=== PATIENT | female | born 1940 | race Caucasian/White ===

== ENCOUNTER 2016-09-11 16:00 | Inpatient (IN) | payer OTHER, MEDICARE ==
[~2016-09-11] VITALS: Ht 152.4 cm; Wt 59.0 kg
[~2016-09-11 16:00] MED LIST: ALBUTEROL2.5 MG/3 M INH/SOL; AMLODIPINE BESY10 M1 PO; ASPIRIN EC81 M1 PO; BENADRYL25 MG PO; CRESTOR20 M2 PO; FERROUS SULFAT325 M3 PO; LABETALOL HCL200 M1 PO; OMEPRAZOLE20 M2 PO; PERCOCET 5-3251 EACH PO; PROAIR HFA8.5 GM INH; SPIRIVA18 MCG INH; TYLENOL WITH C1 EACH PO; VITAMIN D31000 UNI1 PO; VITAMIN E100 UNI2 PO; XANAX0.5 M1 PO; ZYRTEC10 M3 PO
--- NOTE | 2016-09-11 16:13 | NUR ---
PT STATES SHE HAS HAD RECTAL BLEEDING SINCE YESTERDAY. PT HAS BEEN VOMITING AND HAD DIARRHEA SINCE YESTERDAY WITH BLOOD IN IT. PT STATES SHE HAS NEEDED BLOOD TRANSFUSIONS IN THE PAST FOR THIS VERY REASON.
--- NOTE | 2016-09-11 16:14 | NUR ---
PT DIAPHORETIC BROUGHT BACK TO ROOM 11 FROM TRIAGE
--- NOTE | 2016-09-11 16:18 | ED GI/GU/ABDOMINAL COMPLAINT ---
History of Present Illness General Chief Complaint: General Adult Stated Complaint: RECTAL BLEEDING SINCE YESTERDAY PER PT Source: patient, old records, friend Exam Limitations: clinical condition Vital Signs & Intake/Output Vital Signs & Intake/Output ED Intake and Output 09/22 0000 09/21 1200 Intake Total 320 Output Total 400 Balance -80 Intake, IV 200 Intake, Oral 120 Output, Urine 400 Allergies Coded Allergies: propoxyphene (UNKNOWN 09/29/15) Reconcile Medications Albuterol Sulfate (Proair Hfa) 8.5 GM HFA.AER.AD 2 PUF INH AD PRN RESPIRATORY (Reported) Albuterol Sulfate 2.5 MG/3 ML VIAL.NEB 1 Vial INH/QUINTON BID RESPIRATORY ( Reported) Alprazolam 0.5 MG TABLET 1 TAB PO TIDPRN PRN ANXIETY (Reported) Amlodipine Besylate 10 MG TABLET 1 TAB PO DAILY BP (Reported) Aspirin (Ecotrin*) 81 MG TABLET. 81 MG PO DAILY vascular / heart health start a baby aspirin daily, as per Benzonatate 100 MG CAPSULE 1 TAB PO TID COLD SYMPTOMS Ferrous Sulfate (Iron Supplement) 325 MG TABLET 1 TAB PO DAILY IRON DEF ANEMIA (Reported) Labetalol HCl 200 MG TABLET 1 TAB PO BID BP (Reported) Omeprazole 20 MG CAPSULE. 1 CAP PO DAILY PRN GERD (Reported) Prednisone 20 MG TABLET 2 TAB PO DAILY LUNG HEALTH Rosuvastatin Calcium (Crestor) 20 MG TABLET 1 TAB PO DAILY CHOLESTEROL ( Reported) Sertraline HCl 50 MG TABLET 1 TAB PO DAILY DEPRESSION Sodium Chloride (Deep Sea) 0.65 % SPRAY 2 SPRAY HARRY Q4P PRN CONGESTION Tiotropium [place] (Spiriva) 18 MCG CAP.W.DEV 1 CAP INH DAILY RESPIRATORY ( Reported) Tylenol With Codeine (Tylenol With Codeine #3 Tablet) 1 EACH TABLET 1-2 TAB PO Q4-6 PRN PRN PAIN take as directed. do not combine with tylenol. Triage Note: PT STATES SHE HAS HAD RECTAL BLEEDING SINCE YESTERDAY. PT HAS BEEN VOMITING AND HAD DIARRHEA SINCE YESTERDAY WITH BLOOD IN IT. PT STATES SHE HAS NEEDED BLOOD TRANSFUSIONS IN THE PAST FOR THIS VERY REASON. Triage Nurses Notes Reviewed? yes ? N Is pt currently ? No Onset: Abrupt Duration: day(s): (2) Timing: multiple episodes today Quality/Severity: severe Activities at Onset: none Prior Abdominal Problems: none No Modifying Factors: none Associated Symptoms: nausea/vomiting, rectal bleeding HPI: 76 year old female presents from home with moderate to severe distress. Reports bleeding in stool over last 2 days with blood mixed in with stool as well as with venessa blood clots. Also reports abdominal pain an dbloating. No fevers. Positive nausea and vomiting. Has not been able to tolerate PO. Friend states she got really bad today and brought her to the hospital. Patient is hypotensive, tachycardic, diaphoretic with clammy and mottled extremities. Past History Travel History Traveled to [place] past 21 day No Medical History Any Pertinent Medical History? see below for history Neurological: TIA EENT: NONE Cardiovascular: aortic aneurysm, CAD, hypertension, myocardial infarction, PVD Respiratory: bronchitis, COPD Gastrointestinal: GERD Hepatic: NONE Renal: NONE Musculoskeletal: NONE Psychiatric: NONE Endocrine: NONE Blood Disorders: NONE Cancer(s): NONE ATTEND[employer] S[employer] STORE/Reproductive: NONE History of MRSA: No History of VRE: No History of CDIFF: No Pneumonia Vaccine: 01/26/10 Surgical History Surgical History: Psychosocial History Who do you live with Spouse Services at Home Nursing What is your primary language French Tobacco Use: Current Daily Use Daily Tobacco Use Amount/Type: => 5 Cigarettes daily ETOH Use: denies use Illicit Drug Use: denies illicit drug use Family History Family History, If Any: MOTHER FH: CAD (coronary artery disease) Hx Contributory? No Review of Systems Review of Systems Constitutional: Denies: chills, fever. EENTM: Reports: no symptoms. Respiratory: Reports: no symptoms. Cardiovascular: Reports: no symptoms. GI: Reports: abdominal pain, bloating, constipation. Genitourinary: Reports: no symptoms. Musculoskeletal: Reports: no symptoms. Skin: Reports: no symptoms. Neurological/Psychological: Reports: anxiety. Hematologic/Endocrine: Denies: bleeding, polyuria, polydipsia. Immunologic/Allergic: Denies: splenectomy. All Other Systems: Reviewed and Negative Physical Exam Physical Exam General Appearance: alert, awake, anxious, severe distress Head: atraumatic Eyes: Bilateral: PERRL. Ears, Nose, Throat, Mouth: DRY MUCUS MEMBRANES Neck: normal inspection, supple, full range of motion Respiratory: normal breath sounds, chest non-tender, no respiratory distress Cardiovascular: tachycardia Peripheral Pulses: 1+ radial (R), 1+ radial (L) Gastrointestinal: soft, distention, tenderness (LUQ) Rectal: BROWN, GUIAC POSITIVE Back: normal inspection, normal range of motion Extremities: normal range of motion Neurologic/Psych: no motor/sensory deficits, awake, alert, oriented x 3 Skin: diaphoresis, pallor Core Measures ACS in differential dx? No Severe Sepsis Present: No Septic Shock Present: No Progress Differential Diagnosis: AAA, GI BLEED, AORTIC DISSECTION, A-E FISTULA, SBO, PERFORATION Plan of Care: Orders Procedure Date/time Status NGT 09/11 192 Active LACTIC ACID 09/11 192 Active BLOOD CULTURE 09/11 1746 Active Add-on Test (ER Only) 09/11 162 Active ARTERIAL BLOOD GAS (GEN) 09/11 162 Complete Gaitan, Insertion/Removal/Asses 09/11 162 Active CULTURE,URINE 09/11 162 Active LEUKOCYTE POOR (PACKED CELLS) 09/11 1625 Active EKG 09/11 162 Active Telemetry/Research And Development Chemist 09/11 1619 Active TROPONIN LEVEL 09/11 1619 Complete PARTIAL THROMBOPLASTIN TIME 09/11 1619 Complete PROTHROMBIN TIME 09/11 1619 Complete PHOSPHORUS 09/11 1619 Complete MAGNESIUM 09/11 1619 Complete LIPASE 09/11 1619 Complete LACTIC ACID 09/11 161 Complete COMPREHENSIVE METABOLIC PANEL 09/11 1619 Complete CREATINE PHOSPHOKINASE 09/11 1619 Complete CBC WITHOUT DIFFERENTIAL 09/11 1619 Complete TYPE & SCREEN (NOT X-MATCH) 09/11 161 Active Current Medications Sig/Ebenezer Start time Last Medication Dose Stop Time Status Admin Sodium Chloride 1,000 ML BOLUS ONE 09/11 1944 UNVr 09/11 (Normal Saline 0.9%) 09/11 Pantoprazole Sodium 40 MG Q5H 09/11 1729 UNVr 09/11 (Protonix) 1756 Sodium Chloride 100 ML (Normal Saline 0.9%) Laboratory Tests 09/11/16 192: Lactic Acid Pending 09/11/16 1635: Anion Gap 21 H, Estimated GFR 26 L, BUN/Creatinine Ratio 20.0, Glucose 182 H, Lactic Acid 4.5 H, Calcium 9.5, Phosphorus 7.0 H, Magnesium 2.2, Total Bilirubin 0.5, AST 31, ALT 26, Alkaline Phosphatase 67, Creatine Kinase 189 H, Troponin I 0.02, Total Protein 7.4, Albumin 4.4, Globulin 3.0, Albumin/Globulin Ratio 1.5, Lipase < 10 L, PT 13.8 H, INR 1.32 H, APTT 36, CBC w Diff MAN DIFF ORDERED, RBC 5.05, MCV 87.8, MCH 28.7, RDW 15.4 H, MPV 9.2, Gran % 82.7 H, Lymphocytes % 5.3 L, Monocytes % 11.8 H, Eosinophils % 0.1, Basophils % 0.1, Absolute Granulocytes 14.5 H, Segmented Neutrophils 52, Band Neutrophils 30 H, Absolute Lymphocytes 0.9 L, Lymphocytes 5 L, Monocytes 7, Absolute Monocytes 2.1 H, Absolute Eosinophils 0, Absolute Basophils 0, Metamyelocytes 6 H, Platelet Estimate ADEQUATE, Normocytic RBCs VERIFIED, Normochromic RBCs VERIFIED , PUBS MCHC 32.7 L 09/11/16 1623: Lactic Acid Cancelled Microbiology 09/11 1850 BLOOD: Blood Culture - RECD 09/11 1840 BLOOD: Blood Culture - RECD 09/11 1700 URINE ROUT: Urine Culture - RECD SBO ON CT SCAN. NGT ORDERED. 7:40 PM D/W DR TRAN. SURGICAL PA PAGED. D/W JENI. WILL EVALUTE IN ED. (LAURA ANDERSON,DEISY) Diagnostic Imaging: Viewed by Me: CT Scan. Discussed w/RAD: CT Scan. Radiology Impression: PATIENT: YONY SHETTY PRESENT AGE: 76 PATIENT ACCOUNT NO: [id number] : 41 LOCATION: [facility] ORDERING PHYSICIAN: DEISY SANCHEZ MD SERVICE DATE: 09/11/16 EXAM TYPE: CAT - CT ABD & PELVIS ANGIOGRAM Addendum: The IV injection for the study was 95 mL of Optiray 350. Addendum Signed by: JUNIOR CALIX MD 09/11/161916 EXAMINATION: CT ANGIOGRAM ABDOMEN AND PELVIS CLINICAL INFORMATION: 76-year-old female patient with history of infrarenal aortobiiliac stent graft. COMPARISON: CTA runoff exam on 12/07/2015. TECHNIQUE: A series of noncontrast enhanced axial scans were obtained followed by additional targeted axial scans for timing purposes. Multiple axial images were obtained through the abdomen and pelvis following the administration of 100 mL of Optiray 320 intravenous contrast. Images were reviewed on a dedicated 3-D workstation. DLP: 916 mGy-cm FINDINGS: Split Leather Department Supervisor view demonstrates high grade small bowel obstruction. VASCULAR: ABDOMINAL AORTA: The abdominal aorta is somewhat ectatic and contains calcified plaques in its supra renal portion. An aortobiiliac stent graft is in place. There is no sign of endoleak. The original stented distal abdominal aortic aneurysm measures 3.3 cm. Formally 5 cm. There is no evidence of aortoenteric fistula formation. MESENTERIC VESSELS: Again, calcified and noncalcified atherosclerotic disease is noted at the origin of the celiac axis with severe stenosis. The artery remains patent. Calcified atherosclerotic plaque at the origin of the SMA with moderate to severe narrowing. The artery maintains patency. 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 RENAL ARTERIES: Atherosclerotic disease involves both renal artery origins with calcified plaques worse on the left than right. Both arteries are patent. Perfusion of the kidneys is normal. ILIAC ARTERIES: Well patent. NONVASCULAR: Lung bases: The pericardial effusion is no smaller. Liver, gallbladder, and biliary tree: The multiple scattered arterially enhancing lesions throughout the liver parenchyma are not as well demonstrated due to the timing of the bolus. The largest in Couinaud segment 6/7 is 1.6 cm. The bile ducts and gallbladder are normal. Pancreas: Atrophic. Spleen: Unremarkable. Adrenal glands: Evidence of lesion in the right adrenal gland measures 1.7 cm in greatest diameter. Formally 1.7 cm. Kidneys, ureters, and bladder: The cortical nephrogram is symmetric in both kidneys. There is no stone formation or hydronephrosis. No significant mass lesion is detected. GI tract: The stomach is grossly dilated with fluid and fluid refluxes into the distal dilated esophagus. The duodenum is abnormally dilated and fluid-filled with some luminal compromise as it crosses the stent portion of the abdominal aorta. However, the proximal jejunum is abnormally dilated and fluid-filled with signs of "fecalization" of intraluminal contents representing stasis. The point of transition is about the level of the umbilicus. The ileum is normal in caliber. The colon is decompressed. The diverticulum arising from the rectosigmoid colon measures 2.9 cm in diameter contains air and debris Abdominal wall: Normal. Lymph nodes: Unremarkable. Pelvic viscera: Normal postmenopausal uterus. Small cyst in the right ovary. Osseous structures: Large Schmorl's node involving superior endplate of T11. IMPRESSION: 1. The [place] abdominal aortic aneurysm is smaller. 2. Aortobiiliac stent normal. No endoleak. No aorto enteric fistula. 3. Atherosclerosis of the mesenteric vessels and renal arteries. 4. Small bowel obstruction mid abdomen as described. 5. Right adrenal nodule. DICTATED BY: JUNIOR CALIX MD DATE/TIME DICTATED:09/11/161835 BRIDGE/STRUCTURE INSPECTION TEAM LEADER: DEBBIE DATE/TIME TRANSCRIBED:09/11/161835 CONFIDENTIAL, DO NOT COPY WITHOUT APPROPRIATE AUTHORIZATION. <Electronically signed in Other Vendor System> SIGNED BY: JUNIOR CALIX MD 09/11/161917 Initial ED EKG: AFIB, PVC Departure Departure Time of Disposition: 2038 Disposition: STILL A PATIENT Condition: Stable Clinical Impression Primary Impression: SBO (small bowel obstruction) Secondary Impressions: DANIEL (acute kidney injury), GI (gastrointestinal bleed), Lactic acidosis Referrals: ANAHI FELDMAN MD (PCP/Family) Departure Forms: Customer Survey General Discharge Information Prescriptions: Current Visit Scripts Benzonatate 1 TAB PO TID #30 TAB Sodium Chloride (Deep Sea) 2 SPRAY HARRY Q4P PRN CONGESTION #30 SPRAY Sertraline HCl 1 TAB PO DAILY #30 TAB Prednisone 2 TAB PO DAILY #30 TAB Admission Note Spoke With: CHELSEA ANDERSON,MAKAYLA Patel Documentation of Exam: Documentation of any treatments & extenuating circumstances including Concerns Regarding Discharge (functional status, medication knowledge or non-compliance, living conditions, etc.) that warrant an admission rather than observation: [ICU MONITOR, NGT, NPO, IV FLUID RESUSSCITATION, MONITOR I/O, POSSIBLE OPERATIVE MANAGEMENT, CRITICAL CARE CONSULT, MONITOR H/H] Critical Care Note Critical Care Note Critical Care Time: 75-104 min
--- NOTE | 2016-09-11 17:03 | NUR ---
URINE TRIO SENT BY THIS [facility], CLEAN CATCH DRAWN FROM [place].
[2016-09-11 17:06] LABS: ABSOLUTE BASOPHIL COUNT 0 /CUMM (0.0-0.2); ABSOLUTE EOSINOPHIL COUNT 0 /CUMM (0.0-0.7); ABSOLUTE GRANULOCYTE CT 14.5 /CUMM (1.4-6.5); ABSOLUTE LYMPH COUNT 0.9 /CUMM (1.2-3.4); ABSOLUTE MONOCYTE COUNT 2.1 /CUMM (0.10-0.60); BASOPHIL % 0.1 % (0.0-2.0); EOSINOPHIL % 0.1 % (0-5); GRANULOCYTE % 82.7 % (42.2-75.2); HEMATOCRIT 44.3 % (37-47); MEAN CORPUSCULAR HGB 28.7 PG (27.0-31.0); MEAN CORPUSCULAR HGB CONC 32.7 G/DL (33.0-37.0); MEAN CORPUSCULAR VOLUME 87.8 FL (81.0-99.0); MEAN PLATELET VOLUME 9.2 FL (7.4-10.4); PLATELET COUNT 237 /CUMM (130-400); RBC DISTRIBUTION WIDTH 15.4 % (11.5-14.5); RED BLOOD CELL CT 5.05 /CUMM (4.20-5.40); WHITE BLOOD CELL COUNT 17.5 /CUMM (4.8-10.8)
[2016-09-11 17:10] LABS: PT 13.8 SEC (9.4-12.5); PTT 36 SEC (25-37)
[2016-09-11] MEDS ORDERED: ALPRAZOLAM0.5 M4 PO (17:23)
--- NOTE | 2016-09-11 17:30 | NUR ---
PT REPORTS HAVING ABD PAIN AND DARK EMESIS. ALSO REPORTS HAVING BLOOD IN STOOL. PT WAS DIAPHORETIC AND PALE UPON ROOM PLACEMENT, ALERT AND ORIENTED.
--- NOTE | 2016-09-11 17:32 | RADIOLOGY REPORT ---
EXAMINATION: XR PORTABLE CHEST CLINICAL INFORMATION: GI bleed. Hypertensive. COMPARISON: Chest x-ray 10/09/2015 TECHNIQUE: Portable frontal view of the chest was obtained. FINDINGS: Enlarged cardiac silhouette. Lung volumes at the lower limits of normal. Linear densities adjacent to the right heart border and right lung base are most suggestive of subsegmental atelectasis. No definitive focal consolidation. No gross pleural effusion. IMPRESSION: Cardiomegaly without gross focal consolidation of the lungs.
--- NOTE | 2016-09-11 17:40 | NUR ---
CRITICAL TEST RESULTS [id number] YONY SHETTY 76 F TESTS AND RESULTS: LACTIC ACID 4.5 Results received and read back by: CORNEL LO Results received date and time: 09/11/16 1740 The following provider was notified of the results, and read the results back: DR SANCHEZ Notified date and time: 09/11/16 at 1740
--- NOTE | 2016-09-11 19:11 | Cons- Gastroenterology ---
General Information and HPI Consulting Request Date of Consult: 09/11/16 Requested By: CHELSEA ANDERSON, MAKAYLA Patel Reason for Consult: I was called by Dr. Villa of the [facility] at 5:05 p.m. (prior to labs & imaging studies coming back), to assess hypotension, rectal bleeding, nausea, vomiting & diarrhea, in a patient subsequently found to have SBO, being admitted to Dr. Reed's surgical service. Extensive records reviewed. (The patient was seen in the [facility], room #11; ICU hold- awaiting bed). 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 (repeatedly refusing PillCam), history of PUD, history of Fe deficiency anemia, multiple transfusions, HTN, HLD, COPD (55 pk yr cigarette smoker), remote EtOH abuse (stopped 1981), anxiety, ASHD, PVD, post 09/22/02: right CEA, 10/02/15: *endovascular AAA repair, history of TIA without residual defect ( right handed), x 2, DJD with chronic back pain & chronic headaches, on outpatient ASA 81 mg daily & Omeprazole 20 mg daily, without NSAIDs, who presented to the [facility] 09/11/16 at 4 p.m., initially complaining of 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 Initial BP 70/40, P 100, R 20, T 99, O2 sat 2l 98%. The patient is a poor historian, but later stated that she had intermittent diffuse abdominal pain for the past 1-2 weeks, independent of po intake, with some increased abdominal distention. She also had a few days of nausea and vomiting, contents varying from greenish bile to dark liquid, to partially digested food. There was no overt hematemesis. There was also some mild diarrhea, which seemed to have mostly subsided. She denied any recent antibiotics, raw food inggestion, point source, or recent travel. She noted decreased po intake for the past few days, as it was difficult to keep food down. Her BP normalized after an IV NS fluid bolus x 2L in the ER. Although the patient was afebrile in the ER, she had subjective fever and chills at home, although she did not check her temperature prior to arrival. She denied any symptoms of UTI or URI. Her appetite was mildly decreased. There was no definite weight loss. There was no definite early satiety. The patient claimed she had a solid bowel movement earlier today. There was no change in stool caliber, constipation, or tenesmus. There was no abdominal trauma. The patient was taking iron once a day. She denied any GERD (on PPI), odynophagia, or dysphagia. She denied any chest pain or increase of her mild baseline SOB, due to COPD. *Digital rectal exam in the ER by Dr. Villa showed empty vault with flecks of BRB. The patient has had an extensive previous GI workup by myself, but again, has * repeatedly refused outpatient PillCam. 02/16/03: H. pylori Ab- negative. : EGD/colonoscopy to TI (done for OB positive stool, microcytic anemia on Plavix then)-HP-negative gastritis, normal duodenal folds; left diverticulosis coli, hypertrophied anal papillae, with normal colonic mucosa to the TI. : normal Hgb electrophoresis (no beta thalassemia). 10/26/07: normal IgA 129. 10/27/07: elevated haptoglobin 282 (going against hemolysis), tTG Ab (IgA/IgG)- negative, normal fasting serum carotene 78. 10/27/07: EGD/colonoscopy to cecum- mild GERD without Diaz's esophagitis, small hiatal hernia, Z line at 38 cm, no Luis erosions, no varices. Prepyloric erosion with benign inflammation, H. pylori negative. Scarred yet patent pylorus, without any active peptic ulcer disease or gastric outlet obstruction. Duodenal biopsies- normal villi. Left- sided diverticulosis coli with normal colonic mucosa to the cecum. 03/16/09: EGD to the proximal jejunum with the pediatric colonoscope to 120 cm from above (done for recurrent Fe deficiency anemia & melena, on Pletal then)- pre-vocal cord leukoplakia, near the arytenoids (unsure if patient was compliant with suggested ENT follow-up), normal esophageal mucosa with Z line at 35 cm, biopsies- squamous mucosa with moderate GERD, without EOE or Diaz's esophagus. Small hiatal hernia, without any Luis erosions or varices. Diffuse gastritis, with biopsies- mild chronic gastritis, H. pylori negative. 7 mm x 5 mm prepyloric antral gastric ulcer, symmetrical, with radiating folds. No clot or visible vessel. No therapeutics. Direct biopsies deferred, as it was organizing. Patent pylorus, without gastric outlet obstruction. Nonbleeding gastric antral AVM, left intact without therapeutics. Scattered nonbleeding duodenal and jejunal AVMs, left intact without therapeutics. Normal caliber SB folds. The patient was last seen in covering GI consultation by Dr. Pinto on 05/25/10, for recurrent symptomatic anemia. 05/25/10: Push enteroscopy to jejunum with the pediatric colonoscope from above- 1 bleeding AVM at the lesser curvature of the stomach, BiCAP cautery, with cessation of bleed. 10 non- bleeding AVMs from the second portion of the duodenum to the distal jejunum, BiCAP cautery. *The patient again refused an outpatient PillCam. She has not been seen for GI since. She had since had the 10/02/15: endovascular repair of AAA, followed by readmission 10/09/15 - 10/12/15 for mechanical fall & confusion , followed by STR. The patient initially was reported to be pale and diaphoretic. The patient was subsequently found to have a stable HCT (although possibly hemoconcentrated), with leukocytosis, elevated lactate, & DANIEL. She was empirically put on a Protonix drip by the ER, plus Zofran, & was empirically given IV Ceftriaxone & Flagyl, to cover possible sepsis. *Admission CT was subsequently found to have SBO. *NT was placed in the ER, rapidly draining 1.6L of off-white liquid (no gross bile or blood seen from above). 09/11/16: BC x 2- pending 09/11/16: UC- pending 09/11/16: 4:35 p.m.- Admission labs- WBC 17.5 (52S/30B/5L/7M/6Meta), H/H 14.5/ 44.3, MCV 87.8, RDW 15.4, PLT 237, PT 13.8, INR 1.32, PTT 36, glucose 182, BUN/ Cr 38/1.9, GFR 26, Na 142, K 4.6, HCO3 19, AG 21, lactate 4.5, lipase < 10, Mg 2.2, Ca2+ 9.5, PO4 7.0, albumin 4.4, globulin 3.0, TBil 0.5, alk phos 67, AST 31 , ALT 26, CK 189, troponin 0.02 09/11/16: 7:22 p.m.- normal lactate 2.0 09/11/16: EKG- NSR @ 96, normal axis, 1st degree AVB ([place] .208), PRWP, flat T in L, without acute ischemic change. 09/11/16: XR PORTABLE CHEST- Cardiomegaly without gross focal consolidation of the lungs. 09/11/16: CT ABD & PELVIS ANGIOGRAM- 1. The [place] abdominal aortic aneurysm is smaller (3.3 cm, formally 5 cm preop) . 2. Aortobiiliac stent normal. No endoleak. No aorto enteric fistula. 3. 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 4. *Small bowel obstruction mid-abdomen as described, with grossly distended stomach, duodenum, & proximal jejunum (fecalization of intraluminal contents), with transition point near the umbilicus. Normal caliber ileum, with decompressed colon. 5. Diverticulosis coli. 6. Right adrenal nodule. Allergies/Medications Allergies: Coded Allergies: propoxyphene (UNKNOWN 09/29/15) Home Med List: Albuterol Sulfate (Proair Hfa) 8.5 GM HFA.AER.AD 2 PUF INH AD PRN RESPIRATORY (Reported) Albuterol Sulfate 2.5 MG/3 ML VIAL.NEB 1 Vial INH/QUINTON BID RESPIRATORY ( Reported) Alprazolam 0.5 MG TABLET ANXIETY (Reported) Amlodipine Besylate 10 MG TABLET 1 TAB PO DAILY BP (Reported) Aspirin (Ecotrin*) 81 MG TABLET. 81 MG PO DAILY vascular / heart health start a baby aspirin daily, as per Ferrous Sulfate (Iron Supplement) 325 MG TABLET 1 TAB PO DAILY IRON DEF ANEMIA (Reported) Labetalol HCl 200 MG TABLET 1 TAB PO BID BP (Reported) Omeprazole 20 MG CAPSULE. 1 CAP PO DAILY PRN GERD (Reported) Rosuvastatin Calcium (Crestor) 20 MG TABLET 1 TAB PO DAILY CHOLESTEROL ( Reported) Tiotropium [place] (Spiriva) 18 MCG CAP.W.DEV 1 CAP INH DAILY RESPIRATORY ( Reported) Tylenol With Codeine (Tylenol With Codeine #3 Tablet) 1 EACH TABLET 1-2 TAB PO Q4-6 PRN PRN PAIN take as directed. do not combine with tylenol. Current Medications: Current Medications Sig/Ebenezer Start time Last Medication Dose Route Stop Time Status Admin Ceftriaxone Sodium 0 .STK-MED ONE 09/11 1803 DC .ROUTE Ceftriaxone Sodium 1,000 MG ONCE ONE 09/11 1800 DC 09/11 IV 09/11 1801 1856 Metronidazole 500 MG ONCE ONE 09/11 1815 DC 09/11 N/A 1 UNIT IV 09/11 1914 1945 Ondansetron HCl 0 .STK-MED ONE 09/11 1639 DC .ROUTE Ondansetron HCl 4 MG ONCE ONE 09/11 1630 DC 09/11 IV 09/11 1631 1630 Pantoprazole Sodium 0 .STK-MED ONE 09/11 1750 DC IV Pantoprazole Sodium 40 MG Q5H 09/11 1730 DC 09/11 Sodium Chloride 100 ML IV 1756 Pantoprazole Sodium 0 .STK-MED ONE 09/11 1639 DC IV Pantoprazole Sodium 40 MG ONCE ONE 09/11 1630 DC 09/11 IV 09/11 1631 1630 Pantoprazole Sodium 0 .STK-MED ONE 09/11 1627 DC IV Sodium Chloride 1,000 ML BOLUS ONE 09/11 1945 DC 09/11 IV 09/11 2044 1947 Sodium Chloride 1,000 ML BOLUS ONE 09/11 1630 DC 09/11 IV 09/11 1729 1630 Sodium Chloride 1,000 ML BOLUS ONE 09/11 1630 DC 09/11 IV 09/11 1729 1630 Past History Travel History Traveled to [place] past 21 day No Medical History Blood Transfusion Hx: Yes Neurological: TIA EENT: NONE Cardiovascular: aortic aneurysm (10/02/15: endovascular repair), CAD, hypertension, hyperlipidemia, myocardial infarction, PVD (09/22/02: R CEA) Respiratory: bronchitis, COPD (55 pk yr smoker) Gastrointestinal: NONE (asx on PPI), GERD, peptic ulcer disease, diverticulosis coli, gastric & SB AVMs Hepatic: NONE Renal: NONE Musculoskeletal: degen joint disease, falls Psychiatric: anxiety Endocrine: vitamin D deficiency Blood Disorders: NONE (Fe def), anemia Cancer(s): NONE CHIROPRACTIC NEUROLOGIST/Reproductive: NONE Surgical History Surgical History: X 2, 09/22/02: R CEA 10/02/15: Endovascular repair of AAA Family History Relations & Conditions If Any: MOTHER, , Age 51; Cause: ASHD (arteriosclerotic heart disease). FH: CAD (coronary artery disease) FATHER, , Age 65; Cause: Arteriosclerotic heart disease (ASHD). Psychosocial History Where Do You Live? Home Who Do You Live With? self Services at Home: Nursing Primary Language: Jordanian Smoking Status: Current Everyday Smoker (55 pk yr cigarettes) ETOH Use: denies use (ex-EtOH abuse, D/C 1981) Illicit Drug Use: marijuana Living Will? no Power of Senior Physical Therapist/HCP? no Other Social History: 02/12/12. Lives alone. 55 pk yr cigarette smoker, currently < 1 ppd. Ex- EtOH abuse, stopped [address], except occasional marijuana. Retired from [employer]. The patient is 1 of 10 kids. (5 sisters & 2 bros- , from a variety of issues, including ASHD, MVA, construction accident, alcoholic cirrhosis). 2 sisters- [employer]. The patient had 2 children. 1 daughter- 40 , from alcoholic cirrhosis and possible hepatoma. 1 son in [place]- 49, alive, post EtOH abuse, Hep C. Functional Ability ADLs Independent: dressing, eating, toileting, bathing. Ambulation: independent IADLs Independent: shopping, housework, finances, food prep, telephone, medication admin. Needs Assist: transportation. 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 Review of Systems Constitutional: Reports: chills, fever, malaise. Denies: diaphoresis, weakness, unexplained weight loss. EENTM: Denies: blurred vision, double vision, visual changes, eye pain, eye drainage, eye tearing, icterus, ear discharge, ear pain, ear redness, hearing changes, nasal congestion, epistaxis, nasal pain, throat pain, throat swelling, mouth pain, tooth pain. Cardiovascular: Denies: chest pain, edema, orthopena, palpitations, peripheral edema, syncope. Respiratory: Reports: short of breath (mild SOB (COPD)). Denies: cough, hemoptysis, orthopnea, sputum production, stridor, wheezing. GI: Reports: abdominal pain, diarrhea, distention, nausea, bloody stool, vomiting. Denies: bloating, constipation, bowel incontinence, melena, changes in stool, steatorrhea. Genitourinary: Denies: discharge, dysuria, frequency, hematuria, hesitation, nocturia, pain, urgency. Musculoskeletal: Reports: back pain (chronic), joint pain (DJD). Denies: gout, joint swelling, muscle pain, muscle stiffness, neck pain. Skin: Denies: cysts, change in skin color, change in hair/nails, dryness, erythema, jaundice, lesions, lymphangitis, lumps, moles, rash. Neurological/Psychological: Reports: anxiety, emotional problems, headache (chronic). Denies: ataxia, cognitive dysfunction, confusion, depressed, dementia, numbness, paresthesia, pre-existing deficit, petit mal seizures, tingling, tremors, tonic-clonic seizures, unable to move lower ext, unable to move upper ext, weakness. Hematologic/Endocrine: Denies: bruising, bleeding, polyuria, polydipsia. Immunologic/Allergic: Denies: splenectomy, HIV/AIDS, lymphadenopathy. All Other Systems: Reviewed and Negative Exam & Diagnostic Data Vital Signs and I&O Vital Signs Date Time Temp Pulse Resp B/P B/P Pulse O2 O2 Flow FiO2 Mean Ox Delivery Rate 09/11 2049 98.9 86 20 122/58 96 Nasal 2.0L Cannula 09/11 1928 84 18 119/65 98 Nasal 2.0L Cannula 09/11 1855 87 20 134/67 98 Nasal 2.0L Cannula 09/11 1730 88 20 127/62 98 Nasal 2.0L Cannula 09/11 1704 98 Nasal 2.0L Cannula 09/11 170 99.0 95 20 130/63 98 Nasal 2.0L Cannula 09/11 1613 100 20 70/40 97 Room Air Physical Exam: Well-developed, well-nourished female, in mild distress. + NGT. Sclera anicteric. Conjunctiva pink. Oropharynx clear. Poor dentition. False uppers. No oral thrush. No aphthous ulcers. There is no adenopathy, thyromegaly, or JVD. No peripheral stigmata of inflammatory bowel disease or chronic liver disease on exam. No spiders on the anterior chest wall. No CVA tenderness. Breast & pelvic exams: API. Lungs: clear to A&P, without wheezing, rales, or rhonchi. Slightly prolonged expiratory phase. Heart exam: regular rate rhythm, S1 S2, I/ systolic murmur. Abdominal exam: hypoactive bowel sounds, moderately distended tympanitic belly, diffusely tender, more so in epigastrum & LUQ region, without guarding or rebound. No mass. No organomegaly. No definite fluid shift. No pulsatile mass. No epigastric bruit. Digital rectal exam: done in ER 09/11/[address] Villa- empty vault, with contents showing small amount oF BRB. No melena. Extremities: without C, C, or E. No palpable cords. No palmar erythema. No Dupuytren's contractures. Distal pulses 2+ bilaterally. DTRs 2+ bilaterally. Alert and oriented x 3. Right handed. CN II-XII intact. Motor 5/5 B/L. No tremor. No asterixis. A detailed exam for peripheral neuropathy was deferred. Results Pertinent Lab Results: Laboratory Tests 09/11 09/11 09/11 1922 1635 1623 Chemistry Sodium (137 - 145 mmol/L) 142 Potassium (3.5 - 5.1 mmol/L) 4.6 Chloride (98 - 107 mmol/L) 102 Carbon Dioxide (22 - 30 mmol/L) 19 L Anion Gap (5 - 16) 21 H BUN (7 - 17 mg/dL) 38 H Creatinine (0.5 - 1.0 mg/dL) 1.9 H Estimated GFR (>60 ml/min) 26 L BUN/Creatinine Ratio (7 - 25 %) 20.0 Glucose (65 - 99 mg/dL) 182 H Lactic Acid (0.7 - 2.1 mmol/L) 2.0 4.5 H Cancelled Calcium (8.4 - 10.2 mg/dL) 9.5 Phosphorus (2.5 - 4.5 mg/dL) 7.0 H Magnesium (1.6 - 2.3 mg/dL) 2.2 Total Bilirubin (0.2 - 1.3 mg/dL) 0.5 AST (14 - 36 U/L) 31 ALT (9 - 52 U/L) 26 Alkaline Phosphatase (<127 U/L) 67 Creatine Kinase (30 - 135 U/L) 189 H Troponin I (< 0.11 ng/ml) 0.02 Total Protein (6.3 - 8.2 g/dL) 7.4 Albumin (3.5 - 5.0 g/dL) 4.4 Globulin (1.9 - 4.2 gm/dL) 3.0 Albumin/Globulin Ratio (1.1 - 2.2 %) 1.5 Lipase (23 - 300 U/L) < 10 L Coagulation PT (9.4 - 12.5 SEC) 13.8 H INR (0.90 - 1.19) 1.32 H APTT (25 - 37 SEC) 36 Hematology CBC w Diff MAN DIFF ORDERED WBC (4.8 - 10.8 /CUMM) 17.5 H RBC (4.20 - 5.40 /CUMM) 5.05 Hgb (12.0 - 16.0 G/DL) 14.5 Hct (37 - 47 %) 44.3 MCV (81.0 - 99.0 FL) 87.8 MCH (27.0 - 31.0 PG) 28.7 RDW (11.5 - 14.5 %) 15.4 H Plt Count (130 - 400 /CUMM) 237 MPV (7.4 - 10.4 FL) 9.2 Gran % (42.2 - 75.2 %) 82.7 H Lymphocytes % (20.5 - 51.1 %) 5.3 L Monocytes % (1.7 - 9.3 %) 11.8 H Eosinophils % (0 - 5 %) 0.1 Basophils % (0.0 - 2.0 %) 0.1 Absolute Granulocytes (1.4 - 6.5 /CUMM) 14.5 H Segmented Neutrophils (42.2 - 75.2 %) 52 Band Neutrophils (0.0 - 5.0 %) 30 H Absolute Lymphocytes (1.2 - 3.4 /CUMM) 0.9 L Lymphocytes (20.5 - 51.1 %) 5 L Monocytes (1.7 - 9.3 %) 7 Absolute Monocytes (0.10 - 0.60 /CUMM) 2.1 H Absolute Eosinophils (0.0 - 0.7 /CUMM) 0 Absolute Basophils (0.0 - 0.2 /CUMM) 0 Metamyelocytes (0.0 - 1.0 %) 6 H Platelet Estimate (ADEQUATE) ADEQUATE Normocytic RBCs VERIFIED Normochromic RBCs VERIFIED PUBS MCHC (33.0 - 37.0 G/DL) 32.7 L Imaging/Other Studies: 09/11/16: EKG- NSR @ 96, normal axis, 1st degree AVB ([place] .208), PRWP, flat T in L, without acute ischemic change. 09/11/16: XR PORTABLE CHEST- Cardiomegaly without gross focal consolidation of the lungs. 09/11/16: CT ABD & PELVIS ANGIOGRAM- 1. The [place] abdominal aortic aneurysm is smaller (3.3 cm, formally 5 cm preop) . 2. Aortobiiliac stent normal. No endoleak. No aorto enteric fistula. 3. 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 4. *Small bowel obstruction mid-abdomen as described, with grossly distended stomach, duodenum, & proximal jejunum (fecalization of intraluminal contents), with transition point near the umbilicus. Normal caliber ileum, with decompressed colon. 5. Diverticulosis coli. 6. Right adrenal nodule. 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 (repeatedly refusing PillCam), history of PUD, history of Fe deficiency anemia, multiple transfusions, HTN, HLD, COPD (55 pk yr cigarette smoker), remote EtOH abuse (stopped 1981), anxiety, ASHD, PVD, post 09/22/02: right CEA, 10/02/15: *endovascular AAA repair, history of TIA without residual defect ( right handed), x 2, DJD with chronic back pain & chronic headaches, on outpatient ASA 81 mg daily & Omeprazole 20 mg daily, without NSAIDs, who presented to the [place] [facility] 09/11/16 at 4 p.m., initially complaining of 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 Initial BP 70/40, P 100, R 20, T 99, O2 sat 2l 98%. The patient is a poor historian, but later stated that she had intermittent diffuse abdominal pain for the past 1-2 weeks, independent of po intake, with some increased abdominal distention. She also had a few days of nausea and vomiting, contents varying from greenish bile to dark liquid, to partially digested food. There was no overt hematemesis. There was also some mild diarrhea, which seemed to have mostly subsided. She denied any recent antibiotics, raw food inggestion, point source, or recent travel. She noted decreased po intake for the past few days, as it was difficult to keep food down. Her BP normalized after an IV NS fluid bolus x 2L in the ER. Although the patient was afebrile in the ER, she had subjective fever and chills at home, although she did not check her temperature prior to arrival. She denied any symptoms of UTI or URI. Her appetite was mildly decreased. There was no definite weight loss. There was no definite early satiety. The patient claimed she had a solid bowel movement earlier today. There was no change in stool caliber, constipation, or tenesmus. There was no abdominal trauma. The patient was taking iron once a day. She denied any GERD (on PPI), odynophagia, or dysphagia. She denied any chest pain or increase of her mild baseline SOB, due to COPD. *Digital rectal exam in the ER by Dr. Villa showed empty vault with flecks of BRB. The patient has had an extensive previous GI workup by myself, but again, has * repeatedly refused outpatient PillCam. 02/16/03: H. pylori Ab- negative. : EGD/colonoscopy to TI (done for OB positive stool, microcytic anemia on Plavix then)-HP-negative gastritis, normal duodenal folds; left diverticulosis coli, hypertrophied anal papillae, with normal colonic mucosa to the TI. : normal Hgb electrophoresis (no beta thalassemia). 10/26/07: normal IgA 129. 10/27/07: elevated haptoglobin 282 (going against hemolysis), tTG Ab (IgA/IgG)- negative, normal fasting serum carotene 78. 07/15/08: EGD/colonoscopy to cecum- mild GERD without Diaz's esophagitis, small hiatal hernia, Z line at 38 cm, no Luis erosions, no varices. Prepyloric erosion with benign inflammation, H. pylori negative. Scarred yet patent pylorus, without any active peptic ulcer disease or gastric outlet obstruction. Duodenal biopsies- normal villi. Left- sided diverticulosis coli with normal colonic mucosa to the cecum. 03/16/09: EGD to the proximal jejunum with the pediatric colonoscope to 120 cm from above (done for recurrent Fe deficiency anemia & melena, on Pletal then)- pre-vocal cord leukoplakia, near the arytenoids (unsure if patient was compliant with suggested ENT follow-up), normal esophageal mucosa with Z line at 35 cm, biopsies- squamous mucosa with moderate GERD, without EOE or Diaz's esophagus. Small hiatal hernia, without any Luis erosions or varices. Diffuse gastritis, with biopsies- mild chronic gastritis, H. pylori negative. 7 mm x 5 mm prepyloric antral gastric ulcer, symmetrical, with radiating folds. No clot or visible vessel. No therapeutics. Direct biopsies deferred, as it was organizing. Patent pylorus, without gastric outlet obstruction. Nonbleeding gastric antral AVM, left intact without therapeutics. Scattered nonbleeding duodenal and jejunal AVMs, left intact without therapeutics. Normal caliber SB folds. The patient was last seen in covering GI consultation by Dr. Pinto on 05/25/10, for recurrent symptomatic anemia. 05/25/10: Push enteroscopy to jejunum with the pediatric colonoscope from above- 1 bleeding AVM at the lesser curvature of the stomach, BiCAP cautery, with cessation of bleed. 10 non- bleeding AVMs from the second portion of the duodenum to the distal jejunum, BiCAP cautery. *The patient again refused an outpatient PillCam. She has not been seen for GI since. She had since had the 10/02/15: endovascular repair of AAA, followed by readmission 10/09/15 - 10/12/15 for mechanical fall & confusion , followed by STR. The patient initially was reported to be pale and diaphoretic. The patient was subsequently found to have a stable HCT (although possibly hemoconcentrated), with leukocytosis, elevated lactate, & DANIEL. She was empirically put on a Protonix drip by the ER, plus Zofran, & was empirically given IV Ceftriaxone & Flagyl, to cover possible sepsis. *Admission CT was subsequently found to have SBO. *NT was placed in the ER, rapidly draining 1.6L of off-white liquid (no gross bile or blood seen from above). 09/11/16: BC x 2- pending 09/11/16: UC- pending 09/11/16: 4:35 p.m.- Admission labs- WBC 17.5 (52S/30B/5L/7M/6Meta), H/H 14.5/ 44.3, MCV 87.8, RDW 15.4, PLT 237, PT 13.8, INR 1.32, PTT 36, glucose 182, BUN/ Cr 38/1.9, GFR 26, Na 142, K 4.6, HCO3 19, AG 21, lactate 4.5, lipase < 10, Mg 2.2, Ca2+ 9.5, PO4 7.0, albumin 4.4, globulin 3.0, TBil 0.5, alk phos 67, AST 31 , ALT 26, CK 189, troponin 0.02 09/11/16: 7:22 p.m.- normal lactate 2.0 09/11/16: EKG- NSR @ 96, normal axis, 1st degree AVB ([place] .208), PRWP, flat T in L, without acute ischemic change. 09/11/16: XR PORTABLE CHEST- Cardiomegaly without gross focal consolidation of the lungs. 09/11/16: CT ABD & PELVIS ANGIOGRAM- 1. The [place] abdominal aortic aneurysm is smaller (3.3 cm, formally 5 cm preop) . 2. Aortobiiliac stent normal. No endoleak. No aorto enteric fistula. 3. 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 4. *Small bowel obstruction mid-abdomen as described, with grossly distended stomach, duodenum, & proximal jejunum (fecalization of intraluminal contents), with transition point near the umbilicus. Normal caliber ileum, with decompressed colon. 5. Diverticulosis coli. 6. Right adrenal nodule. *Clinically, the patient's major issue is SBO, probably from adhesions. She is a vasculopath with diffuse ASHD, but this does not seem to be her dominant issue. Similarly, although she is a little hemoconcentrated (stable HCT), clinically, her rectal bleeding after defecation is not her main issue, either. 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 Her hypotension seemed to have responded to IVF. CTA failed to reveal any aorto-enteric fistlua. Her leukocytosis may be from dehydration, rule out sepsis. The nausea, vomiting, & scant diarrhea could have represented a gastroenteritis vs. signs of SBO. Her DANIEL may have been pre-renal. SUGGEST: Admit to ICU to surgical service. NPO for now. IVF. Strict I/O's. O2 p.r.n. NGT to low gomco suction. Serial abdominal exams. Serial abdominal X rays. Follow-up CBC, electrolytes, & GFR after IVF. Check urine lytes & FENa. May switch IV Protonix drip to Protonix 40 mg IV daily. Zofran as needed. Follow-up cultures. Empiric Ceftriaxone & Flagyl for now. Check stool C&S, Shiga toxin, & C. difficile. Consideration for vascular input regarding diffuse ASHD on CTA abdomen. DVT prophylaxis. D/C cigarettes. I anticipate carefully resuming Baby ASA 81 mg daily within the next couple of days, if she remains stable. At the moment, in view of the SBO, I have no plans for endoscopic/colonoscopic work up of the apparent mild GI bleed, unless her clinical status changes & she actively bleeds. An outpatient colonoscopy will be contemplated, regarding the rectal bleeding, as this was last done 10/27/07. I would also advise IV Mucomyst regarding her low GFR, post IV contrast. Further GI recommendations to follow, depending on clinical course. 1 hour of ICU care was spent on the patient. Problem List: 1. Hypotension 2. Nausea and vomiting 3. Diarrhea 4. Rectal bleeding 5. Small bowel obstruction 6. Lactic acidosis 7. S/P AAA (abdominal aortic aneurysm) repair 8. Angiodysplasia of intestinal tract 9. History of peptic ulcer Copies To: LAURA ANDERSON,DEISY; FRANCIA ANDERSON,ANAHI Trejo; KIRAN ANDERSONLexie; SUJEY ANDERSON,AN; CHELSEA ANDERSON,MAKAYLA Patel Consult Acknowledgment - Thank you for your consult request.
--- NOTE | 2016-09-11 19:18 | CT SCAN REPORT ---
EXAMINATION: CT ANGIOGRAM ABDOMEN AND PELVIS CLINICAL INFORMATION: 76-year-old female patient with history of infrarenal aortobiiliac stent graft. COMPARISON: CTA runoff exam on 12/07/2015. TECHNIQUE: A series of noncontrast enhanced axial scans were obtained followed by additional targeted axial scans for timing purposes. Multiple axial images were obtained through the abdomen and pelvis following the administration of 100 mL of Optiray 320 intravenous contrast. Images were reviewed on a dedicated 3-D workstation. DLP: 916 mGy-cm FINDINGS: Call Center Nurse view demonstrates high grade small bowel obstruction. VASCULAR: ABDOMINAL AORTA: The abdominal aorta is somewhat ectatic and contains calcified plaques in its supra renal portion. An aortobiiliac stent graft is in place. There is no sign of endoleak. The original stented distal abdominal aortic aneurysm measures 3.3 cm. Formally 5 cm. There is no evidence of aortoenteric fistula formation. MESENTERIC VESSELS: Again, calcified and noncalcified atherosclerotic disease is noted at the origin of the celiac axis with severe stenosis. The artery remains patent. Calcified atherosclerotic plaque at the origin of the SMA with moderate to severe narrowing. The artery maintains patency. 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 RENAL ARTERIES: Atherosclerotic disease involves both renal artery origins with calcified plaques worse on the left than right. Both arteries are patent. Perfusion of the kidneys is normal. ILIAC ARTERIES: Well patent. NONVASCULAR: Lung bases: The pericardial effusion is no smaller. Liver, gallbladder, and biliary tree: The multiple scattered arterially enhancing lesions throughout the liver parenchyma are not as well demonstrated due to the timing of the bolus. The largest in [place] segment 6/7 is 1.6 cm. The bile ducts and gallbladder are normal. Pancreas: Atrophic. Spleen: Unremarkable. Adrenal glands: Evidence of lesion in the right adrenal gland measures 1.7 cm in greatest diameter. Formally 1.7 cm. Kidneys, ureters, and bladder: The cortical nephrogram is symmetric in both kidneys. There is no stone formation or hydronephrosis. No significant mass lesion is detected. GI tract: The stomach is grossly dilated with fluid and fluid refluxes into the distal dilated esophagus. The duodenum is abnormally dilated and fluid-filled with some luminal compromise as it crosses the stent portion of the abdominal aorta. However, the proximal jejunum is abnormally dilated and fluid-filled with signs of "fecalization" of intraluminal contents representing stasis. The point of transition is about the level of the umbilicus. The ileum is normal in caliber. The colon is decompressed. The diverticulum arising from the rectosigmoid colon measures 2.9 cm in diameter contains air and debris Abdominal wall: Normal. Lymph nodes: Unremarkable. Pelvic viscera: Normal postmenopausal uterus. Small cyst in the right ovary. Osseous structures: Large Schmorl's node involving superior endplate of T11. IMPRESSION: 1. The [place] abdominal aortic aneurysm is smaller. 2. Aortobiiliac stent normal. No endoleak. No aorto enteric fistula. 3. Atherosclerosis of the mesenteric vessels and renal arteries. 4. Small bowel obstruction mid abdomen as described. 5. Right adrenal nodule.
--- NOTE | 2016-09-11 19:20 | NUR ---
ASSUMED CARE FROM RU CHRISTIAN
--- NOTE | 2016-09-11 19:29 | NUR ---
PT A/O X4. RESP UNLABORED. SKIN WARM AND DRY. NSR ON THE MONITOR. PT HAS NO COMPLAINTS AT THIS TIME. FAMILY AT BEDSIDE. Informed waiting has been performed.
--- NOTE | 2016-09-11 20:16 | NUR ---
NG TUBE INSERTED. 800 ML OF GASTRIC OUTPUT. PT TOLERTED WELL
--- NOTE | 2016-09-11 20:24 | NUR ---
SURGICAL PA AT BEDSIDE
--- NOTE | 2016-09-11 20:32 | NUR ---
CRITICAL TEST RESULTS [id number] YONY SHETTY 76 F TESTS AND RESULTS: LACTIC 2.0 Results received and read back by: DEDRICK CUMMINGS Results received date and time: 09/11/162032 The following provider was notified of the results, and read the results back: LAURA ANDERSON Notified date and time: 09/11/16 at 2032
--- NOTE | 2016-09-11 21:31 | NUR ---
PT A/O X4. RESP UNLABORED. SKIN WARM AND DRY. NSR ON THE MONITOR. VSS. PT APPEARS TO BE RESTING COMFORTABLY. NO APPARNT DISTRESS. WILL CONTINUE TO MONITOR
--- NOTE | 2016-09-11 21:40 | RADIOLOGY REPORT ---
EXAMINATION: XR PORTABLE CHEST CLINICAL INFORMATION: Nasogastric tube placement COMPARISON: Chest x-ray 09/11/2016 TECHNIQUE: Portable frontal view of the chest was obtained. 9:11 PM FINDINGS: Nasogastric tube in stomach. Heart size is enlarged. No pulmonary vascular congestion. Lungs are clear. No pleural effusion or pneumothorax. IMPRESSION: Nasogastric tube in stomach.
--- NOTE | 2016-09-11 22:09 | NUR ---
PT IS GOING TO 102-1
--- NOTE | 2016-09-11 22:29 | NUR ---
PT APPEARS TO BE RESTING COMFORTABLY. PT A/O X4. RESP UNLABORED. NSR ON THE MONITOR. VSS. WILL CONTINUE TO MONITOR
--- NOTE | 2016-09-11 22:54 | History & Physical Pre-Op ---
General Information and HPI Source of Information: patient, old records, friend (Meena & Sharon) Exam Limitations: poor historian History of Present Illness: 76YO WOMAN WITH THREE WEEKS OF PROGRESSIVE DISTENSION. OVER PAST TWO DAYS IT HAS BECOME WORSE WITH NAUSEA, VOMITING AND DIARRHEA AND SEVERE PERIUMBILICAL ABDOMINAL PAIN. NOW WITHOUT BOWEL FUNCTION. CT PERFORMED AND SHOWED FINDING CONCERNING FOR INTESTINAL OBSTRUCTION. NASOGASTRIC TUBE PLACED WITH 1.5L OUTPUT. SHE WAS INITIALLY HYPOTENSIVE AND IN ACUTE RENAL FAILURE. SHE RESPONDED TO 2L NS BOLUS. NOW RESTING COMFORTABLY BUT STILL WITH PERIUMBILICAL PAIN. Allergies/Medications Allergies: Coded Allergies: propoxyphene (UNKNOWN 09/29/15) Home Med list Albuterol Sulfate (Proair Hfa) 8.5 GM HFA.AER.AD 2 PUF INH AD PRN RESPIRATORY (Reported) Albuterol Sulfate 2.5 MG/3 ML VIAL.NEB 1 Vial INH/[place] BID RESPIRATORY ( Reported) Alprazolam 0.5 MG TABLET ANXIETY (Reported) Amlodipine Besylate 10 MG TABLET 1 TAB PO DAILY BP (Reported) Aspirin (Ecotrin*) 81 MG TABLET. 81 MG PO DAILY vascular / heart health start a baby aspirin daily, as per Ferrous Sulfate (Iron Supplement) 325 MG TABLET 1 TAB PO DAILY IRON DEF ANEMIA (Reported) Labetalol HCl 200 MG TABLET 1 TAB PO BID BP (Reported) Omeprazole 20 MG CAPSULE. 1 CAP PO DAILY PRN GERD (Reported) Rosuvastatin Calcium (Crestor) 20 MG TABLET 1 TAB PO DAILY CHOLESTEROL ( Reported) Tiotropium [place] (Spiriva) 18 MCG CAP.W.DEV 1 CAP INH DAILY RESPIRATORY ( Reported) Tylenol With Codeine (Tylenol With Codeine #3 Tablet) 1 EACH TABLET 1-2 TAB PO Q4-6 PRN PRN PAIN take as directed. do not combine with tylenol. Past History Medical History Neurological: TIA EENT: NONE Cardiovascular: aortic aneurysm, CAD, hypertension, myocardial infarction, PVD Respiratory: bronchitis, COPD Gastrointestinal: GERD Hepatic: NONE Renal: NONE Musculoskeletal: NONE Psychiatric: NONE Endocrine: NONE Blood Disorders: NONE Cancer(s): NONE DIRECTOR SPEECH AND HEARING/Reproductive: NONE History of MRSA: No History of VRE: No History of CDIFF: No Pneumonia Vaccine: 01/26/10 Surgical History Pertinent Surgical History: , ENDOVASCULAR AAA REPAIR Past Family/Social History Family History Relations & Conditions if any MOTHER, , Age 51; Cause: ASHD (arteriosclerotic heart disease). FH: CAD (coronary artery disease) FATHER, , Age 65; Cause: Arteriosclerotic heart disease (ASHD). Psychosocial History Who Do You Live With? self Services at Home Nursing Primary Language: [place]uran ETOH Use: denies use Illicit Drug Use: denies illicit drug use Functional Ability ADLs Independent: dressing, eating, toileting, bathing. Ambulation: independent IADLs Independent: shopping, housework, finances, food prep, telephone, medication admin. Needs Assist: transportation. Review of Systems Review of Systems: ABDOMINAL PAIN, N/V/D. PER HPI. NO CHEST PAIN OR DYSPNEA. ?BLOOD IN STOOL. REMAINDER 12 NEG Exam & Diagnostic Data Last 24 Hrs of Vital Signs/I&O Vital Signs Date Time Temp Pulse Resp B/P B/P Pulse O2 O2 Flow FiO2 Mean Ox Delivery Rate 09/12 2147 89 18 137/60 96 Nasal 2.0L Cannula 09/11 2049 98.9 86 20 122/58 96 Nasal 2.0L Cannula 09/11 1928 84 18 119/65 98 Nasal 2.0L Cannula 09/11 1855 87 20 134/67 98 Nasal 2.0L Cannula 09/11 1730 88 20 127/62 98 Nasal 2.0L Cannula 09/11 1704 98 Nasal 2.0L Cannula 09/11 1700 99.0 95 20 130/63 98 Nasal 2.0L Cannula 09/11 1613 100 20 70/40 97 Room Air Physical Exam: GEN; NAD. LOOKS AGE. A/O X 3 HEENT; ANICTUERIC, DENTURES, DRY MM. NECKP; SUPPLE WITHOUT ADENOPATHY. NO JVD ABD; SOFT, TENDER PERIUMBILICAL WITHOUT GUARDING. TYMPANY. NO MASS OR HERNIA EXT NO C/C/E Last 24 Hrs of Labs/Sean: Laboratory Tests 09/11/161921: Lactic Acid 2.0 09/11/16 163: Anion Gap 21 H, Estimated GFR 26 L, BUN/Creatinine Ratio 20.0, Glucose 182 H, Lactic Acid 4.5 H, Calcium 9.5, Phosphorus 7.0 H, Magnesium 2.2, Total Bilirubin 0.5, AST 31, ALT 26, Alkaline Phosphatase 67, Creatine Kinase 189 H, Troponin I 0.02, Total Protein 7.4, Albumin 4.4, Globulin 3.0, Albumin/Globulin Ratio 1.5, Lipase < 10 L, PT 13.8 H, INR 1.32 H, APTT 36, CBC w Diff MAN DIFF ORDERED, RBC 5.05, MCV 87.8, MCH 28.7, RDW 15.4 H, MPV 9.2, Gran % 82.7 H, Lymphocytes % 5.3 L, Monocytes % 11.8 H, Eosinophils % 0.1, Basophils % 0.1, Absolute Granulocytes 14.5 H, Segmented Neutrophils 52, Band Neutrophils 30 H, Absolute Lymphocytes 0.9 L, Lymphocytes 5 L, Monocytes 7, Absolute Monocytes 2.1 H, Absolute Eosinophils 0, Absolute Basophils 0, Metamyelocytes 6 H, Platelet Estimate ADEQUATE, Normocytic RBCs VERIFIED, Normochromic RBCs VERIFIED , PUBS MCHC 32.7 L 09/11/16 1623: Lactic Acid Cancelled Microbiology 09/11 1850 BLOOD: Blood Culture - RECD 09/11 1840 BLOOD: Blood Culture - RECD 09/11 1700 URINE ROUT: Urine Culture - RECD Diagnostic Data Other Results CT scan of the abdomen pelvis personally reviewed. The finding showed massively dilated stomach with dilated small bowel loops and air-fluid levels. There is decompressed terminal ileum emanating from the pelvis. There is perfusion of the bowel loops. Assessment/Plan Assessment/Plan: 76-year-old woman with atypical presentation for intestinal obstruction. Findings on CT scan are consistent with SBO however her prodrome of nausea vomiting diarrhea is unusual. Nevertheless she had pretty significant distention of her small bowel and stomach. Nasogastric decompression will be undertaken. There are no peritoneal findings to suggest a threatened loop of small bowel. Therefore medical management can be undertaken with serial abdominal examinations, bowel rest, NG tube, and hydration. She has acute renal failure likely related to severe dehydration. She has responded with normal saline resuscitation. Given the IV contrast load that was administered for her CT angiogram, she is at higher risk for contrast nephropathy. Aggressive hydration will be undertaken in the short-term. As Ranked By This Provider Problem List: 1. Small bowel obstruction
--- NOTE | 2016-09-12 00:11 | Cons- Medical ---
RADHA GARCIA 09/11/16 2324: General Information and HPI Consulting Request Date of Consult: 09/11/16 Requested By: CHELSEA ANDERSON,MAKAYLA Patel Reason for Consult: Small bowel obstruction Source of Information: patient, old records Exam Limitations: no limitations History of Present Illness: Patient is a 76-year-old female with past medical history of coronary artery disease, COPD, hypertension, hyperlipidemia, PUD, severe PVD, AAA status post endovascular repair, AV malformations(refusing PillCam's), anxiety, smoker(55 pack smoking history) who presented to the ER with a chief complaint of blood in stools and abdominal distention for the past 3 weeks. Patient states that for the past 3 weeks she has been having abdominal distention which has become worse over the past few days with increasing nausea, vomiting, diarrhea and abdominal pain. The pain was diffuse, intermittent for the past 1-2 weeks. She has had a poor oral intake and also has been nauseous vomiting up dark liquid. She reported having bright red blood per rectum for the past 2 days along with some diarrhea. Denies any recent use of antibiotics, recent travel,, chest pain, palpitations, urinary symptoms. Reports some fever, chills, nausea, and decrease in appetite. No weight loss, dysphagia, odynophagia. In the ED she was initially tachycardic to 100s, and hypotensive to 70/30. She was pale and diaphoretic. She was aggressively resuscitated with IV fluids. With improvement in the blood pressure. Labs showed White count of 17.5 with 30 bands, normal sodium, normal potassium, anion gap of 21, BUN 38, creatinine 1.9 (baseline 0.7), lactic acid 4.5 (now normalized to 2 ),creatinine kinase 189, Normal LFTs, troponin 0.02 EKG: SR 96BPM, 1 st degree AV block. Digital rectal exam in the ER showed empty vault with flecks of BRB. CT abdomen and pelvis : Showed small bowel obstruction( The duodenum is abnormally dilated and fluid-filled with some luminal compromise as it crosses the stent portion of the abdominal aorta. However, the proximal jejunum is abnormally dilated and fluid- filled with signs of "fecalization" of intraluminal contents representing stasis) Allergies/Medications Allergies: Coded Allergies: propoxyphene (UNKNOWN 09/29/15) Home Med List: Albuterol Sulfate (Proair Hfa) 8.5 GM HFA.AER.AD 2 PUF INH AD PRN RESPIRATORY (Reported) Albuterol Sulfate 2.5 MG/3 ML VIAL.NEB 1 Vial INH/[place] BID RESPIRATORY ( Reported) Alprazolam 0.5 MG TABLET ANXIETY (Reported) Amlodipine Besylate 10 MG TABLET 1 TAB PO DAILY BP (Reported) Aspirin (Ecotrin*) 81 MG TABLET. 81 MG PO DAILY vascular / heart health start a baby aspirin daily, as per Ferrous Sulfate (Iron Supplement) 325 MG TABLET 1 TAB PO DAILY IRON DEF ANEMIA (Reported) Labetalol HCl 200 MG TABLET 1 TAB PO BID BP (Reported) Omeprazole 20 MG CAPSULE. 1 CAP PO DAILY PRN GERD (Reported) Rosuvastatin Calcium (Crestor) 20 MG TABLET 1 TAB PO DAILY CHOLESTEROL ( Reported) Tiotropium [place] (Spiriva) 18 MCG CAP.W.DEV 1 CAP INH DAILY RESPIRATORY ( Reported) Tylenol With Codeine (Tylenol With Codeine #3 Tablet) 1 EACH TABLET 1-2 TAB PO Q4-6 PRN PRN PAIN take as directed. do not combine with tylenol. Review of Systems Review of Systems Constitutional: Reports: chills, fever, malaise, weakness. EENTM: Reports: no symptoms. Cardiovascular: Reports: no symptoms. Respiratory: Reports: no symptoms. GI: Reports: abdominal pain, bloating, diarrhea, distention, bloody stool. Genitourinary: Reports: no symptoms. Musculoskeletal: Reports: no symptoms. Skin: Reports: no symptoms. Past History Travel History Traveled to [place] past 21 day No Medical History Blood Transfusion Hx: Yes Neurological: TIA EENT: NONE Cardiovascular: aortic aneurysm (10/02/15: endovascular repair), CAD, hypertension, hyperlipidemia, myocardial infarction, PVD (09/22/02: R CEA) Respiratory: bronchitis, COPD (55 pk yr smoker) Gastrointestinal: NONE (asx on PPI), GERD, peptic ulcer disease, diverticulosis coli gastric & SB AVMs Hepatic: NONE Renal: NONE Musculoskeletal: degen joint disease, falls Psychiatric: anxiety Endocrine: vitamin D deficiency Blood Disorders: NONE (Fe def), anemia Cancer(s): NONE PC 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 FH: CAD (coronary artery disease) FATHER, , Age 65; Cause: Arteriosclerotic heart disease (ASHD). Psychosocial History Where Do You Live? Home Who Do You Live With? 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 no Power of Observer Electrical Prospecting/HCP? no Other Social History: 02/12/12. Lives alone. 55 pk yr cigarette smoker, currently < 1 ppd. Ex-EtOH abuse, stopped [address] drugs, except occasional marijuana. Retired from [employer]. The patient is 1 of 10 kids. (5 sisters & 2 bros- , from a variety of issues, including ASHD, MVA, construction accident, alcoholic cirrhosis). 2 sisters- [employer]. The patient had 2 children. 1 daughter- 40, from alcoholic cirrhosis and possible hepatoma. 1 son in [facility] 49, alive, post EtOH abuse, Hep C. Functional Ability ADLs Independent: dressing, eating, toileting, bathing. Ambulation: independent IADLs Independent: shopping, housework, finances, food prep, telephone, medication admin. Needs Assist: transportation. 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 ECHO Results (as available) Date of last Echo 10/26/07 EF% 69 Exam & Diagnostic Data Last 24 Hrs of Vital Signs/I&O Vital Signs Date Time Temp Pulse Resp B/P B/P Pulse O2 O2 Flow FiO2 Mean Ox Delivery Rate 09/12 0018 97.2 98 18 145/75 97 09/11 2250 97.9 93 18 127/88 96 Nasal 2.0L Cannula 09/118 89 18 137/60 96 Nasal 2.0L Cannula 09/11 2049 98.9 86 20 122/58 96 Nasal 2.0L Cannula 09/11 1928 84 18 119/65 98 Nasal 2.0L Cannula 09/11 1855 87 20 134/67 98 Nasal 2.0L Cannula 09/11 1730 88 20 127/62 98 Nasal 2.0L Cannula 09/11 1704 98 Nasal 2.0L Cannula 09/11 1700 99.0 95 20 130/63 98 Nasal 2.0L Cannula 09/11 1613 100 20 70/40 97 Room Air Intake & Output 09/12 0800 09/12 0000 09/11 1600 Intake Total 3000 Output Total 1600 Balance 1400 Intake, IV 3000 Output, 1600 Gastric Drainage Patient 58.967 kg Weight Weight Estimated Measurement Method Physical Exam General Appearance: well developed/nourished, no apparent distress, alert, awake , comfortable Head: atraumatic, normal appearance, dry mucous membranes, dentures Eyes: Bilateral: PERRL, EOMI. Ears, Nose, Throat: ng tube Neck: normal inspection, supple, full range of motion Respiratory: normal breath sounds, chest non-tender Cardiovascular: regular rate/rhythm Gastrointestinal: diffuse tenderness, hypoactive bowel sounds, distended, tympanitinic Rectal: blood streaked stool Back: normal inspection Extremities: normal inspection, normal capillary refill Neurologic/Psych: no motor/sensory deficits, awake, alert, oriented x 3 Last 24 Hrs of Labs/Sean: Laboratory Tests 09/11/16 1922: Lactic Acid 2.0 09/11/16 1635: Anion Gap 21 H, Estimated GFR 26 L, BUN/Creatinine Ratio 20.0, Glucose 182 H, Lactic Acid 4.5 H, Calcium 9.5, Phosphorus 7.0 H, Magnesium 2.2, Total Bilirubin 0.5, AST 31, ALT 26, Alkaline Phosphatase 67, Creatine Kinase 189 H, Troponin I 0.02, Total Protein 7.4, Albumin 4.4, Globulin 3.0, Albumin/Globulin Ratio 1.5, Lipase < 10 L, PT 13.8 H, INR 1.32 H, APTT 36, CBC w Diff MAN DIFF ORDERED, RBC 5.05, MCV 87.8, MCH 28.7, RDW 15.4 H, MPV 9.2, Gran % 82.7 H, Lymphocytes % 5.3 L, Monocytes % 11.8 H, Eosinophils % 0.1, Basophils % 0.1, Absolute Granulocytes 14.5 H, Segmented Neutrophils 52, Band Neutrophils 30 H, Absolute Lymphocytes 0.9 L, Lymphocytes 5 L, Monocytes 7, Absolute Monocytes 2.1 H, Absolute Eosinophils 0, Absolute Basophils 0, Metamyelocytes 6 H, Platelet Estimate ADEQUATE, Normocytic RBCs VERIFIED, Normochromic RBCs VERIFIED , PUBS MCHC 32.7 L 09/11/16 1623: Lactic Acid Cancelled Assessment/Plan Assessment/Plan Patient is a 76-year-old female with past medical history of coronary artery disease, COPD, hypertension, hyperlipidemia, PUD, severe PVD, AAA status post endovascular repair, AV malformations(refusing PillCam's), anxiety, smoker(55 pack smoking history) who presented to the ER with a chief complaint of blood in stools and abdominal distention for the past 3 weeks. In the ED she was initially tachycardic to 100s, and hypotensive to 70/30. She was pale and diaphoretic. Labs showed White count of 17.5 with 30 bands, normal sodium, normal potassium, anion gap of 21, BUN 38, creatinine 1.9 (baseline 0.7), lactic acid 4.5 (now normalized to 2 ),creatinine kinase 189, Normal LFTs, troponin 0.02 EKG: SR 96BPM, 1 st degree AV block. Digital rectal exam in the ER showed empty vault with flecks of BRB. CT abdomen and pelvis : Showed small bowel obstruction( The duodenum is abnormally dilated and fluid-filled with some luminal compromise as it crosses the stent portion of the abdominal aorta. However, the proximal jejunum is abnormally dilated and fluid- filled with signs of "fecalization" of intraluminal contents representing stasis) Assessment * Sepsis secondary to small bowel obstruction * Small bowel obstruction * Bright red blood per rectum due to questionable AV malformations * COPD * Coronary artery disease * Smoker * Nausea and vomiting Plan: * Admission to ICU under surgical service for close monitoring * Nothing by mouth for now * Maintained 2 wide bore for IVs * Transfuse to keep hemoglobin level above 8 * Hydration with IV fluids at 100 mL an hour * IV Protonix 40 mg daily * IV Zofran as needed * Continue NG tube for gastric decompression. * IV ceftriaxone and IV Flagyl * Serial abdominal exams and x-rays * Follow up blood and urine cultures * Check stool ova and parasite, Shiga toxin and C. difficile * No plans of endoscopic/colonoscopy intervention per GI. * Hold blood pressure medications amlodipine and labetalol for now. * Hold aspirin for now. Consult GI before restarting * Follow-up GI recommendations * We'll continue conservative treatment for now if the patient is improved by a.m. she can be transferred to the floor. * Intervention if needed is as per surgery * DVT prophylaxis Alps Problem List: 1. Small bowel obstruction 2. Diarrhea 3. Nausea and vomiting 4. Hypotension 5. Lactic acidosis 6. DANIEL (acute kidney injury) Consult Acknowledgment - Thank you for your consult request. NITIN ELIAS 09/12/16 0159: Assessment/Plan Consult Acknowledgment - Thank you for your consult request. Attending MD Review Statement Attending Statement Attending MD Statement: examined this patient, discuss w/resident/PA/BUS CLEANER, agreed w/resident/PA/BUS CLEANER, discussed with family, reviewed EMR data (avail), reviewed images, amended to note Attending Assessment/Plan: CC : medical consult PMH: CAD, COPD, HTN, HLD, PVD, AAA S/P repair, current smoker Patient came to ER for rectal bleeding since one day. In the triage, patient was found to be hypotensive and mottled requiring aggressive IV fluid resuscitation. Upon further questioning patient states that she had abdominal discomfort since last 2-3 weeks, last one week abdominal pain was worsening, she also noticed nausea multiple vomiting. Then patient noticed multiple bowel movements with bright red blood intermixed in stools without dark colored stools. Upon further evaluation in ER patient was found to have small bowel obstruction. Surgical team was consulted who asked for medical consultation. Patient currently has NG tube, does not talk much and is a poor historian. No other complaints than abdominal pain. Vitals: T max 99.0, pulse 100, respiration 20, blood pressure upon arrival 70/40 improved to 130/63, saturating well on room air. On examination: A O 3, cooperative, moderate distress, neck supple, JVD normal, no lymphadenopathy, mucosa dry, NG tube present, no focal neurological deficit, no dependent edema, no obvious skin rashes or inflammation CVS: S1-S2, RRR. RS: Clear to auscultate bilaterally. Abdomen: Distended, tympanic, tense, tender, decreased bowel sounds Labs: WBC 17.5, neutrophils 82%, band 30, hemoglobin 14.5, hematocrit 44.3, bicarbonate 19, anion gap 21, BUN 38, creatinine 1.9, glucose 182, calcium 9.5, lactate 4.5, CK 189, AST 31, ALT 26, alkaline phosphatase 67, INR 1.32 CXR: Cardiomegaly without gross focal consolidation of the lungs. CT angiogram abdomen and pelvis: 1. The galena abdominal aortic aneurysm is smaller. 2. Aortobiiliac stent normal. No endoleak. No aorto enteric fistula. 3. Atherosclerosis of the mesenteric vessels and renal arteries. 4. Small bowel obstruction mid abdomen as described. 5. Right adrenal nodule. A and P 76-year-old female with the multiple comorbidities presented with vague abdominal pain and bright red blood in stool was found to be hypotensive in ER responded for aggressive hydration. Patient was found to have small bowel obstruction and surgical team was consulted. Plan appears to be conservative medical management, serial abdominal examination and then surgery if required. agree with nothing by mouth, NG tube, aggressive hydration, IV Protonix, when necessary Zofran, antibiotic coverage, serial abdominal examinations. Hold all her home medications for tonight especially amlodipine and labetalol given her hypotension in ER, continue IV small dose Ativan if required for sleep aide. Continue when necessary nebulization, reassess antihypertensive and aspirin order tomorrow. Appreciate consult we will follow along.
--- NOTE | 2016-09-12 00:17 | NUR ---
PT A/O X4. RESP UNLABORED. NSR ON THE MONITOR. NO APPARENT DISTRESS,
--- NOTE | 2016-09-12 00:35 | Admission Core Measures ---
Admission Lab Results I reviewed the following labs: Laboratory Tests 09/11 1635 1623 Chemistry Sodium (137 - 145 mmol/L) 142 Potassium (3.5 - 5.1 mmol/L) 4.6 Chloride (98 - 107 mmol/L) 102 Carbon Dioxide (22 - 30 mmol/L) 19 L Anion Gap (5 - 16) 21 H BUN (7 - 17 mg/dL) 38 H Creatinine (0.5 - 1.0 mg/dL) 1.9 H Estimated GFR (>60 ml/min) 26 L BUN/Creatinine Ratio (7 - 25 %) 20.0 Glucose (65 - 99 mg/dL) 182 H Lactic Acid (0.7 - 2.1 mmol/L) 2.0 4.5 H Cancelled Calcium (8.4 - 10.2 mg/dL) 9.5 Phosphorus (2.5 - 4.5 mg/dL) 7.0 H Magnesium (1.6 - 2.3 mg/dL) 2.2 Total Bilirubin (0.2 - 1.3 mg/dL) 0.5 AST (14 - 36 U/L) 31 ALT (9 - 52 U/L) 26 Alkaline Phosphatase (<127 U/L) 67 Creatine Kinase (30 - 135 U/L) 189 H Troponin I (< 0.11 ng/ml) 0.02 Total Protein (6.3 - 8.2 g/dL) 7.4 Albumin (3.5 - 5.0 g/dL) 4.4 Globulin (1.9 - 4.2 gm/dL) 3.0 Albumin/Globulin Ratio (1.1 - 2.2 %) 1.5 Lipase (23 - 300 U/L) < 10 L Coagulation PT (9.4 - 12.5 SEC) 13.8 H INR (0.90 - 1.19) 1.32 H APTT (25 - 37 SEC) 36 Hematology CBC w Diff MAN DIFF ORDERED WBC (4.8 - 10.8 /CUMM) 17.5 H RBC (4.20 - 5.40 /CUMM) 5.05 Hgb (12.0 - 16.0 G/DL) 14.5 Hct (37 - 47 %) 44.3 MCV (81.0 - 99.0 FL) 87.8 MCH (27.0 - 31.0 PG) 28.7 RDW (11.5 - 14.5 %) 15.4 H Plt Count (130 - 400 /CUMM) 237 MPV (7.4 - 10.4 FL) 9.2 Gran % (42.2 - 75.2 %) 82.7 H Lymphocytes % (20.5 - 51.1 %) 5.3 L Monocytes % (1.7 - 9.3 %) 11.8 H Eosinophils % (0 - 5 %) 0.1 Basophils % (0.0 - 2.0 %) 0.1 Absolute Granulocytes (1.4 - 6.5 /CUMM) 14.5 H Segmented Neutrophils (42.2 - 75.2 %) 52 Band Neutrophils (0.0 - 5.0 %) 30 H Absolute Lymphocytes (1.2 - 3.4 /CUMM) 0.9 L Lymphocytes (20.5 - 51.1 %) 5 L Monocytes (1.7 - 9.3 %) 7 Absolute Monocytes (0.10 - 0.60 /CUMM) 2.1 H Absolute Eosinophils (0.0 - 0.7 /CUMM) 0 Absolute Basophils (0.0 - 0.2 /CUMM) 0 Metamyelocytes (0.0 - 1.0 %) 6 H Platelet Estimate (ADEQUATE) ADEQUATE Normocytic RBCs VERIFIED Normochromic RBCs VERIFIED PUBS MCHC (33.0 - 37.0 G/DL) 32.7 L Admission Meds I reviewed the following Meds: Current Medications Sig/Ebenezer Start time Last Medication Dose Stop Time Status Admin Albuterol Sulfate 3 ML BID 09/12 1000 AC (Proventil) Albuterol Sulfate 2 PUF Q12P PRN 09/11 0015 AC (Ventolin) Alprazolam 0.5 MG TIDPRN PRN 09/11 2300 AC (Xanax) 09/18 2259 Amlodipine Besylate 10 MG DAILY 09/12 1000 AC (Norvasc) Aspirin Buffered 81 MG DAILY 09/12 1000 AC (Ecotrin) Atorvastatin Calcium 80 MG 1700 09/12 1700 AC (Lipitor) Ceftriaxone Sodium 1,000 MG 09/12 AC (Rocephin) Labetalol HCl 200 MG BID 09/12 1000 AC (Trandate-Normodyne 200MG Tab) Metronidazole 500 MG Q8H 09/12 0400 AC (Flagyl) N/A 1 UNIT (No Carrier) Pantoprazole Sodium 40 MG DAILY 09/12 1000 AC (Protonix) Sodium Chloride 1,000 ML Q10H 09/11 2245 AC 09/11 (Normal Saline 0.9%) 2311 Tiotropium [place] 1 PUF DAILY 09/12 1000 AC (Spiriva) Acute Coronary Syndrome Inclusion Criteria ACS Diagnosis No Inpatient Core Measures LDL Reminder: If No, please order W/I first 24hr of stay Congestive Heart Failure Inclusion Criteria CHF Diagnosis No Cerebrovascular accident Inclusion Criteria CVA/TIA Diagnosis No Inpatient Core Measures Bedside Swallow Eval Reminder: If BSE failed, place ST order Antithrombotic Reminder: Order Antithrombotic Medication by end of day 2 Antithrombotic Reminder: Document Reason Antithrombotic Not ordered by end of day 2 AFIB/Flutter Reminder: If Present, add to problem list AFIB/Flutter Reminder: Order Anticoag Medication for pts with AFIB/Flutter Atherosclerosis Reminder: If Present, add to problem list LDL Reminder: If No, please order W/I first 24hr of stay PT Order Reminder: If No, please order Venous thromboembolism Inpatient Core Measures VTE Risk Factors: Age > 40, [facility] prophylaxis d/t No contraindications No VTE Pharm Prophylaxis d/t No contraindications Inclusion Criteria - Per Current guidelines, there needs to be overlap - treatment for the first 5 days of Warfarin therapy. - Parenteral Anticoagulation (IV or SC) needs to be - given along with Warfarin therapy. VTE Diagnosis No VTE Type NONE VTE Confirmed by (Test) NONE Problem List As ranked by this Provider includes Assessment & Plan 1. Small bowel obstruction HOME MEDS Home Med List Albuterol Sulfate (Proair Hfa) 8.5 GM HFA.AER.AD 2 PUF INH AD PRN RESPIRATORY (Reported) Albuterol Sulfate 2.5 MG/3 ML VIAL.NEB 1 Vial INH/[place] BID RESPIRATORY ( Reported) Amlodipine Besylate 10 MG TABLET 1 TAB PO DAILY BP (Reported) Aspirin (Ecotrin*) 81 MG TABLET.DR 81 MG PO DAILY vascular / heart health Ferrous Sulfate (Iron Supplement) 325 MG TABLET 1 TAB PO DAILY IRON DEF ANEMIA (Reported) Labetalol HCl 200 MG TABLET 1 TAB PO BID BP (Reported) Omeprazole 20 MG CAPSULE.DR 1 CAP PO DAILY PRN GERD (Reported) Rosuvastatin Calcium (Crestor) 20 MG TABLET 1 TAB PO DAILY CHOLESTEROL ( Reported) Tiotropium [place] (Spiriva) 18 MCG CAP.W.DEV 1 CAP INH DAILY RESPIRATORY ( Reported) Tylenol With Codeine (Tylenol With Codeine #3 Tablet) 1 EACH TABLET 1-2 TAB PO Q4-6 PRN PRN PAIN
--- NOTE | 2016-09-12 01:12 | NUR ---
PT TRANSFER TO ICU VIA STRETCHER ACCOMPANIED BY ER NURSE AND PCT WITH NO DIFFICULTIES.A/OX3.ORIENTED TO SURROUNDINGS.FOLLOW COMMANDS. HENRY WITH +CMS. AVSS.+PP.NO EDEMA.IVF CONT VIA PIV SITE.LCTA AND DIMINISHED WITH 3L O2 AND SATS >95%. HOB ELEVATED.NPO.NGT TO LWS.ABD DISTENDED WITH NO BS.ALLEN PATENT WITH GOOD UO.PIV X3 INTACT AND IVF CONT WITH NO ISSUES.MRSA AND VRE DONE.SKIN WD AND INTACT.NO C'O N/V.IV ABX CONT VIA PIV SITE.ADMISSION DATA DONE.PLAN OF CARE REVIEWED WITH PT.
[2016-09-12 05:19] LABS: ABSOLUTE BASOPHIL COUNT 0 /CUMM (0.0-0.2); ABSOLUTE EOSINOPHIL COUNT 0 /CUMM (0.0-0.7); ABSOLUTE GRANULOCYTE CT 4.9 /CUMM (1.4-6.5); ABSOLUTE LYMPH COUNT 0.5 /CUMM (1.2-3.4); ABSOLUTE MONOCYTE COUNT 1.5 /CUMM (0.10-0.60); BASOPHIL % 0.1 % (0.0-2.0); EOSINOPHIL % 0 % (0-5); GRANULOCYTE % 71.5 % (42.2-75.2); MEAN CORPUSCULAR HGB 28.9 PG (27.0-31.0); MEAN CORPUSCULAR HGB CONC 32.6 G/DL (33.0-37.0); MEAN CORPUSCULAR VOLUME 88.7 FL (81.0-99.0); PLATELET COUNT 193 /CUMM (130-400); RBC DISTRIBUTION WIDTH 15.7 % (11.5-14.5); RED BLOOD CELL CT 4.09 /CUMM (4.20-5.40)
[2016-09-12 05:26] LABS: HEMATOCRIT 36.3 % (37-47); WHITE BLOOD CELL COUNT 6.9 /CUMM (4.8-10.8)
--- NOTE | 2016-09-12 07:31 | PN- Gastroenterology ---
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 (repeatedly refusing PillCam), history of PUD, history of Fe deficiency anemia, multiple transfusions, HTN, HLD, COPD (55 pk yr cigarette smoker), remote EtOH abuse (stopped 1981), anxiety, ASHD, PVD, post 09/22/02: right CEA, 10/02/15: *endovascular AAA repair, history of TIA without residual defect ( right handed), x 2, DJD with chronic back pain & chronic headaches, on outpatient ASA 81 mg daily & Omeprazole 20 mg daily, without NSAIDs, who presented to the [facility] ER 09/11/16 at 4 p.m., initially complaining of intermittent painless BRBPR x 2 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 Initial BP 70/40, P 100, R 20, T 99, O2 sat 2l 98%. The patient is a poor historian, but later stated that she had intermittent diffuse abdominal pain for the past 1-2 weeks, independent of po intake, with some increased abdominal distention. She also had a few days of nausea and vomiting, contents varying from greenish bile to dark liquid, to partially digested food. There was no overt hematemesis. There was also some mild diarrhea, which seemed to have mostly subsided. She denied any recent antibiotics, raw food inggestion, point source, or recent travel. She noted decreased po intake for the past few days, as it was difficult to keep food down. Her BP normalized after an IV NS fluid bolus x 2L in the ER. Although the patient was afebrile in the ER, she had subjective fever and chills at home, although she did not check her temperature prior to arrival. She denied any symptoms of UTI or URI. Her appetite was mildly decreased. There was no definite weight loss. There was no definite early satiety. The patient claimed she had a solid bowel movement earlier today. There was no change in stool caliber, constipation, or tenesmus. There was no abdominal trauma. The patient was taking iron once a day. She denied any GERD (on PPI), odynophagia, or dysphagia. She denied any chest pain or increase of her mild baseline SOB, due to COPD. *Digital rectal exam in the ER by Dr. Villa showed empty vault with flecks of BRB. The patient has had an extensive previous GI workup by myself, but again, has * repeatedly refused outpatient PillCam. 02/16/03: H. pylori Ab- negative. : EGD/colonoscopy to TI (done for OB positive stool, microcytic anemia on Plavix then)-HP-negative gastritis, normal duodenal folds; left diverticulosis coli, hypertrophied anal papillae, with normal colonic mucosa to the TI. : normal Hgb electrophoresis (no beta thalassemia). 10/26/07: normal IgA 129. 10/27/07: elevated haptoglobin 282 (going against hemolysis), tTG Ab (IgA/IgG)- negative, normal fasting serum carotene 78. 10/27/07: EGD/colonoscopy to cecum- mild GERD without Diaz's esophagitis, small hiatal hernia, Z line at 38 cm, no Luis erosions, no varices. Prepyloric erosion with benign inflammation, H. pylori negative. Scarred yet patent pylorus, without any active peptic ulcer disease or gastric outlet obstruction. Duodenal biopsies- normal villi. Left- sided diverticulosis coli with normal colonic mucosa to the cecum. 03/16/09: EGD to the proximal jejunum with the pediatric colonoscope to 120 cm from above (done for recurrent Fe deficiency anemia & melena, on Pletal then)- pre-vocal cord leukoplakia, near the arytenoids (unsure if patient was compliant with suggested ENT follow-up), normal esophageal mucosa with Z line at 35 cm, biopsies- squamous mucosa with moderate GERD, without EOE or Diaz's esophagus. Small hiatal hernia, without any Luis erosions or varices. Diffuse gastritis, with biopsies- mild chronic gastritis, H. pylori negative. 7 mm x 5 mm prepyloric antral gastric ulcer, symmetrical, with radiating folds. No clot or visible vessel. No therapeutics. Direct biopsies deferred, as it was organizing. Patent pylorus, without gastric outlet obstruction. Nonbleeding gastric antral AVM, left intact without therapeutics. Scattered nonbleeding duodenal and jejunal AVMs, left intact without therapeutics. Normal caliber SB folds. The patient was last seen in covering GI consultation by Dr. Pinto on 05/25/10, for recurrent symptomatic anemia. 05/25/10: Push enteroscopy to jejunum with the pediatric colonoscope from above- 1 bleeding AVM at the lesser curvature of the stomach, BiCAP cautery, with cessation of bleed. 10 non- bleeding AVMs from the second portion of the duodenum to the distal jejunum, BiCAP cautery. *The patient again refused an outpatient PillCam. She has not been seen for GI since. She had since had the 10/02/15: endovascular repair of AAA, followed by readmission 10/09/15 - 10/12/15 for mechanical fall & confusion , followed by STR. The patient initially was reported to be pale and diaphoretic. The patient was subsequently found to have a stable HCT (although possibly hemoconcentrated), with leukocytosis, elevated lactate, & DANIEL. She was empirically put on a Protonix drip by the ER, plus Zofran, & was empirically given IV Ceftriaxone & Flagyl, to cover possible sepsis. *Admission CT was subsequently found to have SBO. *NT was placed in the ER, rapidly draining 1.6L of off-white liquid (no gross bile or blood seen from above). 09/11/16: BC x 2- pending 09/11/16: UC- pending 09/11/16: 4:35 p.m.- Admission labs- WBC 17.5 (52S/30B/5L/7M/6Meta), H/H 14.5/ 44.3, MCV 87.8, RDW 15.4, PLT 237, PT 13.8, INR 1.32, PTT 36, glucose 182, BUN/ Cr 38/1.9, GFR 26, Na 142, K 4.6, HCO3 19, AG 21, lactate 4.5, lipase < 10, Mg 2.2, Ca2+ 9.5, PO4 7.0, albumin 4.4, globulin 3.0, TBil 0.5, alk phos 67, AST 31 , ALT 26, CK 189, troponin 0.02 09/11/16: 7:22 p.m.- normal lactate 2.0 09/11/16: EKG- NSR @ 96, normal axis, 1st degree AVB (MT .208), PRWP, flat T in L, without acute ischemic change. 09/11/16: XR PORTABLE CHEST- Cardiomegaly without gross focal consolidation of the lungs. 09/11/16: CT ABD & PELVIS ANGIOGRAM- 1. The re[place]-sparks abdominal aortic aneurysm is smaller (3.3 cm, formally 5 cm preop) . 2. Aortobiiliac stent normal. No endoleak. No aorto enteric fistula. 3. 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 4. *Small bowel obstruction mid-abdomen as described, with grossly distended stomach, duodenum, & proximal jejunum (fecalization of intraluminal contents), with transition point near the umbilicus. Normal caliber ileum, with decompressed colon. 5. Diverticulosis coli. 6. Right adrenal nodule. *Clinically, the patient's major issue is SBO, probably from adhesions. She is a vasculopath with diffuse ASHD, but this does not seem to be her dominant issue. Similarly, although she is a little hemoconcentrated (stable HCT), clinically, her rectal bleeding after defecation is not her main issue, either. 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 Her hypotension seemed to have responded to IVF. CTA failed to reveal any aorto-enteric fistlua. Her leukocytosis may be from dehydration, rule out sepsis. The nausea, vomiting, & scant diarrhea could have represented a gastroenteritis vs. signs of SBO. Her DANIEL may have been pre-renal. 09/11/2016: XR PORTABLE CHEST- Nasogastric tube in stomach. Heart is enlarged. Clear lungs. *As of 09/12/2016, the patient's blood pressure remains stable. She is borderline tachycardic with a low-grade temperature. She remains in the ICU on the surgical service. She has been consulted by the medical team. There has been no recurrent overt GI bleeding of any significance. Her HCT has dropped somewhat after IV hydration, as expected, as she was hemoconcentrated on admission. (*Please note, baseline HCT is in the low 30's). Her leukocytosis has resolved. The patient's abdominal pain is better, post NG tube. She thinks she passed a scant liquid bowel movement earlier, but this was not verified by the nurse. She denied any obstipation. Her nausea and vomiting are improved. She initially put out 1.6L of non-bloody, off-white murky liquid via the NGT in the ER, but there has been scant NGT output overnight. *Her DANIEL resolved, as did her elevated lactate. The patient remains on empiric IV Ceftriaxone and Flagyl, along with IV Protonix 40 mg daily. Current IVF: NS @ 100 cc/hr. *The patient has no peritoneal signs and seems to be improving with conservative management. 09/12/2016: WBC 6.9, H/H 11.8/36.3, PLT 193, BUN/Cr 27/0.9, GFR > 60, Na 144, K 3.5, HCO3 18, AG 12, albumin 3.0, globulin 2.6, with other LFTs- normal. SUGGEST: Will defer to surgery regarding maintaining patient in ICU. NPO for now. IVF. Strict I/O's. O2 p.r.n. NGT to low gomco suction. Serial abdominal exams. * Serial abdominal X rays. Follow-up CBC, electrolytes, & GFR after IVF. If HCO3 drops further, check ABG (lactate now normal). Check urine lytes & FENa. Continue Protonix 40 mg IV daily. Zofran as needed. Follow-up cultures. Empiric Ceftriaxone & Flagyl for now. Check stool C&S, Shiga toxin, & C. difficile, if diarrhea persists. Consideration for vascular input regarding diffuse ASHD on CTA abdomen. DVT prophylaxis. D/C cigarettes. Okay for Baby ASA 81 mg daily from GI perspective. At the moment, in view of the SBO, I have no plans for endoscopic/colonoscopic work up of the apparent mild GI bleed, unless her clinical status changes & she actively bleeds. An outpatient colonoscopy will be contemplated, regarding the rectal bleeding, as this was last done 10/27/07. * She has previously refused PillCam on multiple occasions, regarding her GI angiodysplasias. I would also advise IV Mucomyst regarding her low GFR, post IV contrast, although DANIEL has fortunately resolved after IVF. *Further inpatient GI follow-up as needed. Hopefully, the patient will continue to improve with conservative therapy. If not, she will need definitive surgery. A message was left with Dr. Reed regarding the above. 1/2 hour of ICU care was spent on the patient. Problem List: 1. Small bowel obstruction 2. Hypotension 3. Tachycardia 4. Nausea and vomiting 5. Diarrhea 6. Lactic acidosis 7. Rectal bleeding 8. S/P AAA (abdominal aortic aneurysm) repair 9. Angiodysplasia of intestinal tract 10. History of peptic ulcer Subjective Subjective: 09/11/2016: XR PORTABLE CHEST- Nasogastric tube in stomach. Heart is enlarged. Clear lungs. *As of 09/12/2016, the patient's blood pressure remains stable. She is borderline tachycardic with a low-grade temperature. She remains in the ICU on the surgical service. She has been consulted by the medical team. There has been no recurrent overt GI bleeding of any significance. Her HCT has dropped somewhat after IV hydration, as expected, as she was hemoconcentrated on admission. (*Please note, baseline HCT is in the low 30's). Her leukocytosis has resolved. The patient's abdominal pain is better, post NG tube. She thinks she passed a scant liquid bowel movement earlier, but this was not verified by the nurse. She denied any obstipation. Her nausea and vomiting are improved. She initially put out 1.6L of non-bloody, off-white murky liquid via the NGT in the ER, but there has been scant NGT output overnight. Her DANIEL resolved, as did her elevated lactate. The patient remains on empiric IV Ceftriaxone and Flagyl, along with IV Protonix 40 mg daily. Current IVF: NS @ 100 cc/hr. 09/12/2016: WBC 6.9, H/H 11.8/36.3, PLT 193, BUN/Cr 27/0.9, GFR > 60, Na 144, K 3.5, HCO3 18, AG 12, albumin 3.0, globulin 2.6, with other LFTs- normal. Review of Systems: Full 14 point review of systems otherwise noncontributory, and as above. Review of Systems Constitutional: Reports: chills, fever, malaise. Denies: diaphoresis, weakness, unexplained weight loss. EENTM: Denies: blurred vision, double vision, visual changes, eye pain, eye drainage, eye tearing, icterus, ear discharge, ear pain, ear redness, hearing changes, nasal congestion, epistaxis, nasal pain, throat pain, throat swelling, mouth pain, tooth pain. Cardiovascular: Denies: chest pain, edema, orthopena, palpitations, peripheral edema, syncope. Respiratory: Reports: short of breath (mild baseline SOB from COPD). Denies: cough, hemoptysis, orthopnea, sputum production, stridor, wheezing. GI: Reports: abdominal pain, diarrhea, distention, nausea, vomiting- all improved; no further BRBPR. Denies: bloating, constipation, bowel incontinence, melena, changes in stool, steatorrhea. Genitourinary: Denies: discharge, dysuria, frequency, hematuria, hesitation, nocturia, pain, urgency. Musculoskeletal: Reports: back pain (chronic), joint pain (DJD). Denies: gout, joint swelling, muscle pain, muscle stiffness, neck pain. Skin: Denies: cysts, change in skin color, change in hair/nails, dryness, erythema, jaundice, lesions, lymphangitis, lumps, moles, rash. Neurological/Psychological: Reports: anxiety, emotional problems, headache (chronic). Denies: ataxia, cognitive dysfunction, confusion, depressed, dementia, numbness, paresthesia, pre-existing deficit, petit mal seizures, tingling, tremors, tonic- clonic seizures, unable to move lower ext, unable to move upper ext, weakness. Hematologic/Endocrine: Denies: bruising, bleeding, polyuria, polydipsia. Immunologic/Allergic: Denies: splenectomy, HIV/AIDS, lymphadenopathy. All Other Systems: Reviewed and Negative Objective Vital Signs and I&Os Vital Signs Date Time Temp Pulse Resp B/P B/P Pulse O2 O2 Flow FiO2 Mean Ox Delivery Rate 09/12 0055 96 Nasal 2.0L Cannula 09/12 0040 95 2.0L 09/12 0018 97.2 98 18 145/75 97 09/11 2250 97.9 93 18 127/88 96 Nasal 2.0L Cannula 09/11 2148 89 18 137/60 96 Nasal 2.0L Cannula 09/11 2049 98.9 86 20 122/58 96 Nasal 2.0L Cannula 09/11 1928 84 18 119/65 98 Nasal 2.0L Cannula 09/11 1855 87 20 134/67 98 Nasal 2.0L Cannula 09/11 1730 88 20 127/62 98 Nasal 2.0L Cannula 09/11 1704 98 Nasal 2.0L Cannula 09/11 1700 99.0 95 20 130/63 98 Nasal 2.0L Cannula 09/11 1613 100 20 70/40 97 Room Air Intake & Output 09/12 1600 09/12 0400 09/11 0400 09/10 1600 09/10 0400 Intake Total 1100 3000 Output Total 480 1600 Balance 620 1400 Intake, IV 1100 3000 Output, 1600 Gastric Drainage Output, Urine 480 Patient 130 lb Weight Weight Chair scale Measurement Method Physical Exam: Well-developed, well-nourished female, in mild distress. + NGT. Sclera anicteric. Conjunctiva pink. Oropharynx clear. Poor dentition. False uppers. No oral thrush. No aphthous ulcers. There is no adenopathy, thyromegaly, or JVD. Post right CEA. Carotids 1+ B/L w/o bruits. No peripheral stigmata of inflammatory bowel disease or chronic liver disease on exam. No spiders on the anterior chest wall. No CVA tenderness. Breast & pelvic exams: API. Lungs: clear to A&P, without wheezing, rales, or rhonchi. Slightly prolonged expiratory phase. Heart exam: regular rate rhythm, S1 S2, I/ systolic murmur. Abdominal exam: normoactive bowel sounds, less distended tympanitic belly, currently non- tender, without guarding or rebound. No mass or definite hernia. Midline vertical infraumbilical scar, post x 2. No organomegaly. No definite fluid shift. No pulsatile mass. No epigastric bruit. Digital rectal exam: done in ER 09/11/[address] Villa- empty vault, with contents showing small amount oF BRB. No melena. Extremities: without C, C, or E. No palpable cords. No palmar erythema. No Dupuytren's contractures. Distal pulses 1+ bilaterally. DTRs 2+ bilaterally. Alert and oriented x 3. Right handed. CN II-XII intact. Motor 5/5 B/L. No tremor. No asterixis. A detailed exam for peripheral neuropathy was deferred. Current Medications: Current Medications Sig/Ebenezer Start time Last Medication Dose Route Stop Time Status Admin Albuterol Sulfate 3 ML BID 09/12 1000 AC INH Albuterol Sulfate 2 PUF Q12P PRN 09/11 0015 AC INH Alprazolam 0.5 MG TIDPRN PRN 09/11 2300 AC PO 09/18 2259 Amlodipine Besylate 10 MG DAILY 09/12 1000 AC PO Aspirin Buffered 81 MG DAILY 09/12 1000 AC PO Atorvastatin Calcium 80 MG 1700 09/12 1700 AC PO Ceftriaxone Sodium 1,000 MG 09/12 2000 AC IV Ceftriaxone Sodium 0 .STK-MED ONE 09/11 1803 DC .ROUTE Ceftriaxone Sodium 1,000 MG ONCE ONE 09/11 1800 DC 09/11 IV 09/11 1801 1856 Labetalol HCl 200 MG BID 09/12 1000 AC PO Metronidazole 500 MG Q8H 09/12 0400 AC 09/12 N/A 1 UNIT IV 0336 Metronidazole 500 MG ONCE ONE 09/11 1815 DC 09/11 N/A 1 UNIT IV 09/11 1914 1945 Ondansetron HCl 0 .STK-MED ONE 09/11 1639 DC .ROUTE Ondansetron HCl 4 MG ONCE ONE 09/11 1630 DC 09/11 IV 09/11 1631 1630 Pantoprazole Sodium 40 MG DAILY 09/12 1000 AC IV Pantoprazole Sodium 0 .STK-MED ONE 09/11 1750 DC IV Pantoprazole Sodium 40 MG Q5H 09/11 1730 DC 09/11 Sodium Chloride 100 ML IV 1756 Pantoprazole Sodium 0 .STK-MED ONE 09/11 1639 DC IV Pantoprazole Sodium 40 MG ONCE ONE 09/11 1630 DC 09/11 IV 09/11 1631 1630 Pantoprazole Sodium 0 .STK-MED ONE 09/11 1627 DC IV Sodium Chloride 1,000 ML Q10H 09/11 2245 AC 09/11 IV 2311 Sodium Chloride 1,000 ML BOLUS ONE 09/11 1945 DC 09/11 IV 09/11 2044 1947 Sodium Chloride 1,000 ML BOLUS ONE 09/11 1630 DC 09/11 IV 09/11 1729 1630 Sodium Chloride 1,000 ML BOLUS ONE 09/11 1630 DC 09/11 IV 09/11 1729 1630 Tiotropium [place] 1 PUF DAILY 09/12 1000 AC INH Results Pertinent Lab Results: Laboratory Tests 09/12 09/11 0420 1922 Chemistry Sodium (137 - 145 mmol/L) 144 Potassium (3.5 - 5.1 mmol/L) 3.5 Chloride (98 - 107 mmol/L) 113 H Carbon Dioxide (22 - 30 mmol/L) 18 L Anion Gap (5 - 16) 12 BUN (7 - 17 mg/dL) 27 H Creatinine (0.5 - 1.0 mg/dL) 0.9 Estimated GFR (>60 ml/min) > 60 BUN/Creatinine Ratio (7 - 25 %) 30.0 H Lactic Acid (0.7 - 2.1 mmol/L) 2.0 Phosphorus (2.5 - 4.5 mg/dL) 4.7 H Magnesium (1.6 - 2.3 mg/dL) 1.9 Total Bilirubin (0.2 - 1.3 mg/dL) 0.3 Direct Bilirubin (< 0.4 mg/dL) 0.3 AST (14 - 36 U/L) 29 ALT (9 - 52 U/L) 32 Alkaline Phosphatase (<127 U/L) 52 Total Protein (6.3 - 8.2 g/dL) 5.6 L Albumin (3.5 - 5.0 g/dL) 3.0 L Hematology CBC w Diff MAN DIFF ORDERED WBC (4.8 - 10.8 /CUMM) 6.9 RBC (4.20 - 5.40 /CUMM) 4.09 L Hgb (12.0 - 16.0 G/DL) 11.8 L Hct (37 - 47 %) 36.3 L MCV (81.0 - 99.0 FL) 88.7 MCH (27.0 - 31.0 PG) 28.9 RDW (11.5 - 14.5 %) 15.7 H Plt Count (130 - 400 /CUMM) 193 MPV (7.4 - 10.4 FL) 9.0 Gran % (42.2 - 75.2 %) 71.5 Lymphocytes % (20.5 - 51.1 %) 6.8 L Monocytes % (1.7 - 9.3 %) 21.6 H Eosinophils % (0 - 5 %) 0 Basophils % (0.0 - 2.0 %) 0.1 Absolute Granulocytes (1.4 - 6.5 /CUMM) 4.9 Segmented Neutrophils (42.2 - 75.2 %) 44 Band Neutrophils (0.0 - 5.0 %) 25 H Absolute Lymphocytes (1.2 - 3.4 /CUMM) 0.5 L Lymphocytes (20.5 - 51.1 %) 14 L Monocytes (1.7 - 9.3 %) 14 H Absolute Monocytes (0.10 - 0.60 /CUMM) 1.5 H Eosinophils (0 - 5.0 %) 1 Absolute Eosinophils (0.0 - 0.7 /CUMM) 0 Absolute Basophils (0.0 - 0.2 /CUMM) 0 Metamyelocytes (0.0 - 1.0 %) 2 H Platelet Estimate (ADEQUATE) ADEQUATE Polychromasia 1+ Hypochromic-Microcytic 1+ Poikilocytosis 1+ Ovalocytes 1+ Elliptocytes FEW PUBS MCHC (33.0 - 37.0 G/DL) 32.6 L Other Body Source Fld Total RBCs Counted (%) 100 09/11 09/11 1635 1623 Chemistry Sodium (137 - 145 mmol/L) 142 Potassium (3.5 - 5.1 mmol/L) 4.6 Chloride (98 - 107 mmol/L) 102 Carbon Dioxide (22 - 30 mmol/L) 19 L Anion Gap (5 - 16) 21 H BUN (7 - 17 mg/dL) 38 H Creatinine (0.5 - 1.0 mg/dL) 1.9 H Estimated GFR (>60 ml/min) 26 L BUN/Creatinine Ratio (7 - 25 %) 20.0 Glucose (65 - 99 mg/dL) 182 H Lactic Acid (0.7 - 2.1 mmol/L) 4.5 H Cancelled Calcium (8.4 - 10.2 mg/dL) 9.5 Phosphorus (2.5 - 4.5 mg/dL) 7.0 H Magnesium (1.6 - 2.3 mg/dL) 2.2 Total Bilirubin (0.2 - 1.3 mg/dL) 0.5 AST (14 - 36 U/L) 31 ALT (9 - 52 U/L) 26 Alkaline Phosphatase (<127 U/L) 67 Creatine Kinase (30 - 135 U/L) 189 H Troponin I (< 0.11 ng/ml) 0.02 Total Protein (6.3 - 8.2 g/dL) 7.4 Albumin (3.5 - 5.0 g/dL) 4.4 Globulin (1.9 - 4.2 gm/dL) 3.0 Albumin/Globulin Ratio (1.1 - 2.2 %) 1.5 Lipase (23 - 300 U/L) < 10 L Coagulation PT (9.4 - 12.5 SEC) 13.8 H INR (0.90 - 1.19) 1.32 H APTT (25 - 37 SEC) 36 Hematology CBC w Diff MAN DIFF ORDERED WBC (4.8 - 10.8 /CUMM) 17.5 H RBC (4.20 - 5.40 /CUMM) 5.05 Hgb (12.0 - 16.0 G/DL) 14.5 Hct (37 - 47 %) 44.3 MCV (81.0 - 99.0 FL) 87.8 MCH (27.0 - 31.0 PG) 28.7 RDW (11.5 - 14.5 %) 15.4 H Plt Count (130 - 400 /CUMM) 237 MPV (7.4 - 10.4 FL) 9.2 Gran % (42.2 - 75.2 %) 82.7 H Lymphocytes % (20.5 - 51.1 %) 5.3 L Monocytes % (1.7 - 9.3 %) 11.8 H Eosinophils % (0 - 5 %) 0.1 Basophils % (0.0 - 2.0 %) 0.1 Absolute Granulocytes (1.4 - 6.5 /CUMM) 14.5 H Segmented Neutrophils (42.2 - 75.2 %) 52 Band Neutrophils (0.0 - 5.0 %) 30 H Absolute Lymphocytes (1.2 - 3.4 /CUMM) 0.9 L Lymphocytes (20.5 - 51.1 %) 5 L Monocytes (1.7 - 9.3 %) 7 Absolute Monocytes (0.10 - 0.60 /CUMM) 2.1 H Absolute Eosinophils (0.0 - 0.7 /CUMM) 0 Absolute Basophils (0.0 - 0.2 /CUMM) 0 Metamyelocytes (0.0 - 1.0 %) 6 H Platelet Estimate (ADEQUATE) ADEQUATE Normocytic RBCs VERIFIED Normochromic RBCs VERIFIED PUBS MCHC (33.0 - 37.0 G/DL) 32.7 L Imaging/Other Studies: 09/11/16: EKG- NSR @ 96, normal axis, 1st degree AVB (MT .208), PRWP, flat T in L, without acute ischemic change. 09/11/16: XR PORTABLE CHEST- Cardiomegaly without gross focal consolidation of the lungs. 09/11/16: CT ABD & PELVIS ANGIOGRAM- 1. The re[place]-sparks abdominal aortic aneurysm is smaller (3.3 cm, formally 5 cm preop) . 2. Aortobiiliac stent normal. No endoleak. No aorto enteric fistula. 3. 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 4. *Small bowel obstruction mid-abdomen as described, with grossly distended stomach, duodenum, & proximal jejunum (fecalization of intraluminal contents), with transition point near the umbilicus. Normal caliber ileum, with decompressed colon. 5. Diverticulosis coli. 6. Right adrenal nodule. 09/11/2016: XR PORTABLE CHEST- Nasogastric tube in stomach. Heart is enlarged. Clear lungs.
[2016-09-12 08:00] VITALS: BP 122/58
--- NOTE | 2016-09-12 08:39 | Cons- Cardiology ---
General Information and HPI Consulting Request Date of Consult: 09/12/16 Requested By: CHELSEA ANDERSON,MAKAYLA Patel Reason for Consult: Persistent tachycardia Source of Information: patient, old records History of Present Illness: The patient is a 76-year-old female who is well-known to me. The patient has a history of known coronary disease, carotid artery disease, mild peripheral vascular disease, and is status post endovascular repair of an abdominal aortic aneurysm. The patient is now admitted to the hospital with evidence of small bowel obstruction. I was asked see the patient for persistent sinus tachycardia. At the moment, the patient denies any cardiovascular symptoms. Of note, her last echocardiogram did show normal left ventricular function. This was about a year and half ago. At that time, she did have evidence of a persistent small pericardial effusion which was hemodynamically insignificant. Allergies/Medications Allergies: Coded Allergies: propoxyphene (UNKNOWN 09/29/15) Home Med List: Albuterol Sulfate (Proair Hfa) 8.5 GM HFA.AER.AD 2 PUF INH AD PRN RESPIRATORY (Reported) Albuterol Sulfate 2.5 MG/3 ML VIAL.NEB 1 Vial INH/[place] BID RESPIRATORY ( Reported) Alprazolam 0.5 MG TABLET ANXIETY (Reported) Amlodipine Besylate 10 MG TABLET 1 TAB PO DAILY BP (Reported) Aspirin (Ecotrin*) 81 MG TABLET. 81 MG PO DAILY vascular / heart health start a baby aspirin daily, as per Ferrous Sulfate (Iron Supplement) 325 MG TABLET 1 TAB PO DAILY IRON DEF ANEMIA (Reported) Labetalol HCl 200 MG TABLET 1 TAB PO BID BP (Reported) Omeprazole 20 MG CAPSULE.DR 1 CAP PO DAILY PRN GERD (Reported) Rosuvastatin Calcium (Crestor) 20 MG TABLET 1 TAB PO DAILY CHOLESTEROL ( Reported) Tiotropium [place] (Spiriva) 18 MCG CAP.W.DEV 1 CAP INH DAILY RESPIRATORY ( Reported) Tylenol With Codeine (Tylenol With Codeine #3 Tablet) 1 EACH TABLET 1-2 TAB PO Q4-6 PRN PRN PAIN take as directed. do not combine with tylenol. Current Medications: Current Medications Sig/Ebenezer Start time Last Medication Dose Route Stop Time Status Admin Albuterol Sulfate 3 ML BID 09/12 1000 AC INH Albuterol Sulfate 2 PUF Q12P PRN 09/11 0015 AC INH Alprazolam 0.5 MG TIDPRN PRN 09/11 2300 AC PO 09/18 2259 Amlodipine Besylate 10 MG DAILY 09/12 1000 AC 09/12 PO 0953 Aspirin Buffered 81 MG DAILY 09/12 1000 AC 09/12 PO 0953 Atorvastatin Calcium 80 MG 1700 09/12 1700 AC PO Ceftriaxone Sodium 1,000 MG 2000 09/12 2000 AC IV Ceftriaxone Sodium 0 .STK-MED ONE 09/11 1803 DC .ROUTE Ceftriaxone Sodium 1,000 MG ONCE ONE 09/11 1800 DC 09/11 IV 09/11 1801 1856 Labetalol HCl 200 MG BID 09/12 1000 AC 09/12 PO 0953 Metronidazole 500 MG Q8H 09/12 0400 AC 09/12 N/A 1 UNIT IV 0336 Metronidazole 500 MG ONCE ONE 09/11 1815 DC 09/11 N/A 1 UNIT IV 09/11 1914 1945 Ondansetron HCl 0 .STK-MED ONE 09/11 1639 DC .ROUTE Ondansetron HCl 4 MG ONCE ONE 09/11 1630 DC 09/11 IV 09/11 1631 1630 Pantoprazole Sodium 40 MG DAILY 09/12 1000 AC 09/12 IV 0954 Pantoprazole Sodium 0 .STK-MED ONE 09/11 1750 DC IV Pantoprazole Sodium 40 MG Q5H 09/11 1730 DC 09/11 Sodium Chloride 100 ML IV 1756 Pantoprazole Sodium 0 .STK-MED ONE 09/11 1639 DC IV Pantoprazole Sodium 40 MG ONCE ONE 09/11 1630 DC 09/11 IV 09/11 1631 1630 Pantoprazole Sodium 0 .STK-MED ONE 09/11 1627 DC IV Sodium Chloride 1,000 ML Q10H 09/11 2245 AC 09/12 IV 0833 Sodium Chloride 1,000 ML BOLUS ONE 09/11 1945 DC 09/11 IV 09/11 2044 1947 Sodium Chloride 1,000 ML BOLUS ONE 09/11 1630 DC 09/11 IV 09/11 1729 1630 Sodium Chloride 1,000 ML BOLUS ONE 09/11 1630 DC 09/11 IV 09/11 1729 1630 Tiotropium [place] 1 PUF DAILY 09/12 1000 AC 09/12 INH 1022 Past History Travel History Traveled to [place] past 21 day No Medical History Blood Transfusion Hx: Yes Neurological: TIA EENT: NONE Cardiovascular: aortic aneurysm (10/02/15: endovascular repair), CAD, hypertension, hyperlipidemia, myocardial infarction, PVD (09/22/02: R CEA) Respiratory: bronchitis, COPD (55 pk yr smoker) Gastrointestinal: NONE (asx on PPI), GERD, peptic ulcer disease, diverticulosis coli gastric & SB AVMs Hepatic: NONE Renal: NONE Musculoskeletal: degen joint disease, falls Psychiatric: anxiety Endocrine: vitamin D deficiency Blood Disorders: NONE (Fe def), anemia Cancer(s): NONE 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 FH: CAD (coronary artery disease) FATHER, , Age 65; Cause: Arteriosclerotic heart disease (ASHD). Psychosocial History Where Do You Live? Home Who Do You Live With? 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 no Power of Chief Medical Director/HCP? no Other Social History: 02/12/12. Lives alone. 55 pk yr cigarette smoker, currently < 1 ppd. Ex-EtOH abuse, stopped [address] drugs, except occasional marijuana. Retired from [employer]. The patient is 1 of 10 kids. (5 sisters & 2 bros- , from a variety of issues, including ASHD, MVA, construction accident, alcoholic cirrhosis). 2 sisters- [employer]. The patient had 2 children. 1 daughter- 40, from alcoholic cirrhosis and possible hepatoma. 1 son in [facility] 49, alive, post EtOH abuse, Hep C. Functional Ability ADLs Independent: dressing, eating, toileting, bathing. Ambulation: independent IADLs Independent: shopping, housework, finances, food prep, telephone, medication admin. Needs Assist: transportation. 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 ECHO Results (as available) Date of last Echo 10/26/07 EF% 69 Exam & Diagnostic Data Vital Signs and I&O Vital Signs Date Time Temp Pulse Resp B/P B/P Pulse O2 O2 Flow FiO2 Mean Ox Delivery Rate 06/01 1018 Nasal 2.0L Cannula 09/12 0953 116 135/62 09/12 0953 116 135/62 09/12 0800 100.8 114 26 122/58 94 Nasal 2.0L Cannula 09/12 0055 96 Nasal 2.0L Cannula 09/12 0040 95 2.0L 09/12 0018 97.2 98 18 145/75 97 09/11 2250 97.9 93 18 127/88 96 Nasal 2.0L Cannula 09/11 2148 89 18 137/60 96 Nasal 2.0L Cannula 09/11 2050 98.9 86 20 122/58 96 Nasal 2.0L Cannula 09/11 1928 84 18 119/65 98 Nasal 2.0L Cannula 09/11 1855 87 20 134/67 98 Nasal 2.0L Cannula 09/11 1730 88 20 127/62 98 Nasal 2.0L Cannula 09/11 1704 98 Nasal 2.0L Cannula 09/11 1700 99.0 95 20 130/63 98 Nasal 2.0L Cannula 09/11 1613 100 20 70/40 97 Room Air Intake & Output 09/12 1600 09/12 0800 09/12 0000 09/11 1600 09/11 0800 09/11 0000 Intake Total 1100 3000 Output Total 480 1600 Balance 620 1400 Intake, IV 1100 3000 Output, 1600 Gastric Drainage Output, Urine 480 Patient 130 lb 130 lb Weight Weight Chair scale Estimated Measurement Method Physical Exam: General Appearance: well developed/nourished, thin, no apparent distress, alert, awake Head: atraumatic, normal appearance Cardiovascular: regular rate/rhythm, 1 to 2/6 systolic murmur left sternal border Respiratory: normal breath sounds, no respiratory distress Peripheral Pulses: 3+ dorsalis pedis (R), 3+ dorsalis pedis (L) Abdomen: normal bowel sounds, soft, Tender Extremities: no edema Neurologic/Psychiatric: awake, alert, oriented x 3 Labs/Sean Results: Laboratory Tests 09/12 09/11 0420 1922 Chemistry Sodium (137 - 145 mmol/L) 144 Potassium (3.5 - 5.1 mmol/L) 3.5 Chloride (98 - 107 mmol/L) 113 H Carbon Dioxide (22 - 30 mmol/L) 18 L Anion Gap (5 - 16) 12 BUN (7 - 17 mg/dL) 27 H Creatinine (0.5 - 1.0 mg/dL) 0.9 Estimated GFR (>60 ml/min) > 60 BUN/Creatinine Ratio (7 - 25 %) 30.0 H Lactic Acid (0.7 - 2.1 mmol/L) 2.0 Phosphorus (2.5 - 4.5 mg/dL) 4.7 H Magnesium (1.6 - 2.3 mg/dL) 1.9 Total Bilirubin (0.2 - 1.3 mg/dL) 0.3 Direct Bilirubin (< 0.4 mg/dL) 0.3 AST (14 - 36 U/L) 29 ALT (9 - 52 U/L) 32 Alkaline Phosphatase (<127 U/L) 52 Total Protein (6.3 - 8.2 g/dL) 5.6 L Albumin (3.5 - 5.0 g/dL) 3.0 L Hematology CBC w Diff MAN DIFF ORDERED WBC (4.8 - 10.8 /CUMM) 6.9 RBC (4.20 - 5.40 /CUMM) 4.09 L Hgb (12.0 - 16.0 G/DL) 11.8 L Hct (37 - 47 %) 36.3 L MCV (81.0 - 99.0 FL) 88.7 MCH (27.0 - 31.0 PG) 28.9 RDW (11.5 - 14.5 %) 15.7 H Plt Count (130 - 400 /CUMM) 193 MPV (7.4 - 10.4 FL) 9.0 Gran % (42.2 - 75.2 %) 71.5 Lymphocytes % (20.5 - 51.1 %) 6.8 L Monocytes % (1.7 - 9.3 %) 21.6 H Eosinophils % (0 - 5 %) 0 Basophils % (0.0 - 2.0 %) 0.1 Absolute Granulocytes (1.4 - 6.5 /CUMM) 4.9 Segmented Neutrophils (42.2 - 75.2 %) 44 Band Neutrophils (0.0 - 5.0 %) 25 H Absolute Lymphocytes (1.2 - 3.4 /CUMM) 0.5 L Lymphocytes (20.5 - 51.1 %) 14 L Monocytes (1.7 - 9.3 %) 14 H Absolute Monocytes (0.10 - 0.60 /CUMM) 1.5 H Eosinophils (0 - 5.0 %) 1 Absolute Eosinophils (0.0 - 0.7 /CUMM) 0 Absolute Basophils (0.0 - 0.2 /CUMM) 0 Metamyelocytes (0.0 - 1.0 %) 2 H Platelet Estimate (ADEQUATE) ADEQUATE Polychromasia 1+ Hypochromic-Microcytic 1+ Poikilocytosis 1+ Ovalocytes 1+ Elliptocytes FEW PUBS MCHC (33.0 - 37.0 G/DL) 32.6 L Other Body Source Fld Total RBCs Counted (%) 100 09/11 09/11 1635 1623 Chemistry Sodium (137 - 145 mmol/L) 142 Potassium (3.5 - 5.1 mmol/L) 4.6 Chloride (98 - 107 mmol/L) 102 Carbon Dioxide (22 - 30 mmol/L) 19 L Anion Gap (5 - 16) 21 H BUN (7 - 17 mg/dL) 38 H Creatinine (0.5 - 1.0 mg/dL) 1.9 H Estimated GFR (>60 ml/min) 26 L BUN/Creatinine Ratio (7 - 25 %) 20.0 Glucose (65 - 99 mg/dL) 182 H Lactic Acid (0.7 - 2.1 mmol/L) 4.5 H Cancelled Calcium (8.4 - 10.2 mg/dL) 9.5 Phosphorus (2.5 - 4.5 mg/dL) 7.0 H Magnesium (1.6 - 2.3 mg/dL) 2.2 Total Bilirubin (0.2 - 1.3 mg/dL) 0.5 AST (14 - 36 U/L) 31 ALT (9 - 52 U/L) 26 Alkaline Phosphatase (<127 U/L) 67 Creatine Kinase (30 - 135 U/L) 189 H Troponin I (< 0.11 ng/ml) 0.02 Total Protein (6.3 - 8.2 g/dL) 7.4 Albumin (3.5 - 5.0 g/dL) 4.4 Globulin (1.9 - 4.2 gm/dL) 3.0 Albumin/Globulin Ratio (1.1 - 2.2 %) 1.5 Lipase (23 - 300 U/L) < 10 L Coagulation PT (9.4 - 12.5 SEC) 13.8 H INR (0.90 - 1.19) 1.32 H APTT (25 - 37 SEC) 36 Hematology CBC w Diff MAN DIFF ORDERED WBC (4.8 - 10.8 /CUMM) 17.5 H RBC (4.20 - 5.40 /CUMM) 5.05 Hgb (12.0 - 16.0 G/DL) 14.5 Hct (37 - 47 %) 44.3 MCV (81.0 - 99.0 FL) 87.8 MCH (27.0 - 31.0 PG) 28.7 RDW (11.5 - 14.5 %) 15.4 H Plt Count (130 - 400 /CUMM) 237 MPV (7.4 - 10.4 FL) 9.2 Gran % (42.2 - 75.2 %) 82.7 H Lymphocytes % (20.5 - 51.1 %) 5.3 L Monocytes % (1.7 - 9.3 %) 11.8 H Eosinophils % (0 - 5 %) 0.1 Basophils % (0.0 - 2.0 %) 0.1 Absolute Granulocytes (1.4 - 6.5 /CUMM) 14.5 H Segmented Neutrophils (42.2 - 75.2 %) 52 Band Neutrophils (0.0 - 5.0 %) 30 H Absolute Lymphocytes (1.2 - 3.4 /CUMM) 0.9 L Lymphocytes (20.5 - 51.1 %) 5 L Monocytes (1.7 - 9.3 %) 7 Absolute Monocytes (0.10 - 0.60 /CUMM) 2.1 H Absolute Eosinophils (0.0 - 0.7 /CUMM) 0 Absolute Basophils (0.0 - 0.2 /CUMM) 0 Metamyelocytes (0.0 - 1.0 %) 6 H Platelet Estimate (ADEQUATE) ADEQUATE Normocytic RBCs VERIFIED Normochromic RBCs VERIFIED PUBS MCHC (33.0 - 37.0 G/DL) 32.7 L Diagnostic Data EKG Results Sinus tachycardia; nonspecific ST-T changes. CXR Results FINDINGS: Nasogastric tube in stomach. Heart size is enlarged. No pulmonary vascular congestion. Lungs are clear. No pleural effusion or pneumothorax. IMPRESSION: Nasogastric tube in stomach. Other Results Abdominal/pelvic CT scan: VASCULAR: ABDOMINAL AORTA: The abdominal aorta is somewhat ectatic and contains calcified plaques in its supra renal portion. An aortobiiliac stent graft is in place. There is no sign of endoleak. The original stented distal abdominal aortic aneurysm measures 3.3 cm. Formally 5 cm. There is no evidence of aortoenteric fistula formation. MESENTERIC VESSELS: Again, calcified and noncalcified atherosclerotic disease is noted at the origin of the celiac axis with severe stenosis. The artery remains patent. Calcified atherosclerotic plaque at the origin of the SMA with moderate to severe narrowing. The artery maintains patency. 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 RENAL ARTERIES: Atherosclerotic disease involves both renal artery origins with calcified plaques worse on the left than right. Both arteries are patent. Perfusion of the kidneys is normal. ILIAC ARTERIES: Well patent. NONVASCULAR: Lung bases: The pericardial effusion is no smaller. Liver, gallbladder, and biliary tree: The multiple scattered arterially enhancing lesions throughout the liver parenchyma are not as well demonstrated due to the timing of the bolus. The largest in Cou[place]ud segment 6/7 is 1.6 cm. The bile ducts and gallbladder are normal. Pancreas: Atrophic. Spleen: Unremarkable. Adrenal glands: Evidence of lesion in the right adrenal gland measures 1.7 cm in greatest diameter. Formally 1.7 cm. Kidneys, ureters, and bladder: The cortical nephrogram is symmetric in both kidneys. There is no stone formation or hydronephrosis. No significant mass lesion is detected. GI tract: The stomach is grossly dilated with fluid and fluid refluxes into the distal dilated esophagus. The duodenum is abnormally dilated and fluid-filled with some luminal compromise as it crosses the stent portion of the abdominal aorta. However, the proximal jejunum is abnormally dilated and fluid-filled with signs of "fecalization" of intraluminal contents representing stasis. The point of transition is about the level of the umbilicus. The ileum is normal in caliber. The colon is decompressed. The diverticulum arising from the rectosigmoid colon measures 2.9 cm in diameter contains air and debris Abdominal wall: Normal. Lymph nodes: Unremarkable. Pelvic viscera: Normal postmenopausal uterus. Small cyst in the right ovary. Osseous structures: Large Schmorl's node involving superior endplate of T11. IMPRESSION: 1. The [place] abdominal aortic aneurysm is smaller. 2. Aortobiiliac stent normal. No endoleak. No aorto enteric fistula. 3. Atherosclerosis of the mesenteric vessels and renal arteries. 4. Small bowel obstruction mid abdomen as described. 5. Right adrenal nodule. Assessment/Plan Assessment/Plan Assessment: 1. Persistent sinus tachycardia-at the moment, I suspect that the patient's sinus tachycardia is multifactorial, related to her underlying small bowel obstruction, mild dehydration, etc. 2. Small bowel obstruction 3. History of abdominal aortic aneurysm, status post endovascular repair 4. History of coronary artery disease 5. hypertension 6. Hyperlipidemia 7. Acute renal insufficiency-improved Recommendations: -If possible, continue the patient's regular medicines which would include her labetalol. -Follow-up echocardiogram to rule out pericardial effusion and to reassess left ventricular function -Check troponin 2 -ECG in the morning -Maintain euvolemic status -Consider continuing gentle IV fluid resuscitation. Consult Acknowledgment - Thank you for your consult request.
--- NOTE | 2016-09-12 09:14 | PN- Medicine Consult ---
See Addendum Assessment/Plan Assessment/Plan Assessment: Patient is a 76-year-old female with past medical history of coronary artery disease, COPD, hypertension, hyperlipidemia, PUD, severe PVD, AAA status post endovascular repair, AV malformations(refusing PillCam's), anxiety, smoker(55 pack smoking history) who presented to the ER with a chief complaint of blood in stools and abdominal distention for the past 3 weeks. Medical consult was obtained for hypotension. Her problem includes: * Sepsis secondary to small bowel obstruction * Small bowel obstruction * Bright red blood per rectum due to questionable AV malformations * COPD * Coronary artery disease * Smoker * Nausea and vomiting Plan: * Her blood pressure is very well controlled, 134/67 on the monitor * Continue hydration with IV fluids at 100 mL an hour * IV Protonix 40 mg daily * IV Zofran as needed * Continue NG tube for gastric decompression. * IV ceftriaxone and IV Flagyl * Serial abdominal exams and x-rays * Follow up blood and urine cultures * Check stool ova and parasite, Shiga toxin and C. difficile * No plans of endoscopic/colonoscopy intervention per GI. * Hold blood pressure medications amlodipine and labetalol for now. * Ok for aspirin per GI, no consideration for colonoscopy in the meantime. * Conservative treatment for now per surgery, if no improvement may need surgical intervention per surgical team * DVT prophylaxis [facility] Problem List: 1. Small bowel obstruction 2. S/P AAA (abdominal aortic aneurysm) repair Subjective Subjective: Patient seen and examined, son at bedside. She reported that her abdominal pain improved today it's 8/10, remain mainly in the mid abdomen, she denies any nausea or vomiting, she passes gas. She denies any shortness of breath, chest pain, fever, chills, and there is no headache or vision change. Vitals stable Review of Systems Constitutional: Reports: no symptoms. EENTM: Reports: no symptoms. Cardiovascular: Reports: no symptoms. Respiratory: Reports: no symptoms. Gastrointestinal: Reports: abdominal pain. Genitourinary: Reports: no symptoms. Musculoskeletal: Reports: no symptoms. Skin: Reports: no symptoms. Neurological/Psychological: Reports: no symptoms. Hematologic/Endocrine: Reports: no symptoms. Objective Last 24 Hrs of Vital Signs/I&O Vital Signs Date Time Temp Pulse Resp B/P B/P Pulse O2 O2 Flow FiO2 Mean Ox Delivery Rate 09/12 1018 Nasal 2.0L Cannula 09/12 0953 116 135/62 09/12 0953 116 135/62 09/12 0800 100.8 114 26 122/58 94 Nasal 2.0L Cannula 09/12 0055 96 Nasal 2.0L Cannula 09/12 0040 95 2.0L 09/12 0018 97.2 98 18 145/75 97 09/11 2250 97.9 93 18 127/88 96 Nasal 2.0L Cannula 09/11 2148 89 18 137/60 96 Nasal 2.0L Cannula 09/11 2050 98.9 86 20 122/58 96 Nasal 2.0L Cannula 09/11 1928 84 18 119/65 98 Nasal 2.0L Cannula 09/11 1855 87 20 134/67 98 Nasal 2.0L Cannula 09/11 1730 88 20 127/62 98 Nasal 2.0L Cannula 09/11 1704 98 Nasal 2.0L Cannula 09/11 1700 99.0 95 20 130/63 98 Nasal 2.0L Cannula 09/11 1613 100 20 70/40 97 Room Air Intake & Output 09/12 1600 09/12 0800 09/12 0000 Intake Total 1100 3000 Output Total 480 1600 Balance 620 1400 Intake, IV 1100 3000 Output, 1600 Gastric Drainage Output, Urine 480 Patient 130 lb 130 lb Weight Weight Chair scale Estimated Measurement Method Physical Exam General Appearance: well developed/nourished, no apparent distress, alert, awake Head: atraumatic, normal appearance Cardiovascular: regular rate/rhythm, normal peripheral pulses Respiratory: normal breath sounds, no respiratory distress Peripheral Pulses: 3+ dorsalis pedis (R), 3+ dorsalis pedis (L) Abdomen: normal bowel sounds, soft, Tender Extremities: no edema Neurologic/Psychiatric: awake, alert, oriented x 3 Current Medications: Current Medications Sig/Ebenezer Start time Last Medication Dose Route Stop Time Status Admin Albuterol Sulfate 3 ML BID 09/12 1000 AC INH Albuterol Sulfate 2 PUF Q12P PRN 09/11 0015 AC INH Alprazolam 0.5 MG TIDPRN PRN 09/11 2300 AC PO 09/18 2259 Amlodipine Besylate 10 MG DAILY 09/12 1000 AC 09/12 PO 0953 Aspirin Buffered 81 MG DAILY 09/12 1000 AC 09/12 PO 0953 Atorvastatin Calcium 80 MG 1700 09/12 1700 AC PO Ceftriaxone Sodium 1,000 MG 2000 09/12 2000 AC IV Ceftriaxone Sodium 0 .STK-MED ONE 09/11 1803 DC .ROUTE Ceftriaxone Sodium 1,000 MG ONCE ONE 09/11 1800 DC 09/11 IV 09/11 1801 1856 Labetalol HCl 200 MG BID 09/12 1000 AC 09/12 PO 0953 Metronidazole 500 MG Q8H 09/12 0400 AC 09/12 N/A 1 UNIT IV 0336 Metronidazole 500 MG ONCE ONE 09/11 1815 DC 09/11 N/A 1 UNIT IV 09/11 1914 1945 Ondansetron HCl 0 .STK-MED ONE 09/11 1639 DC .ROUTE Ondansetron HCl 4 MG ONCE ONE 09/11 1630 DC 09/11 IV 09/11 1631 1630 Pantoprazole Sodium 40 MG DAILY 09/12 1000 AC 09/12 IV 0954 Pantoprazole Sodium 0 .STK-MED ONE 09/11 1750 DC IV Pantoprazole Sodium 40 MG Q5H 09/11 1730 MO 09/11 Sodium Chloride 100 ML IV 1756 Pantoprazole Sodium 0 .STK-MED ONE 09/11 1639 DC IV Pantoprazole Sodium 40 MG ONCE ONE 09/11 1630 DC 09/11 IV 09/11 1631 1630 Pantoprazole Sodium 0 .STK-MED ONE 09/11 1627 DC IV Sodium Chloride 1,000 ML Q10H 09/11 2245 AC 09/12 IV 0833 Sodium Chloride 1,000 ML BOLUS ONE 09/11 1945 DC 09/11 IV 09/11 2044 1947 Sodium Chloride 1,000 ML BOLUS ONE 09/11 1630 DC 09/11 IV 09/11 1729 1630 Sodium Chloride 1,000 ML BOLUS ONE 09/11 1630 DC 09/11 IV 09/11 1729 1630 Tiotropium [place] 1 PUF DAILY 09/12 1000 AC 09/12 INH 1022 Results Last 24 Hrs Lab/Sean Results: Laboratory Tests 09/12/16 0420: Anion Gap 12, Estimated GFR > 60, BUN/Creatinine Ratio 30.0 H, Phosphorus 4.7 H, Magnesium 1.9, Total Bilirubin 0.3, Direct Bilirubin 0.3, AST 29, ALT 32, Alkaline Phosphatase 52, Total Protein 5.6 L, Albumin 3.0 L, CBC w Diff MAN DIFF ORDERED, RBC 4.09 L, MCV 88.7, MCH 28.9, RDW 15.7 H, MPV 9.0, Gran % 71.5 , Lymphocytes % 6.8 L, Monocytes % 21.6 H, Eosinophils % 0, Basophils % 0.1, Absolute Granulocytes 4.9, Segmented Neutrophils 44, Band Neutrophils 25 H, Absolute Lymphocytes 0.5 L, Lymphocytes 14 L, Monocytes 14 H, Absolute Monocytes 1.5 H, Eosinophils 1, Absolute Eosinophils 0, Absolute Basophils 0, Metamyelocytes 2 H, Platelet Estimate ADEQUATE, Polychromasia 1+, Hypochromic- Microcytic 1+, Poikilocytosis 1+, Ovalocytes 1+, Elliptocytes FEW, PUBS MCHC 32.6 L, Fld Total RBCs Counted 100 09/11/16 1922: Lactic Acid 2.0 09/11/16 1635: Anion Gap 21 H, Estimated GFR 26 L, BUN/Creatinine Ratio 20.0, Glucose 182 H, Lactic Acid 4.5 H, Calcium 9.5, Phosphorus 7.0 H, Magnesium 2.2, Total Bilirubin 0.5, AST 31, ALT 26, Alkaline Phosphatase 67, Creatine Kinase 189 H, Troponin I 0.02, Total Protein 7.4, Albumin 4.4, Globulin 3.0, Albumin/Globulin Ratio 1.5, Lipase < 10 L, PT 13.8 H, INR 1.32 H, APTT 36, CBC w Diff MAN DIFF ORDERED, RBC 5.05, MCV 87.8, MCH 28.7, RDW 15.4 H, MPV 9.2, Gran % 82.7 H, Lymphocytes % 5.3 L, Monocytes % 11.8 H, Eosinophils % 0.1, Basophils % 0.1, Absolute Granulocytes 14.5 H, Segmented Neutrophils 52, Band Neutrophils 30 H, Absolute Lymphocytes 0.9 L, Lymphocytes 5 L, Monocytes 7, Absolute Monocytes 2.1 H, Absolute Eosinophils 0, Absolute Basophils 0, Metamyelocytes 6 H, Platelet Estimate ADEQUATE, Normocytic RBCs VERIFIED, Normochromic RBCs VERIFIED , PUBS MCHC 32.7 L 09/11/16 1623: Lactic Acid Cancelled Microbiology 09/12 124 UPPER RESP: Surveillance Culture - RECD 09/12 124 GI: Surveillance Culture - RECD 09/11 185 BLOOD: Blood Culture - RECD 09/11 1840 BLOOD: Blood Culture - RECD 09/11 170 URINE ROUT: Urine Culture - RES GRAM NEGATIVE RODS
--- NOTE | 2016-09-12 13:21 | PN- General Surgery ---
Subjective Subjective: abdominal pain improved. remains distended. no bm/flatus. Objective Vital Signs and I&Os Vital Signs Date Time Temp Pulse Resp B/P B/P Pulse O2 O2 Flow FiO2 Mean Ox Delivery Rate 09/12 1018 Nasal 2.0L Cannula 09/12 0953 116 135/62 09/12 0953 116 135/62 09/12 0800 100.8 114 26 122/58 94 Nasal 2.0L Cannula 09/12 0055 96 Nasal 2.0L Cannula 09/12 0040 95 2.0L 09/12 0018 97.2 98 18 145/75 97 09/11 2250 97.9 93 18 127/88 96 Nasal 2.0L Cannula 09/11 2148 89 18 137/60 96 Nasal 2.0L Cannula 09/11 2050 98.9 86 20 122/58 96 Nasal 2.0L Cannula 09/11 1928 84 18 119/65 98 Nasal 2.0L Cannula 09/11 1855 87 20 134/67 98 Nasal 2.0L Cannula 09/11 1730 88 20 127/62 98 Nasal 2.0L Cannula 09/11 1704 98 Nasal 2.0L Cannula 09/11 1700 99.0 95 20 130/63 98 Nasal 2.0L Cannula 09/11 1613 100 20 70/40 97 Room Air Intake & Output 09/12 1600 09/12 0800 09/12 0000 09/11 1600 09/11 0800 09/11 0000 Intake Total 1100 3000 Output Total 480 1600 Balance 620 1400 Intake, IV 1100 3000 Output, 1600 Gastric Drainage Output, Urine 480 Patient 130 lb 130 lb Weight Weight Chair scale Estimated Measurement Method Physical Exam: gen; looks well, older than age. no distress. heent; anicteric, perrl, eomi abd; distended, nontender. tymphanitic. no mass, no hernia Assessment/Plan Assessment/Plan persistent sbo. ?adhesive disease from . no abdominal findings to suggest bowel ischemia. May require operative intervention if no improvement. acute renal failure resolved with hydration. d/c smith gnr in urine. ceftriaxone pending culture results. Problem List: 1. Small bowel obstruction 2. DANIEL (acute kidney injury) Core Measures/Miscellaneous Smith Catheter Date In: 09/11/16 Still Needed? No Venous Thromboembolism VTE Risk Factors: Acute medical illness, Age > 40, Smoking VTE Contraindications: No Contraindications VTE Diagnosis: No VTE Type: NONE VTE Confirmed by (Test): NONE Beta Darwin Is Beta Darwin a Home Med? Yes If Yes, Was This Ordered Today? Yes Antibiotics Is Patient on Antibiotics? Yes If Yes: infection (uti)
[2016-09-12 15:30] VITALS: BP 118/60
--- NOTE | 2016-09-12 18:50 | Admission Certification ---
Admission Certification Certification Statement - As attending physician, I certify that at the time of - admission, based on clinical presentation, severity of - symptoms, need for further diagnostic testing and - therapeutic interventions, and risk of adverse outcomes - without in-hospital treatment, in my clinical assessment, - this patient requires an acute hospital stay for a minimum - of two nights or longer. I have also considered psychsocial - factors such as support system, advanced age, financial - issues, cognitive issues, and failed out-patient treatments, - past re-admission history, safety of patient, and lack of - compliance as applicable. Specific rationale supporting this admission is: small bowel obstruction that may require surgery. 2-3 days of medical management will be pursued prior to recommending surgery
[2016-09-12 21:57] VITALS: BP 128/58
--- NOTE | 2016-09-13 02:37 | NUR ---
APPX [id number] 09/12, PT ACCIDENTALLY PULLED OUT NGT FROM RIGHT NARE. NEW NGT INSERTED INTO LEFT NARE. AWAITING XR CONFIRMATION
--- NOTE | 2016-09-13 06:49 | RADIOLOGY REPORT ---
EXAMINATION: XR PORTABLE CHEST CLINICAL INFORMATION: NG tube placement COMPARISON: 09/11/2016 TECHNIQUE: Portable frontal view of the chest was obtained. FINDINGS: The enteric tube terminates in the stomach. The lungs are well expanded. There is no focal consolidation, edema, or effusion. No pneumothorax. The cardiomediastinal silhouette is within normal limits. No acute osseous abnormality. IMPRESSION: Clear lungs. Enteric tube terminating in the stomach. This appears to have been further advanced since the prior.
[2016-09-13 08:00] VITALS: BP 120/70
[2016-09-13 08:08] LABS: ABSOLUTE BASOPHIL COUNT 0 /CUMM (0.0-0.2); ABSOLUTE EOSINOPHIL COUNT 0 /CUMM (0.0-0.7); ABSOLUTE GRANULOCYTE CT 10.5 /CUMM (1.4-6.5); ABSOLUTE LYMPH COUNT 0.6 /CUMM (1.2-3.4); ABSOLUTE MONOCYTE COUNT 1.2 /CUMM (0.10-0.60); BASOPHIL % 0.1 % (0.0-2.0); EOSINOPHIL % 0 % (0-5); GRANULOCYTE % 85.4 % (42.2-75.2); HEMATOCRIT 35.3 % (37-47); MEAN CORPUSCULAR HGB 28.9 PG (27.0-31.0); MEAN CORPUSCULAR HGB CONC 32.8 G/DL (33.0-37.0); MEAN PLATELET VOLUME 9.6 FL (7.4-10.4); PLATELET COUNT 186 /CUMM (130-400); RBC DISTRIBUTION WIDTH 15.7 % (11.5-14.5); RED BLOOD CELL CT 4.01 /CUMM (4.20-5.40)
--- NOTE | 2016-09-13 08:39 | PN- General Surgery ---
See Addendum Subjective Subjective: Pain is less, patient still with distention, tolerating NG tube, no bowel movement or flatus yet, no fever or flulike illness, no chest pain or shortness of breath. Objective Vital Signs and I&Os Vital Signs Date Time Temp Pulse Resp B/P B/P Pulse O2 O2 Flow FiO2 Mean Ox Delivery Rate 09/13 0000 Nasal 2.0L Cannula 09/12 2156 99.6 120 20 128/58 92 Nasal 3.0L Cannula 09/12 2126 120 128/58 09/12 1925 88 Nasal 2.0L Cannula 09/12 1600 Nasal 2.0L Cannula 09/12 1530 98.3 109 16 118/60 92 Nasal Cannula 09/12 1018 Nasal 2.0L Cannula 09/12 0953 116 135/62 09/12 0953 116 135/62 Intake & Output 09/13 1600 02 0800 09/13 0000 09/12 1600 09/12 0800 09/12 0000 Intake Total 830 130 244 9561 3000 Output Total 636 141 3433 480 1600 Balance 380 100 -102 304 9880 Intake, IV 800 691 135 0914 3000 Intake, Oral 0 0 Intake, Other 30 100 Number 0 Bowel Movements Output, 250 471 302 9810 Gastric Drainage Output, Urine 733 021 8813 480 Patient 130 lb 130 lb Weight Weight Chair scale Estimated Measurement Method Physical Exam: Well-developed well-nourished no apparent distress. Elderly female, looks stated age HEENT: Atraumatic, NG tube in place,250ml output overnight, billious Neck: Supple, no lymphadenopathy Heart: Tachycardic, regular Respiratory: No respiratory distress, lungs clear Abdomen: Still moderately distended, tympanic, minimal bowel sounds, very mild tenderness throughout Extremities: No edema, no calf pain Neuro: Alert and oriented x3 Psych: Mood affect normal, normal memory normal judgment. Skin: Warm and dry, no rash on exposed skin Results Last 48 Hours of Labs: Laboratory Tests 09/13 09/12 09/12 09/12 0620 2110 1600 0420 Chemistry Sodium (137 - 145 mmol/L) 147 H 144 Potassium (3.5 - 5.1 mmol/L) 3.2 L 3.5 Chloride (98 - 107 mmol/L) 115 H 113 H Carbon Dioxide (22 - 30 mmol/L) 20 L 18 L Anion Gap (5 - 16) 12 12 BUN (7 - 17 mg/dL) 23 H 27 H Creatinine (0.5 - 1.0 mg/dL) 0.8 0.9 Estimated GFR (>60 ml/min) > 60 > 60 BUN/Creatinine Ratio (7 - 25 %) 28.8 H 30.0 H Phosphorus (2.5 - 4.5 mg/dL) 4.7 H Magnesium (1.6 - 2.3 mg/dL) 1.9 Total Bilirubin (0.2 - 1.3 mg/dL) 0.3 Direct Bilirubin (< 0.4 mg/dL) 0.3 AST (14 - 36 U/L) 29 ALT (9 - 52 U/L) 32 Alkaline Phosphatase (<127 U/L) 52 Troponin I (< 0.11 ng/ml) 0.04 0.02 Total Protein (6.3 - 8.2 g/dL) 5.6 L Albumin (3.5 - 5.0 g/dL) 3.0 L Hematology CBC w Diff Pending MAN DIFF ORDERED WBC (4.8 - 10.8 /CUMM) Pending 6.9 RBC (4.20 - 5.40 /CUMM) Pending 4.09 L Hgb (12.0 - 16.0 G/DL) Pending 11.8 L Hct (37 - 47 %) Pending 36.3 L MCV (81.0 - 99.0 FL) Pending 88.7 MCH (27.0 - 31.0 PG) Pending 28.9 RDW (11.5 - 14.5 %) Pending 15.7 H Plt Count (130 - 400 /CUMM) Pending 193 MPV (7.4 - 10.4 FL) Pending 9.0 Gran % (42.2 - 75.2 %) 71.5 Lymphocytes % (20.5 - 51.1 %) 6.8 L Monocytes % (1.7 - 9.3 %) 21.6 H Eosinophils % (0 - 5 %) 0 Basophils % (0.0 - 2.0 %) 0.1 Absolute Granulocytes (1.4 - 6.5 /CUMM) 4.9 Segmented Neutrophils (42.2 - 75.2 %) 44 Band Neutrophils (0.0 - 5.0 %) 25 H Absolute Lymphocytes (1.2 - 3.4 /CUMM) 0.5 L Lymphocytes (20.5 - 51.1 %) 14 L Monocytes (1.7 - 9.3 %) 14 H Absolute Monocytes (0.10 - 0.60 /CUMM) 1.5 H Eosinophils (0 - 5.0 %) 1 Absolute Eosinophils (0.0 - 0.7 /CUMM) 0 Absolute Basophils (0.0 - 0.2 /CUMM) 0 Metamyelocytes (0.0 - 1.0 %) 2 H Platelet Estimate (ADEQUATE) ADEQUATE Polychromasia 1+ Hypochromic-Microcytic 1+ Poikilocytosis 1+ Ovalocytes 1+ Elliptocytes FEW PUBS MCHC (33.0 - 37.0 G/DL) Pending 32.6 L Other Body Source Fld Total RBCs Counted (%) 100 09/11 09/11 09/11 1922 1635 1623 Chemistry Sodium (137 - 145 mmol/L) 142 Potassium (3.5 - 5.1 mmol/L) 4.6 Chloride (98 - 107 mmol/L) 102 Carbon Dioxide (22 - 30 mmol/L) 19 L Anion Gap (5 - 16) 21 H BUN (7 - 17 mg/dL) 38 H Creatinine (0.5 - 1.0 mg/dL) 1.9 H Estimated GFR (>60 ml/min) 26 L BUN/Creatinine Ratio (7 - 25 %) 20.0 Glucose (65 - 99 mg/dL) 182 H Lactic Acid (0.7 - 2.1 mmol/L) 2.0 4.5 H Cancelled Calcium (8.4 - 10.2 mg/dL) 9.5 Phosphorus (2.5 - 4.5 mg/dL) 7.0 H Magnesium (1.6 - 2.3 mg/dL) 2.2 Total Bilirubin (0.2 - 1.3 mg/dL) 0.5 AST (14 - 36 U/L) 31 ALT (9 - 52 U/L) 26 Alkaline Phosphatase (<127 U/L) 67 Creatine Kinase (30 - 135 U/L) 189 H Troponin I (< 0.11 ng/ml) 0.02 Total Protein (6.3 - 8.2 g/dL) 7.4 Albumin (3.5 - 5.0 g/dL) 4.4 Globulin (1.9 - 4.2 gm/dL) 3.0 Albumin/Globulin Ratio (1.1 - 2.2 %) 1.5 Lipase (23 - 300 U/L) < 10 L Coagulation PT (9.4 - 12.5 SEC) 13.8 H INR (0.90 - 1.19) 1.32 H APTT (25 - 37 SEC) 36 Hematology CBC w Diff MAN DIFF ORDERED WBC (4.8 - 10.8 /CUMM) 17.5 H RBC (4.20 - 5.40 /CUMM) 5.05 Hgb (12.0 - 16.0 G/DL) 14.5 Hct (37 - 47 %) 44.3 MCV (81.0 - 99.0 FL) 87.8 MCH (27.0 - 31.0 PG) 28.7 RDW (11.5 - 14.5 %) 15.4 H Plt Count (130 - 400 /CUMM) 237 MPV (7.4 - 10.4 FL) 9.2 Gran % (42.2 - 75.2 %) 82.7 H Lymphocytes % (20.5 - 51.1 %) 5.3 L Monocytes % (1.7 - 9.3 %) 11.8 H Eosinophils % (0 - 5 %) 0.1 Basophils % (0.0 - 2.0 %) 0.1 Absolute Granulocytes (1.4 - 6.5 /CUMM) 14.5 H Segmented Neutrophils (42.2 - 75.2 %) 52 Band Neutrophils (0.0 - 5.0 %) 30 H Absolute Lymphocytes (1.2 - 3.4 /CUMM) 0.9 L Lymphocytes (20.5 - 51.1 %) 5 L Monocytes (1.7 - 9.3 %) 7 Absolute Monocytes (0.10 - 0.60 /CUMM) 2.1 H Absolute Eosinophils (0.0 - 0.7 /CUMM) 0 Absolute Basophils (0.0 - 0.2 /CUMM) 0 Metamyelocytes (0.0 - 1.0 %) 6 H Platelet Estimate (ADEQUATE) ADEQUATE Normocytic RBCs VERIFIED Normochromic RBCs VERIFIED PUBS MCHC (33.0 - 37.0 G/DL) 32.7 L Assessment/Plan Assessment/Plan Hospital day #2 secondary to small bowel obstruction. Continue NG tube, awaiting return of bowel function Mild hypokalemia at 3.2, likely secondary to inadequate by mouth intake, start potassium 20 mEq in IV fluids and recheck tomorrow IV protonix DVT prophylaxis with heparin subcutaneous Appreciate cardiology input, still tachycardic, continue telemetry monitoring, troponins have been negative Gram-negative rods in urine, continue Rocephin, await final culture Follow labs this morning Core Measures/Miscellaneous Gaitan Catheter Date In: 09/11/16 Venous Thromboembolism VTE Risk Factors: Acute medical illness, Age > 40, Smoking VTE Contraindications: No Contraindications VTE Diagnosis: No VTE Type: NONE VTE Confirmed by (Test): NONE Beta Darwin Is Beta Darwin a Home Med? Yes If Yes, Was This Ordered Today? Yes Antibiotics Is Patient on Antibiotics? Yes If Yes: infection (uti)
[2016-09-13 08:43] LABS: WHITE BLOOD CELL COUNT 12.3 /CUMM (4.8-10.8)
--- NOTE | 2016-09-13 13:08 | PN- Cardiology ---
Subjective Subjective: The patient remains stable from a cardiac standpoint. She remains mildly tachycardic, however, I suspect this is related to her underlying abdominal issues. She denies any other cardiovascular symptoms. Objective Vital Signs and I&Os Vital Signs Date Time Temp Pulse Resp B/P B/P Pulse O2 O2 Flow FiO2 Mean Ox Delivery Rate 09/13 0954 64 128/70 09/13 0954 64 128/70 09/13 0800 98.5 115 18 120/70 92 Nasal 3.0L Cannula 09/13 0000 Nasal 2.0L Cannula 09/12 2157 99.6 120 20 128/58 92 Nasal 3.0L Cannula 09/12 2126 120 128/58 09/12 1925 88 Nasal 2.0L Cannula 09/12 1600 Nasal 2.0L Cannula 09/12 1530 98.3 109 16 118/60 92 Nasal Cannula Intake & Output 09/13 1600 02 0800 09/13 0000 09/12 1600 09/12 0800 09/12 0000 Intake Total 830 827 720 0537 3000 Output Total 128 111 3067 480 1600 Balance 380 100 -121 548 6897 Intake, IV 800 831 558 5582 3000 Intake, Oral 0 0 Intake, Other 30 100 Number 0 Bowel Movements Output, 250 504 845 4134 Gastric Drainage Output, Urine 443 066 0130 480 Patient 130 lb 130 lb 130 lb Weight Weight Chair scale Estimated Measurement Method Physical Exam: General Appearance: well developed/nourished, thin, no apparent distress, alert, awake Head: atraumatic, normal appearance Cardiovascular: regular rate/rhythm, 1 to 2/6 systolic murmur left sternal border Respiratory: normal breath sounds, no respiratory distress Peripheral Pulses: 3+ dorsalis pedis (R), 3+ dorsalis pedis (L) Abdomen: Distended, tympanitic, nontender, bowel sounds positive Extremities: no edema Neurologic/Psychiatric: awake, alert, oriented x 3 Current Medications: Current Medications Sig/Ebenezer Start time Last Medication Dose Route Stop Time Status Admin Albuterol Sulfate 3 ML BID 09/12 1430 AC 09/13 INH 1124 Albuterol Sulfate 3 ML BID 09/12 1000 AC 09/12 INH 1925 Albuterol Sulfate 2 PUF Q12P PRN 09/11 0015 AC INH Alprazolam 0.5 MG TIDPRN PRN 09/11 2300 AC 09/12 PO 09/18 Amlodipine Besylate 10 MG DAILY 09/12 1000 AC 09/13 PO 0954 Aspirin Buffered 81 MG DAILY 09/12 1000 AC 09/13 PO 0953 Atorvastatin Calcium 80 MG 1700 09/12 1700 AC 09/12 PO 1656 Ceftriaxone Sodium 1,000 MG 2000 09/12 2000 AC 09/12 IV 2125 Dextrose/Sodium 1,000 ML Q10H 09/12 1330 DC 09/13 Chloride IV 0015 Heparin Sodium 5,000 UNIT Q8 09/12 1400 AC 09/13 (Porcine) SC 0618 Labetalol HCl 200 MG BID 09/12 1000 AC 09/13 PO 0954 Metronidazole 500 MG Q8H 09/12 0400 DC 09/12 N/A 1 UNIT IV 1245 Pantoprazole Sodium 40 MG DAILY 09/12 1000 AC 09/13 IV 0952 Potassium Chloride 20 MEQ Q10H 09/13 0845 AC 09/13 Dextrose/Sodium 1,000 ML IV 0941 Chloride Sodium Chloride 1,000 ML Q10H 09/11 2245 DC 09/12 IV 0833 Tiotropium [place] 1 PUF DAILY 09/12 1000 AC 09/13 INH 0954 Results Last 48 Hrs of Labs/Mics: Laboratory Tests 09/13/16 0620: Anion Gap 12, Estimated GFR > 60, BUN/Creatinine Ratio 28.8 H, CBC w Diff MAN DIFF ORDERED, RBC 4.01 L, MCV 88.0, MCH 28.9, RDW 15.7 H, MPV 9.6, Gran % 85.4 H, Lymphocytes % 4.5 L, Monocytes % 10.0 H, Eosinophils % 0, Basophils % 0.1, Absolute Granulocytes 10.5 H, Segmented Neutrophils 59, Band Neutrophils 18 H, Absolute Lymphocytes 0.6 L, Lymphocytes 9 L, Monocytes 14 H, Absolute Monocytes 1.2 H, Absolute Eosinophils 0, Absolute Basophils 0, Platelet Estimate VERIFIED BY SMEAR, Normocytic RBCs VERIFIED, Normochromic RBCs VERIFIED , PUBS MCHC 32.8 L 09/12/16 2110: Troponin I 0.04 09/12/16 1600: Troponin I 0.02 09/12/16 0420: Anion Gap 12, Estimated GFR > 60, BUN/Creatinine Ratio 30.0 H, Phosphorus 4.7 H, Magnesium 1.9, Total Bilirubin 0.3, Direct Bilirubin 0.3, AST 29, ALT 32, Alkaline Phosphatase 52, Total Protein 5.6 L, Albumin 3.0 L, CBC w Diff MAN DIFF ORDERED, RBC 4.09 L, MCV 88.7, MCH 28.9, RDW 15.7 H, MPV 9.0, Gran % 71.5 , Lymphocytes % 6.8 L, Monocytes % 21.6 H, Eosinophils % 0, Basophils % 0.1, Absolute Granulocytes 4.9, Segmented Neutrophils 44, Band Neutrophils 25 H, Absolute Lymphocytes 0.5 L, Lymphocytes 14 L, Monocytes 14 H, Absolute Monocytes 1.5 H, Eosinophils 1, Absolute Eosinophils 0, Absolute Basophils 0, Metamyelocytes 2 H, Platelet Estimate ADEQUATE, Polychromasia 1+, Hypochromic- Microcytic 1+, Poikilocytosis 1+, Ovalocytes 1+, Elliptocytes FEW, PUBS MCHC 32.6 L, Fld Total RBCs Counted 100 09/11/16 1922: Lactic Acid 2.0 09/11/16 1635: Anion Gap 21 H, Estimated GFR 26 L, BUN/Creatinine Ratio 20.0, Glucose 182 H, Lactic Acid 4.5 H, Calcium 9.5, Phosphorus 7.0 H, Magnesium 2.2, Total Bilirubin 0.5, AST 31, ALT 26, Alkaline Phosphatase 67, Creatine Kinase 189 H, Troponin I 0.02, Total Protein 7.4, Albumin 4.4, Globulin 3.0, Albumin/Globulin Ratio 1.5, Lipase < 10 L, PT 13.8 H, INR 1.32 H, APTT 36, CBC w Diff MAN DIFF ORDERED, RBC 5.05, MCV 87.8, MCH 28.7, RDW 15.4 H, MPV 9.2, Gran % 82.7 H, Lymphocytes % 5.3 L, Monocytes % 11.8 H, Eosinophils % 0.1, Basophils % 0.1, Absolute Granulocytes 14.5 H, Segmented Neutrophils 52, Band Neutrophils 30 H, Absolute Lymphocytes 0.9 L, Lymphocytes 5 L, Monocytes 7, Absolute Monocytes 2.1 H, Absolute Eosinophils 0, Absolute Basophils 0, Metamyelocytes 6 H, Platelet Estimate ADEQUATE, Normocytic RBCs VERIFIED, Normochromic RBCs VERIFIED , PUBS MCHC 32.7 L 09/11/16 1623: Lactic Acid Cancelled Microbiology 09/12 012 UPPER RESP: Surveillance Culture - COMP 09/12 012 GI: Surveillance Culture - COMP 09/11 1700 URINE ROUT: Urine Culture - COMP ESCHERICHIA COLI Assessment/Plan Assessment/Plan Assessment: 1. Persistent sinus tachycardia-at the moment, I suspect that the patient's sinus tachycardia is multifactorial, related to her underlying small bowel obstruction, mild dehydration, etc. 2. Small bowel obstruction 3. History of abdominal aortic aneurysm, status post endovascular repair 4. History of coronary artery disease 5. hypertension 6. Hyperlipidemia 7. Acute renal insufficiency-improved Recommendations: -At the moment, the patient is doing about the same clinically. She maintains a mild sinus tachycardia. She is apparently scheduled to go to the OR this afternoon for her small bowel obstruction. -The patient appears stable from a cardiac standpoint. Prior to her endovascular AAA repair in September 2015, the patient a complete cardiac evaluation including a pharmacologic stress test which was normal. In view of this fact, the patient should tolerate the surgery with no issues. -Please continue the patient on her current medications of possible. If the patient remains nothing by mouth postoperatively, her blood pressure should be monitored closely as well as her heart rate. She may need intermittent low doses of IV metoprolol, etc. for heart rate and blood pressure control. -Please check an EKG postoperatively and in the morning postoperatively. -The patient should be kept on the outreach analyst postoperatively.
--- NOTE | 2016-09-13 14:15 | ECHOCARDIOGRAM REPORT ---
YONY SHETTY Age: 76 : 1940 Gender: F Exam Date: 09/12/2016 16:12 Exam Location: 1 [address] Ht (in): 55 Wt (lb): 129 BSA: 1.53 BP: 135 / 62 Ordering Physician: AMARI GUIDRY SARA Referring Physician: Prateek Luu MD Technologist: Britta Dickson [facility] Room Number: 174-01 Indications: LV FUNCTION AFTER ACS Rhythm: Sinus Technical Quality: Good FINDINGS Left Ventricle Normal global left ventricular size, wall thickness, systolic function with no obvious regional wall motion abnormalities. Normal left ventricular ejection fraction estimated at 55-60%. Right Ventricle Right ventricle at upper limits of normal. Right Atrium Normal right atrial size. Left Atrium Left atrial size at the upper limits of normal. Mitral Valve Mitral valve thickened. Trace to mild mitral regurgitation. Aortic Valve Trileaflet aortic valve. Diffuse thickening (sclerosis) of the aortic valve cusps without reduced excursion. No aortic stenosis. No aortic regurgitation. Tricuspid Valve Tricuspid valve not well visualized, grossly normal. Trace tricuspid regurgitation. Pulmonic Valve Pulmonic valve not well visualized, grossly normal. Trace to mild pulmonic regurgitation. Pericardium Small pericardial effusion. Great Vessels Aortic root and proximal ascending aorta not well visualized, grossly normal. CONCLUSIONS 1. Mild aortic sclerosis is present with no valvular stenosis or insufficiency. 2. Mitral leaflet thickening is present with minimal to mild mitral insufficiency. 3. A small pericardial effusion is present which is hemodynamically insignificant. 4. The left ventricular chamber size is normal with a normal ejection fraction and no resting wall motion abnormaliteis. 5. Minimal tricuspid insufficiency is present with mild pulmonic insufficiency. The RV systolic pressure could not be accurately assessed on this study. Prateek Luu M.D. (Electronically Signed) Final Date: 13 September 2016 14:14 MEASUREMENTS (Male / Female) Normal Values 2D ECHO LV Diastolic Diameter PLAX 3.7 cm 4.2 - 5.9 / 3.9 - 5.3 cm LV Systolic Diameter PLAX 2.4 cm 2.1 - 4.0 cm LV Fractional Shortening PLAX 35.1 % 25 - 46 % LV Ejection Fraction 2D Teich 65.3 % IVS Diastolic Thickness 1.1 cm LVPW Diastolic Thickness 1.0 cm LV Relative Wall Thickness 0.6 RV Internal Dim ED PLAX 2.4 cm 1.9 - 3.8 cm LVOT Diameter 1.9 cm Aortic Root Diameter 2.5 cm LA Systolic Diameter LX 2.9 cm 3.0 - 4.0 / 2.7 - 3.8 cm LA Volume 23.0 cm 18 - 58 / 22 - 52 cm Ascending Aorta Diameter 3.0 cm DOPPLER AV Peak Velocity 152.0 cm/s AV Peak Gradient 9.2 mmHg AV Mean Velocity 108.0 cm/s AV Mean Gradient 5.0 mmHg AV Velocity Time Integral 26.8 cm LVOT Peak Velocity 114.0 cm/s LVOT Peak Gradient 5.2 mmHg LVOT Mean Velocity 89.2 cm/s LVOT Mean Gradient 3.0 mmHg LVOT Velocity Time Integral 21.0 cm LVOT Stroke Volume 59.5 cm AV Area Cont Eq vti 2.2 cm AV Area Cont Eq pk 2.1 cm MV Peak Velocity 145.0 cm/s MV Peak Gradient 8.4 mmHg MV Mean Velocity 81.2 cm/s MV Mean Gradient 3.3 mmHg Mitral E Point Velocity 94.3 cm/s Mitral A Point Velocity 136.0 cm/s Mitral E to A Ratio 0.7 MV Deceleration Time 239.0 ms PV Peak Velocity 132.0 cm/s PV Peak Gradient 7.0 mmHg PV Mean Velocity 82.8 cm/s PV Mean Gradient 3.0 mmHg PV Velocity Time Integral 20.8 cm LV E' Lateral Velocity 14.0 cm/s Mitral E to LV E' Lateral Ratio 6.7 LV E' Septal Velocity 12.4 cm/s Mitral E to LV E' Septal Ratio 7.6
--- NOTE | 2016-09-13 14:57 | Operative Report ---
Operative/Inv Procedure Report Surgery Date: 09/13/16 Name of Procedure: Lysis of adhesions Pre-Operative Diagnosis: Small bowel obstruction Post-Operative Diagnosis: Same Estimated Blood Loss: scant Surgeon/Edge Blacker: CHELSEA ADNERSON,MAKAYLA Patel/Meena JOHN Anesthesia: general endotracheal tube Operative Indication: 76-year-old woman admitted for medical management of his intestinal obstruction presumed to be due to adhesions. This morning she became tachycardic with worsening leukocytosis. She had lack of bowel function and decision was made for laparotomy with lysis of adhesions. Operative/Procedure Note Note: After consent she was brought to the operating room laid supine. Gen. anesthesia was obtained and her abdomen was prepped and draped. A midline incision was made sharply and the subcutaneous tissues tissues were dissected with cautery. We incised the fascia with cautery and entered the peritoneum sharply. There were adhesions of omentum to the anterior abdominal wall we dissected and circumferentially with cautery and sharp dissection. The small bowel was then brought up through the wound. The proximal jejunum was severely dilated up to 5 cm with gas and liquid stool. We ran the small bowel from the ligament Treitz to the terminal ileum. There was tapering at the mid small bowel without a clear transition. There is no mass or intraluminal process. The cecum and appendix were normal. Transverse colon was normal caliber. Left colon and sigmoid colon were normal as well. Ran the small bowel 2 more times without finding any clear source of her obstruction. It was determined that likely there was adhesive disease related to her omentum that was lysed prior to eviscerating her bowel for inspection. Placed her small bowel. No cavity. Omentum was placed over it in the fascia closed with a running 0 Maxon suture. Skin was irrigated with saline and closed with will. Sterile dressings applied. Sponge and needle counts are correct CC: FRANCIA ANDERSON,ANAHI Trejo
[2016-09-13 17:16] VITALS: BP 128/50
[2016-09-13 17:21] VITALS: BP 133/62
--- NOTE | 2016-09-13 22:49 | PN- General Surgery ---
Subjective Subjective: POSTOP CHECK thirsty. no n/v/cp/sob. no flatus, no bm. pain controlled Objective Vital Signs and I&Os Vital Signs Date Time Temp Pulse Resp B/P B/P Pulse O2 O2 Flow FiO2 Mean Ox Delivery Rate 09/13 2131 92 132/52 09/13 2119 97 Nasal 2.0L Cannula 09/13 1721 99.1 92 22 133/62 97 Nasal 4.0L Cannula 09/13 1716 98.7 65 18 128/50 90 Nasal 4.5L Cannula 09/13 1600 Nasal 2.0L Cannula 09/13 1135 93 Nasal 3.0L Cannula 09/13 0954 64 128/70 09/13 0954 64 128/70 09/13 0800 92 Nasal 2.0L Cannula 09/13 0800 98.5 115 18 120/70 92 Nasal 3.0L Cannula 09/13 0000 Nasal 2.0L Cannula Intake & Output 09/13 1600 09/13 0800 09/13 0000 09/12 1600 09/12 0800 09/12 0000 Intake Total 500 830 593 357 1744 3000 Output Total 401 863 9625 480 1600 Balance 500 380 100 -711 946 2315 Intake, IV 500 800 677 591 0109 3000 Intake, Oral 0 0 Intake, Other 30 100 Number 1 0 Bowel Movements Output, 250 172 936 5136 Gastric Drainage Output, Urine 161 881 6672 480 Patient 130 lb 130 lb 130 lb Weight Weight Chair scale Estimated Measurement Method Physical Exam: GEN: NAD CARD: S1S2 rrr PULM: CTAB ABD: dist, tympanic, dressings cdi, quiet, ttp throughout EXT: calves soft nt Current Medications: Current Medications Sig/Ebenezer Start time Last Medication Dose Route Stop Time Status Admin Acetaminophen 1,000 MG Q6H 09/13 1500 AC 09/13 N/A 1 UNIT IV 09/14 Albuterol Sulfate 3 ML BID 09/13 2200 CAN INH Albuterol Sulfate 3 ML BID 09/13 2200 AC 09/13 INH 2118 Albuterol Sulfate 2 PUF Q12P PRN 09/13 1500 AC INH Albuterol Sulfate 3 ML BID 09/12 1430 DC 09/13 INH 1124 Albuterol Sulfate 3 ML BID 09/12 1000 DC 09/12 INH 1925 Albuterol Sulfate 2 PUF Q12P PRN 09/11 0015 DC INH Alprazolam 0.5 MG TIDPRN PRN 09/13 1500 AC PO 09/20 1459 Alprazolam 0.5 MG TIDPRN PRN 09/11 2300 DC 09/12 PO 09/18 2259 2128 Amlodipine Besylate 10 MG DAILY 09/14 1000 AC PO Amlodipine Besylate 10 MG DAILY 09/12 1000 DC 09/13 PO 0954 Aspirin Buffered 81 MG DAILY 09/14 1000 CAN PO Aspirin Buffered 81 MG DAILY 09/12 1000 DC 09/13 PO 0953 Atorvastatin Calcium 80 MG 1700 09/13 1700 AC 09/13 PO 1835 Atorvastatin Calcium 80 MG 1700 09/12 1700 DC 09/12 PO 1656 Ceftriaxone Sodium 1,000 MG 09/12 2000 DC 09/12 IV 2125 Dextrose/Sodium 1,000 ML Q10H 09/12 1330 DC 09/13 Chloride IV 0015 Fentanyl Citrate 250 MCG .STK-MED ONE 09/13 1304 DC IM 09/13 1305 Heparin Sodium 5,000 UNIT Q8 09/13 2200 AC 09/13 (Porcine) SC 2128 Heparin Sodium 5,000 UNIT Q8 09/12 1400 DC 09/13 (Porcine) SC 0618 Hydromorphone HCl 2 MG .STK-MED ONE 09/13 1304 DC IM 09/13 1305 Ketorolac 15 MG Q8P PRN 09/13 1500 AC Tromethamine IV Labetalol HCl 200 MG BID 09/13 2200 AC 09/13 PO 2131 Labetalol HCl 200 MG BID 09/12 1000 DC 09/13 PO 0954 Midazolam HCl 2 MG .STK-MED ONE 09/13 1304 DC IM 09/13 1305 Morphine Sulfate 2 MG Q3P PRN 09/13 1500 AC IV Morphine Sulfate 4 MG Q3P PRN 09/13 1500 AC IV Morphine Sulfate 6 MG Q3P PRN 09/13 1500 AC IV Ondansetron HCl 4 MG .STK-MED ONE 09/13 1304 DC IM 09/13 1305 Pantoprazole Sodium 40 MG DAILY 09/14 1000 AC IV Pantoprazole Sodium 40 MG DAILY 09/12 1000 DC 09/13 IV 0952 Patient Medication 1 ED ONE ONE 09/13 1430 DC Teaching ED 09/13 1431 Potassium Chloride 20 MEQ Q10H 09/13 1500 AC 09/13 Dextrose/Sodium 1,000 ML IV 1640 Chloride Potassium Chloride 20 MEQ Q10H 09/13 0845 DC 09/13 Dextrose/Sodium 1,000 ML IV 0941 Chloride Tiotropium [place] 1 PUF DAILY 09/14 1000 AC INH Tiotropium [place] 1 PUF DAILY 09/12 1000 DC 09/13 INH 0954 Results Last 48 Hours of Labs: Laboratory Tests 09/13 09/12 09/12 0620 2110 1600 Chemistry Sodium (137 - 145 mmol/L) 147 H Potassium (3.5 - 5.1 mmol/L) 3.2 L Chloride (98 - 107 mmol/L) 115 H Carbon Dioxide (22 - 30 mmol/L) 20 L Anion Gap (5 - 16) 12 BUN (7 - 17 mg/dL) 23 H Creatinine (0.5 - 1.0 mg/dL) 0.8 Estimated GFR (>60 ml/min) > 60 BUN/Creatinine Ratio (7 - 25 %) 28.8 H Troponin I (< 0.11 ng/ml) 0.04 0.02 Hematology CBC w Diff MAN DIFF ORDERED WBC (4.8 - 10.8 /CUMM) 12.3 H RBC (4.20 - 5.40 /CUMM) 4.01 L Hgb (12.0 - 16.0 G/DL) 11.6 L Hct (37 - 47 %) 35.3 L MCV (81.0 - 99.0 FL) 88.0 MCH (27.0 - 31.0 PG) 28.9 RDW (11.5 - 14.5 %) 15.7 H Plt Count (130 - 400 /CUMM) 186 MPV (7.4 - 10.4 FL) 9.6 Gran % (42.2 - 75.2 %) 85.4 H Lymphocytes % (20.5 - 51.1 %) 4.5 L Monocytes % (1.7 - 9.3 %) 10.0 H Eosinophils % (0 - 5 %) 0 Basophils % (0.0 - 2.0 %) 0.1 Absolute Granulocytes (1.4 - 6.5 /CUMM) 10.5 H Segmented Neutrophils (42.2 - 75.2 %) 59 Band Neutrophils (0.0 - 5.0 %) 18 H Absolute Lymphocytes (1.2 - 3.4 /CUMM) 0.6 L Lymphocytes (20.5 - 51.1 %) 9 L Monocytes (1.7 - 9.3 %) 14 H Absolute Monocytes (0.10 - 0.60 /CUMM) 1.2 H Absolute Eosinophils (0.0 - 0.7 /CUMM) 0 Absolute Basophils (0.0 - 0.2 /CUMM) 0 Platelet Estimate (ADEQUATE) VERIFIED BY SMEAR Normocytic RBCs VERIFIED Normochromic RBCs VERIFIED PUBS MCHC (33.0 - 37.0 G/DL) 32.8 L 09/12 0420 Chemistry Sodium (137 - 145 mmol/L) 144 Potassium (3.5 - 5.1 mmol/L) 3.5 Chloride (98 - 107 mmol/L) 113 H Carbon Dioxide (22 - 30 mmol/L) 18 L Anion Gap (5 - 16) 12 BUN (7 - 17 mg/dL) 27 H Creatinine (0.5 - 1.0 mg/dL) 0.9 Estimated GFR (>60 ml/min) > 60 BUN/Creatinine Ratio (7 - 25 %) 30.0 H Phosphorus (2.5 - 4.5 mg/dL) 4.7 H Magnesium (1.6 - 2.3 mg/dL) 1.9 Total Bilirubin (0.2 - 1.3 mg/dL) 0.3 Direct Bilirubin (< 0.4 mg/dL) 0.3 AST (14 - 36 U/L) 29 ALT (9 - 52 U/L) 32 Alkaline Phosphatase (<127 U/L) 52 Total Protein (6.3 - 8.2 g/dL) 5.6 L Albumin (3.5 - 5.0 g/dL) 3.0 L Hematology CBC w Diff MAN DIFF ORDERED WBC (4.8 - 10.8 /CUMM) 6.9 RBC (4.20 - 5.40 /CUMM) 4.09 L Hgb (12.0 - 16.0 G/DL) 11.8 L Hct (37 - 47 %) 36.3 L MCV (81.0 - 99.0 FL) 88.7 MCH (27.0 - 31.0 PG) 28.9 RDW (11.5 - 14.5 %) 15.7 H Plt Count (130 - 400 /CUMM) 193 MPV (7.4 - 10.4 FL) 9.0 Gran % (42.2 - 75.2 %) 71.5 Lymphocytes % (20.5 - 51.1 %) 6.8 L Monocytes % (1.7 - 9.3 %) 21.6 H Eosinophils % (0 - 5 %) 0 Basophils % (0.0 - 2.0 %) 0.1 Absolute Granulocytes (1.4 - 6.5 /CUMM) 4.9 Segmented Neutrophils (42.2 - 75.2 %) 44 Band Neutrophils (0.0 - 5.0 %) 25 H Absolute Lymphocytes (1.2 - 3.4 /CUMM) 0.5 L Lymphocytes (20.5 - 51.1 %) 14 L Monocytes (1.7 - 9.3 %) 14 H Absolute Monocytes (0.10 - 0.60 /CUMM) 1.5 H Eosinophils (0 - 5.0 %) 1 Absolute Eosinophils (0.0 - 0.7 /CUMM) 0 Absolute Basophils (0.0 - 0.2 /CUMM) 0 Metamyelocytes (0.0 - 1.0 %) 2 H Platelet Estimate (ADEQUATE) ADEQUATE Polychromasia 1+ Hypochromic-Microcytic 1+ Poikilocytosis 1+ Ovalocytes 1+ Elliptocytes FEW PUBS MCHC (33.0 - 37.0 G/DL) 32.6 L Other Body Source Fld Total RBCs Counted (%) 100 Assessment/Plan Assessment/Plan A: POD0 sp ex lap, diana for SBO, stable. P: prn pain meds dvt ppx, oob, ambulate npo, ngt, ivf, await bowel fxn medical mgmt per medical team will dw attending Core Measures/Miscellaneous Gaitan Catheter Date In: 09/11/16 Venous Thromboembolism VTE Risk Factors: Acute medical illness, Age > 40, Smoking VTE Contraindications: No Contraindications VTE Diagnosis: No VTE Type: NONE VTE Confirmed by (Test): NONE Beta Darwin Is Beta Darwin a Home Med? Yes If Yes, Was This Ordered Today? Yes Antibiotics Is Patient on Antibiotics? Yes If Yes: infection (uti)
[2016-09-13 22:56] VITALS: BP 132/60
--- NOTE | 2016-09-14 08:00 | PN- General Surgery ---
See Addendum Subjective Subjective: Awake, alert c/o mild abdominal pain - tolerable no flatus or bm, denies nausea dry mouth - ice chips improve Objective Vital Signs and I&Os Vital Signs Date Time Temp Pulse Resp B/P B/P Pulse O2 O2 Flow FiO2 Mean Ox Delivery Rate 09/14 2255 99.3 80 22 132/60 89 Nasal 2.5L Cannula 09/13 2131 92 132/52 09/13 2119 97 Nasal 2.0L Cannula 09/13 1721 99.1 92 22 133/62 97 Nasal 4.0L Cannula 09/13 1716 98.7 65 18 128/50 90 Nasal 4.5L Cannula 09/13 1600 Nasal 2.0L Cannula 09/13 1135 93 Nasal 3.0L Cannula 09/13 0954 64 128/70 09/13 0954 64 128/70 09/13 0800 92 Nasal 2.0L Cannula 09/13 0800 98.5 115 18 120/70 92 Nasal 3.0L Cannula Intake & Output 09/14 0800 09/14 0000 09/13 1600 09/13 0800 09/13 0000 09/12 1600 Intake Total 900 500 830 900 700 Output Total 300 273 007 2939 Balance 600 500 380 100 -700 Intake, IV 800 500 800 800 700 Intake, Oral 0 0 0 Intake, Other 100 30 100 Number 1 0 Bowel Movements Output, 250 350 300 Gastric Drainage Output, Urine 300 123 988 0394 Patient 130 lb Weight Physical Exam: Tmax 99.3 Sat 89% on 2.5L NC good urine output - smith General: alert and oriented times three Chest: clear anteriorly bilaterally, RRR Abd: softly distended, hypoactive bowel sounds Ext: warm, no edema Wound: dressed, dry Assessment/Plan Assessment/Plan 76yo female s/o ex lap diana pod 1 await bowel function Continue npo/ivf/ngt pain management dc smith ambulate Core Measures/Miscellaneous Smith Catheter Date In: 09/11/16 Venous Thromboembolism VTE Risk Factors: Acute medical illness, Age > 40, Smoking VTE Contraindications: No Contraindications VTE Diagnosis: No VTE Type: NONE VTE Confirmed by (Test): NONE Beta Darwin Is Beta Darwin a Home Med? Yes If Yes, Was This Ordered Today? Yes Antibiotics Is Patient on Antibiotics? Yes If Yes: infection (uti)
[2016-09-14 08:14] LABS: ABSOLUTE BASOPHIL COUNT 3481 /CUMM (0.0-0.2); ABSOLUTE EOSINOPHIL COUNT 0 /CUMM (0.0-0.7); ABSOLUTE GRANULOCYTE CT 12.6 /CUMM (1.4-6.5); ABSOLUTE LYMPH COUNT 0.5 /CUMM (1.2-3.4); ABSOLUTE MONOCYTE COUNT 0.7 /CUMM (0.10-0.60); BASOPHIL % 0 % (0.0-2.0); EOSINOPHIL % 0 % (0-5); GRANULOCYTE % 91.3 % (42.2-75.2); HEMATOCRIT 33.2 % (37-47); MEAN CORPUSCULAR HGB 28.8 PG (27.0-31.0); MEAN CORPUSCULAR HGB CONC 32.5 G/DL (33.0-37.0); MEAN CORPUSCULAR VOLUME 88.7 FL (81.0-99.0); MEAN PLATELET VOLUME 9.5 FL (7.4-10.4); PLATELET COUNT 168 /CUMM (130-400); RBC DISTRIBUTION WIDTH 16.3 % (11.5-14.5); RED BLOOD CELL CT 3.75 /CUMM (4.20-5.40); WHITE BLOOD CELL COUNT 13.8 /CUMM (4.8-10.8)
[2016-09-14 09:00] VITALS: BP 124/60
--- NOTE | 2016-09-14 11:44 | PN- Cardiology ---
Subjective Subjective: Resting comfortably. Mild abdominal pain. No chest pain or significant dyspnea. Objective Vital Signs and I&Os Vital Signs Date Time Temp Pulse Resp B/P B/P Pulse O2 O2 Flow FiO2 Mean Ox Delivery Rate 09/14 0900 99.1 84 20 124/60 86 Nasal 3.0L Cannula 09/14 0852 89 140/52 09/14 0852 89 140/52 09/14 0804 88 Nasal 5.0L Cannula 09/14 0000 92 Nasal 3.0L Cannula 09/13 2256 99.3 80 22 132/60 89 Nasal 2.5L Cannula 09/13 2131 92 132/52 09/13 2119 97 Nasal 2.0L Cannula 09/13 1721 99.1 92 22 133/62 97 Nasal 4.0L Cannula 09/13 1716 98.7 65 18 128/50 90 Nasal 4.5L Cannula 09/13 1600 Nasal 2.0L Cannula 09/13 1135 93 Nasal 3.0L Cannula Intake & Output 09/14 1600 09/14 0800 09/14 0000 09/13 1600 09/13 0800 09/13 0000 Intake Total 800 900 500 830 900 Output Total 235 300 450 800 Balance 565 600 500 380 100 Intake, IV 800 800 500 800 800 Intake, Oral 0 0 0 Intake, Other 100 30 100 Number 1 Bowel Movements Output, 10 250 350 Gastric Drainage Output, Urine 225 300 200 450 Patient 130 lb Weight Physical Exam: General: no apparent distress. Alert. Eyes: No obvious scleral icterus. HEENT: No jugular venous distention, NG tube Cardiovascular: Normal intensity S1/S2. Regular. Respiratory: Lungs clear to auscultation bilaterally. Abdomen: no guarding Musculoskeletal: No clubbing or cyanosis noted, no edema Skin: Warm Neurologic: No gross focal deficits noted. Current Medications: Current Medications Sig/Ebenezer Start time Last Medication Dose Route Stop Time Status Admin Acetaminophen 1,000 MG Q6H 09/13 1500 DC 09/14 N/A 1 UNIT IV 09/14 0914 0851 Albuterol Sulfate 3 ML BID 09/13 2200 CAN INH Albuterol Sulfate 3 ML BID 09/13 2200 AC 09/14 INH 0803 Albuterol Sulfate 2 PUF Q12P PRN 09/13 1500 AC INH Albuterol Sulfate 3 ML BID 09/12 1430 DC 09/13 INH 1124 Albuterol Sulfate 3 ML BID 09/12 1000 DC 09/12 INH 1925 Albuterol Sulfate 2 PUF Q12P PRN 09/11 0015 DC INH Alprazolam 0.5 MG TIDPRN PRN 09/13 1500 AC PO 09/20 1459 Alprazolam 0.5 MG TIDPRN PRN 09/11 2300 DC 09/12 PO 09/18 2259 2128 Amlodipine Besylate 10 MG DAILY 09/14 1000 AC 09/14 PO 0852 Amlodipine Besylate 10 MG DAILY 09/12 1000 DC 09/13 PO 0954 Aspirin Buffered 81 MG DAILY 09/14 1000 CAN PO Aspirin Buffered 81 MG DAILY 09/12 1000 DC 09/13 PO 0953 Atorvastatin Calcium 80 MG 1700 09/13 1700 AC 09/13 PO 1835 Atorvastatin Calcium 80 MG 1700 09/12 1700 DC 09/12 PO 1656 Ceftriaxone Sodium 1,000 MG 2000 09/12 2000 DC 09/12 IV 2125 Fentanyl Citrate 250 MCG .STK-MED ONE 09/13 1304 DC IM 09/13 1305 Heparin Sodium 5,000 UNIT Q8 09/13 2200 AC 09/14 (Porcine) SC 0540 Heparin Sodium 5,000 UNIT Q8 09/12 1400 DC 09/13 (Porcine) SC 0618 Hydromorphone HCl 2 MG .STK-MED ONE 09/13 1457 DC IM 09/13 1458 Hydromorphone HCl 2 MG .STK-MED ONE 09/13 1304 DC IM 09/13 1305 Ketorolac 15 MG Q8P PRN 09/13 1500 AC Tromethamine IV Labetalol HCl 200 MG BID 09/13 2200 AC 09/14 PO 0852 Labetalol HCl 200 MG BID 09/12 1000 DC 09/13 PO 0954 Meperidine HCl 50 MG .STK-MED ONE 09/13 1457 DC IM 09/13 1458 Midazolam HCl 2 MG .STK-MED ONE 09/13 1304 DC IM 09/13 1305 Morphine Sulfate 2 MG Q3P PRN 09/13 1500 AC 09/14 IV 0851 Morphine Sulfate 4 MG Q3P PRN 09/13 1500 AC IV Morphine Sulfate 6 MG Q3P PRN 09/13 1500 AC IV Ondansetron HCl 4 MG .STK-MED ONE 09/13 1304 DC IM 09/13 1305 Pantoprazole Sodium 40 MG DAILY 09/14 1000 AC 09/14 IV 0851 Pantoprazole Sodium 40 MG DAILY 09/12 1000 DC 09/13 IV 0952 Patient Medication 1 ED ONE ONE 09/13 1430 SD Teaching ED 09/13 1431 Potassium Chloride 20 MEQ Q10H 09/13 1500 AC 09/14 Dextrose/Sodium 1,000 ML IV 0120 Chloride Potassium Chloride 20 MEQ Q10H 09/13 0845 DC 09/13 Dextrose/Sodium 1,000 ML IV 0941 Chloride Sodium Chloride 2 SPRAY Q4P PRN 09/14 0815 AC HARRY Tiotropium [place] 1 PUF DAILY 09/14 1000 AC 09/14 INH 0853 Tiotropium [place] 1 PUF DAILY 09/12 1000 DC 09/13 INH 0954 Results Last 48 Hrs of Labs/Mics: Laboratory Tests 09/14/16 0707: Anion Gap 10, Estimated GFR > 60, BUN/Creatinine Ratio 25.0, Glucose 134 H, Phosphorus 2.7, Magnesium 2.5 H, CBC w Diff MAN DIFF ORDERED, RBC 3.75 L, MCV 88.7, MCH 28.8, RDW 16.3 H, MPV 9.5, Gran % 91.3 H, Lymphocytes % 3.3 L, Monocytes % 5.4, Eosinophils % 0, Basophils % 0 L, Absolute Granulocytes 12.6 H, Segmented Neutrophils 76 H, Band Neutrophils 13 H, Absolute Lymphocytes 0.5 L, Lymphocytes 6 L, Monocytes 5, Absolute Monocytes 0.7 H, Absolute Eosinophils 0, Absolute Basophils 3481, Platelet Estimate ADEQUATE, Polychromasia 1+, Hypochromic-Microcytic 1+, Anisocytosis 1+, PUBS MCHC 32.5 L 09/13/16 0620: Anion Gap 12, Estimated GFR > 60, BUN/Creatinine Ratio 28.8 H, CBC w Diff MAN DIFF ORDERED, RBC 4.01 L, MCV 88.0, MCH 28.9, RDW 15.7 H, MPV 9.6, Gran % 85.4 H, Lymphocytes % 4.5 L, Monocytes % 10.0 H, Eosinophils % 0, Basophils % 0.1, Absolute Granulocytes 10.5 H, Segmented Neutrophils 59, Band Neutrophils 18 H, Absolute Lymphocytes 0.6 L, Lymphocytes 9 L, Monocytes 14 H, Absolute Monocytes 1.2 H, Absolute Eosinophils 0, Absolute Basophils 0, Platelet Estimate VERIFIED BY SMEAR, Normocytic RBCs VERIFIED, Normochromic RBCs VERIFIED , PUBS MCHC 32.8 L 09/12/16 2110: Troponin I 0.04 09/12/16 1600: Troponin I 0.02 Recent Imaging Studies: Telemetry tracings were personally reviewed and shows sinus rhythm Assessment/Plan Assessment/Plan 1. Sinus tachycardia- multifactorial, related to her underlying small bowel obstruction, mild dehydration, etc; improved 2. Small bowel obstruction, status post lysis of adhesions 3. History of abdominal aortic aneurysm, status post endovascular repair 4. History of coronary artery disease 5. hypertension 6. Hyperlipidemia 7. Acute renal insufficiency-improved Now status post surgery. Heart rate improved. Hemodynamically stable. Creatinine within normal limits. Recommend postoperative EKG as previously recommended by Dr. Luu. Alon Rowe MD [facility] Continue telemetry? No
[2016-09-14 15:30] VITALS: BP 146/60
[2016-09-14 22:00] VITALS: BP 130/70
--- NOTE | 2016-09-15 07:53 | PN- General Surgery ---
See Addendum Subjective Subjective: Minimal pain, no flatus or bowel movement. No nausea. Objective Vital Signs and I&Os Vital Signs Date Time Temp Pulse Resp B/P B/P Pulse O2 O2 Flow FiO2 Mean Ox Delivery Rate 09/15 0000 Nasal 5.0L Cannula 09/14 2200 80 130/70 09/14 2200 98.1 80 20 130/70 93 Nasal 5.0L Cannula 09/14 1935 93 Nasal 5.0L Cannula 09/14 1600 92 Nasal 5.0L Cannula 09/14 1530 97.8 85 16 146/60 92 Nasal 3.0L Cannula 09/14 0900 99.1 84 20 124/60 86 Nasal 3.0L Cannula 09/14 0852 89 140/52 09/14 0852 89 140/52 09/14 0804 88 Nasal 5.0L Cannula 09/14 0800 86 Nasal 3.5L Cannula Intake & Output 09/15 0800 / 0000 /03 1600 09/14 0800 09/14 0000 09/13 1600 Intake Total 957 20 8489 800 900 500 Output Total 300 500 250 235 300 Balance 500 -470 1170 565 600 500 Intake, IV 800 600 800 800 500 Intake, Oral 30 120 0 0 Intake, Other 700 100 Number 0 1 Bowel Movements Output, 200 10 Gastric Drainage Output, Urine 300 300 250 225 300 Patient 130 lb Weight Physical Exam: Well-developed well-nourished no apparent distress. HEENT: Atraumatic, extraocular motion intact NG tube in place. Neck: Supple, Respiratory: No respiratory distress Abdomen: Moderately distended, mild tympanic, incision with minimal staining inferior portion which is dry. Dressing change, incision line is clean dry and intact, surgical will in place. No active bowel sounds. Minimal tenderness throughout, Extremities: No edema, no calf pain Neuro: Alert and oriented x3 Psych: Mood affect normal, normal memory normal judgment. Skin: Warm and dry, no rash on exposed skin 250 mL of dark bilious NG tube output overnight Results Last 48 Hours of Labs: Laboratory Tests 09/15 09/14 0608 0707 Chemistry Sodium (137 - 145 mmol/L) Pending 147 H Potassium (3.5 - 5.1 mmol/L) Pending 3.7 Chloride (98 - 107 mmol/L) Pending 115 H Carbon Dioxide (22 - 30 mmol/L) Pending 21 L Anion Gap (5 - 16) Pending 10 BUN (7 - 17 mg/dL) Pending 20 H Creatinine (0.5 - 1.0 mg/dL) Pending 0.8 Estimated GFR (>60 ml/min) > 60 BUN/Creatinine Ratio (7 - 25 %) Pending 25.0 Glucose (65 - 99 mg/dL) 134 H Phosphorus (2.5 - 4.5 mg/dL) 2.7 Magnesium (1.6 - 2.3 mg/dL) 2.5 H Hematology CBC w Diff Pending MAN DIFF ORDERED WBC (4.8 - 10.8 /CUMM) Pending 13.8 H RBC (4.20 - 5.40 /CUMM) Pending 3.75 L Hgb (12.0 - 16.0 G/DL) Pending 10.8 L Hct (37 - 47 %) Pending 33.2 L MCV (81.0 - 99.0 FL) Pending 88.7 MCH (27.0 - 31.0 PG) Pending 28.8 RDW (11.5 - 14.5 %) Pending 16.3 H Plt Count (130 - 400 /CUMM) Pending 168 MPV (7.4 - 10.4 FL) Pending 9.5 Gran % (42.2 - 75.2 %) 91.3 H Lymphocytes % (20.5 - 51.1 %) 3.3 L Monocytes % (1.7 - 9.3 %) 5.4 Eosinophils % (0 - 5 %) 0 Basophils % (0.0 - 2.0 %) 0 L Absolute Granulocytes (1.4 - 6.5 /CUMM) 12.6 H Segmented Neutrophils (42.2 - 75.2 %) 76 H Band Neutrophils (0.0 - 5.0 %) 13 H Absolute Lymphocytes (1.2 - 3.4 /CUMM) 0.5 L Lymphocytes (20.5 - 51.1 %) 6 L Monocytes (1.7 - 9.3 %) 5 Absolute Monocytes (0.10 - 0.60 /CUMM) 0.7 H Absolute Eosinophils (0.0 - 0.7 /CUMM) 0 Absolute Basophils (0.0 - 0.2 /CUMM) 3481 Platelet Estimate (ADEQUATE) ADEQUATE Polychromasia 1+ Hypochromic-Microcytic 1+ Anisocytosis 1+ PUBS MCHC (33.0 - 37.0 G/DL) Pending 32.5 L Assessment/Plan Assessment/Plan Postoperative day #2 status post ex lap diana await bowel function Continue npo/ivf/ngt pain management dc smith ambulate Following morning labs Core Measures/Miscellaneous Smith Catheter Date In: 09/11/16 Venous Thromboembolism VTE Risk Factors: Acute medical illness, Age > 40, Smoking VTE Contraindications: No Contraindications VTE Diagnosis: No VTE Type: NONE VTE Confirmed by (Test): NONE Beta Darwin Is Beta Darwin a Home Med? Yes If Yes, Was This Ordered Today? Yes Antibiotics Is Patient on Antibiotics? Yes If Yes: infection (uti)
[2016-09-15 08:21] VITALS: BP 136/58
[2016-09-15 08:29] LABS: ABSOLUTE BASOPHIL COUNT 0 /CUMM (0.0-0.2); ABSOLUTE EOSINOPHIL COUNT 0.1 /CUMM (0.0-0.7); ABSOLUTE GRANULOCYTE CT 11.4 /CUMM (1.4-6.5); ABSOLUTE LYMPH COUNT 0.4 /CUMM (1.2-3.4); ABSOLUTE MONOCYTE COUNT 0.9 /CUMM (0.10-0.60); BASOPHIL % 0 % (0.0-2.0); EOSINOPHIL % 0.6 % (0-5); GRANULOCYTE % 89.7 % (42.2-75.2); HEMATOCRIT 33.8 % (37-47); MEAN CORPUSCULAR HGB 28.6 PG (27.0-31.0); MEAN CORPUSCULAR HGB CONC 32.5 G/DL (33.0-37.0); MEAN CORPUSCULAR VOLUME 88.2 FL (81.0-99.0); MEAN PLATELET VOLUME 9.9 FL (7.4-10.4); PLATELET COUNT 178 /CUMM (130-400); RBC DISTRIBUTION WIDTH 16.7 % (11.5-14.5); RED BLOOD CELL CT 3.83 /CUMM (4.20-5.40); WHITE BLOOD CELL COUNT 12.8 /CUMM (4.8-10.8)
--- NOTE | 2016-09-15 13:05 | PN- Cardiology ---
Subjective Subjective: Resting comfortably. Denies chest pain, dyspnea, palpitations. Had some mild abdominal discomfort which resolved. Objective Vital Signs and I&Os Vital Signs Date Time Temp Pulse Resp B/P B/P Pulse O2 O2 Flow FiO2 Mean Ox Delivery Rate 09/15 1020 94 Nasal 5.0L Cannula 09/15 0857 88 136/58 / 0857 88 136/58 / 0821 98.2 88 20 136/58 91 Nasal 3.0L Cannula 09/15 0000 Nasal 5.0L Cannula 09/14 2200 80 130/70 / 2200 98.1 80 20 130/70 93 Nasal 5.0L Cannula 09/14 1935 93 Nasal 5.0L Cannula 09/14 1600 92 Nasal 5.0L Cannula 09/14 1530 97.8 85 16 146/60 92 Nasal 3.0L Cannula Intake & Output 09/15 1600 04 0800 / 0000 09/14 1600 09/14 0800 09/14 0000 Intake Total 783 39 0233 800 900 Output Total 900 500 250 235 300 Balance -100 -470 1170 565 600 Intake, IV 800 600 800 800 Intake, Oral 30 120 0 0 Intake, Other 700 100 Number 0 Bowel Movements Output, 600 200 10 Gastric Drainage Output, Urine 300 300 250 225 300 Physical Exam: General: no apparent distress. Alert. Eyes: No obvious scleral icterus. HEENT: No jugular venous distention, NG tube Cardiovascular: Normal intensity S1/S2. Regular. Respiratory: Lungs clear to auscultation bilaterally. Abdomen: no guarding Musculoskeletal: No clubbing or cyanosis noted, no edema Skin: Warm Neurologic: No gross focal deficits noted. Current Medications: Current Medications Sig/Ebenezer Start time Last Medication Dose Route Stop Time Status Admin Albuterol Sulfate 3 ML BID 09/13 2199 AC 09/15 INH 1054 Albuterol Sulfate 2 PUF Q12P PRN 09/13 1500 AC INH Alprazolam 0.5 MG TIDPRN PRN 09/13 1500 AC PO 09/20 1459 Amlodipine Besylate 10 MG DAILY 09/14 1000 AC 09/15 PO 0857 Atorvastatin Calcium 80 MG 1700 09/13 1700 AC 09/14 PO 1741 Heparin Sodium 5,000 UNIT Q8 09/13 2200 AC 09/15 (Porcine) SC 0600 Ketorolac 15 MG Q8P PRN 09/13 1500 AC 09/15 Tromethamine IV 0858 Labetalol HCl 200 MG BID 09/13 2200 AC 09/15 PO 0857 Morphine Sulfate 2 MG Q3P PRN 09/13 1500 AC 09/14 IV 1749 Morphine Sulfate 4 MG Q3P PRN 09/13 1500 AC 09/14 IV 1327 Morphine Sulfate 6 MG Q3P PRN 09/13 1500 AC IV Pantoprazole Sodium 40 MG DAILY 09/14 1000 AC 09/15 IV 0856 Potassium Chloride 20 MEQ Q10H 09/13 1500 AC 09/15 Dextrose/Sodium 1,000 ML IV 0243 Chloride Sodium Chloride 2 SPRAY Q4P PRN 09/14 0815 AC 09/14 HARRY 0950 Tiotropium [place] 1 PUF DAILY 09/14 1000 AC 09/15 INH 0857 Results Last 48 Hrs of Labs/Mics: Laboratory Tests 09/15/16 0608: Anion Gap 7, Estimated GFR > 60, BUN/Creatinine Ratio 21.3, CBC w Diff MAN DIFF ORDERED, RBC 3.83 L, MCV 88.2, MCH 28.6, RDW 16.7 H, MPV 9.9, Gran % 89.7 H, Lymphocytes % 2.8 L, Monocytes % 6.9, Eosinophils % 0.6, Basophils % 0 L, Absolute Granulocytes 11.4 H, Segmented Neutrophils 78 H, Band Neutrophils 11 H, Absolute Lymphocytes 0.4 L, Lymphocytes 5 L, Monocytes 3, Absolute Monocytes 0.9 H, Absolute Eosinophils 0.1, Absolute Basophils 0, Metamyelocytes 1, Myelocytes 2 H, Platelet Estimate ADEQUATE, Normocytic RBCs VERIFIED, Normochromic RBCs VERIFIED, PUBS MCHC 32.5 L 09/14/16 0707: Anion Gap 10, Estimated GFR > 60, BUN/Creatinine Ratio 25.0, Glucose 134 H, Phosphorus 2.7, Magnesium 2.5 H, CBC w Diff MAN DIFF ORDERED, RBC 3.75 L, MCV 88.7, MCH 28.8, RDW 16.3 H, MPV 9.5, Gran % 91.3 H, Lymphocytes % 3.3 L, Monocytes % 5.4, Eosinophils % 0, Basophils % 0 L, Absolute Granulocytes 12.6 H, Segmented Neutrophils 76 H, Band Neutrophils 13 H, Absolute Lymphocytes 0.5 L, Lymphocytes 6 L, Monocytes 5, Absolute Monocytes 0.7 H, Absolute Eosinophils 0, Absolute Basophils 3481, Platelet Estimate ADEQUATE, Polychromasia 1+, Hypochromic-Microcytic 1+, Anisocytosis 1+, PUBS MCHC 32.5 L Recent Imaging Studies: ECG tracing personally reviewed: SR at 94 bpm Assessment/Plan Assessment/Plan 1. Sinus tachycardia- multifactorial, related to her underlying small bowel obstruction, mild dehydration, etc; improved 2. Small bowel obstruction, status post lysis of adhesions 3. History of abdominal aortic aneurysm, status post endovascular repair 4. History of coronary artery disease 5. hypertension 6. Hyperlipidemia 7. Acute renal insufficiency-improved Heart rate remains within normal limits. No ischemic changes on post-op ECG. HD stable. Creatinine within normal limits. Resume daily ASA when cleared. Alon Rowe MD [facility] Continue telemetry? Not applicable
[2016-09-15 15:30] VITALS: BP 118/58
[2016-09-16 00:43] VITALS: BP 102/60
--- NOTE | 2016-09-16 07:07 | PN- General Surgery ---
See Addendum Subjective Subjective: pod#3 s/p ex lap diana no major issues overnight deneis cp, mild sob complaints, denies flatus, no bm Objective Vital Signs and I&Os Vital Signs Date Time Temp Pulse Resp B/P B/P Pulse O2 O2 Flow FiO2 Mean Ox Delivery Rate / 0043 98.6 82 16 102/60 93 Nasal Cannula 06/05 0000 91 Nasal 5.0L Cannula / 2147 99.6 / 2058 88 118/58 /04 1920 93 Nasal 5.0L Cannula /04 1600 92 Nasal 5.0L Cannula / 1530 99.4 88 16 118/58 92 Nasal 3.0L Cannula / 1020 94 Nasal 5.0L Cannula / 0857 88 136/58 / 0857 88 136/58 / 0821 98.2 88 20 136/58 91 Nasal 3.0L Cannula / 0800 90 Nasal 5.0L Cannula Intake & Output 09/16 0800 06/05 0000 /04 1600 /04 0800 /04 0000 /03 1600 Intake Total 30 900 920 831 73 7802 Output Total 540 061 2555 900 500 250 Balance -320 600 -80 -100 -470 1170 Intake, IV 700 800 800 600 Intake, Oral 30 100 120 30 120 Intake, Other 100 700 Number 0 0 Bowel Movements Output, 700 600 200 Gastric Drainage Output, Urine 350 300 300 300 300 250 Physical Exam: cv: rrr lungs: diffuse rhonchi, decreased in bases abd: distended hypoactive bs diffuse mild tenderness to palp no evidence of peritonitis wound d/c/i ngt: continued dark output ext: warm, no calf tenderness distal cms intact Assessment/Plan Assessment/Plan slow to improve bowel fxn probale post op ileus plan oob/ambulate minimize iv narcs for pain npo/ivf imaging per attending Core Measures/Miscellaneous Gaitan Catheter Date In: 09/11/16 Venous Thromboembolism VTE Risk Factors: Acute medical illness, Age > 40, Smoking VTE Contraindications: No Contraindications VTE Diagnosis: No VTE Type: NONE VTE Confirmed by (Test): NONE Beta Darwin Is Beta Darwin a Home Med? Yes If Yes, Was This Ordered Today? Yes Antibiotics Is Patient on Antibiotics? Yes If Yes: infection (uti)
[2016-09-16 07:43] LABS: ABSOLUTE BASOPHIL COUNT 0 /CUMM (0.0-0.2); ABSOLUTE EOSINOPHIL COUNT 0.2 /CUMM (0.0-0.7); ABSOLUTE GRANULOCYTE CT 10.9 /CUMM (1.4-6.5); ABSOLUTE LYMPH COUNT 0.7 /CUMM (1.2-3.4); ABSOLUTE MONOCYTE COUNT 0.7 /CUMM (0.10-0.60); BASOPHIL % 0.1 % (0.0-2.0); EOSINOPHIL % 1.4 % (0-5); GRANULOCYTE % 87.1 % (42.2-75.2); HEMATOCRIT 32.5 % (37-47); MEAN CORPUSCULAR HGB 28.9 PG (27.0-31.0); MEAN CORPUSCULAR HGB CONC 32.9 G/DL (33.0-37.0); MEAN CORPUSCULAR VOLUME 87.9 FL (81.0-99.0); MEAN PLATELET VOLUME 9.9 FL (7.4-10.4); PLATELET COUNT 183 /CUMM (130-400); RBC DISTRIBUTION WIDTH 16.1 % (11.5-14.5); RED BLOOD CELL CT 3.69 /CUMM (4.20-5.40); WHITE BLOOD CELL COUNT 12.5 /CUMM (4.8-10.8)
[2016-09-16 08:00] VITALS: BP 160/70
--- NOTE | 2016-09-16 14:09 | NUR ---
Physical Therapy: Attempted to see pt this afternoon for IE. Pt just about to go MIGUEL. Evaluation is not d/c dependent. Will follow up tomorrow as appropriate. Thank you.
[2016-09-16 15:30] VITALS: BP 132/60
--- NOTE | 2016-09-16 16:24 | RADIOLOGY REPORT ---
EXAMINATION: XR ABDOMEN MULTIPLE VIEWS CLINICAL INDICATION: Postop ileus COMPARISON: 09/11/2016 TECHNIQUE: AP supine and left lateral decubitus views of the abdomen were obtained. FINDINGS: Enteric tube tip lies in the aortoiliac stent graft is present. Skin will are noted along the midline abdomen. There is mild to moderate dilation of several small bowel loops in the central abdomen, overall slightly less prominent than on 09/11/2016. On the decubitus view there is suggestion of a small amount of free air in the setting of recent surgery. There is streaky retrocardiac airspace opacity which may reflect postoperative atelectasis. No acute osseous findings are seen. IMPRESSION: 1. Mild to moderate gaseous dilation of some small bowel loops in the central abdomen, which may reflect ileus in the setting of recent surgery. A degree of residual small bowel obstruction is difficult to exclude. 2. Suspect small amount of free air in the setting of recent surgery. 3. Retrocardiac left basilar opacity may reflect postoperative atelectasis.
[2016-09-16 20:44] VITALS: BP 132/56
[2016-09-17 00:08] VITALS: BP 112/46
--- NOTE | 2016-09-17 07:08 | PN- General Surgery ---
Subjective Subjective: Ongoing ileus by xray yesterday. Nursing reports a few "small" stool balls overnight. The patient reports she thinks she may be passing some gas. NG tube drained 100 mls overnight. Objective Vital Signs and I&Os Vital Signs Date Time Temp Pulse Resp B/P B/P Pulse O2 O2 Flow FiO2 Mean Ox Delivery Rate 09/17 0008 99.1 80 20 112/46 90 Nasal 5.0L Cannula / 0000 92 Nasal 5.0L Cannula /2 91 132/56 /05 2044 98.7 91 22 132/56 91 Nasal 5.0L Cannula / 1845 93 Nasal 5.0L Cannula / 1600 Nasal 5.0L Cannula / 1530 98.5 84 16 132/60 91 Nasal 5.0L Cannula 09/16 1058 92 Nasal 5.0L Cannula / 1036 98.7 83 20 160/70 06/05 1036 98.7 83 20 160/70 06/05 0800 95 Nasal 5.0L Cannula / 0800 98.7 83 20 160/70 92 Nasal 5.0L Cannula Intake & Output 09/17 0800 06/06 0000 06/05 1600 06/05 0800 06/05 0000 06/04 1600 Intake Total 600 725 770 30 900 920 Output Total 400 400 550 507 429 4635 Balance 200 325 220 -320 600 -80 Intake, IV 600 525 650 700 800 Intake, Oral 100 120 30 100 120 Intake, Other 100 100 Number 1 3 2 0 Bowel Movements Output, 100 250 700 Gastric Drainage Output, Urine 300 400 300 350 300 300 Physical Exam: General - alert & oriented. comfortable. no acute distress. Lungs - decreased breath sounds b/l. poor effort. Cardiac - s1s2. reg. Abdomen - distended. ng tube with thick bilious drainage. midline incision well approximated with will. no erythema or exudates. Extremities - warm bilaterally. no c/c/e. athrombics active b/l. Assessment/Plan Assessment/Plan This 76 year old female with hx cad, htn, hld, is now POD#4 s/p lysis of adhesions for small bowel obstruction with ongoing ileus by xray yesterday currently npo / ngt / iv ongoing ileus by xray yesterday, with reported "small" stool balls overnight protonix - gi ppx hep sc - dvt ppx oob/ambulation f/u labs f/u cardiology input will d/w Core Measures/Miscellaneous Gaitan Catheter Date In: 09/11/16 Venous Thromboembolism VTE Risk Factors: Acute medical illness, Age > 40, Smoking VTE Contraindications: No Contraindications VTE Diagnosis: No VTE Type: NONE VTE Confirmed by (Test): NONE Beta Darwin Is Beta Darwin a Home Med? Yes If Yes, Was This Ordered Today? Yes Antibiotics Is Patient on Antibiotics? Yes If Yes: infection (uti)
[2016-09-17 08:00] VITALS: BP 144/60
--- NOTE | 2016-09-17 10:01 | PN- General Surgery ---
Surgical Brief Attending Note Brief Attending Note: as per PA note. ileus resolving. ng d/c. start clears. med/cards re-eval re: increased O2 needs. cxr.
--- NOTE | 2016-09-17 10:18 | PN- Medicine Consult ---
DARNELLPIERCE 09/17/16 1018: Assessment/Plan Assessment/Plan Assessment: Patient is a 76-year-old female with past medical history of coronary artery disease, COPD, hypertension, hyperlipidemia, PUD, severe PVD, AAA status post endovascular repair, AV malformations(refusing PillCam's), anxiety, smoker(55 pack smoking history) who presented to the ER with a chief complaint of blood in stools and abdominal distention for the past 3 weeks. Medical consult was obtained initially for hypotension which is currently stable, we recieved a call from the surgical team that the O2 requirement has been increased and now she is on Venti mask. Her problem includes: * SOB, with increase O2 demand could be 2/2 COPD exacerbation or early aspiration pneumonia given that she was on NG tube * Small bowel obstruction now resolving per surgery * Bright red blood per rectum due to questionable AV malformations * Hx of COPD not on home O2 * Coronary artery disease * Smoker Plan: * CXR shows possible infiltrate in the Lt. lower lobe, will start the patient on IV Unaycn to cover possible aspiration pneumonia * Repeat CXR at am * Prednisone 40mg po daily * Will hold on pulmonary consult for now * Will start the patient on Budesonide inhaler * Spirometry ordered * TRC, gabbys * Her blood pressure is very well controlled, 134/67 on the monitor * Will follow Problem List: 1. Shortness of breath Subjective Subjective: Patient seen and examined, sitting on the chair with O2 mask on. She complained of SOB. She denies fever, chills, no other complaint. Vitals pertinent to O2 of 87% which improved on venti mask Review of Systems Constitutional: Reports: no symptoms. EENTM: Reports: no symptoms. Cardiovascular: Reports: no symptoms. Respiratory: Reports: short of breath. Gastrointestinal: Reports: no symptoms. Genitourinary: Reports: no symptoms. Musculoskeletal: Reports: no symptoms. Objective Last 24 Hrs of Vital Signs/I&O Vital Signs Date Time Temp Pulse Resp B/P B/P Pulse O2 O2 Flow FiO2 Mean Ox Delivery Rate 09/17 1105 88 144/80 09/17 1105 88 144/80 09/17 0831 87 Nasal 5.0L Cannula 09/17 0800 90 Venti Mask 45% 09/17 0800 98.9 89 24 144/60 91 Nasal 5.0L Cannula 09/17 0008 99.1 80 20 112/46 90 Nasal 5.0L Cannula 09/17 0000 92 Nasal 5.0L Cannula 09/17 2051 91 132/56 09/17 2043 98.7 91 22 132/56 91 Nasal 5.0L Cannula 09/16 1845 93 Nasal 5.0L Cannula 09/16 1600 Nasal 5.0L Cannula 09/16 1530 98.5 84 16 132/60 91 Nasal 5.0L Cannula Intake & Output 09/17 1600 09/17 0800 09/17 0000 Intake Total 600 725 Output Total 400 400 Balance 200 325 Intake, IV 600 525 Intake, Oral 100 Intake, Other 100 Number 1 3 Bowel Movements Output, 100 Gastric Drainage Output, Urine 300 400 Physical Exam General Appearance: alert, awake, moderate distress Cardiovascular: regular rate/rhythm Respiratory: decreased breath sounds Abdomen: soft, non-tender Extremities: no edema Current Medications: Current Medications Sig/Ebenezer Start time Last Medication Dose Route Stop Time Status Admin Albuterol Sulfate 3 ML BID 09/13 2200 AC 09/17 INH 0826 Albuterol Sulfate 2 PUF Q12P PRN 09/13 1500 AC INH Alprazolam 0.5 MG TIDPRN PRN 09/13 1500 AC PO 09/20 1459 Amlodipine Besylate 10 MG DAILY 09/14 1000 AC 09/17 PO 1105 Atorvastatin Calcium 80 MG 1700 09/13 1700 AC 09/16 PO 1615 Budesonide/ 2 PUF BID 09/17 1149 AC Formoterol Fumarate INH Heparin Sodium 5,000 UNIT Q8 09/13 2200 AC 09/17 (Porcine) SC 0540 Ketorolac 15 MG .STK-MED ONE 09/17 2055 DC Tromethamine IM 09/16 2056 Ketorolac 15 MG Q8P PRN 09/13 1500 AC 09/17 Tromethamine IV 1104 Labetalol HCl 200 MG BID 09/13 2200 AC 09/17 PO 1105 Morphine Sulfate 2 MG Q3P PRN / 1500 AC 09/14 IV 1749 Morphine Sulfate 4 MG Q3P PRN / 1500 AC 09/17 IV 0856 Morphine Sulfate 6 MG Q3P PRN / 1500 AC 09/16 IV 1900 Pantoprazole Sodium 40 MG DAILY 09/14 1000 AC 09/17 IV 1105 Potassium Chloride 20 MEQ Q8H 09/15 1745 DC 09/17 Dextrose/Sodium 1,000 ML IV 0039 Chloride Sodium Chloride 2 SPRAY Q4P PRN 09/14 0815 AC 09/14 HARRY 0950 Tiotropium [place] 1 PUF DAILY 09/14 1000 AC 09/16 INH 1036 Results Last 24 Hrs Lab/Sean Results: Laboratory Tests 09/17/16 1051: Sodium Pending, Potassium Pending, Chloride Pending, Carbon Dioxide Pending, Anion Gap Pending, BUN Pending, Creatinine Pending, BUN/Creatinine Ratio Pending , Magnesium Pending, CBC w Diff Pending, WBC Pending, RBC Pending, Hgb Pending, Hct Pending, MCV Pending, MCH Pending, RDW Pending, Plt Count Pending, MPV Pending, Gran % Pending, Lymphocytes % Pending, Monocytes % Pending, Eosinophils % Pending, Basophils % Pending, Absolute Granulocytes Pending, Absolute Lymphocytes Pending, Absolute Monocytes Pending, Absolute Eosinophils Pending, Absolute Basophils Pending, PUBS MCHC Pending Recent Imaging Studies: CXR: IMPRESSION: Low lung volumes with probable left lower lobe atelectasis versus infiltrate. JOSE HERMAN 09/17/16 1031: Assessment/Plan Assessment/Plan Plan: * CXR shows possible infiltrate in the Lt. lower lobe, will start the patient on IV Unaycn to cover possible aspiration pneumonia * Repeat CXR at am * Prednisone 40mg po daily * Will hold on pulmonary consult for now * Will start the patient on Budesonide inhaler * Spirometry ordered * TRC, nebs * Her blood pressure is very well controlled, 134/67 on the monitor * Will follow Attending MD Review Statement Attending Sign Off Attending Cosign Statement: I have: examined this patient, reviewed [facility] EMR data, personally reviewd images, discussd w/resident/PA/BALLISTICS EXPERT FORENSIC, discussed mgmt plan w/roxi, discussed mgmt plan w/CM, discussed mgmt plan w/pt, agreed w/resident/PA/BALLISTICS EXPERT FORENSIC, amended to note. Other Findings: 76 o/f here for SBO, medical consult called to reval for Shortness of breath at rest in COPD and smoker. Patient had chest xray with possible aspiration penumonia. Patient is hypoxic requring increased oxygen supplementation. Empiric started on abx, steroids, BDs and plan for repeat chest xray in am. Patient apparently hemodynamically stable.
--- NOTE | 2016-09-17 11:24 | RADIOLOGY REPORT ---
EXAMINATION: XR PORTABLE CHEST CLINICAL INFORMATION: Hypoxia and a postoperative patient. COMPARISON: 09/13/2016. TECHNIQUE: Portable frontal view of the chest was obtained. FINDINGS: Lung volumes are diminished. The heart is enlarged. There is patchy opacity overlying the left lateral lower lung field which may represent evolving atelectasis versus infiltrate. Clinical correlation and interval follow-up is suggested. IMPRESSION: Low lung volumes with probable left lower lobe atelectasis versus infiltrate.
[2016-09-17 11:44] LABS: ABSOLUTE BASOPHIL COUNT 0 /CUMM (0.0-0.2); ABSOLUTE EOSINOPHIL COUNT 0.1 /CUMM (0.0-0.7); ABSOLUTE GRANULOCYTE CT 17.4 /CUMM (1.4-6.5); ABSOLUTE LYMPH COUNT 0.5 /CUMM (1.2-3.4); ABSOLUTE MONOCYTE COUNT 0.6 /CUMM (0.10-0.60); BASOPHIL % 0.1 % (0.0-2.0); EOSINOPHIL % 0.3 % (0-5); GRANULOCYTE % 93.9 % (42.2-75.2); HEMATOCRIT 34.5 % (37-47); MEAN CORPUSCULAR HGB 28.4 PG (27.0-31.0); MEAN CORPUSCULAR HGB CONC 32.5 G/DL (33.0-37.0); MEAN CORPUSCULAR VOLUME 87.4 FL (81.0-99.0); MEAN PLATELET VOLUME 9.8 FL (7.4-10.4); PLATELET COUNT 249 /CUMM (130-400); RBC DISTRIBUTION WIDTH 16.1 % (11.5-14.5); RED BLOOD CELL CT 3.94 /CUMM (4.20-5.40); WHITE BLOOD CELL COUNT 18.5 /CUMM (4.8-10.8)
[2016-09-17 15:30] VITALS: BP 118/58
[2016-09-17 20:38] VITALS: BP 134/50
[2016-09-17 23:57] VITALS: BP 142/72
[2016-09-18 07:52] LABS: ABSOLUTE BASOPHIL COUNT 0 /CUMM (0.0-0.2); ABSOLUTE EOSINOPHIL COUNT 0 /CUMM (0.0-0.7); ABSOLUTE LYMPH COUNT 0.4 /CUMM (1.2-3.4); ABSOLUTE MONOCYTE COUNT 0.3 /CUMM (0.10-0.60); BASOPHIL % 0 % (0.0-2.0); EOSINOPHIL % 0 % (0-5); GRANULOCYTE % 96.2 % (42.2-75.2); HEMATOCRIT 35.6 % (37-47); MEAN CORPUSCULAR HGB 28.6 PG (27.0-31.0); MEAN CORPUSCULAR HGB CONC 32.6 G/DL (33.0-37.0); MEAN PLATELET VOLUME 9.9 FL (7.4-10.4); PLATELET COUNT 284 /CUMM (130-400); RBC DISTRIBUTION WIDTH 16.4 % (11.5-14.5); RED BLOOD CELL CT 4.05 /CUMM (4.20-5.40); WHITE BLOOD CELL COUNT 16.7 /CUMM (4.8-10.8)
--- NOTE | 2016-09-18 07:59 | PN- Medicine Consult ---
RADHA GARCIA 09/18/16 0744: Assessment/Plan Assessment/Plan Assessment: Patient is a 76-year-old female with past medical history of coronary artery disease, COPD, hypertension, hyperlipidemia, PUD, severe PVD, AAA status post endovascular repair, AV malformations(refusing PillCam's), anxiety, smoker(55 pack smoking history) who presented to the ER with a chief complaint of blood in stools and abdominal distention for the past 3 weeks. Medical consult was obtained initially for hypotension which is currently stable, we recieved a call from the surgical team that the O2 requirement has been increased and now she is on Venti mask. Assessment * Acute hypoxic respiratory failure due to possible Aspiration Pneumonia Vs COPD exacerbation * Small bowel obstruction now resolving per surgery * Bright red blood per rectum due to questionable AV malformations * Hx of COPD not on home O2 * Coronary artery disease * Smoker Plan: * Patient continues to be on 40% Ventimask saturating 90%. No audible wheezing heard. There is diminished breath sounds bilaterally. Continue Unasyn for aspiration pneumonia for now.White count improving. * Get a ABG, if hypercarbic, will need BIPAP * Get repeat CXR. * Obtain blood cultures since patient had a low-grade temperature overnight * Continue by mouth steroids 40 mg by mouth daily * Continue Spiriva and Symbicort, TRC nebs [id number] * Incentive spirometry given lower lung volumes * Blood pressure well controlled on amlodipine and labetalol. Continue the same. * Pain control by primary team * Consider GI consult given blood in stools * Replete electrolytes * DVT prophylaxis ALPS * Full code Problem List: 1. Shortness of breath 2. Small bowel obstruction 3. S/P AAA (abdominal aortic aneurysm) repair Subjective Subjective: Patient's respiratory status remains the same. She is still on 45% Ventimask saturating 90%. She had a low-grade temp of 99.9 at 11:57 PM yesterday. Complains of abdominal pain over the will area. Had guaiac-positive stool overnight. Review of Systems Constitutional: Reports: malaise, weakness. EENTM: Reports: no symptoms. Cardiovascular: Reports: no symptoms. Respiratory: Reports: short of breath. Gastrointestinal: Reports: abdominal pain, changes in stool (guaic positive). Genitourinary: Reports: no symptoms. Musculoskeletal: Reports: no symptoms. Skin: Reports: no symptoms. Objective Last 24 Hrs of Vital Signs/I&O Vital Signs Date Time Temp Pulse Resp B/P B/P Pulse O2 O2 Flow FiO2 Mean Ox Delivery Rate 09/18 0000 90 Venti Mask 45% 09/17 2357 99.9 80 16 142/72 91 Venti Mask 09/17 2047 80 134/50 09/17 2038 80 134/50 09/17 2006 92 Venti Mask 45% 09/17 1600 91 Venti Mask 45% 09/17 1530 99.6 84 16 118/58 91 Venti Mask 5.0L 09/17 1105 88 144/80 09/17 1105 88 144/80 09/17 0831 87 Nasal 5.0L Cannula 09/17 0800 90 Venti Mask 45% 09/17 0800 98.9 89 24 144/60 91 Nasal 5.0L Cannula Intake & Output 09/18 0800 06/ 0000 09/17 1600 Intake Total 200 620 560 Output Total 200 300 Balance 200 420 260 Intake, IV 200 100 Intake, Oral 520 560 Number 2 0 Bowel Movements Output, Urine 200 300 Physical Exam General Appearance: well developed/nourished, awake, moderate distress Head: atraumatic, normal appearance Ears, Nose, Throat: normal pharynx, NG tube in place Neck: normal inspection, supple Cardiovascular: regular rate/rhythm Respiratory: diminished breath sounds bilaterally. No wheezing heard Abdomen: normal bowel sounds, soft, distention, will intact, no erythema or discharge Extremities: normal inspection Current Medications: Current Medications Sig/Ebenezer Start time Last Medication Dose Route Stop Time Status Admin Albuterol Sulfate 3 ML Q4P PRN 09/17 1200 AC INH Albuterol Sulfate 3 ML BID 09/13 2200 AC 09/17 INH 2002 Albuterol Sulfate 2 PUF Q12P PRN 09/13 1500 AC INH Alprazolam 0.5 MG TIDPRN PRN 09/13 1500 AC PO 09/20 1459 Amlodipine Besylate 10 MG DAILY 09/14 1000 AC 09/17 PO 1105 Ampicillin Sodium/ 1,500 MG Q6 09/17 1202 AC 09/18 Sulbactam Sodium IV 0630 Sodium Chloride 100 ML Atorvastatin Calcium 80 MG 1700 09/13 1700 AC 09/17 PO 1901 Budesonide/ 2 PUF BID 09/17 1149 AC 09/17 Formoterol Fumarate INH 2047 Heparin Sodium 5,000 UNIT Q8 09/13 2200 AC 09/18 (Porcine) SC 0630 Ketorolac 15 MG .STK-MED ONE 09/17 2114 DC Tromethamine IM 09/17 211 Ketorolac 15 MG Q8P PRN 09/13 1500 AC 09/17 Tromethamine IV 2117 Labetalol HCl 200 MG BID 09/13 2200 AC 09/17 PO 2047 Morphine Sulfate 2 MG Q3P PRN 09/13 1500 AC 09/18 IV 0150 Morphine Sulfate 4 MG Q3P PRN 09/13 1500 AC 09/17 IV 1647 Morphine Sulfate 6 MG Q3P PRN 09/13 1500 AC 09/16 IV 1900 Pantoprazole Sodium 40 MG DAILY 09/14 1000 AC 09/17 IV 1105 Potassium Chloride 20 MEQ Q8H 09/15 1745 DC 09/17 Dextrose/Sodium 1,000 ML IV 0039 Chloride Prednisone 40 MG DAILY 09/17 1200 AC 09/17 PO 1336 Sodium Chloride 2 SPRAY Q4P PRN 09/14 0815 AC 09/14 HARRY 0950 Tiotropium [place] 1 PUF DAILY 09/14 1000 AC 09/17 INH 1335 Results Last 24 Hrs Lab/Sean Results: Laboratory Tests 09/18/16 0630: Sodium Pending, Potassium Pending, Chloride Pending, Carbon Dioxide Pending, Anion Gap Pending, BUN Pending, Creatinine Pending, BUN/Creatinine Ratio Pending , CBC w Diff Pending, WBC Pending, RBC Pending, Hgb Pending, Hct Pending, MCV Pending, MCH Pending, RDW Pending, Plt Count Pending, MPV Pending, PUBS MCHC Pending 09/17/16 1051: Anion Gap 11, Estimated GFR > 60, BUN/Creatinine Ratio 13.3, Magnesium 1.8, CBC w Diff MAN DIFF ORDERED, RBC 3.94 L, MCV 87.4, MCH 28.4, RDW 16.1 H, MPV 9.8, Gran % 93.9 H, Lymphocytes % 2.6 L, Monocytes % 3.1, Eosinophils % 0.3, Basophils % 0.1, Absolute Granulocytes 17.4 H, Segmented Neutrophils 76 H, Band Neutrophils 14 H, Absolute Lymphocytes 0.5 L, Lymphocytes 3 L, Monocytes 7, Absolute Monocytes 0.6, Absolute Eosinophils 0.1, Absolute Basophils 0, Platelet Estimate ADEQUATE, Normocytic RBCs VERIFIED, Normochromic RBCs VERIFIED , PUBS MCHC 32.5 L JOSE HERMAN 09/18/16 0912: Attending MD Review Statement Attending Sign Off Attending Cosign Statement: I have: examined this patient, reviewed [facility] EMR data, personally reviewd images, discussd w/resident/PA/RADIO TELEVISION ANNOUNCER, discussed mgmt plan w/roxi, discussed mgmt plan w/CM, discussed mgmt plan w/pt, agreed w/resident/PA/RADIO TELEVISION ANNOUNCER, amended to note. Other Findings: 76 o/f here for SBO, medical consult called to reval for Shortness of breath at rest in COPD and smoker. Patient had chest xray with possible aspiration penumonia. Patient is hypoxic requring increased oxygen supplementation. Empiric started on abx, steroids, BDs and repeat chest xray suggestive of atelectasis vs inflitrates. Patient hemodynamically stable. cont current care and monitor clinically.
[2016-09-18 08:07] VITALS: BP 134/54
--- NOTE | 2016-09-18 08:22 | PN- General Surgery ---
See Addendum Subjective Subjective: Multiple BMs, small formed, no diarrhea. no n/v. some belching. feels her abd is softer. +abd pain. Denies SOB/CP, on 45%VM. +oob Objective Vital Signs and I&Os Vital Signs Date Time Temp Pulse Resp B/P B/P Pulse O2 O2 Flow FiO2 Mean Ox Delivery Rate 09/18 08 98.2 88 18 134/54 92 Venti Mask 09/18 0000 90 Venti Mask 45% 09/17 2357 99.9 80 16 142/72 91 Venti Mask 09/17 2047 80 134/50 09/17 2038 80 134/50 09/17 2006 92 Venti Mask 45% 09/17 1600 91 Venti Mask 45% 09/17 1530 99.6 84 16 118/58 91 Venti Mask 5.0L 09/17 1105 88 144/80 09/17 1105 88 144/80 09/17 0831 87 Nasal 5.0L Cannula Intake & Output 09/18 1600 09/18 0800 09/18 0000 09/17 1600 09/17 0800 09/17 0000 Intake Total 200 620 560 600 725 Output Total 200 300 400 400 Balance 200 420 260 200 325 Intake, IV 200 100 600 525 Intake, Oral 520 560 100 Intake, Other 100 Number 2 0 1 3 Bowel Movements Output, 100 Gastric Drainage Output, Urine 200 300 300 400 Physical Exam: gen: nad card: s1s2 rrr pulm: decreased at bases ant abd: dist, soft, ttp, midline w will- cdi Current Medications: Current Medications Sig/Ebenezer Start time Last Medication Dose Route Stop Time Status Admin Albuterol Sulfate 3 ML Q4P PRN 09/17 1200 AC INH Albuterol Sulfate 3 ML BID 09/13 2200 AC 09/17 INH 2002 Albuterol Sulfate 2 PUF Q12P PRN 09/13 1500 AC INH Alprazolam 0.5 MG TIDPRN PRN 09/13 1500 AC PO 09/20 1459 Amlodipine Besylate 10 MG DAILY 09/14 1000 AC 09/17 PO 1105 Ampicillin Sodium/ 1,500 MG Q6 09/17 1202 AC 09/18 Sulbactam Sodium IV 0630 Sodium Chloride 100 ML Atorvastatin Calcium 80 MG 1700 09/13 1700 AC 09/17 PO 1901 Budesonide/ 2 PUF BID 06/06 1149 AC 09/17 Formoterol Fumarate INH 2047 Heparin Sodium 5,000 UNIT Q8 09/13 2200 AC 09/18 (Porcine) SC 0630 Ketorolac 15 MG .STK-MED ONE 09/17 2114 DC Tromethamine IM 09/17 211 Ketorolac 15 MG Q8P PRN 09/13 1500 AC 09/17 Tromethamine IV 2117 Labetalol HCl 200 MG BID 09/13 2200 AC 09/17 PO 2047 Morphine Sulfate 2 MG Q3P PRN 09/13 1500 AC 09/18 IV 0150 Morphine Sulfate 4 MG Q3P PRN 09/13 1500 AC 09/17 IV 1647 Morphine Sulfate 6 MG Q3P PRN 09/13 1500 AC 09/16 IV 1900 Pantoprazole Sodium 40 MG DAILY 09/14 1000 AC 09/17 IV 1105 Potassium Chloride 20 MEQ Q8H 09/15 1745 DC 09/17 Dextrose/Sodium 1,000 ML IV 0039 Chloride Prednisone 40 MG DAILY 09/17 1200 AC 09/17 PO 1336 Sodium Chloride 2 SPRAY Q4P PRN 09/14 0815 AC 09/14 HARRY 0950 Tiotropium [place] 1 PUF DAILY 09/14 1000 AC 09/17 INH 1335 Results Last 48 Hours of Labs: Laboratory Tests 09/18 09/17 0630 1051 Chemistry Sodium (137 - 145 mmol/L) Pending 143 Potassium (3.5 - 5.1 mmol/L) Pending 3.9 Chloride (98 - 107 mmol/L) Pending 110 H Carbon Dioxide (22 - 30 mmol/L) Pending 22 Anion Gap (5 - 16) Pending 11 BUN (7 - 17 mg/dL) Pending 8 Creatinine (0.5 - 1.0 mg/dL) Pending 0.6 Estimated GFR (>60 ml/min) > 60 BUN/Creatinine Ratio (7 - 25 %) Pending 13.3 Magnesium (1.6 - 2.3 mg/dL) 1.8 Hematology CBC w Diff Pending MAN DIFF ORDERED WBC (4.8 - 10.8 /CUMM) Pending 18.5 H RBC (4.20 - 5.40 /CUMM) Pending 3.94 L Hgb (12.0 - 16.0 G/DL) Pending 11.2 L Hct (37 - 47 %) Pending 34.5 L MCV (81.0 - 99.0 FL) Pending 87.4 MCH (27.0 - 31.0 PG) Pending 28.4 RDW (11.5 - 14.5 %) Pending 16.1 H Plt Count (130 - 400 /CUMM) Pending 249 MPV (7.4 - 10.4 FL) Pending 9.8 Gran % (42.2 - 75.2 %) 93.9 H Lymphocytes % (20.5 - 51.1 %) 2.6 L Monocytes % (1.7 - 9.3 %) 3.1 Eosinophils % (0 - 5 %) 0.3 Basophils % (0.0 - 2.0 %) 0.1 Absolute Granulocytes (1.4 - 6.5 /CUMM) 17.4 H Segmented Neutrophils (42.2 - 75.2 %) 76 H Band Neutrophils (0.0 - 5.0 %) 14 H Absolute Lymphocytes (1.2 - 3.4 /CUMM) 0.5 L Lymphocytes (20.5 - 51.1 %) 3 L Monocytes (1.7 - 9.3 %) 7 Absolute Monocytes (0.10 - 0.60 /CUMM) 0.6 Absolute Eosinophils (0.0 - 0.7 /CUMM) 0.1 Absolute Basophils (0.0 - 0.2 /CUMM) 0 Platelet Estimate (ADEQUATE) ADEQUATE Normocytic RBCs VERIFIED Normochromic RBCs VERIFIED PUBS MCHC (33.0 - 37.0 G/DL) Pending 32.5 L Assessment/Plan Assessment/Plan A: POD5 sp ex lap,diana, with return of bowel fxn but remains distended, now with LLL pna, on 45% VM with o2 sats in low 90s. P: -PNA: contine o2, nebs, inhalers, ist, oob, unasyn, prednisone. appreciate med input -cont clr liquids- advance once taking in more and less distended -fu labs -fu cxr -dvt ppx Core Measures/Miscellaneous Gaitan Catheter Date In: 09/11/16 Venous Thromboembolism VTE Risk Factors: Acute medical illness, Age > 40, Smoking VTE Contraindications: No Contraindications VTE Diagnosis: No VTE Type: NONE VTE Confirmed by (Test): NONE Beta Darwin Is Beta Darwin a Home Med? Yes If Yes, Was This Ordered Today? Yes Antibiotics Is Patient on Antibiotics? Yes If Yes: infection (uti)
--- NOTE | 2016-09-18 09:23 | RADIOLOGY REPORT ---
EXAMINATION: XR PORTABLE CHEST CLINICAL INFORMATION: Shortness of breath. COMPARISON: CXR from 09/13/2016 09/17/2016 TECHNIQUE: Portable frontal view of the chest was obtained. FINDINGS: The nonspecific opacity in the retrocardiac region of the left lower lobe is not appreciably changed compared to 09/17/2016 and is new compared to 09/13/2016. Cardiac silhouette is enlarged. The hilar contours are normal. No interstitial pulmonary edema, pleural effusion, pneumothorax or other acute abnormality. IMPRESSION: 1. Cardiomegaly without pulmonary edema. 2. Persistent opacity in the retrocardiac region of left lower lobe. This is nonspecific and could be caused by atelectasis or pneumonia -- if in the right clinical context.
[2016-09-18 16:11] VITALS: BP 108/70
--- NOTE | 2016-09-18 20:14 | PN- Cardiology ---
Subjective Subjective: Stable cardiac status. Objective Vital Signs and I&Os Vital Signs Date Time Temp Pulse Resp B/P B/P Pulse O2 O2 Flow FiO2 Mean Ox Delivery Rate 09/18 1611 99.6 80 20 108/70 91 /07 1100 88 134/54 09/18 1059 88 134/54 09/18 1032 92 Nasal 5.0L Cannula 09/18 0807 98.2 88 18 134/54 92 Venti Mask 09/18 0800 92 Venti Mask 45% 09/18 0000 90 Venti Mask 45% 09/17 2357 99.9 80 16 142/72 91 Venti Mask 09/17 2047 80 134/50 09/17 2038 80 134/50 Intake & Output 09/18 1600 09/18 0800 09/18 0000 09/17 1600 09/17 0800 09/17 0000 Intake Total 600 200 620 560 600 725 Output Total 200 300 400 400 Balance 600 200 420 260 200 325 Intake, IV 120 200 100 600 525 Intake, Oral 480 520 560 100 Intake, Other 100 Number 1 2 0 1 3 Bowel Movements Output, 100 Gastric Drainage Output, Urine 200 300 300 400 Current Medications: Current Medications Sig/Ebenezer Start time Last Medication Dose Route Stop Time Status Admin Albuterol Sulfate 3 ML Q4P PRN 09/17 1200 AC INH Albuterol Sulfate 3 ML BID 09/13 2200 AC 09/18 INH 1015 Albuterol Sulfate 2 PUF Q12P PRN 09/13 1500 AC INH Alprazolam 0.5 MG TIDPRN PRN 09/13 1500 AC 09/18 PO 09/20 1459 1830 Amlodipine Besylate 10 MG DAILY 09/14 1000 AC 09/18 PO 1059 Ampicillin Sodium/ 1,500 MG Q6 09/17 1202 AC 09/18 Sulbactam Sodium IV 1811 Sodium Chloride 100 ML Atorvastatin Calcium 80 MG 1700 09/13 1700 AC 09/18 PO 1811 Budesonide/ 2 PUF BID 09/17 1149 AC 09/18 Formoterol Fumarate INH 1058 Heparin Sodium 5,000 UNIT Q8 09/13 2200 AC 09/18 (Porcine) SC 1410 Ketorolac 15 MG .STK-MED ONE 09/17 2114 DC Tromethamine IM 09/17 2116 Ketorolac 15 MG Q8P PRN 09/13 1500 AC 09/18 Tromethamine IV 1222 Labetalol HCl 200 MG BID 09/13 2200 AC 09/18 PO 1100 Morphine Sulfate 2 MG Q3P PRN 09/13 1500 AC 09/18 IV 0150 Morphine Sulfate 4 MG Q3P PRN 09/13 1500 AC 09/18 IV 1830 Morphine Sulfate 6 MG Q3P PRN 09/13 1500 AC 09/16 IV 1900 Pantoprazole Sodium 40 MG DAILY 09/14 1000 AC 09/18 IV 1058 Prednisone 40 MG DAILY 09/17 1200 AC 09/18 PO 1058 Sertraline HCl 50 MG DAILY 09/19 1000 AC PO Sodium Chloride 2 SPRAY Q4P PRN 09/14 0815 AC 09/14 HARRY 0950 Tiotropium [place] 1 PUF DAILY 09/14 1000 AC 09/18 INH 1058 Results Last 48 Hrs of Labs/Mics: Laboratory Tests 09/18/16 1128: pH 7.43, pCO2 30 L, pO2 73 L, HCO3 19 L, ABG O2 Sat (Measured) 94.0 L, P-50 (Temp Corrected) YES, Carboxyhemoglobin 0.7 L, O2 Concentration % 5L, Temperature 98.2, O2 Delivery Method NC, Phlebotomy Draw Site RIGHT RADIAL 09/18/16 0630: Anion Gap 14, Estimated GFR > 60, BUN/Creatinine Ratio 18.3, CBC w Diff MAN DIFF ORDERED, RBC 4.05 L, MCV 88.0, MCH 28.6, RDW 16.4 H, MPV 9.9, Gran % 96.2 H, Lymphocytes % 2.1 L, Monocytes % 1.7, Eosinophils % 0, Basophils % 0 L, Absolute Granulocytes 16.0 H, Segmented Neutrophils 70, Band Neutrophils 22 H, Absolute Lymphocytes 0.4 L, Lymphocytes 1 L, Monocytes 6, Absolute Monocytes 0.3, Absolute Eosinophils 0, Absolute Basophils 0, Metamyelocytes 1, Platelet Estimate VERIFIED BY SMEAR, Normocytic RBCs VERIFIED, Normochromic RBCs VERIFIED , PUBS MCHC 32.6 L 09/17/16 1051: Anion Gap 11, Estimated GFR > 60, BUN/Creatinine Ratio 13.3, Magnesium 1.8, CBC w Diff MAN DIFF ORDERED, RBC 3.94 L, MCV 87.4, MCH 28.4, RDW 16.1 H, MPV 9.8, Gran % 93.9 H, Lymphocytes % 2.6 L, Monocytes % 3.1, Eosinophils % 0.3, Basophils % 0.1, Absolute Granulocytes 17.4 H, Segmented Neutrophils 76 H, Band Neutrophils 14 H, Absolute Lymphocytes 0.5 L, Lymphocytes 3 L, Monocytes 7, Absolute Monocytes 0.6, Absolute Eosinophils 0.1, Absolute Basophils 0, Platelet Estimate ADEQUATE, Normocytic RBCs VERIFIED, Normochromic RBCs VERIFIED , PUBS MCHC 32.5 L Assessment/Plan Assessment/Plan Assessment: 1. Persistent sinus tachycardia-at the moment, I suspect that the patient's sinus tachycardia is multifactorial, related to her underlying small bowel obstruction, mild dehydration, etc. 2. Small bowel obstruction 3. History of abdominal aortic aneurysm, status post endovascular repair 4. History of coronary artery disease 5. hypertension 6. Hyperlipidemia 7. Acute renal insufficiency-improved Recommendations: - The patient remains stable post operatively from a cardiac perspective. - COntinue current management - Followup with me 3-4 weeks post discharge.
[2016-09-19 00:21] VITALS: BP 112/54
--- NOTE | 2016-09-19 07:57 | PN- Medicine Consult ---
RADHA GARCIA 09/19/16 0739: Assessment/Plan Assessment/Plan Assessment: Patient is a 76-year-old female with past medical history of coronary artery disease, COPD, hypertension, hyperlipidemia, PUD, severe PVD, AAA status post endovascular repair, AV malformations(refusing PillCam's), anxiety, smoker(55 pack smoking history) who presented to the ER with a chief complaint of blood in stools and abdominal distention for the past 3 weeks. Medical consult was obtained initially for hypotension which is currently stable, we recieved a call from the surgical team that the O2 requirement has been increased and now she is on Venti mask. Assessment * Acute hypoxic respiratory failure due to possible Aspiration Pneumonia Vs COPD exacerbation * Small bowel obstruction now resolving per surgery * Bright red blood per rectum due to questionable AV malformations * Hx of COPD not on home O2 * Coronary artery disease * Hypertension * Smoker Plan: * Clinical status improved. Has been transitioned to nasal cannula from Ventimask. Saturating 97% on 5 L. We'll try and titrate the oxygen down * White count improving. Continue Unasyn for aspiration pneumonia for now. * ABG did not show hypercarbia. * Repeat chest x-ray showed persistent opacity in the retrocardiac region of left lower lobe. No pulmonary edema seen. * Blood cultures negative up until now * On steroids 40 mg by mouth daily, will start tapering down * Continue Spiriva and Symbicort, TRC nebs [id number] * Add Tessalon Perles for throat irritation * Incentive spirometry given lower lung volumes * Blood pressure well controlled on amlodipine and labetalol. Continue the same. Follow up with Dr. Luu 3-4 weeks after discharge * Started on Zoloft 50 mg daily for anxiety/depression * Pain control by primary team * Consider GI consult given blood in stools * DVT prophylaxis ALPS * Full code Problem List: 1. Shortness of breath 2. S/P AAA (abdominal aortic aneurysm) repair 3. Small bowel obstruction Subjective Subjective: Patient looks clinically better today. Has been downgraded to 5 L nasal cannula from Ventimask. Is saturating 97%, will titrate down. Has been afebrile overnight. Still complains of some discomfort over the surgical incision area. Continues to cough. Review of Systems Constitutional: Reports: malaise, weakness. EENTM: Reports: no symptoms. Cardiovascular: Reports: no symptoms. Respiratory: Reports: short of breath, sputum production. Gastrointestinal: Reports: no symptoms. Genitourinary: Reports: no symptoms. Musculoskeletal: Reports: muscle pain. Skin: Reports: no symptoms. Objective Last 24 Hrs of Vital Signs/I&O Vital Signs Date Time Temp Pulse Resp B/P B/P Pulse O2 O2 Flow FiO2 Mean Ox Delivery Rate 09/19 0021 98.1 70 18 112/54 97 Nasal Cannula 09/19 0000 Nasal 5.0L Cannula 09/18 2150 94 Nasal 5.0L Cannula 09/18 2122 80 130/60 09/18 1611 99.6 80 20 108/70 91 09/18 1600 91 Nasal 5.0L Cannula 09/18 1100 88 134/54 09/18 1059 88 134/54 09/18 1032 92 Nasal 5.0L Cannula 09/18 0807 98.2 88 18 134/54 92 Venti Mask 09/18 0800 92 Venti Mask 45% Intake & Output 09/19 0800 09/19 0000 09/18 1600 Intake Total 410 600 Output Total 300 Balance 110 600 Intake, IV 30 120 Intake, Oral 380 480 Number 1 1 Bowel Movements Output, Urine 300 Physical Exam General Appearance: well developed/nourished, alert, awake, mild distress Head: atraumatic, normal appearance Ears, Nose, Throat: normal pharynx, normal ENT inspection Neck: normal inspection, supple Cardiovascular: regular rate/rhythm Respiratory: DIMINISHED BREATH SOUNDS BILATERALLY Abdomen: normal bowel sounds, JARED INTACT. NO ERYTHEMA OR DISCHARGE. Extremities: normal inspection Current Medications: Current Medications Sig/Ebenezer Start time Last Medication Dose Route Stop Time Status Admin Albuterol Sulfate 3 ML Q4P PRN 09/17 1200 AC INH Albuterol Sulfate 3 ML BID 09/13 2200 AC 09/18 INH 2131 Albuterol Sulfate 2 PUF Q12P PRN 09/13 1500 AC INH Alprazolam 0.5 MG TIDPRN PRN 09/13 1500 AC 09/19 PO 09/20 1459 0506 Amlodipine Besylate 10 MG DAILY 09/14 1000 AC 09/18 PO 1059 Ampicillin Sodium/ 1,500 MG Q6 09/17 1202 AC 09/19 Sulbactam Sodium IV 0457 Sodium Chloride 100 ML Atorvastatin Calcium 80 MG 1700 09/13 1700 AC 09/18 PO 1811 Budesonide/ 2 PUF BID 09/17 1149 AC 09/18 Formoterol Fumarate INH 2122 Heparin Sodium 5,000 UNIT Q8 09/13 2200 AC 09/19 (Porcine) SC 0457 Ketorolac 15 MG Q8P PRN 09/13 1500 AC 09/18 Tromethamine IV 1222 Labetalol HCl 200 MG BID 09/13 2200 AC 09/18 PO 2122 Morphine Sulfate 2 MG Q3P PRN 09/13 1500 AC 09/18 IV 0150 Morphine Sulfate 4 MG Q3P PRN 09/13 1500 AC 09/19 IV 0455 Morphine Sulfate 6 MG Q3P PRN 09/13 1500 AC 09/16 IV 1900 Pantoprazole Sodium 40 MG DAILY 09/14 1000 AC 09/18 IV 1058 Prednisone 40 MG DAILY 09/17 1200 AC 09/18 PO 1058 Sertraline HCl 50 MG DAILY 09/19 1000 AC PO Sodium Chloride 2 SPRAY Q4P PRN 09/14 0815 AC 09/14 HARRY 0950 Tiotropium [place] 1 PUF DAILY 09/14 1000 AC 09/18 INH 1058 Results Last 24 Hrs Lab/Sean Results: Laboratory Tests 09/19/16 0625: Sodium Pending, Potassium Pending, Chloride Pending, Carbon Dioxide Pending, Anion Gap Pending, BUN Pending, Creatinine Pending, BUN/Creatinine Ratio Pending , CBC w Diff Pending, WBC Pending, RBC Pending, Hgb Pending, Hct Pending, MCV Pending, MCH Pending, RDW Pending, Plt Count Pending, MPV Pending, PUBS MCHC Pending 09/18/16 1128: pH 7.43, pCO2 30 L, pO2 73 L, HCO3 19 L, ABG O2 Sat (Measured) 94.0 L, P-50 (Temp Corrected) YES, Carboxyhemoglobin 0.7 L, O2 Concentration % 5L, Temperature 98.2, O2 Delivery Method NC, Phlebotomy Draw Site RIGHT RADIAL VIRGIL,JOSE 09/19/16 1018: Attending MD Review Statement Attending Sign Off Attending Cosign Statement: I have: examined this patient, reviewed aval EMR data, personally reviewd images, discussd w/resident/PA/[employer], discussed mgmt plan w/roxi, discussed mgmt plan w/CM, discussed mgmt plan w/pt, agreed w/resident/PA/[employer], amended to note. Other Findings: 76 o/f here for SBO, medical consult called to reval for Shortness of breath at rest in COPD and smoker. Patient had chest xray with possible aspiration penumonia and acute hypoxic respiratroy failure. Patient is hypoxic requring increased oxygen supplementation. Empiric started on abx, steroids, BDs and repeat chest xray suggestive of atelectasis vs inflitrates. Patient hemodynamically stable. cont current care and monitor clinically.
[2016-09-19 08:11] LABS: ABSOLUTE BASOPHIL COUNT 0 /CUMM (0.0-0.2); ABSOLUTE EOSINOPHIL COUNT 0 /CUMM (0.0-0.7); ABSOLUTE GRANULOCYTE CT 10.8 /CUMM (1.4-6.5); ABSOLUTE LYMPH COUNT 0.3 /CUMM (1.2-3.4); ABSOLUTE MONOCYTE COUNT 0.5 /CUMM (0.10-0.60); BASOPHIL % 0 % (0.0-2.0); EOSINOPHIL % 0 % (0-5); MEAN CORPUSCULAR HGB 28.5 PG (27.0-31.0); MEAN CORPUSCULAR HGB CONC 32.6 G/DL (33.0-37.0); MEAN CORPUSCULAR VOLUME 87.3 FL (81.0-99.0); MEAN PLATELET VOLUME 9.7 FL (7.4-10.4); PLATELET COUNT 266 /CUMM (130-400); RBC DISTRIBUTION WIDTH 16.3 % (11.5-14.5); RED BLOOD CELL CT 3.41 /CUMM (4.20-5.40); WHITE BLOOD CELL COUNT 11.6 /CUMM (4.8-10.8)
[2016-09-19 08:43] VITALS: BP 130/50
[2016-09-19 09:42] LABS: HEMATOCRIT 29.8 % (37-47)
--- NOTE | 2016-09-19 09:48 | PN- General Surgery ---
See Addendum Subjective Subjective: Reports feeling improvement in abdominal pain and respiratory symptoms. Has been transitioned off of ventimask and is now on 5L nasal cannula. Denies hiccupping presently, but has been belching intermittently, states that it is improved from prior to admission. Is voiding without difficulty. States that she is passing small amounts of stool. Objective Vital Signs and I&Os Vital Signs Date Time Temp Pulse Resp B/P B/P Pulse O2 O2 Flow FiO2 Mean Ox Delivery Rate 09/19 0910 94 Nasal 5.0L Cannula 09/19 0843 99.5 89 18 130/50 91 Nasal Cannula 09/19 0800 93 Nasal 5.0L Cannula 09/19 0021 98.1 70 18 112/54 97 Nasal Cannula 09/19 0000 Nasal 5.0L Cannula 09/18 2150 94 Nasal 5.0L Cannula 09/18 2122 80 130/60 09/18 1611 99.6 80 20 108/70 91 07 1600 91 Nasal 5.0L Cannula 09/18 1100 88 134/54 09/18 1059 88 134/54 09/18 1032 92 Nasal 5.0L Cannula Intake & Output 09/19 1600 09/19 0800 /08 0000 07 1600 09/18 0800 09/18 0000 Intake Total 610 410 600 200 620 Output Total 600 300 200 Balance 10 110 600 200 420 Intake, IV 130 30 120 200 100 Intake, Oral 480 380 480 520 Number 1 1 2 0 Bowel Movements Output, Urine 600 300 200 Physical Exam: General: Alert and oriented x3, no acute distress Cardiac: RRR, s1s2 Pulm: Anterior, cta bilaterally Abdomen: Distended, tender with palpation. No bowel sounds auscultated. Midline incision, will intact, dry, no lisbeth-incisional erythema. Extremities: Moves all extremities, distal sensation intact. Bialteral calves soft and non-tender Assessment/Plan Assessment/Plan A: POD 6 s/p ex lap with diana, with return of bowel fxn but remains distended, now with LLL pna, on 5 L nasal with o2 sats in mid 90s. P: -PNA: contine o2, nebs, inhalers, ist, oob, unasyn, prednisone. appreciate med input -cont clr liquids- advance once taking in more and less distended -fu labs -dvt ppx Core Measures/Miscellaneous Gaitan Catheter Date In: 09/11/16 Venous Thromboembolism VTE Risk Factors: Acute medical illness, Age > 40, Smoking VTE Contraindications: No Contraindications VTE Diagnosis: No VTE Type: NONE VTE Confirmed by (Test): NONE Beta Darwin Is Beta Darwin a Home Med? Yes If Yes, Was This Ordered Today? Yes Antibiotics Is Patient on Antibiotics? Yes If Yes: infection (uti)
--- NOTE | 2016-09-19 13:27 | PN- Cardiology ---
Subjective Subjective: Stable from a cardiac perspective. NO new issues noted. Objective Vital Signs and I&Os Vital Signs Date Time Temp Pulse Resp B/P B/P Pulse O2 O2 Flow FiO2 Mean Ox Delivery Rate 09/19 1053 130/50 09/19 1053 130/50 09/19 0910 94 Nasal 5.0L Cannula 09/19 0843 99.5 89 18 130/50 91 Nasal Cannula 09/19 0800 93 Nasal 5.0L Cannula 09/19 0021 98.1 70 18 112/54 97 Nasal Cannula 09/19 0000 Nasal 5.0L Cannula 09/18 2150 94 Nasal 5.0L Cannula 09/18 2122 80 130/60 09/18 1611 99.6 80 20 108/70 91 09/18 1600 91 Nasal 5.0L Cannula Intake & Output 09/19 1600 09/19 0800 09/19 0000 09/18 1600 09/18 0800 09/18 0000 Intake Total 610 410 600 200 620 Output Total 600 300 200 Balance 10 110 600 200 420 Intake, IV 130 30 120 200 100 Intake, Oral 480 380 480 520 Number 1 1 2 0 Bowel Movements Output, Urine 600 300 200 Current Medications: Current Medications Sig/Ebeenzer Start time Last Medication Dose Route Stop Time Status Admin Albuterol Sulfate 3 ML Q4P PRN 09/17 1200 AC INH Albuterol Sulfate 3 ML BID 09/13 2200 AC 09/19 INH 0851 Albuterol Sulfate 2 PUF Q12P PRN 09/13 1500 AC INH Alprazolam 0.5 MG TIDPRN PRN 09/13 1500 AC 09/19 PO 09/20 1459 0506 Amlodipine Besylate 10 MG DAILY 09/14 1000 AC 09/19 PO 1053 Ampicillin Sodium/ 1,500 MG Q6 09/17 1202 AC 09/19 Sulbactam Sodium IV 1053 Sodium Chloride 100 ML Atorvastatin Calcium 80 MG 1700 09/13 1700 AC 09/18 PO 1811 Benzonatate 100 MG TID 09/19 1000 AC 09/19 PO 1053 Budesonide/ 2 PUF BID 09/17 1149 AC 09/19 Formoterol Fumarate INH 1053 Heparin Sodium 5,000 UNIT Q8 09/13 2200 AC 09/19 (Porcine) SC 0457 Ketorolac 15 MG Q8P PRN 09/13 1500 AC 09/18 Tromethamine IV 1222 Labetalol HCl 200 MG BID 09/13 2200 AC 09/19 PO 1053 Morphine Sulfate 2 MG Q3P PRN 09/13 1500 AC 09/18 IV 0150 Morphine Sulfate 4 MG Q3P PRN 09/13 1500 AC 09/19 IV 0455 Morphine Sulfate 6 MG Q3P PRN 09/13 1500 AC 09/16 IV 1900 Pantoprazole Sodium 40 MG DAILY 09/14 1000 AC 09/19 IV 1053 Patient Medication 1 ED .STK-MED ONE 09/19 1313 HI Teaching ED 09/19 1314 Prednisone 40 MG DAILY 09/17 1200 AC 09/19 PO 1053 Sertraline HCl 50 MG DAILY 09/19 1000 AC 09/19 PO 1053 Sodium Chloride 2 SPRAY Q4P PRN 09/14 0815 AC 09/14 HARRY 0950 Tiotropium [place] 1 PUF DAILY 09/14 1000 AC 09/19 INH 1054 Results Last 48 Hrs of Labs/Mics: Laboratory Tests 09/19/16 0625: Anion Gap 11, Estimated GFR > 60, BUN/Creatinine Ratio 21.7, CBC w Diff MAN DIFF ORDERED, RBC 3.41 L, MCV 87.3, MCH 28.5, RDW 16.3 H, MPV 9.7, Gran % 93.0 H, Lymphocytes % 2.4 L, Monocytes % 4.6, Eosinophils % 0, Basophils % 0 L, Absolute Granulocytes 10.8 H, Segmented Neutrophils 74, Band Neutrophils 22 H, Absolute Lymphocytes 0.3 L, Lymphocytes 1 L, Monocytes 3, Absolute Monocytes 0.5, Absolute Eosinophils 0, Absolute Basophils 0, Anisocytosis 1+, PUBS MCHC 32.6 L 09/18/16 1128: pH 7.43, pCO2 30 L, pO2 73 L, HCO3 19 L, ABG O2 Sat (Measured) 94.0 L, P-50 (Temp Corrected) YES, Carboxyhemoglobin 0.7 L, O2 Concentration % 5L, Temperature 98.2, O2 Delivery Method NC, Phlebotomy Draw Site RIGHT RADIAL 09/18/16 0630: Anion Gap 14, Estimated GFR > 60, BUN/Creatinine Ratio 18.3, CBC w Diff MAN DIFF ORDERED, RBC 4.05 L, MCV 88.0, MCH 28.6, RDW 16.4 H, MPV 9.9, Gran % 96.2 H, Lymphocytes % 2.1 L, Monocytes % 1.7, Eosinophils % 0, Basophils % 0 L, Absolute Granulocytes 16.0 H, Segmented Neutrophils 70, Band Neutrophils 22 H, Absolute Lymphocytes 0.4 L, Lymphocytes 1 L, Monocytes 6, Absolute Monocytes 0.3, Absolute Eosinophils 0, Absolute Basophils 0, Metamyelocytes 1, Platelet Estimate VERIFIED BY SMEAR, Normocytic RBCs VERIFIED, Normochromic RBCs VERIFIED , PUBS MCHC 32.6 L Assessment/Plan Assessment/Plan Assessment: 1. Persistent sinus tachycardia-at the moment, I suspect that the patient's sinus tachycardia is multifactorial, related to her underlying small bowel obstruction, mild dehydration, etc. 2. Small bowel obstruction 3. History of abdominal aortic aneurysm, status post endovascular repair 4. History of coronary artery disease 5. hypertension 6. Hyperlipidemia 7. Acute renal insufficiency-improved Recommendations: - The patient remains stable post operatively from a cardiac perspective. - COntinue current management - Followup with me 3-4 weeks post discharge.
[2016-09-19 18:06] VITALS: BP 118/48
[2016-09-19 23:13] VITALS: BP 118/58
[2016-09-20 08:22] LABS: ABSOLUTE BASOPHIL COUNT 0 /CUMM (0.0-0.2); ABSOLUTE EOSINOPHIL COUNT 0 /CUMM (0.0-0.7); ABSOLUTE GRANULOCYTE CT 8.7 /CUMM (1.4-6.5); ABSOLUTE LYMPH COUNT 0.2 /CUMM (1.2-3.4); ABSOLUTE MONOCYTE COUNT 0.2 /CUMM (0.10-0.60); BASOPHIL % 0.1 % (0.0-2.0); EOSINOPHIL % 0 % (0-5); HEMATOCRIT 30.2 % (37-47); MEAN CORPUSCULAR HGB 28.5 PG (27.0-31.0); MEAN CORPUSCULAR HGB CONC 32.9 G/DL (33.0-37.0); MEAN CORPUSCULAR VOLUME 86.7 FL (81.0-99.0); MEAN PLATELET VOLUME 9.6 FL (7.4-10.4); PLATELET COUNT 309 /CUMM (130-400); RBC DISTRIBUTION WIDTH 16.2 % (11.5-14.5); RED BLOOD CELL CT 3.48 /CUMM (4.20-5.40); WHITE BLOOD CELL COUNT 9.1 /CUMM (4.8-10.8)
--- NOTE | 2016-09-20 09:59 | PN- Medicine Consult ---
RADHA GARCIA 09/20/16 0952: Assessment/Plan Assessment/Plan Assessment: Patient is a 76-year-old female with past medical history of coronary artery disease, COPD, hypertension, hyperlipidemia, PUD, severe PVD, AAA status post endovascular repair, AV malformations(refusing PillCam's), anxiety, smoker(55 pack smoking history) who presented to the ER with a chief complaint of blood in stools and abdominal distention for the past 3 weeks. Medical consult was obtained initially for hypotension which is currently stable, we recieved a call from the surgical team that the O2 requirement has been increased and now she is on Venti mask. Assessment * Acute hypoxic respiratory failure due to possible Aspiration Pneumonia Vs COPD exacerbation * Small bowel obstruction now resolving per surgery * Bright red blood per rectum due to questionable AV malformations * Hx of COPD not on home O2 * Coronary artery disease * Hypertension * Smoker Plan: * Patient still continues to require 4 L of oxygen. White count has improved. * Please obtain b/l lower extremity Doppler to r/o DVT. CTA if positive DVT (Pt says that she is allergic to contrast) * Obtain blood,sputum and cultures today again since patient spiked a fever yesterday. * Change ABX to PO augmentin from today. * Change steroids to 30 mg daily, will taper gradually. * Continue Spiriva and Symbicort, TRC nebs [id number] * Tessalon Perles for throat irritation * Incentive spirometry given lower lung volumes * Blood pressure well controlled on amlodipine and labetalol. Continue the same. Follow up with Dr. Luu 3-4 weeks after discharge * Started on Zoloft 50 mg daily for anxiety/depression * Pain control by primary team * Consider GI consult given blood in stools * DVT prophylaxis ALPS * Full code Problem List: 1. Shortness of breath 2. COPD with acute bronchitis 3. S/P AAA (abdominal aortic aneurysm) repair 4. Small bowel obstruction Subjective Subjective: Patient looks clinically better today, is sitting on a chair. She still continues to require 4 L of oxygen saturating 92%. Spiked a fever of 100.1 at 18.06 yesterday. Recent blood and urine cultures have been negative. White count has improved to 9.1 from 17.5. Review of Systems Constitutional: Reports: weakness. EENTM: Reports: no symptoms. Cardiovascular: Reports: no symptoms. Respiratory: Reports: orthopnea, short of breath. Gastrointestinal: Reports: no symptoms. Genitourinary: Reports: no symptoms. Musculoskeletal: Reports: no symptoms. Skin: Reports: no symptoms. Neurological/Psychological: Reports: no symptoms. Objective Last 24 Hrs of Vital Signs/I&O Vital Signs Date Time Temp Pulse Resp B/P B/P Pulse O2 O2 Flow FiO2 Mean Ox Delivery Rate 09/21 0733 92 Nasal 4.0L Cannula 09/20 0021 18 92 09/20 0000 Nasal 4.0L Cannula 09/19 2313 98.6 16 118/58 09/19 2140 86 120/60 09/19 1915 91 Nasal 4.0L Cannula 09/19 1806 100.1 92 18 118/48 93 08 1742 99.0 09/19 1643 100.1 09/19 1053 130/50 09/19 1053 130/50 Intake & Output 09/20 1600 09/20 0800 09/20 0000 Intake Total 360 120 Output Total 500 500 Balance -140 -380 Intake, IV 240 Intake, Oral 120 120 Output, Urine 500 500 Physical Exam General Appearance: well developed/nourished, mild distress, obese Head: atraumatic, normal appearance Ears, Nose, Throat: normal pharynx Neck: normal inspection Cardiovascular: regular rate/rhythm Respiratory: decreased breath sounds Abdomen: normal bowel sounds Extremities: normal inspection, no edema Current Medications: Current Medications Sig/Ebenezer Start time Last Medication Dose Route Stop Time Status Admin Acetaminophen 650 MG Q4P PRN 09/19 1615 AC 09/19 PO 1643 Al Hydroxide/Mg 30 ML .STK-MED ONE 09/19 1943 DC Hydroxide PO 09/19 1944 Al Hydroxide/Mg 30 ML Q4-6 PRN PRN 09/19 1700 AC 09/19 Hydroxide PO 1650 Al Hydroxide/Mg 30 ML .STK-MED ONE 09/19 1650 DC Hydroxide PO 09/19 1651 Albuterol Sulfate 3 ML Q4P PRN 09/17 1200 AC INH Albuterol Sulfate 3 ML BID 09/13 2200 AC 09/20 INH 0829 Albuterol Sulfate 2 PUF Q12P PRN 09/13 1500 AC INH Alprazolam 0.5 MG TIDPRN PRN 09/13 1500 AC / PO 09/20 1459 0506 Amlodipine Besylate 10 MG DAILY 09/14 1000 AC 09/19 PO 1053 Ampicillin Sodium/ 1,500 MG Q6 09/17 1202 AC 09/20 Sulbactam Sodium IV 0458 Sodium Chloride 100 ML Atorvastatin Calcium 80 MG 1700 02 1700 AC 09/19 PO 1643 Benzonatate 100 MG TID 09/19 1000 AC 09/19 PO 2140 Budesonide/ 2 PUF BID 09/17 1149 AC 09/19 Formoterol Fumarate INH 2141 Heparin Sodium 5,000 UNIT Q8 09/13 2200 AC 09/20 (Porcine) SC 0458 Ketorolac 15 MG Q8P PRN 09/13 1500 AC 09/18 Tromethamine IV 1222 Labetalol HCl 200 MG BID 09/13 2200 AC 09/19 PO 2140 Morphine Sulfate 2 MG Q3P PRN 09/13 1500 AC 09/18 IV 0150 Morphine Sulfate 4 MG Q3P PRN / 1500 AC 09/20 IV 0507 Morphine Sulfate 6 MG Q3P PRN 09/13 1500 AC 09/16 IV 1900 Pantoprazole Sodium 40 MG DAILY 09/14 1000 AC 09/19 IV 1053 Patient Medication 1 ED .STK-MED ONE 09/19 1313 HI Teaching ED 09/19 1314 Prednisone 40 MG DAILY 09/17 1200 AC 09/19 PO 1053 Sertraline HCl 50 MG DAILY 09/19 1000 AC 09/19 PO 1053 Sodium Chloride 2 SPRAY Q4P PRN 09/14 0815 AC 09/14 HARRY 0950 Tiotropium [place] 1 PUF DAILY 09/14 1000 AC 09/19 INH 1054 Results Last 24 Hrs Lab/Sean Results: Laboratory Tests 09/20/16 1105: Anion Gap 12, Estimated GFR > 60, BUN/Creatinine Ratio 18.3 09/20/16 0640: CBC w Diff MAN DIFF ORDERED, RBC 3.48 L, MCV 86.7, MCH 28.5, RDW 16.2 H, MPV 9.6, Gran % 95.0 H, Lymphocytes % 2.7 L, Monocytes % 2.2, Eosinophils % 0, Basophils % 0.1, Absolute Granulocytes 8.7 H, Segmented Neutrophils 66, Band Neutrophils 24 H, Absolute Lymphocytes 0.2 L, Lymphocytes 7 L, Monocytes 3, Absolute Monocytes 0.2, Absolute Eosinophils 0, Absolute Basophils 0, Platelet Estimate ADEQUATE, Hypochromic-Microcytic 1+, Anisocytosis 1+, PUBS MCHC 32.9 L Microbiology 09/20 1105 BLOOD: Blood Culture - RECD 09/20 1002 URINE ROUT: Urine Culture - COLB 09/20 1002 LOWER RESP: Respiratory Culture - COLB 09/20 1002 LOWER RESP: Gram Stain - COLB 09/20 1002 BLOOD: Blood Culture - COLB JOSE HERMAN 09/20/16 1054: Assessment/Plan Assessment/Plan Plan: * Patient still continues to require 4 L of oxygen. White count has improved. * Please obtain b/l lower extremity Doppler to r/o DVT. CTA if positive DVT (Pt says that she is allergic to contrast) * Obtain blood,sputum and cultures today again since patient spiked a fever yesterday. * Change ABX to PO augmentin from today. * Change steroids to 30 mg daily, will taper gradually. * Continue Spiriva and Symbicort, TRC nebs [id number] * Tessalon Perles for throat irritation * Incentive spirometry given lower lung volumes * Blood pressure well controlled on amlodipine and labetalol. Continue the same. Follow up with Dr. Luu 3-4 weeks after discharge * Started on Zoloft 50 mg daily for anxiety/depression * Pain control by primary team * Consider GI consult given blood in stools * DVT prophylaxis ALPS * Full code Attending MD Review Statement Attending Sign Off Attending Cosign Statement: I have: examined this patient, reviewed [facility] EMR data, personally reviewd images, discussd w/resident/PA/DIGITAL MEDIA ANALYST, discussed mgmt plan w/roxi, discussed mgmt plan w/CM, discussed mgmt plan w/pt, agreed w/resident/PA/DIGITAL MEDIA ANALYST. Other Findings: 76 o/f here for SBO, medical consult called to reval for Shortness of breath at rest in COPD and smoker. Patient had chest xray with possible aspiration penumonia and acute hypoxic respiratroy failure. Patient is hypoxic requiring oxygen supplementation which is tapering now. Empiric started on abx, steroids, BDs and repeat chest xray suggestive of atelectasis vs inflitrates. Patient hemodynamically stable. Patient c/o right lower extremity pain obtain USG r/o DVT. cont current care and monitor clinically. Walking pulse oximetry before d/c , possible need of home oxygen. PT recommneds STR. anticipate d/c soon
[2016-09-20 10:00] VITALS: BP 132/56
--- NOTE | 2016-09-20 13:14 | PN- General Surgery ---
Surgical Brief Attending Note Brief Attending Note: Patient is tolerating a diet and has continued bowel function. Her incisional pain continues to improve. At this point the determination of her recovery is her pulmonary process. Defer cares to medical consultants.
[2016-09-20 15:30] VITALS: BP 134/54
--- NOTE | 2016-09-20 19:24 | ULTRASOUND REPORT ---
EXAMINATION: US TRIPLEX LOWER EXTREMITY, RIGHT CLINICAL INFORMATION: Pain in right leg and swelling. COMPARISON: None TECHNIQUE: Color-flow triplex imaging with spectral analysis and compression Doppler were performed on the lower extremity. FINDINGS: Respiratory variation, normal compression and augmented flow are noted throughout the left lower extremity. The visualized common femoral vein, superficial femoral vein, profunda femoral vein, popliteal vein and midcalf peroneal and posterior tibial venous segments show no evidence of deep venous thrombosis. There is no Yu's cyst. IMPRESSION: Normal triplex scan without evidence of deep venous thrombosis involving the lower extremity.
[2016-09-21 00:30] VITALS: BP 110/65
--- NOTE | 2016-09-21 08:27 | PN- Orthopedic ---
Subjective Subjective: NO MAJOR ISSUES OVERNIGHT NO ABDOMINAL COMPLAINTS STILL REQUIRING NASAL O2 TO MAINTAIN O2SAT ABOVE 92% TOLERATING DIET +BM Objective Vital Signs and I&Os Vital Signs Date Time Temp Pulse Resp B/P B/P Pulse O2 O2 Flow FiO2 Mean Ox Delivery Rate 09/21 0030 98.1 72 20 110/65 95 /10 0000 94 Nasal 5.0L Cannula 09/20 2225 80 106/50 09/20 1944 94 Nasal 4.0L Cannula 09/20 1600 94 Nasal 5.0L Cannula 09/20 1530 98.6 80 16 134/54 91 Nasal 5.0L Cannula 09/20 1337 Nasal 4.0L Cannula 09/20 1038 132/56 09/20 1037 132/56 09/20 1000 98.6 85 20 132/56 92 09/20 0833 92 Nasal 4.0L Cannula Intake & Output 09/21 1600 09/21 0800 09/21 0000 09/20 1600 09/20 0800 09/20 0000 Intake Total 320 570 720 360 120 Output Total 400 500 500 500 Balance -80 570 220 -140 -380 Intake, IV 200 120 240 Intake, Oral 120 450 720 120 120 Number 1 1 Bowel Movements Output, Urine 400 500 500 500 Physical Exam: ABD: SOFTLY DISTENDED +BS WOUND C/D/I NO GUARDING TO PALP EXT: WARM, NO EDEMA Assessment/Plan Assessment/Plan SURGICAL STABLE PRIMARY ISSUES ARE PULMONARY PLAN FROM A SURGICAL STANDPOINT SHE IS STABLE FOR D/C TO SNF D/C TODAY TO SNF, BED AVAILABLE IF FURTHER PULMONARY W/U OR OBSERVATION NEEDED WILL TRANSFER TO MEDICAL SERVICE Core Measures/Miscellaneous Gaitan Catheter Date In: 09/11/16 Venous Thromboembolism VTE Risk Factors: Acute medical illness, Age > 40, Smoking VTE Contraindications: No Contraindications VTE Diagnosis: No VTE Type: NONE VTE Confirmed by (Test): NONE Beta Darwin Is Beta Adrwin a Home Med? Yes If Yes, Was This Ordered Today? Yes Antibiotics Is Patient on Antibiotics? Yes If Yes: infection (uti)
--- NOTE | 2016-09-21 08:43 | Patient Discharge Instructions ---
Discharge Instructions General Discharge Information You were seen/treated for: 1. bowel obstruction 2. aspiration pneumonia You had these procedures: ex lap, lysis of adhesions antibiotics for aspiration pneumonia Watch for these problems: temp >101.5, increasd wound drainage/redness, increased abdominal pain Call Surgeon to remove: [place] No bath, but you may shower: Yes Other wound care: keep wound clean and dry Diet Continue normal diet: Yes Activity Activity Limited to: Weight bear as tolerated Other activity limits: no strenuous activity Acute Coronary Syndrome Inclusion Criteria At DC or during hospital stay patient has or had the following: ACS DIAGNOSIS No Discharge Core Measures Meds if any: Prescribed or Continued at Discharge Meds if any: NOT Prescribed or Continued at Discharge Congestive Heart Failure Inclusion Criteria At DC or during hospital stay patient has or had the following: CHF DIAGNOSIS No Discharge Core Measures Meds if any: Prescribed or Continued at Discharge Meds if any: NOT Prescribed or Continued at Discharge Cerebrovascular accident Inclusion Criteria At DC or during hospital stay patient has or had the following: CVA/TIA Diagnosis No Discharge Core Measures Meds if any: Prescribed or Continued at Discharge Meds if any: NOT Prescribed or Continued at Discharge Venous thromboembolism Inclusion Criteria VTE Diagnosis No VTE Type NONE VTE Confirmed by (Test) NONE Discharge Core Measures - Per Current guidelines, there needs to be overlap - treatment for the first 5 days of Warfarin therapy. - If discharged on Warfarin prior to 5 days of - overlap therapy, the patient will need to be - assessed for post discharge needs including - *Post discharge parental anticoagulation - *Warfarin and/or parental anticoagulation education - *Follow up date to check INR post discharge At least 5 days overlap therapy as Inpatient No Meds if any: Prescribed or Continued at Discharge Note: Overlap Therapy is Warfarin and Anticoagulant Meds if any: NOT Prescribed or Continued at Discharge
[2016-09-21] MEDS ORDERED: DEEP SEA44 ML NAS (08:47)
[2016-09-21] MEDS ORDERED: BENZONATATE100 M1 PO (08:47)
[2016-09-21 09:00] VITALS: BP 150/60
--- NOTE | 2016-09-21 11:28 | PN- General Surgery ---
See Addendum Subjective Subjective: NO MAJOR ISSUES OVERNIGHT NO ABDOMINAL COMPLAINTS STILL REQUIRING NASAL O2 TO MAINTAIN O2SAT ABOVE 92% TOLERATING DIET +BM Objective Vital Signs and I&Os Vital Signs Date Time Temp Pulse Resp B/P B/P Pulse O2 O2 Flow FiO2 Mean Ox Delivery Rate 09/21 1023 93 Nasal 5.0L Cannula 09/21 0952 150/74 09/21 0951 150/74 09/21 0914 95 Nasal 5.0L Cannula 09/21 09 98.3 77 20 150/60 93 Nasal Cannula 09/21 0030 98.1 72 20 110/65 95 09/21 0000 94 Nasal 5.0L Cannula 09/20 2225 80 106/50 09/20 1944 94 Nasal 4.0L Cannula 09/20 1600 94 Nasal 5.0L Cannula 09/20 1530 98.6 80 16 134/54 91 Nasal 5.0L Cannula 09/20 1337 Nasal 4.0L Cannula Intake & Output 09/21 1600 09/21 0800 09/21 0000 09/20 1600 09/20 0800 09/20 0000 Intake Total 320 570 720 360 120 Output Total 400 500 500 500 Balance -80 570 220 -140 -380 Intake, IV 200 120 240 Intake, Oral 120 450 720 120 120 Number 1 1 Bowel Movements Output, Urine 400 500 500 500 Physical Exam: ABD: SOFTLY DISTENDED +BS WOUND C/D/I NO GUARDING TO PALP EXT: WARM, NO EDEMA Assessment/Plan Assessment/Plan SURGICAL STABLE PRIMARY ISSUES ARE PULMONARY PLAN FROM A SURGICAL STANDPOINT SHE IS STABLE FOR D/C TO SNF D/C TODAY TO SNF, BED AVAILABLE IF FURTHER PULMONARY W/U OR OBSERVATION NEEDED WILL TRANSFER TO MEDICAL SERVICE Core Measures/Miscellaneous Gaitan Catheter Date In: 09/11/16 Venous Thromboembolism VTE Risk Factors: Acute medical illness, Age > 40, Smoking VTE Contraindications: No Contraindications VTE Diagnosis: No VTE Type: NONE VTE Confirmed by (Test): NONE Beta Darwin Is Beta Darwin a Home Med? Yes If Yes, Was This Ordered Today? Yes Antibiotics Is Patient on Antibiotics? Yes If Yes: infection (uti)
[2016-09-21] MEDS ORDERED: SERTRALINE HCL50 MG PO (12:03)
[2016-09-21 12:04] VITALS: BP 150/74
[2016-09-21] MEDS ORDERED: PREDNISONE20 M1 PO ×2 (12:08→12:20)
--- NOTE | 2016-09-21 12:34 | Discharge Summary ---
Visit Information Visit Dates Admission Date: 09/11/16 Discharge Date: 09/21/16 Hospital Course Course Attending Physician: MAKAYLA TRAN MD Primary Care Physician: FRANCIA ANDERSON,ANAHI Trejo Consulting Request: Consulting Specialty: Cardiology Consulting Physician: Nader Luu Reason for Consult: preop clearance/cardiac management Hospital Course: Ms. Merlos is a 76-year-old female with past medical history of coronary artery disease and endovascular repair of AAA, hypertension presents to [facility] emergency room with syncope and hypertension, 2-3 days of nausea vomiting and diarrhea. After successful crystalloid volume resuscitation in the emergency room a CAT scan of the abdomen revealed small bowel obstruction. An NG tube was placed in the emergency room and she was admitted to the surgical service for conservative management of this bowel obstruction. After 2 days, when it appeared that the patient was not going to be resolved with conservative management, she was taken to the operating room and underwent exploratory laparotomy and lysis of adhesions. She tolerated procedure well and she was transferred back to the floor. However on postop day 2 it was discovered that she was hypoxic with ambulation. Chest x-ray at that time revealed a left lower lobe opacity consistent with aspiration pneumonia. A medical consult was obtained and the patient was placed on antibiotics and prednisone. Also of note her O2 requirements increased from no O2 at home to 5 L nasal cannula. As of 09/21/2016 she was surgically stable for discharge by Dr. Tran as she was tolerating a regular diet and having bowel movements. Medical follow-up today concluded that she no longer needs antibiotics for aspiration pneumonia however she should continue her prednisone which should be tapered after 10 days. Her oxygen should also be weaned to maintain an O2 sat above 92% on room air as she was not O2 dependent prior to admission Allergies: Coded Allergies: propoxyphene (UNKNOWN 09/29/15) Significant Procedures: Exploratory laparotomy with lysis of adhesions Disposition Summary Disposition Principal Diagnosis: Small bowel obstruction Additional Diagnosis: Left lower lobe aspiration pneumonia Discharge Disposition: SNF Discharge Instructions General Discharge Information Code Status: Full Code Patient's Diet: Low residue diet Patient's Activity: The patient may be out of bed weightbearing as tolerated She should continue her oxygen however this should be weaned to maintain an O2 sat above 92% Follow-Up Instructions/Appts: Prednisone 40 mg should continue for 10 days after that it should be weaned to 0 mg Daily wound check should be done but there is no need for dry sterile dressing, keep this area clean and dry, will should be removed in 1 week Any change in wound appearance please contact Dr. Tran Follow-up with PCP should be done within 2 weeks Medications at Discharge Discharge Medications: Continue taking these medications: Amlodipine Besylate (Amlodipine Besylate) 10 MG TABLET 1 Tablet ORAL DAILY Comments: DOCUMENTED PER CMR DURING PRE-SX INTERVIEW Rosuvastatin Calcium (Crestor) 20 MG TABLET 1 Tablet ORAL DAILY Comments: DOCUMENTED PER CMR DURING PRE-SX INTERVIEW Labetalol HCl (Labetalol HCl) 200 MG TABLET 1 Tablet ORAL TWICE DAILY Comments: DOCUMENTED PER CMR DURING PRE-SX INTERVIEW Omeprazole (Omeprazole) 20 MG CAPSULE. 1 Capsule ORAL DAILY as needed for GERD Comments: DOCUMENTED PER CMR DURING PRE-SX INTERVIEW Ferrous Sulfate (Iron Supplement) 325 MG TABLET 1 Tablet ORAL DAILY Comments: DOCUMENTED PER CMR DURING PRE-SX INTERVIEW Tiotropium [place] (Spiriva) 18 MCG CAP.W.DEV 1 Capsule Inhale through mouth DAILY Comments: DOCUMENTED PER CMR DURING PRE-SX INTERVIEW Albuterol Sulfate (Proair Hfa) 8.5 GM HFA.AER.AD 2 Puff Inhale through mouth As Directed as needed for RESPIRATORY Comments: DOCUMENTED PER CMR DURING PRE-SX INTERVIEW Albuterol Sulfate (Albuterol Sulfate) 2.5 MG/3 ML VIAL.NEB 1 Vial Inhale Solution TWICE DAILY Comments: DOCUMENTED PER CMR DURING PRE-SX INTERVIEW Aspirin (Ecotrin*) 81 MG TABLET. 81 Milligram ORAL DAILY Days = 30 Instructions: start a baby aspirin daily, as per Tylenol With Codeine (Tylenol With Codeine #3 Tablet) 1 EACH TABLET 1-2 Tablet ORAL EVERY 4-6 HOURS NEEDED as needed for PAIN Qty = 30 Instructions: take as directed. do not combine with tylenol. Alprazolam (Alprazolam) 0.5 MG TABLET 1 Tablet ORAL THREE TIMES A DAY NEEDED as needed for ANXIETY Qty = 60 Start taking the following new medications: Prednisone (Prednisone) 20 MG TABLET 2 Tablet ORAL DAILY Qty = 30 No Refills Benzonatate (Benzonatate) 100 MG CAPSULE 1 Tablet ORAL THREE TIMES DAILY Qty = 30 No Refills Sodium Chloride ([place]) 0.65 % SPRAY 2 [place] In the nose EVERY 4 HOURS NEEDED as needed for CONGESTION Qty = 30 No Refills Sertraline HCl (Sertraline HCl) 50 MG TABLET 1 Tablet ORAL DAILY Qty = 30 No Refills Copies To: CHELSEA ANDERSON,MAKAYLA Patel
--- NOTE | 2016-09-21 13:05 | PN- Att Addend ---
See Addendum Attending Addendum Attending Brief Note Patient seen and examined. Plan of care discussed with the medical team and the patient. Available lab work and radiology test reports were reviewed. Patient is feeling well and is sitting in chair. She continues to be on 5 L of oxygen by nasal cannula this time. complains of being short of breath on ambulation. Vital Signs Date Time Temp Pulse Resp B/P B/P Pulse O2 O2 Flow FiO2 Mean Ox Delivery Rate 09/21 1204 98.3 77 20 150/74 09/21 1023 93 Nasal 5.0L Cannula 09/21 0952 150/74 09/21 0951 150/74 09/21 0914 95 Nasal 5.0L Cannula 09/21 0900 98.3 77 20 150/60 93 Nasal Cannula 09/21 0030 98.1 72 20 110/65 95 09/21 0000 94 Nasal 5.0L Cannula 09/20 2225 80 106/50 09/20 1944 94 Nasal 4.0L Cannula 09/20 1600 94 Nasal 5.0L Cannula 09/20 1530 98.6 80 16 134/54 91 Nasal 5.0L Cannula 09/20 1337 Nasal 4.0L Cannula Intake & Output 09/21 1600 09/21 0800 09/21 0000 Intake Total 320 570 Output Total 400 Balance -80 570 Intake, IV 200 120 Intake, Oral 120 450 Number 1 Bowel Movements Output, Urine 400 Exam: General: Patient awake alert oriented without any distress CVS: S1 plus S2 without any murmur or gallops Chest: Basal crepitations bilateral without any wheeze. There is no respiratory distress. 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 Chest x-ray report from September 18 shows atelectasis. Assessment plan * Suspected pneumonia * Bilateral atelectasis * Hypoxia * Hypokalemia Plan Repeat potassium Continue to taper oxygen Incentive spirometry Complete 5 days of IV Unasyn. Patient can be given Augmentin for 1 more day to complete a total of 5 days of antibiotics. Stable for discharge to short-term rehabilitation If her oxygen does not improve for the next few days she may need pulmonary evaluation.
== END 2016-09-21 15:30 | DRG 335 ==
LOC: ERH 16:00 → CRI 20:39 → 1NO 20:39 → ERHI 20:39 → ENRESERV 22:03 → CRI 09-12 00:39 → 1NO 09-12 13:15
PROVIDERS: Nurse Practitioner; Physician Assistant; Physician Assistant Surgical; ADMIT Surgery
PROC: 0D9670Z Drainage of Stomach with Drainage Device, Via Natural or Artificial Opening (ICD-10-PCS; 2016-09-11)
PROC: 0DNT0ZZ (ICD-10-PCS; principal; 2016-09-13)
DX: K56.60 Unspecified intestinal obstruction (principal); J69.0 Pneumonitis due to inhalation of food and vomit; J96.01 Acute respiratory failure with hypoxia; N17.9 Acute kidney failure, unspecified; I95.9 Hypotension, unspecified; E87.2 Acidosis; E86.0 Dehydration; J44.0 Chronic obstructive pulmonary disease with (acute) lower respiratory infection; J44.9 Chronic obstructive pulmonary disease, unspecified; K91.3 Postprocedural intestinal obstruction; J95.89 Other postprocedural complications and disorders of respiratory system, not elsewhere classified; Z98.890 Other specified postprocedural states; Y83.8 Other surgical procedures as the cause of abnormal reaction of the patient, or of later complication, without mention of misadventure at the time of the procedure; I25.10 Atherosclerotic heart disease of native coronary artery without angina pectoris; I73.9 Peripheral vascular disease, unspecified; R00.0 Tachycardia, unspecified; I10 Essential (primary) hypertension; E78.5 Hyperlipidemia, unspecified; I25.2 Old myocardial infarction; F17.200 Nicotine dependence, unspecified, uncomplicated; K21.9 Gastro-esophageal reflux disease without esophagitis; F41.9 Anxiety disorder, unspecified; E55.9 Vitamin D deficiency, unspecified
CPT/HCPCS: 1NSP; ERO; 36415; 74020; 74174; 82436; 86920; 87040; 87070; 87086; 93005; 93010; 93306; 96361; 96374; 96375; 96376; 97110-GO; 97116-GO; 97161-GP; 97530-GO; 99291; C9399; J0131; J0696; J1644; J2405; J3490; J7042

== ENCOUNTER 2016-09-29 03:01 | Inpatient (IN) | payer OTHER, MEDICARE ==
[~2016-09-29] VITALS: Ht 152.4 cm; Wt 66.8 kg
[~2016-09-29 03:01] MED LIST changes: +ALPRAZOLAM0.5 M4 PO; +BENZONATATE100 M1 PO; +DEEP SEA44 ML NAS; +PREDNISONE20 M1 PO; +SERTRALINE HCL50 MG PO
--- NOTE | 2016-09-29 03:13 | NUR ---
PT BIBA FROM [facility] C/O COFFEE GROUND EMESIS. PT ARRIVED A&O X3, PT ARRIVED ON 2L NC SAT 96%, VSS. PT HAD SBO SURGERY [address] TRAN, PT RELEASES TO [facility] AROUND 0000 AND 0200 PT HAD 2 SEPERATE COFFEE GROUND EMESIS EPISODES. IV ESTABLISHED IN RAC #20 BY GINO DIANA. AWAITING PROVIDER EVAL. PT PLACED ON MONITOR IN RM.
--- NOTE | 2016-09-29 03:31 | NUR ---
CO NAUSEA--ZOFRAN 4MG IV GIVEN
--- NOTE | 2016-09-29 03:37 | ED GI/GU/ABDOMINAL COMPLAINT ---
History of Present Illness General Chief Complaint: Nausea, Vomiting, Diarrhea Stated Complaint: BIBA PT C/O VOMITING "COFFEE GROUNDS" S/P SBO SURG Source: patient, old records, EMS, W10 Exam Limitations: no limitations Vital Signs & Intake/Output Vital Signs & Intake/Output Vital Signs Date Time Temp Pulse Resp B/P B/P Pulse O2 O2 Flow FiO2 Mean Ox Delivery Rate 09/29 0518 98.0 105 18 146/65 09/29 0421 94 Nasal 2.0L Cannula 09/29 0304 95.8 113 18 107/53 96 Room Air Allergies Coded Allergies: propoxyphene (UNKNOWN 09/29/15) Reconcile Medications Albuterol Sulfate (Proair Hfa) 8.5 GM HFA.AER.AD 2 PUF INH AD PRN RESPIRATORY (Reported) Albuterol Sulfate 2.5 MG/3 ML VIAL.NEB 1 Vial INH/QUINTON BID RESPIRATORY ( Reported) Alprazolam 0.5 MG TABLET 1 TAB PO TIDPRN PRN ANXIETY (Reported) Amlodipine Besylate 10 MG TABLET 1 TAB PO DAILY BP (Reported) Aspirin (Ecotrin*) 81 MG TABLET. 81 MG PO DAILY vascular / heart health start a baby aspirin daily, as per Benzonatate 100 MG CAPSULE 1 TAB PO TID COLD SYMPTOMS Ferrous Sulfate (Iron Supplement) 325 MG TABLET 1 TAB PO DAILY IRON DEF ANEMIA (Reported) Labetalol HCl 200 MG TABLET 1 TAB PO BID BP (Reported) Omeprazole 20 MG CAPSULE. 1 CAP PO DAILY PRN GERD (Reported) Prednisone 20 MG TABLET 2 TAB PO DAILY LUNG HEALTH Rosuvastatin Calcium (Crestor) 20 MG TABLET 1 TAB PO DAILY CHOLESTEROL ( Reported) Sertraline HCl 50 MG TABLET 1 TAB PO DAILY DEPRESSION Sodium Chloride (Deep Sea) 0.65 % SPRAY 2 SPRAY HARRY Q4P PRN CONGESTION Tiotropium Beatrice (Spiriva) 18 MCG CAP.W.DEV 1 CAP INH DAILY RESPIRATORY ( Reported) Tylenol With Codeine (Tylenol With Codeine #3 Tablet) 1 EACH TABLET 1-2 TAB PO Q4-6 PRN PRN PAIN take as directed. do not combine with tylenol. Triage Note: PT BIBA FROM [facility] C/O COFFEE GROUND EMESIS. PT ARRIVED A&O X3, PT ARRIVED ON 2L NC SAT 96%, VSS. PT HAD SBO SURGERY [address] TRAN, PT RELEASES TO [facility]. AROUND 0000 AND 0200 PT HAD 2 SEPERATE COFFEE GROUND EMESIS EPISODES. IV ESTABLISHED IN [facility] #20 BY GINO DIANA. AWAITING PROVIDER EVAL. PT PLACED ON MONITOR IN . Triage Nurses Notes Reviewed? yes LMP (ages 10-50): post menopausal ? n Is pt currently ? No Onset: Just prior to arrival Duration: hour(s):, constant, continues in ED, getting worse Timing: recent history Quality/Severity: aching, fullness, moderate, vomiting Location: periumbilical Radiation: no radiation Activities at Onset: none Prior Abdominal Problems: similar symptoms Past Sexual History: Unobtainable at this time Modifying Factors: Worsens With: movement, palpation. 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 She denies fever chills chest pain cough shortness of breath headache dysuria rash bleeding. Past History Travel History Traveled to [place] past 21 day No Medical History Any Pertinent Medical History? see below for history Neurological: TIA EENT: NONE Cardiovascular: aortic aneurysm (10/02/15: endovascular repair), CAD, hypertension, hyperlipidemia, myocardial infarction, PVD (09/22/02: R CEA) Respiratory: bronchitis, COPD (55 pk yr smoker) Gastrointestinal: NONE (asx on PPI), GERD, peptic ulcer disease, diverticulosis coli gastric & SB AVMs Hepatic: NONE Renal: NONE Musculoskeletal: degen joint disease, falls Psychiatric: anxiety Endocrine: vitamin D deficiency Blood Disorders: NONE (Fe def), anemia Cancer(s): NONE BALANCE ENGINEER/Reproductive: NONE History of MRSA: No History of VRE: No History of CDIFF: No Surgical History Surgical History: X 2 09/22/02: R CEA 10/02/15: Endovascular repair of AAA Psychosocial History Who do you live with Spouse Services at Home Nursing What is your primary language Martiniquais Tobacco Use: Quit >30 days ago Family History Family History, If Any: MOTHER, , Age 51; Cause: ASHD (arteriosclerotic heart disease). FH: CAD (coronary artery disease) FATHER, , Age 65; Cause: Arteriosclerotic heart disease (ASHD). Hx Contributory? No Review of Systems Review of Systems Constitutional: Reports: no symptoms. EENTM: Reports: no symptoms. Respiratory: Reports: no symptoms. Cardiovascular: Reports: no symptoms. GI: Reports: see HPI, abdominal pain, melena, vomiting. Genitourinary: Reports: no symptoms. Musculoskeletal: Reports: no symptoms. Skin: Reports: no symptoms. Neurological/Psychological: Reports: no symptoms. Hematologic/Endocrine: Reports: no symptoms. Immunologic/Allergic: Reports: no symptoms. All Other Systems: Reviewed and Negative Physical Exam Physical Exam General Appearance: well developed/nourished, alert, awake, anxious, moderate distress Head: atraumatic, normal appearance Eyes: Bilateral: normal appearance, PERRL, EOMI, normal inspection. Ears, Nose, Throat, Mouth: hearing grossly normal, moist mucous membrane Neck: normal inspection, supple, full range of motion, normal alignment Respiratory: normal breath sounds, chest non-tender, no respiratory distress, quiet respiration, lungs clear Cardiovascular: regular rate/rhythm, normal peripheral pulses, norml femoral pulses equa Peripheral Pulses: 4+ carotid (R), 4+ carotid (L) Gastrointestinal: soft, no organomegaly, abnormal bowel sounds, tenderness Rectal: deferred Back: normal inspection, normal range of motion Extremities: normal range of motion, no ligament instability Neurologic/Psych: no motor/sensory deficits, awake, alert, oriented x 3, normal gait, normal mood/affect, vaccine specialist II-XII nml as tested Skin: intact, warm/dry, pallor Core Measures ACS in differential dx? No Severe Sepsis Present: No Septic Shock Present: No Progress Differential Diagnosis: bowel obstruction, gastritis, pancreatitis, SBO Plan of Care: Orders Procedure Date/time Status CBC WITHOUT DIFFERENTIAL 09/30 0600 Active Nothing by Mouth 09/29 B Active CBC WITHOUT DIFFERENTIAL 09/29 2359 Active CBC WITHOUT DIFFERENTIAL 09/29 1800 Active TROPONIN LEVEL 09/29 1500 Active EKG 09/29 1500 Active CBC WITHOUT DIFFERENTIAL 09/29 1200 Active TROPONIN LEVEL 09/29 0900 Active EKG 09/29 0900 Active PROTHROMBIN TIME 09/29 0800 Active CBC WITHOUT DIFFERENTIAL 09/29 0800 Active Pathway - chart 09/29 0513 Active Code Status 09/29 0513 Active PROTHROMBIN TIME 09/29 0440 Active BLOOD PRODUCT PICKUP 09/29 0426 Active Patient Data 09/29 0412 Active Admit to inpatient 09/29 0407 Active LEUKOCYTE POOR (PACKED CELLS) 09/29 0401 Active Add-on Test (ER Only) 09/29 0333 Active LIPASE 09/29 0320 Complete TROPONIN LEVEL 09/30 315 Complete PARTIAL THROMBOPLASTIN TIME 09/30 315 Complete PROTHROMBIN TIME 09/30 315 Complete COMPREHENSIVE METABOLIC PANEL 09/30 315 Complete CBC WITHOUT DIFFERENTIAL 09/29 031 Complete EKG 09/29 031 Active TYPE & SCREEN (NOT X-MATCH) 09/29 0316 Active Intake & Output 09/29 0306 Active TRC EVALUATION (GEN) 09/29 UNK Active VTE Mechanical Prophylaxis 09/29 UNK Active Vital Signs 09/29 UNK Active Intake & Output 09/29 UNK Active Current Medications Sig/Ebenezer Start time Last Medication Dose Stop Time Status Admin Albuterol Sulfate 3 ML BID 09/29 1000 AC (Proventil) Tiotropium Beatrice 1 PUF DAILY 09/29 1000 AC (Spiriva) Albuterol Sulfate 2 PUF Q4-6 PRN PRN 09/29 0515 AC (Ventolin) Morphine Sulfate 2 MG Q4P PRN 09/29 0515 AC (Morphine) Ondansetron HCl 4 MG Q6P PRN 09/29 0515 AC (Zofran) Pantoprazole Sodium 40 MG Q5H 09/29 0515 AC 09/29 (Protonix) 0534 Sodium Chloride 100 ML (Normal Saline 0.9%) Sodium Chloride 1,000 ML .Q8H 09/29 0515 AC (Normal Saline 0.9%) Sodium Chloride 1,000 ML BOLUS ONE 09/29 0345 CAN (Normal Saline 0.9%) 09/29 0444 Laboratory Tests 09/29/16 0320: Anion Gap 9, Estimated GFR > 60, BUN/Creatinine Ratio 44.0 H, Glucose 110 H, Calcium 7.7 L, Total Bilirubin 0.6, AST 37 H, ALT 60 H, Alkaline Phosphatase 67, Troponin I < 0.01, Total Protein 4.4 L, Albumin 2.1 L, Globulin 2.3, Albumin/Globulin Ratio 0.9 L, Lipase 61, PT > 103.0 *H, INR > 10.0 *H, APTT 47 H, CBC w Diff NO MAN DIFF REQ, RBC 1.46 L, MCV 85.5, MCH 28.9, RDW 15.3 H, MPV 10.1, Gran % 93.6 H, Lymphocytes % 4.7 L, Monocytes % 1.7, Eosinophils % 0, Basophils % 0 L, Absolute Granulocytes 14.4 H, Absolute Lymphocytes 0.7 L, Absolute Monocytes 0.3, Absolute Eosinophils 0, Absolute Basophils 0, PUBS MCHC 33.8 Initial ED EKG: normal axis, normal intervals, normal p-waves, normal QRS complex, rate (sinus tachycardia), no ST T wave changes Prior EKG: unchanged Rhythm Strip: sinus tachycardia Comments: Discussed with GI Departure Departure Disposition: STILL A PATIENT Condition: Stable Clinical Impression Primary Impression: GI bleed Qualifiers: GI bleed type/associated pathology: unspecified gastrointestinal hemorrhage type Qualified Code: K92.2 - Gastrointestinal hemorrhage, unspecified Secondary Impressions: Symptomatic anemia Referrals: HAYDEE ANDERSON,REAL Cary (PCP/Family) Departure Forms: Customer Survey General Discharge Information Admission Note Spoke With: CATHERINE ANDERSON,USAMAEstrada Documentation of Exam: Documentation of any treatments & extenuating circumstances including Concerns Regarding Discharge (functional status, medication knowledge or non-compliance, living conditions, etc.) that warrant an admission rather than observation: Serial lab exam IV Protonix medication adjustment ICU monitoring GI evaluation continuing care discharge planning
[2016-09-29 03:39] LABS: ABSOLUTE BASOPHIL COUNT 0 /CUMM (0.0-0.2); ABSOLUTE EOSINOPHIL COUNT 0 /CUMM (0.0-0.7); ABSOLUTE GRANULOCYTE CT 14.4 /CUMM (1.4-6.5); ABSOLUTE LYMPH COUNT 0.7 /CUMM (1.2-3.4); ABSOLUTE MONOCYTE COUNT 0.3 /CUMM (0.10-0.60); BASOPHIL % 0 % (0.0-2.0); EOSINOPHIL % 0 % (0-5); GRANULOCYTE % 93.6 % (42.2-75.2); MEAN CORPUSCULAR HGB 28.9 PG (27.0-31.0); MEAN CORPUSCULAR HGB CONC 33.8 G/DL (33.0-37.0); MEAN CORPUSCULAR VOLUME 85.5 FL (81.0-99.0); MEAN PLATELET VOLUME 10.1 FL (7.4-10.4); PLATELET COUNT 177 /CUMM (130-400); RBC DISTRIBUTION WIDTH 15.3 % (11.5-14.5); RED BLOOD CELL CT 1.46 /CUMM (4.20-5.40)
--- NOTE | 2016-09-29 03:51 | NUR ---
EKG DONE AND SHOWN TO DR. MCNAMARA.
[2016-09-29 03:52] LABS: PTT 47 SEC (25-37)
[2016-09-29 03:54] LABS: HEMATOCRIT 12.5 % (37-47)
--- NOTE | 2016-09-29 03:55 | NUR ---
MORPHINE GIVEN FOR PAIN ORDERED.
[2016-09-29 03:56] LABS: PT > 103.0 SEC (9.4-12.5)
--- NOTE | 2016-09-29 03:56 | NUR ---
CRITICAL TEST RESULTS [id number] YONY SHETTY 76 F TESTS AND RESULTS: H&H = 4.2 AND 12.5 Results received and read back by: LEBRON GALICIA Results received date and time: 09/29/16 0357 The following provider was notified of the results, and read the results back: DR. MCNAMARA Notified date and time: 09/29/16 at 0352
--- NOTE | 2016-09-29 03:57 | NUR ---
CRITICAL TEST RESULTS [id number] YONY SHETTY 76 F TESTS AND RESULTS: PT GREATER THEN 103 INR GREATER 10 Results received and read back by: LEBRON GALICIA Results received date and time: 09/29/16 0358 The following provider was notified of the results, and read the results back: DR. MCNAMARA Notified date and time: 09/29/16 at 0357
[2016-09-29 04:13] LABS: WHITE BLOOD CELL COUNT 15.4 /CUMM (4.8-10.8)
--- NOTE | 2016-09-29 05:05 | Admission Certification ---
Admission Certification Certification Statement - As attending physician, I certify that at the time of - admission, based on clinical presentation, severity of - symptoms, need for further diagnostic testing and - therapeutic interventions, and risk of adverse outcomes - without in-hospital treatment, in my clinical assessment, - this patient requires an acute hospital stay for a minimum - of two nights or longer. I have also considered psychsocial - factors such as support system, advanced age, financial - issues, cognitive issues, and failed out-patient treatments, - past re-admission history, safety of patient, and lack of - compliance as applicable. Specific rationale supporting this admission is: Acute blood loss anemia, GI bleed likely upper, symptomatic anemia requiring ICU level of care.
--- NOTE | 2016-09-29 05:06 | NUR ---
PT ASSIGNED TO [facility] ROOM [id number]
--- NOTE | 2016-09-29 05:09 | History & Physical ---
TOM LOMAS 09/29/16 0509: General Information and HPI MD Statement: I have seen and personally examined YONY SHETTY and documented this H&P. The patient is a 76 year old F who presented with a patient stated chief complaint of coffee ground emeisis Source of Information: patient, old records Exam Limitations: no limitations History of Present Illness: 76-year-old woman from [place] with past medical history significant for coronary artery disease, COPD, hypertension, hyperlipidemia, PUD, severe PVD, AAA status post endovascular repair, multiple AV malformations(refusing PillCam' s), SBO s/p Laparotomy with lysis of adhesion on 09/13/[address] Reed, brought to ED for two episodes of coffee ground emesis. After her surgery two weeks ago she was discharge to [place] facility. Since then she endorses decreased PO intake, black tarry stools, continuing abdominal pain and weakness. Around 12 am she had one episode of coffee ground vomitus and another at 2am associated with dizziness and lightheadness. She reports diffuse severe non radiating sharp abdominal pain as well. Denies chest pain, palpitations, shortness of breath,syncope, BRBPR. Allergies/Medications Allergies: Coded Allergies: propoxyphene (UNKNOWN 09/29/15) Home Med list Albuterol Sulfate (Proair Hfa) 8.5 GM HFA.AER.AD 2 PUF INH AD PRN RESPIRATORY (Reported) Albuterol Sulfate 2.5 MG/3 ML VIAL.NEB 1 Vial INH/QUINTON BID RESPIRATORY ( Reported) Alprazolam 0.5 MG TABLET 1 TAB PO TIDPRN PRN ANXIETY (Reported) Amlodipine Besylate 10 MG TABLET 1 TAB PO DAILY BP (Reported) Aspirin (Ecotrin*) 81 MG TABLET. 81 MG PO DAILY vascular / heart health start a baby aspirin daily, as per Benzonatate 100 MG CAPSULE 1 TAB PO TID COLD SYMPTOMS Ferrous Sulfate (Iron Supplement) 325 MG TABLET 1 TAB PO DAILY IRON DEF ANEMIA (Reported) Labetalol HCl 200 MG TABLET 1 TAB PO BID BP (Reported) Omeprazole 20 MG CAPSULE. 1 CAP PO DAILY PRN GERD (Reported) Prednisone 20 MG TABLET 2 TAB PO DAILY LUNG HEALTH Rosuvastatin Calcium (Crestor) 20 MG TABLET 1 TAB PO DAILY CHOLESTEROL ( Reported) Sertraline HCl 50 MG TABLET 1 TAB PO DAILY DEPRESSION Sodium Chloride (Deep Sea) 0.65 % SPRAY 2 SPRAY HARRY Q4P PRN CONGESTION Tiotropium [place] (Spiriva) 18 MCG CAP.W.DEV 1 CAP INH DAILY RESPIRATORY ( Reported) Tylenol With Codeine (Tylenol With Codeine #3 Tablet) 1 EACH TABLET 1-2 TAB PO Q4-6 PRN PRN PAIN take as directed. do not combine with tylenol. Compliance With Home Meds: GOOD Past History Travel History Traveled to [place] past 21 day No Medical History Neurological: TIA EENT: NONE Cardiovascular: aortic aneurysm (10/02/15: endovascular repair), CAD, hypertension, hyperlipidemia, myocardial infarction, PVD (09/22/02: R CEA) Respiratory: bronchitis, COPD (55 pk yr smoker) Gastrointestinal: NONE (asx on PPI), GERD, peptic ulcer disease, diverticulosis coli gastric & SB AVMs Hepatic: NONE Renal: NONE Musculoskeletal: degen joint disease, falls Psychiatric: anxiety Endocrine: vitamin D deficiency Blood Disorders: NONE (Fe def), anemia Cancer(s): NONE MUSIC EXECUTIVE/Reproductive: NONE History of MRSA: No History of VRE: No History of CDIFF: No Influenza Vaccine: 12/14/15 Surgical History Surgical History: X 2 09/22/02: R CEA 10/02/15: Endovascular repair of AAA, SBO s/p laparotomy and lysis of adhesions Past Family/Social History Family History Relations & Conditions if any MOTHER, , Age 51; Cause: ASHD (arteriosclerotic heart disease). FH: CAD (coronary artery disease) FATHER, , Age 65; Cause: Arteriosclerotic heart disease (ASHD). Psychosocial History Who Do You Live With? self Services at Home: Nursing Primary Language: Ukrainian Living Will? no Power of Vp Customer Development/HCP? no Functional Ability ADLs Independent: dressing, eating, toileting, bathing. Ambulation: independent IADLs Independent: shopping, housework, finances, food prep, telephone, medication admin. Needs Assist: transportation. Sexual History Past Sexual History Unobtainable at this time Review of Systems Review of Systems Constitutional: Reports: malaise, weakness. Denies: chills, diaphoresis, fever, unexplained weight loss. Cardiovascular: Denies: chest pain, edema, orthopena, palpitations, peripheral edema, syncope. Respiratory: Denies: cough, hemoptysis, orthopnea, short of breath, sputum production, stridor, wheezing. GI: Reports: abdominal pain, melena, nausea. Genitourinary: Denies: discharge, dysuria, frequency, hematuria, hesitation, nocturia, pain, urgency. Exam & Diagnostic Data Last 24 Hrs of Vital Signs/I&O Vital Signs Date Time Temp Pulse Resp B/P B/P Pulse O2 O2 Flow FiO2 Mean Ox Delivery Rate 09/29 05 98.0 105 18 146/65 09/29 0421 94 Nasal 2.0L Cannula 09/29 0304 95.8 113 18 107/53 96 Room Air Intake & Output 09/29 0800 09/29 0000 09/28 1600 Intake Total 500 Output Total Balance 500 Intake, IV 500 Patient 135 lb Weight Physical Exam General Appearance Alert, Oriented X3, Cooperative, Mild Distress Skin pale HEENT Atraumatic, dry mucuos membranes, pallor Lymphatic Cervical nl Cardiovascular Normal S1, Normal S2, systolic murmur Lungs Normal Air Movement Abdomen Normal Bowel Sounds, diffusely tender with guarding, midline will, with bruising of skin noted Extremities No Cyanosis, Normal Pulses, No Tenderness/Swelling Vascular Pulses Symmetrical Last 24 Hrs of Labs/Sean: Laboratory Tests 09/29/16 0320: Anion Gap 9, Estimated GFR > 60, BUN/Creatinine Ratio 44.0 H, Glucose 110 H, Calcium 7.7 L, Total Bilirubin 0.6, AST 37 H, ALT 60 H, Alkaline Phosphatase 67, Troponin I < 0.01, Total Protein 4.4 L, Albumin 2.1 L, Globulin 2.3, Albumin/Globulin Ratio 0.9 L, Lipase 61, PT > 103.0 *H, INR > 10.0 *H, APTT 47 H, CBC w Diff NO MAN DIFF REQ, RBC 1.46 L, MCV 85.5, MCH 28.9, RDW 15.3 H, MPV 10.1, Gran % 93.6 H, Lymphocytes % 4.7 L, Monocytes % 1.7, Eosinophils % 0, Basophils % 0 L, Absolute Granulocytes 14.4 H, Absolute Lymphocytes 0.7 L, Absolute Monocytes 0.3, Absolute Eosinophils 0, Absolute Basophils 0, PUBS MCHC 33.8 Diagnostic Data EKG Results sinus tachycardia Assessment/Plan Assessment: 76-year-old woman from [place] with past medical history significant for coronary artery disease, COPD, hypertension, hyperlipidemia, PUD, severe PVD, AAA status post endovascular repair, multiple AV malformations(refusing PillCam' s), SBO s/p Laparotomy with lysis of adhesion on 09/13/[address] Reed, brought to ED for two episodes hematemesis. Found to have H/H of 4.2/12.5, elevated PTT >103 and INR>10 and leukcytosis. As Ranked By This Provider Problem List: 1. GI (gastrointestinal bleed) Assessment/Plan Admit to ICU, keep NPO type and crossmatch done and pt to transfused to keep Hb > 8.0, f/up CBC Q6 hourly IV PPI drip, IV fluids Her last H/H on 09/25/16 was 9.2/29.5 Hold all antihypertensives Guaiac all stools as she refused Rectal examination after verbalizing understanding of the situation Iron studies trend trop/ekg, Echo (2017): EF 55-60%. Called and spoke to cold roll packer sheet iron GI physician Dr. Bianchi. He will come assess the patient for possible scopy in the afternoon Called and spoke to cold roll packer sheet iron Surgeon Dr. Guthrie and surgical PA. Called informed her grandson Kahlil. Qualifiers GI bleed type/associated pathology: unspecified gastrointestinal hemorrhage type Qualified Code: K92.2 - Gastrointestinal hemorrhage, unspecified 2. Elevated INR Assessment/Plan unclear etiology at this time (not on any blood thinners or Liver disease) will repeat labs and in mean time give vit K 3. DVT prophylaxis Assessment/Plan ALPs 4. Full code status Core Measures/Miscellaneous Acute Coronary Syndrome ACS Diagnosis: No Cerebrovascular Accident CVA/TIA Diagnosis: No Congestive Heart Failure CHF Diagnosis: No VTE (View Protocol) VTE Risk Factors: Age > 40, CHF or Resp failure, Smoking, Surgery [facility] prophylaxis d/t: No contraindications No VTE Pharm Prophylaxis d/t: Active bleeding VTE Diagnosis: No VTE Type: NONE VTE Confirmed by (Test): NONE Sepsis (View Protocol) Severe Sepsis Present: No Septic Shock Septic Shock Present: No Miscellaneous Documentation Attending Case Discussed With: MARYANN ALEXANDER MD Primary Care Physician: REAL HUBBARD MD Patient sees these Specialists Dr. Derek Giles Level of Patient Care: Critical Care (CRI) KJ BELLE 09/29/16 0518: Resident Review Statement Resident Statement: examined this patient, reviewed EMR data (avail), amended to note Other Findings: 76-year-old woman with past medical history of CAD, COPD, hypertension, hyperlipidemia, PUD, severe PVD, AAA endovascular repair, not on any anticoagulation, with recent SBO surgery 2 week ago, presets to [facility] ED with decreased oral intake, nausea in the setting of two episodes of coffee ground emesis, black tarry stools per the patient. H&H 4.2 and 12.5, BUN 22. INR >10, PT >103. Previous enteroscopy, 05/25/10: Push enteroscopy to jejunum revealed 1 bleeding AVM at the lesser curvature of the stomach, BiCAP cautery, with cessation of bleed. 10 non-bleeding AVMs from the second portion of the duodenum to the distal jejunum, BiCAP cautery. Current admission: Ewelina-Blatchford score = 13, high risk category needs ICU admission and tranfusion, endoscopy or surgery. 1. Acute blood loss anemia: Likely upper GI bleed. Hold aspirin and other meds. Keep NPO. Type and screen. 2 large-bore IVs. Monitor hemodynamics closely. PRBC 4 keep hemoglobin greater than 8. Nothing by mouth, upper endoscopy, Dr. Bianchi aware. IV Protonix drip. GI consult. Hold antihypertensives. IV fluids. *The supra INR in the setting of no Coumadin, may represent a spurious value, liver disease secondary to alcohol use or less likely malabsorption . Recheck INR stat. Vitamin K 10 mg once in the meantime. May need FFP, depending on course. 2. Recent surgery for SBO: Surgery aware. Exam not suggestive of intra-abdominal bleed. Serial abdominal exams. Monitor hemodynamics. CT when stable. Portable flat plate of abdomen in the meantime. 3. History of Hypertension: Hold all hypertensives. 4. History of COPD: [facility] nebs. Full code. Mechanical VTE prophylaxis. Nothing by mouth. CATHERINE ANDERSON, [facility] 09/29/16 0529: Attending MD Review Statement Attending Statement Attending MD Statement: examined this patient, discuss w/resident/PA/RECORDS CLERK, agreed w/resident/PA/RECORDS CLERK Attending Assessment/Plan: 76 yo F with h/o CAD, COPD, hypertension, hyperlipidemia, gastric ulcer, recurrent SHARMILA, AV malformations, severe PVD, AAA s/p endovascular repair,anxiety , smoker, was recently admitted (09/01 09/21) for SBO underwent exploratory laparotomy with lysis of adhesions, course was c/b rectal bleeding and LLL pneumonia/COPD requiring antibiotics and steroids. She was discharged to SNF ( [facility]) and is brought in today for c/o coffee ground emesis x2 and multiple episodes of loose brown stools ?black tarry, associated with epigastric / mid abdominal discomfort. C/o lightheadedness, weakness and lethargy. Denies chest pain, dyspnea or palpitations. EGD/colonoscopy (2007): mild GERD without Diaz's esophagitis, left-sided diverticulosis. EGD (2008): pre-vocal cord leukoplakia, diffuse gastritis, prepyloric antral gastric ulcer, nonbleeding gastric antral AVM, scattered nonbleeding duodenal and jejunal AVMs. EGD (2010): 1 bleeding AVM at the lesser curvature of the stomach, BiCAP cautery, with cessation of bleed. 10 non- bleeding AVMs from the second portion of the duodenum to the distal jejunum, BiCAP cautery. Patient has repeatedly refused outpatient PillCam studies and had not followed up with GI since. Vitals: temp 95.8, HR 113, BP 107/53, sats 96% RA. Exam: AAO, lethargic but able to provide appropriate answer, dry mucous membranes, pallor++. Chest b/ reduced air entry at bases, clear anteriorly, Heart S1S2 regular, Abd soft, diffusely tender, BS+, mid abdominal incision site C/D/I, will+, ecchymotic patches in the setting of recent SC heparin. LE: 1+ pedal edema. Patient refused rectal exam in ER. Labs: WBC 15.4, H/H 4.2/12.5 (01/10 on 09/25/2016), INR > 10, Na 136, bicarb 31, BUN 22, AST 37, ALT 60, trop neg. EKG: Sinus tachycardia with nonspecific ST-T changes. Echo (2017): EF 55-60%. 1. Acute blood loss anemia, symptomatic anemia, upper GI bleed. ICU admit, vitals Q1 hour, type and crossmatch, 2 wide bore peripheral lines, keep Hb > 8.0 , transfuse 4 units PRBC (2 now then recheck CBC), CBC Q4 hourly, IV PPI drip, NPO, IV fluids, guaiac all stools, hold aspirin, no NSAIDs, GI consult stat ( awaiting call back), will inform Surgery as well. Possible EGD in AM. CRCU consult in AM. Will consider CTA abd/pelvis if clinical condition allows. Check orthostats. Check iron studies. Serial EKG and troponin to rule out ACS. 2. Coagulopathy of unclear etiology, patient is not on any blood thinners. INR noted to be more than 10. Last INR (August 2016) was 1.32. Will give one dose of vit K and recheck INR to confirm. If INR still elevated, will give FFPs to reverse INR. 3. Leukocytosis 2/2 recent steroid use vs. ?reactive. Will check urinalysis and CXR, monitor off antibiotics. DVT ppx Alps. Full code. Case discussed in detail with patient and Dr. Bianchi. Plan is to hemodynamically stabilize patient, transfuse PRBC, reverse INR and then do EGD in the ICU. We are trying to reach patient's grandson. TTS > 55 mins
--- NOTE | 2016-09-29 05:17 | NUR ---
1 unit of leukocyte poor ordered and initiated.
--- NOTE | 2016-09-29 05:34 | NUR ---
PT MEDICATED WITH PROTONIX DRIP (40MG/100MLNS) INFUSING AT 20ML/HR.
--- NOTE | 2016-09-29 05:44 | NUR ---
10 MG IM VITAMIN K ADMINISTERED IN RIGHT DELTOID ORDERED.
--- NOTE | 2016-09-29 06:10 | NUR ---
REPORT GIVEN TO SUE CHRISTIAN, ICU.
[2016-09-29 06:30] VITALS: BP 141/79
[2016-09-29 08:00] VITALS: BP 142/60
--- NOTE | 2016-09-29 08:19 | NUR ---
ADMIT ACCEPTANCE: REC'D REPORT FROM GINO DIANA IN ER. DX: GIB/ANEMIA. H/H 4.2/12.5. INR >10. VIT K 1L NS NS BOLUS GIVEN & STARTED ON 1UNIT OF PRBC IN THE ER. 0615 PT ARRIVED IN THE ICU TO RM 113 VIA STRETCHER & TRANSFERRED PT SAFELY ON TO BED W/3 STAFF. HOOKED UP ON THE MONITOR. ST W/HR OF 110'S, SBP 140'S & CORRELATING TO BOTH CUFFS.ON 2LNC POX 96% LS CLEAR BUT DIMINISHED THROUGHOUT THE LOBES. T&P TO HER R SIDE & FELT QUEASY & VOMITED APPROX 20CC OF COFFEE GROUND EMESIS. PT STATED HAD A BM PRIOR COMING TO THE ER. NPO FOR NOW. ABD SL DISTENDED/SOFT BS HYPOACTIVE. HAD NOT VOIDED SINCE ADMITTED TO ER BUT HER INC BRIEF WAS MOD AMT OF URINE NOTED. HAD 1 UNIT OF PRBC TRANFUSING & COMPLETED AT 0735. INFORMED DR. LAI LOMAS IF PT SHOULD GET 2ND UNIT OF PRBC OR LAB WORK. PER MD TO GIVE BLOOD BUT AGREED TO DO LAB WORK 1ST. IVF NS ON HOLD WHILE ON BLOOD TRANSFUSION. PT IS ALERT/ORIENTED.FOLLOWS COMMANDS WELL. SKIN INTACT, TRACE EDEMA TO BLE & BRUISED AREA TO R EAR. C/O ABD PAIN DIFFUSE. MEDICATED W/MORPHINE IVP & ZOFRAN FOR N/V SEE EMAR FOR TIMES. 0730 GINO NOLEN ASSUME CARE.
--- NOTE | 2016-09-29 08:22 | Cons- CRCU ---
NICKI ANDERSON,YUMI 09/29/16 0821: General Information and HPI Consulting Request Date of Consult: 09/29/16 History of Present Illness: This is a 76-year-old woman with past medical history of CAD, COPD, hypertension, hyperlipidemia, PUD, severe PVD, AAA endovascular repair, not on any anticoagulation, s/p laparatomy with GRICEL due to SBO 2 week ago, presented to [facility] ED with decreased oral intake, nausea in the setting of two episodes of coffee ground emesis, black tarry stools per the patient. H&H 4.2 and 12.5, BUN 22. INR >10, PT >103. Previous enteroscopy, 05/25/10: Push enteroscopy to jejunum revealed 1 bleeding AVM at the lesser curvature of the stomach, BiCAP cautery, with cessation of bleed. 10 non-bleeding AVMs from the second portion of the duodenum to the distal jejunum, BiCAP cautery. Allergies/Medications Allergies: Coded Allergies: propoxyphene (UNKNOWN 09/29/15) Home Med List: Albuterol Sulfate (Proair Hfa) 8.5 GM HFA.AER.AD 2 PUF INH AD PRN RESPIRATORY (Reported) Albuterol Sulfate 2.5 MG/3 ML VIAL.NEB 1 Vial INH/QUINTON BID RESPIRATORY ( Reported) Alprazolam 0.5 MG TABLET 1 TAB PO TIDPRN PRN ANXIETY (Reported) Amlodipine Besylate 10 MG TABLET 1 TAB PO DAILY BP (Reported) Aspirin (Ecotrin*) 81 MG TABLET. 81 MG PO DAILY vascular / heart health start a baby aspirin daily, as per Benzonatate 100 MG CAPSULE 1 TAB PO TID COLD SYMPTOMS Ferrous Sulfate (Iron Supplement) 325 MG TABLET 1 TAB PO DAILY IRON DEF ANEMIA (Reported) Labetalol HCl 200 MG TABLET 1 TAB PO BID BP (Reported) Omeprazole 20 MG CAPSULE.DR 1 CAP PO DAILY PRN GERD (Reported) Prednisone 20 MG TABLET 2 TAB PO DAILY LUNG HEALTH Rosuvastatin Calcium (Crestor) 20 MG TABLET 1 TAB PO DAILY CHOLESTEROL ( Reported) Sertraline HCl 50 MG TABLET 1 TAB PO DAILY DEPRESSION Sodium Chloride (Deep Sea) 0.65 % SPRAY 2 SPRAY HARRY Q4P PRN CONGESTION Tiotropium [place] (Spiriva) 18 MCG CAP.W.DEV 1 CAP INH DAILY RESPIRATORY ( Reported) Tylenol With Codeine (Tylenol With Codeine #3 Tablet) 1 EACH TABLET 1-2 TAB PO Q4-6 PRN PRN PAIN take as directed. do not combine with tylenol. Past History Travel History Traveled to [place] past 21 day No Medical History Blood Transfusion Hx: Yes Neurological: TIA EENT: NONE Cardiovascular: aortic aneurysm (10/02/15: endovascular repair), CAD, hypertension, hyperlipidemia, myocardial infarction, PVD (09/22/02: R CEA) Respiratory: bronchitis, COPD (55 pk yr smoker) Gastrointestinal: NONE (asx on PPI), GERD, peptic ulcer disease, diverticulosis coli gastric & SB AVMs Hepatic: NONE Renal: NONE Musculoskeletal: degen joint disease, falls Psychiatric: anxiety Endocrine: vitamin D deficiency Blood Disorders: NONE (Fe def), anemia Cancer(s): NONE INSTRUMENT TESTER/Reproductive: NONE Surgical History Surgical History: X 2 09/22/02: R CEA 10/02/15: Endovascular repair of AAA SBO s/p laparotomy and lysis of adhesions Family History Relations & Conditions If Any: MOTHER, , Age 51; Cause: ASHD (arteriosclerotic heart disease). FH: CAD (coronary artery disease) FATHER, , Age 65; Cause: Arteriosclerotic heart disease (ASHD). Psychosocial History Where Do You Live? Acute Rehab Who Do You Live With? self Services at Home: Nursing Primary Language: Croatian Smoking Status: Current Some Day Smoker Living Will? no Power of Talent Associate/HCP? no Functional Ability ADLs Independent: dressing, eating, toileting, bathing. Ambulation: independent IADLs Independent: shopping, housework, finances, food prep, telephone, medication admin. Needs Assist: transportation. Exam & Diagnostic Data Last 24 Hrs of Vital Signs/I&O Vital Signs Date Time Temp Pulse Resp B/P B/P Pulse O2 O2 Flow FiO2 Mean Ox Delivery Rate 09/29 0659 96 Nasal 2.0L Cannula 09/29 0630 98.1 113 22 141/79 96 Nasal 2.0L Cannula 09/29 0518 98.0 105 18 146/65 09/29 0421 94 Nasal 2.0L Cannula 09/29 0304 95.8 113 18 107/53 96 Room Air Intake & Output 09/29 1600 09/29 0800 09/29 0000 Intake Total 1374 Output Total 0 Balance 1374 Intake, Blood 350 Product Intake, IV 1024 Intake, Oral 0 Number 0 Bowel Movements Output, Urine 0 Patient 60.441 kg Weight Weight Bed scale Measurement Method Physical Exam General Appearance: alert, awake Other Physical Findings: Chest b/ reduced air entry at bases, clear anteriorly, Heart S1S2 regular, Abd soft, diffusely tender, BS+, mid abdominal incision site C/D/I, will+, ecchymotic patches in the setting of recent SC heparin. LE: 1+ pedal edema. Patient refused rectal exam in ER. Last 48 Hrs of Labs/Sean: Laboratory Tests 09/29/16 0810: Troponin I Pending 09/29/16 0810: Iron Pending, TIBC Pending, Ferritin Pending, CBC w Diff Pending, WBC Pending, RBC Pending, Hgb Pending, Hct Pending, MCV Pending, MCH Pending, RDW Pending, Plt Count Pending, MPV Pending, PUBS MCHC Pending 09/29/16 0320: Anion Gap 9, Estimated GFR > 60, BUN/Creatinine Ratio 44.0 H, Glucose 110 H, Calcium 7.7 L, Total Bilirubin 0.6, AST 37 H, ALT 60 H, Alkaline Phosphatase 67, Troponin I < 0.01, Total Protein 4.4 L, Albumin 2.1 L, Globulin 2.3, Albumin/Globulin Ratio 0.9 L, Lipase 61, PT > 103.0 *H, INR > 10.0 *H, APTT 47 H, CBC w Diff NO MAN DIFF REQ, RBC 1.46 L, MCV 85.5, MCH 28.9, RDW 15.3 H, MPV 10.1, Gran % 93.6 H, Lymphocytes % 4.7 L, Monocytes % 1.7, Eosinophils % 0, Basophils % 0 L, Absolute Granulocytes 14.4 H, Absolute Lymphocytes 0.7 L, Absolute Monocytes 0.3, Absolute Eosinophils 0, Absolute Basophils 0, PUBS MCHC 33.8 Assessment/Plan Impression/Plan: This is a 76-year-old woman with past medical history of CAD, COPD, hypertension, hyperlipidemia, PUD, severe PVD, AAA endovascular repair, not on any anticoagulation, s/p laparatomy with GRICEL due to SBO 2 week ago, presented to [facility] ED with symptomatic anemia and two episoded of ematesis described as coffe ground. ED course: Vitals : temp 95.8, HR 113, BP 107/53, sats 96% RA. Exam: AAO, lethargic but able to provide appropriate answer, dry mucous membranes, pallor++. Labs: WBC 15.4, H/H 4.2/12.5 (01/10 on 09/25/2016), INR > 10, Na 136, bicarb 31, BUN 22, AST 37, ALT 60, trop neg. EKG: Sinus tachycardia with nonspecific ST-T changes. Echo (2017): EF 55-60%. Impression * Acute Symptomatic Anemia from acute blood loss. * GI bleed as evident by 2 reported episodes of coffe ground vomitus and black tarry stool. Most likely UGIB. Etiology to be considered include Peptic ulcer in the setting of ASA use, vs recent SBO lap with GRICEL, vs AVM vs Diloufey lesion vs Dejah lesion (less likely as no vomitng/retching reportes). Blatchford Glascow score :12 requiring admission and possible EGD. * Hypercoagulable state. Not on any anticouagulation. Possible etiology include auto anti-coagulation vs malabasorption vs Liver pathology. * History of recent SBO requiring laparotomy and GRICEL * History of hypertension Plan Continue to keep at ICU Continue with PRBC transfusion to maintain a goal of hemoglobin above 8 Nothing by mouth for possible EGD Continue to keep 2 large bore IV assess Hemodynamic support with IV normal saline if needed to maintain SBP above 90 and MAP>65. Will trend INR today in the morning status post vitamin K 10 mg, is still high will initiate 2 units of FFP Awaiting further GI recommendations(appreciated) Continue IV PPI Initial troponins and EKG unremarkable for any acute coronary syndrome, will continue to trend troponin EKG to completely rule out ACS. Will hold off any BP meds for now in the setting of UGIB Consult Acknowledgment - Thank you for your consult request. DARWIN LIM MD 09/29/16 0929: General Information and HPI Consulting Request Date of Consult: 09/29/16 Requested By: Dr. Nguyen Assessment/Plan Other Findings/Comments: Darwin Dorado M.D. have examined this patient, reviewed available EMR data, personally reviewed images, discussed with resident/PA/COFFEE BLENDER, discussed management plan with housestaff and nursing staff, discussed managment plan all of healthcare providers, discussed management plan with patient and/or family, agreed with resident/PA/COFFEE BLENDER. The past history and parts of the chart have been autopopulated. Impression 76 year old woman * acute blood loss anemia/gi bleed, likely upper source * supratherapeutic INR Plan -GI/Surgical evaluation -transfusion -reversal of INR -monitor cbc, coags -CXR today mechanical DVT prophylaxis TTS 45 min Consult Acknowledgment - Thank you for your consult request.
[2016-09-29 08:50] LABS: ABSOLUTE BASOPHIL COUNT 0 /CUMM (0.0-0.2); ABSOLUTE EOSINOPHIL COUNT 0 /CUMM (0.0-0.7); ABSOLUTE GRANULOCYTE CT 22.3 /CUMM (1.4-6.5); ABSOLUTE LYMPH COUNT 0.5 /CUMM (1.2-3.4); ABSOLUTE MONOCYTE COUNT 0.6 /CUMM (0.10-0.60); BASOPHIL % 0 % (0.0-2.0); EOSINOPHIL % 0 % (0-5); GRANULOCYTE % 95.3 % (42.2-75.2); MEAN CORPUSCULAR HGB CONC 34.7 G/DL (33.0-37.0); MEAN CORPUSCULAR VOLUME 86.4 FL (81.0-99.0); MEAN PLATELET VOLUME 9.4 FL (7.4-10.4); PLATELET COUNT 141 /CUMM (130-400); RBC DISTRIBUTION WIDTH 14.5 % (11.5-14.5)
[2016-09-29 09:07] LABS: PT 83.3 SEC (9.4-12.5)
[2016-09-29 09:35] LABS: RED BLOOD CELL CT 2.22 /CUMM (4.20-5.40); WHITE BLOOD CELL COUNT 23.4 /CUMM (4.8-10.8)
[2016-09-29 09:38] LABS: HEMATOCRIT 19.2 % (37-47)
--- NOTE | 2016-09-29 11:24 | RADIOLOGY REPORT ---
EXAMINATION: XR PORTABLE CHEST CLINICAL INFORMATION: Upper GI bleed. Concern for Boerhaave syndrome. COMPARISON: Recent priors. TECHNIQUE: Portable AP 70 degrees erect view of the chest was obtained. FINDINGS: Left lower lobe opacity centered recent prior films is improved with residual minimal subsegmental atelectasis. The lungs are otherwise clear. The pleural spaces are clear. There is no pneumomediastinum. Heart size is mildly enlarged but unchanged. IMPRESSION: Improving left lower lobe opacity with residual minor subsegmental atelectasis. No acute abnormality.
--- NOTE | 2016-09-29 12:26 | NUR ---
Patient is awake, alert and oriented x's 3, able to follow commands and answer questions appropriately. Sinus tachycardia on the tele monitor, HR= 110's. SBP: 140's and pt denies chest pain. C/o occasional lightheadedness. Pulses are palpable- On 2L nc, lungs clear and diminished at the bases. O2 sats 96-98%. Denies any shortness of breath. Abdomen is soft and non tender with + bowel sounds. C/o dark tarry stools and coffee ground emesis prior to admission. No events since 0700- Remains NPO. Mely to midline remain intact and surgery has been notified of patients admission. Denies any nausea- Protonix gtt continues to infuse. She has been voiding clear yellow urine on the bedpan. A smith has been ordered and will be placed after she has received FFP since her INR remains greater than 8. Trace BLE edema is noted. No areas of pressure injury. She currently denies pain. She is s/p 2 units of prbc. The first of 2 uits of FFP is currently infusing. A repeat CBC to be drawn after the first unit of FFP finishes infusing and a repeat INR to be drawn later this afternoon. Blood cultures drawn per order and pt to receive IV abx. Vitals have remained stable and pts family has been updated on her POC. IVF on hold at this time. Dr. Bianchi has been in contact with house staff and this RN and updated. Will continue to closely monitor patient.
--- NOTE | 2016-09-29 14:25 | Cons- Gastroenterology ---
General Information and HPI Consulting Request Date of Consult: 09/29/16 Requested By: CATHERINE ANDERSON,MARYANN Reason for Consult: GI bleed Source of Information: patient, old records Exam Limitations: no limitations History of Present Illness: 76-year-old lady who was discharged 7 days ago from [facility] and since then has been staying at a rehabilitation facility. Her admission on that occasion was due to syncope nausea vomiting and diarrhea and ultimately resulted in a exploratory laparotomy and lysis of adhesions. Overall she tolerated the procedure well Since discharge she has been very weak at the longterm. Has not had any presyncopal or syncopal episodes, however has also had very limited mobility essentially going from her bed to the bathroom. There are no records of her receiving any form of anticoagulation and this has been confirmed by phone conversation with the nursing staff at the rehabilitation facility. She also reports having decreased by mouth intake and passing dark possibly black tarry stool. She had 2 episodes of emesis at midnight and 2 AM both of which contained a certain amount of coffee-ground material. She does not have any chest pain shortness of breath palpitations. She does report report feeling lightheaded. No abdominal pain abdominal distention. Allergies/Medications Allergies: Coded Allergies: propoxyphene (UNKNOWN 09/29/15) Home Med List: Albuterol Sulfate (Proair Hfa) 8.5 GM HFA.AER.AD 2 PUF INH AD PRN RESPIRATORY (Reported) Albuterol Sulfate 2.5 MG/3 ML VIAL.NEB 1 Vial INH/QUINTON BID RESPIRATORY ( Reported) Alprazolam 0.5 MG TABLET 1 TAB PO TIDPRN PRN ANXIETY (Reported) Amlodipine Besylate 10 MG TABLET 1 TAB PO DAILY BP (Reported) Aspirin (Ecotrin*) 81 MG TABLET. 81 MG PO DAILY vascular / heart health start a baby aspirin daily, as per Benzonatate 100 MG CAPSULE 1 TAB PO TID COLD SYMPTOMS Ferrous Sulfate (Iron Supplement) 325 MG TABLET 1 TAB PO DAILY IRON DEF ANEMIA (Reported) Labetalol HCl 200 MG TABLET 1 TAB PO BID BP (Reported) Omeprazole 20 MG CAPSULE. 1 CAP PO DAILY PRN GERD (Reported) Prednisone 20 MG TABLET 2 TAB PO DAILY LUNG HEALTH Rosuvastatin Calcium (Crestor) 20 MG TABLET 1 TAB PO DAILY CHOLESTEROL ( Reported) Sertraline HCl 50 MG TABLET 1 TAB PO DAILY DEPRESSION Sodium Chloride (Deep Sea) 0.65 % SPRAY 2 SPRAY HARRY Q4P PRN CONGESTION Tiotropium [place] (Spiriva) 18 MCG CAP.W.DEV 1 CAP INH DAILY RESPIRATORY ( Reported) Tylenol With Codeine (Tylenol With Codeine #3 Tablet) 1 EACH TABLET 1-2 TAB PO Q4-6 PRN PRN PAIN take as directed. do not combine with tylenol. Current Medications: Current Medications Sig/Ebenezer Start time Last Medication Dose Route Stop Time Status Admin Albuterol Sulfate 3 ML BID 09/29 1000 AC 09/29 INH 1042 Albuterol Sulfate 2 PUF Q4-6 PRN PRN 09/29 0515 AC INH Ceftriaxone Sodium 1,000 MG DAILY 09/29 1037 AC 09/29 IV 1315 Metronidazole 500 MG Q8H 09/29 2100 AC N/A 1 UNIT IV Metronidazole 500 MG IQ8 09/29 1045 DC 09/29 N/A 1 UNIT IV 1318 Morphine Sulfate 2 MG Q4P PRN 09/29 0515 AC 09/29 IV 0651 Morphine Sulfate 0 .STK-MED ONE 09/29 0351 DC .ROUTE Morphine Sulfate 4 MG ONCE ONE 09/29 0345 DC 09/29 IV 09/29 0346 0346 Ondansetron HCl 4 MG Q6P PRN 09/29 0515 AC 09/29 IV 0656 Ondansetron HCl 4 MG ONCE ONE 09/29 0345 DC 09/29 IV 09/29 0346 0343 Ondansetron HCl 0 .STK-MED ONE 09/29 0329 DC .ROUTE Pantoprazole Sodium 0 .STK-MED ONE 09/29 0535 DC IV Pantoprazole Sodium 40 MG Q5H 09/29 0515 AC 09/29 Sodium Chloride 100 ML IV 0935 Pantoprazole Sodium 0 .STK-MED ONE 09/29 0413 DC IV Pantoprazole Sodium 40 MG ONCE ONE 09/29 0400 DC 09/29 IV 09/29 0401 0410 Phytonadione 0 .STK-MED ONE 09/29 0541 DC .ROUTE Phytonadione 10 MG ONCE ONE 09/29 0515 DC 09/29 IM 09/29 0516 0541 Sodium Chloride 1,000 ML .Q8H 09/29 0515 AC IV Sodium Chloride 1,000 ML BOLUS ONE 09/29 0345 CAN IV 09/29 0444 Sodium Chloride 1,000 ML BOLUS ONE 09/29 0315 DC 09/29 IV 09/29 0414 0323 Tiotropium [place] 1 PUF DAILY 09/29 1000 AC 09/29 INH 0935 Past History Travel History Traveled to [place] past 21 day No Medical History Blood Transfusion Hx: Yes Neurological: TIA EENT: NONE Cardiovascular: aortic aneurysm (10/02/15: endovascular repair), CAD, hypertension, hyperlipidemia, myocardial infarction, PVD (09/22/02: R CEA) Respiratory: bronchitis, COPD (55 pk yr smoker) Gastrointestinal: NONE (asx on PPI), GERD, peptic ulcer disease, diverticulosis coli gastric & SB AVMs Hepatic: NONE Renal: NONE Musculoskeletal: degen joint disease, falls Psychiatric: anxiety Endocrine: vitamin D deficiency Blood Disorders: NONE (Fe def), anemia Cancer(s): 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 FH: CAD (coronary artery disease) FATHER, , Age 65; Cause: Arteriosclerotic heart disease (ASHD). Psychosocial History Where Do You Live? Acute Rehab Who Do You Live With? self Services at Home: Nursing Primary Language: Czech Smoking Status: Current Some Day Smoker Living Will? no Power of Diesel Crane Operator/HCP? no Functional Ability ADLs Independent: dressing, eating, toileting, bathing. Ambulation: independent IADLs Independent: shopping, housework, finances, food prep, telephone, medication admin. Needs Assist: transportation. Review of Systems Review of Systems: Weak and lightheaded. No chest pain shortness of breath. Exam & Diagnostic Data Vital Signs and I&O Vital Signs Date Time Temp Pulse Resp B/P B/P Pulse O2 O2 Flow FiO2 Mean Ox Delivery Rate 09/29 1200 97 Nasal 2.0L Cannula 09/29 1053 Nasal 2.0L Cannula 09/29 1047 95 Nasal 2.0L Cannula 09/29 0800 99.0 115 24 142/60 97 Nasal 2.0L Cannula 09/29 0800 97 Nasal 2.0L Cannula 09/29 0659 96 Nasal 2.0L Cannula 09/29 0630 98.1 113 22 141/79 96 Nasal 2.0L Cannula 09/29 0518 98.0 105 18 146/65 09/29 0421 94 Nasal 2.0L Cannula 09/29 0304 95.8 113 18 107/53 96 Room Air Intake & Output 09/29 1600 09/29 0400 09/28 1600 09/28 0400 09/27 1600 09/27 0400 Intake Total 2484 Output Total 500 Balance 1984 Intake, Blood 1000 Product Intake, IV 1484 Intake, Oral 0 Number 0 Bowel Movements Output, Urine 500 Patient 133 lb 135 lb Weight Weight Bed scale Measurement Method General Appearance Alert, Oriented X3, Cooperative, Mild Distress Skin pale HEENT Atraumatic, dry mucuos membranes, pallor Lymphatic Cervical nl Cardiovascular Normal S1, Normal S2, systolic murmur Lungs Normal Air Movement Abdomen Normal Bowel Sounds, diffusely tender with guarding, midline will, with bruising of skin noted. Extremities No Cyanosis, Normal Pulses, No Tenderness/Swelling Vascular Pulses Symmetrical Last 24 Hrs of Labs/Sean: Assessment/Plan Assessment/Recommendations: May 2007: Colonoscopy. Diverticulosis on left side. No other abnormalities May 2009: EGD 1. Healed gastric ulcer. 2: Proximal gastritis. 3. Hiatal hernia. 4. Multiple gastric AVM's. May 2010: Push enteroscopy with BICAP cautery. 1. One bleeding AVM in the stomach status post treatment with extensive BICAP cautery with good hemostasis achieved. 2. Approximately 10 non-bleeding AVMs in the duodenum to distal jejunum status post obliteration with BICAP cautery. In summary we have a 76-year-old lady who was discharge approximately a week ago with mild anemia and a normal INR. Now presenting with extreme anemia and an INR above 10. Patient is surprisingly stable hemodynamically considering the level of anemia. Patient is in the ICU and receiving volume support. Agree with plan to transfuse gradually over the next 24 hours. No need for rapid transfusion as patient is hemodynamically stable. Please monitor that the patient is not becoming volume overloaded by placing a Gaitan catheter in carefully monitoring output. Please correct INR with vitamin K and FFP. No obvious reason why patient's INR has become so elevated. Please check with longterm exact medication that patient was receiving. The patient is known to have multiple AVMs in the upper GI tract and in the setting of an INR above 10 is not surprising that she has developed significant leading. Plan to transfuse and entirely stabilized patient over the first 24 hours. No further coffee-ground emesis, evidence of lower GI bleeding, or suboptimal response to transfusion. Unless there is evidence of significant active bleeding we'll defer endoscopy until patient's hematocrit has been stabilized. Consult Acknowledgment - Thank you for your consult request.
[2016-09-29 15:17] LABS: ABSOLUTE BASOPHIL COUNT 0 /CUMM (0.0-0.2); ABSOLUTE EOSINOPHIL COUNT 0 /CUMM (0.0-0.7); ABSOLUTE GRANULOCYTE CT 18.2 /CUMM (1.4-6.5); ABSOLUTE LYMPH COUNT 0.5 /CUMM (1.2-3.4); ABSOLUTE MONOCYTE COUNT 0.4 /CUMM (0.10-0.60); BASOPHIL % 0 % (0.0-2.0); EOSINOPHIL % 0 % (0-5); GRANULOCYTE % 94.9 % (42.2-75.2); HEMATOCRIT 21.6 % (37-47); MEAN CORPUSCULAR HGB CONC 33.8 G/DL (33.0-37.0); MEAN CORPUSCULAR VOLUME 85.6 FL (81.0-99.0); MEAN PLATELET VOLUME 9.7 FL (7.4-10.4); PLATELET COUNT 112 /CUMM (130-400); RBC DISTRIBUTION WIDTH 14.6 % (11.5-14.5); RED BLOOD CELL CT 2.52 /CUMM (4.20-5.40); WHITE BLOOD CELL COUNT 19.2 /CUMM (4.8-10.8)
[2016-09-29 15:24] LABS: PT 16.6 SEC (9.4-12.5)
[2016-09-29 16:00] VITALS: BP 132/58
--- NOTE | 2016-09-29 17:43 | NUR ---
At approx 1500 patient vomited approx 50mls of cofee ground emesis- She was previously medicated with IV zofran for c/o nausea at 1450. Dr. Michael notified. Vitals remained stable with a HR of 100-110 and SBP: 130-140's. Transport at the bedside at this time for CT scan which was rescheduled for a later time. Labs drawn at 1430 remain pending. BBT placed for the 2nd unit of FFP. At 1540 the 2nd unit of FFP began transfusing but was shortly placed on hold at 1555 once the INR was noted to be 1.5 (8.1 on previous blood draw- 2 units of FFP were currently ordered). Dr. Michael [facility]- INR test was repeated in lab with same result. FFP was then discarded. Patient to receive 1 more unit of PRBC and BBT was placed. At 1620 patient was transported to CT scan for CT abd/pelvis with contrast. She denied any nausea prior to procedure. Vitals remained stable and she tolerated procedure well. She remains alert and oriented x's 3, ST on tele monitor with a heart rate ranging from 100-110's. SBP: 130-140's and she denies chest pain. On 2L nc, lungs clear and diminished. O2 sats stable at 94-96%. She was medicated with IV morphine for upper quadrant abdominal tenderness 5/10. + bowel sounds. Protonic gtt continues to infuse. GI has been in to assess patient with no plan for endoscopy today. A smith catheter has been placed per order and is draining clear yellow urine. IV lasix ordered for 1600 to be given pending CT scan results after the prbc has finished infusing. Repeat Labs due at 2200. She is receiving IV magnesium and potassium per order. Vitals remain stable. Will continue to closely monitor patient.
--- NOTE | 2016-09-29 17:59 | CT SCAN REPORT ---
EXAMINATION: CT ABDOMEN AND PELVIS WITH CONTRAST CLINICAL INFORMATION: Blood vomitus. Status post laparotomy with lysis of adhesions 2 weeks ago. Presumptive diagnosis of hematoma and intra-abdominal bleeding. COMPARISON: CT scan of the abdomen and pelvis dated 09/11/2016, 07/18/2015 and 10/25/2007. And CT angiography with runoff 12/07/2015. MRI scan of the abdomen dated 07/31/2015. TECHNIQUE: Multidetector CT volumetric acquisition of the abdomen and pelvis was performed after the administration of 95 mL of intravenous Optiray 320. The data set was reformatted in the sagittal and coronal planes and reviewed on an independent workstation. DLP: 403.85 mGy-cm. FINDINGS: LOWER CHEST: There is a moderate sized pericardial effusion, unchanged. A trace left-sided pleural effusion has now developed, new from prior exam with subjacent mild dependent atelectasis in the left lower lobe. There is also mild dependent atelectasis in the right lower lobe. LIVER, GALLBLADDER, BILIARY TREE: Liver normal size and attenuation. No focal cystic or solid mass or intra-or extrahepatic ductal dilatation. Hepatic and portal veins patent. Gallbladder partially distended and within normal limits. PANCREAS: Diffusely atrophic and otherwise unremarkable. No ductal dilatation, mass, or surrounding stranding. SPLEEN: Normal size and appearance. Splenic vein patent. ADRENAL GLANDS AND KIDNEYS: There is a 1.2 x 2.0 cm right adrenal mass, unchanged from 09/11/2016 and larger compared to 1.2 x 1.6 cm (07/18/2015) and 1.2 x 0.8 cm on 10/25/2007. This is most consistent with a small lipid rich adenoma. The left adrenal gland is normal. Kidneys bilaterally symmetric in size and function. No suspicious focal mass, hydronephrosis, or perinephric stranding. A small 0.7 cm mid right renal low-attenuation mass is seen (series 2, image 32), consistent with a cyst as seen on prior MRI scan. A few punctate calcifications is seen in the kidneys bilaterally, most consistent with vascular calcifications. URETERS AND BLADDER: Ureters decompressed and within normal limits. Bladder completely decompressed by a Gaitan catheter and not adequately assessed. Small amount of air is seen within the bladder lumen due to the Gaitan catheter. PELVIC ORGANS: Uterus atrophic and otherwise unremarkable. Ovaries bilaterally atrophic and unremarkable. GASTROINTESTINAL TRACT: The fourth portion of the duodenum barely crosses over into the left side of the abdomen before turning back into the right upper quadrant. Mild fluid distention of several proximal small bowel loops in the right flank and mid abdomen is seen. Relative decompression of the distal small bowel loops is noted. Gradual transition is seen in the right mid abdomen (series 2, image 46). The previously seen point of transition in the posterior mid abdomen is no longer identified. No evidence of bowel perforation or abnormal free fluid in the abdomen is seen. The study was not present performed as a CTA, but no definite contrast blush in bowel is seen to suspect intraluminal bleeding. LYMPHOVASCULAR STRUCTURES: An abdominal aortic aneurysm is again seen with indwelling aortobiiliac stent. Maximal AP diameter of the abdominal aortic aneurysm is 3.7 cm at the level of the renal katelynn, unchanged from prior exam. No periaortic collections are seen. There is moderate atherosclerotic calcification and moderate plaque in the aorta are noted. There is an abnormal lower para-aortic lymph node, measuring 1.7 cm in short axis, unchanged dating back to 2007. No other significant adenopathy is seen in the abdomen or pelvis. No retroperitoneal hematoma is noted. BONES: There is moderate vertebral endplate spurring seen in the lower thoracic and in the mid and lower lumbar spine. IMPRESSION: 1. No evidence of intra-abdominal hematoma. The study was not specifically performed as a CTA, but no definite evidence of active contrast extravasation into bowel is seen on this exam. 2. There is mild distention of proximal small bowel loops with gradual transition to normal caliber decompressed loops of bowel in the midabdomen, suggesting a partial/low grade bowel obstruction. No focal mass or distortion is seen at the point of this gradual transition. The previously seen more focal area of presumed adhesion in the mid abdomen is no longer visualized. 3. New trace left-sided pleural effusion with associated mild dependent atelectasis in the left lower lobe. 4. No significant change in moderate pericardial effusion. 5. Right adrenal mass again seen, most consistent with a small lipid rich adenoma. 6. Small right renal mass, consistent with a cyst. 7. Stable abdominal aortic aneurysm, status post aortobiiliac stent graft placement. 8. Chronic, enlarged left para-aortic lymph node.
[2016-09-29 22:45] LABS: ABSOLUTE BASOPHIL COUNT 0 /CUMM (0.0-0.2); ABSOLUTE EOSINOPHIL COUNT 0 /CUMM (0.0-0.7); ABSOLUTE LYMPH COUNT 0.5 /CUMM (1.2-3.4); ABSOLUTE MONOCYTE COUNT 0.5 /CUMM (0.10-0.60); BASOPHIL % 0 % (0.0-2.0); EOSINOPHIL % 0 % (0-5); MEAN CORPUSCULAR HGB 29.7 PG (27.0-31.0); MEAN CORPUSCULAR HGB CONC 33.7 G/DL (33.0-37.0); MEAN CORPUSCULAR VOLUME 88.3 FL (81.0-99.0); MEAN PLATELET VOLUME 9.4 FL (7.4-10.4); PLATELET COUNT 109 /CUMM (130-400); RBC DISTRIBUTION WIDTH 14.8 % (11.5-14.5)
[2016-09-29 22:53] LABS: PT 12.6 SEC (9.4-12.5)
[2016-09-29 22:56] LABS: RED BLOOD CELL CT 3.25 /CUMM (4.20-5.40)
[2016-09-29 22:57] LABS: GRANULOCYTE % 95.5 % (42.2-75.2); HEMATOCRIT 28.7 % (37-47)
--- NOTE | 2016-09-29 23:18 | NUR ---
1999 REC'D PT IN SITTING AT THE SIDE OF BED W/GRANDSON VISITING. A/O X3. 3RD UNIT OF PRBC COMPLETED W/NO REACTION. SR/ST ON THE MONITOR HR 90-100'S. SBP 140-150'S CORRELATING TO BOTH CUFFS. FC INSITU & DRAINING LIGHT MARTHA URINE WELL. PER DR. KJ BELLE STATES IT'S OK TO GIVE LASIX 20MG IVP. C/O ABD PAIN DIFFUSE, ACHY & CRAMPY 10/10 SCORE. MORPHINE 2MG IVP GIVEN SEE EMAR FOR TIMES. CONT ON PROTONIX GTT. 2229. AFTER 1HOUR OF GIVING MORPHINE PT STATED SHE HAD SOME RELIEF 7/10 SCORE. TONY LABS. 2329 LABS RESULTS OBTAINED. H/H 9.7/28.7, WBC 22, K 3.6, INR 1.20. INFORMED DR. LOMAS. NO BLD TRANSFUSION BUT WILL LET RN KNOW IF K NEEDS REPLETED. NO ACTIVE BLEED. SETTLING TO BED. CONT TO MONITOR.
[2016-09-30] VITALS: BP 139/63
[2016-09-30 06:29] LABS: ABSOLUTE BASOPHIL COUNT 0 /CUMM (0.0-0.2); ABSOLUTE EOSINOPHIL COUNT 0 /CUMM (0.0-0.7); ABSOLUTE GRANULOCYTE CT 13.5 /CUMM (1.4-6.5); ABSOLUTE LYMPH COUNT 0.6 /CUMM (1.2-3.4); ABSOLUTE MONOCYTE COUNT 0.4 /CUMM (0.10-0.60); BASOPHIL % 0 % (0.0-2.0); EOSINOPHIL % 0.1 % (0-5); GRANULOCYTE % 92.7 % (42.2-75.2); HEMATOCRIT 23.9 % (37-47); MEAN CORPUSCULAR HGB 29.7 PG (27.0-31.0); MEAN CORPUSCULAR HGB CONC 33.8 G/DL (33.0-37.0); MEAN PLATELET VOLUME 9.7 FL (7.4-10.4); PLATELET COUNT 94 /CUMM (130-400); RBC DISTRIBUTION WIDTH 14.8 % (11.5-14.5); RED BLOOD CELL CT 2.72 /CUMM (4.20-5.40); WHITE BLOOD CELL COUNT 14.5 /CUMM (4.8-10.8)
--- NOTE | 2016-09-30 07:42 | PN- Resident CRCU ---
Subjective HPI/CRCU Issues: Symptomatic acute anemia GI bleed Elevated INR not on any anticoagulation 24 Hour Events: Seen and examined at bedside. Patient had a significant melenic bowel movements early in the morning around 7 AM. No reported incident of blood vomitus, or BRBPR since admission. Is asymptomatic denying any chest pain, palpitation, shortness of breath, dizziness, focal neurological deficit, fever, chills, abdominal pain or dysuria. Objective Vital Signs & I&O Last 8 Hrs of Vitals and I&O: Intake & Output 10/01 0800 Intake Total 1141 Output Total 340 Balance 801 Intake, IV 1141 Number 0 Bowel Movements Output, Urine 340 Exam General Appearance: alert, awake, comfortable Cardiovascular: regular rate/rhythm Gastrointestinal: normal bowel sounds, soft, non-tender Extremities: normal inspection, normal capillary refill, no edema Current Medications: Current Medications Sig/Ebenezer Start time Last Medication Dose Route Stop Time Status Admin Albuterol Sulfate 3 ML BID 09/29 1000 AC 09/30 INH 2057 Albuterol Sulfate 2 PUF Q4-6 PRN PRN 09/29 0515 AC INH Alprazolam 0.5 MG ONCE ONE 09/30 2044 DC 09/30 PO 09/30 Ceftriaxone Sodium 1,000 MG DAILY 09/29 1037 AC 09/30 IV 1025 Magnesium Sulfate 1 GM Q2H 10/01 0745 AC Dextrose/Water 100 ML IV 10/01 0944 Magnesium Sulfate 1 GM Q2H 09/30 0845 DC 09/30 Dextrose/Water 100 ML IV 09/30 1044 0845 Metronidazole 500 MG Q8H 09/29 2100 AC 10/01 N/A 1 UNIT IV 0615 Morphine Sulfate 2 MG Q4P PRN 09/29 0515 AC 10/01 IV 0111 Ondansetron HCl 4 MG Q6P PRN 09/29 0515 AC 09/29 IV 1446 Pantoprazole Sodium 40 MG Q5H 09/29 0515 AC 10/01 Sodium Chloride 100 ML IV 0656 Polyethylene Glycol 1 GAL ONCE ONE 09/30 1800 CAN PO 09/30 1801 Potassium Chloride 10 MEQ Q1H 10/01 0745 AC IV 10/01 0946 Potassium Chloride 10 MEQ Q1H 10/01 0600 DC 10/01 IV 10/01 0701 0656 Sodium Chloride 1,000 ML .Q8H 09/29 0515 AC 10/01 IV 0614 Tiotropium [place] 1 PUF DAILY 09/29 1000 AC 09/30 INH 1025 Impression/Plan Impression/Problem List Impression: This is a 76-year-old woman with past medical history of CAD, COPD, hypertension, hyperlipidemia, PUD, severe PVD, AAA endovascular repair, not on any anticoagulation, s/p laparatomy with GRICEL due to SBO 2 week ago, presented to [facility] ED with symptomatic anemia and two episoded of ematesis described as coffe ground. ED course: Vitals : temp 95.8, HR 113, BP 107/53, sats 96% RA. Exam: AAO, lethargic but able to provide appropriate answer, dry mucous membranes, pallor++. Labs: WBC 15.4, H/H 4.2/12.5 (01/10 on 09/25/2016), INR > 10, Na 136, bicarb 31, BUN 22, AST 37, ALT 60, trop neg. EKG: Sinus tachycardia with nonspecific ST-T changes. Echo (2017): EF 55-60%. Impression * Acute Symptomatic Anemia from acute blood loss. s/p 2 units PRBC, with Hemoglobin at 8 today. Due to a new episode of melena and a drop of hbg by 1.6 since last night, will transfuse 1 more as it is anticipated that her Hgb will further drop. * GI bleed as evident by 2 reported episodes of coffe ground vomitus and black tarry stool. Most likely UGIB. Etiology to be considered include AVM in the setting of INR>10, Peptic ulcer in the setting of ASA use, vs recent SBO lap with GRICEL, vs Diloufey lesion vs Dejah lesion (less likely as no vomitng/ retching reportes). Blatchford Glascow score :12 requiring admission and possible EGD. * Elevated INR and not on any anticouagulation. Possible etiology include auto anti-coagulation vs malabasorption vs Liver pathology. However the INR rate of above 10 is concerning and may not be explained by malabsorption or auto anticoagulation. * History of recent SBO requiring laparotomy and GRICEL * History of hypertension Plan Continue to keep at ICU Continue with PRBC transfusion to maintain a goal of hemoglobin above 8 Nothing by mouth for possible EGD Continue to keep 2 large bore IV assess Hemodynamic support with IV normal saline if needed to maintain SBP above 90 and MAP>65. Will trend continue trending INR Awaiting further GI recommendations(appreciated) Continue IV PPI Initial troponins and EKG unremarkable for any acute coronary syndrome, will continue to trend troponin EKG to completely rule out ACS. Problem List: 1. Melena 2. Elevated INR 3. Acute blood loss anemia Pain Ratin Tomorrow's Labs & Rationales: ICU BUNDLE INR Plan DVT/Prophylaxis: mechanical
--- NOTE | 2016-09-30 07:51 | NUR ---
ASSISTED X1 TO [facility]. AMBULATED WELL. HAD LG AMT OF LOOSE MELENA STOOL +HEME. COMPLETEBED BATH GIVEN. INFORMED DR. CACERES. PT FELT DIZZINESS/LIGHTHEADNESS AFTER THE BM. ASSISTED BACK TO BED. C/O ABD PAIN DIFFUSE/CRAMPY. MEDICATED W/MORHINE SEE EMAR FOR TIMES. [address] [facility].
[2016-09-30 08:00] VITALS: BP 132/68
--- NOTE | 2016-09-30 09:01 | PN- CRCU ---
Subjective HPI/Critical Care Issues: pt seen and examined hemodynamically stable melena noted hgb dropped GI notified Objective Current Medications: Current Medications Sig/Ebenezer Start time Last Medication Dose Route Stop Time Status Admin Albuterol Sulfate 3 ML BID 09/29 1000 09/29 INH 1835 Albuterol Sulfate 2 PUF Q4-6 PRN PRN 09/29 0515 AC INH Ceftriaxone Sodium 1,000 MG DAILY 09/29 1037 AC 09/29 IV 1315 Furosemide 20 MG ONCE ONE 09/29 1600 DC 09/29 IV 09/29 1601 2024 Magnesium Sulfate 1 GM Q2H 09/30 0845 Dextrose/Water 100 ML IV 09/30 1044 Magnesium Sulfate 1 GM .STK-MED ONE 09/29 1808 DC IM 09/29 1809 Magnesium Sulfate 1 GM .STK-MED ONE 09/29 1549 DC IM 09/29 1550 Magnesium Sulfate 1 GM Q2H 09/29 1545 DC 09/29 Dextrose/Water 100 ML IV 09/29 1944 1810 Metronidazole 500 MG Q8H 09/29 2100 09/30 N/A 1 UNIT IV 0600 Metronidazole 500 MG IQ8 09/29 1045 FL 09/29 N/A 1 UNIT IV 1318 Morphine Sulfate 1 MG ONCE ONE 09/29 1715 DC 09/29 IV 09/29 1716 1722 Morphine Sulfate 2 MG Q4P PRN 09/29 0515 09/29 IV 2034 Ondansetron HCl 4 MG Q6P PRN 09/29 0515 09/29 IV 1446 Pantoprazole Sodium 40 MG Q5H 09/29 0515 09/30 Sodium Chloride 100 ML IV 0615 Potassium Chloride 10 MEQ Q1H 09/29 2330 DC 09/30 IV 09/30 0031 0130 Potassium Chloride 10 MEQ Q1H 09/29 1545 DC 09/29 IV 09/29 1746 1937 Sodium Chloride 1,000 ML .Q8H 09/29 0515 09/30 IV 0627 Tiotropium Katy 1 PUF DAILY 09/29 1000 09/29 INH 0935 Vital Signs & I&O Last 24 Hrs of Vitals and I&O: Vital Signs Date Time Temp Pulse Resp B/P B/P Pulse O2 O2 Flow FiO2 Mean Ox Delivery Rate 09/30 0400 96 Nasal 2.0L Cannula 09/30 0000 98.0 96 18 139/63 96 Nasal 2.0L Cannula 09/30 0000 98 Nasal 2.0L Cannula 09/29 2000 97 Nasal 2.0L Cannula 09/29 1835 95 Nasal 2.0L Cannula 09/29 1600 98.7 104 20 132/58 95 Nasal 2.0L Cannula 09/29 1600 94 Nasal 2.0L Cannula 09/29 1200 97 Nasal 2.0L Cannula 09/29 1053 Nasal 2.0L Cannula 09/29 1047 95 Nasal 2.0L Cannula Intake & Output 09/30 1600 09/30 0800 09/30 0000 Intake Total 1083 1202 Output Total 700 1550 Balance 383 -348 Intake, Blood 350 Product Intake, IV 1083 852 Intake, Oral 0 0 Number 151 0 Bowel Movements Output, 50 Emesis Output, Urine 700 1500 Exam Other Physical Findings: gen awake and alert heent ncat cvs s1, s2 lungs ctab abd soft, bs+ ext without edema Results Last 24 Hrs of Lab Results: Laboratory Tests 09/30/16 0550: Anion Gap 9, Estimated GFR > 60, Glucose 74, Calcium 7.1 L, Phosphorus 3.3, Magnesium 1.9, Total Bilirubin 0.6, AST 22, ALT 50, Albumin 1.9 L, CBC w Diff MAN DIFF ORDERED, RBC 2.72 L, MCV 88.0, MCH 29.7, RDW 14.8 H, MPV 9.7, Gran % 92.7 H, Lymphocytes % 4.3 L, Monocytes % 2.9, Eosinophils % 0.1, Basophils % 0 L, Absolute Granulocytes 13.5 H, Segmented Neutrophils 92 H, Band Neutrophils 3, Absolute Lymphocytes 0.6 L, Lymphocytes 4 L, Monocytes 1 L, Absolute Monocytes 0.4, Absolute Eosinophils 0, Absolute Basophils 0, Platelet Estimate DECREASED, Polychromasia 1+, Basophilic Stippling SLIGHT, Ovalocytes FEW, PUBS MCHC 33.8, Fld Total RBCs Counted 100 09/29/16 2359: CBC w Diff Cancelled, WBC Cancelled, RBC Cancelled, Hgb Cancelled, Hct Cancelled , MCV Cancelled, MCH Cancelled, RDW Cancelled, Plt Count Cancelled, MPV Cancelled, PUBS MCHC Cancelled 09/29/16 2222: Anion Gap 9, Estimated GFR > 60, Glucose 107 H, Calcium 7.3 L, Phosphorus 3.5, Magnesium 2.2, Total Bilirubin 0.9, AST 29, ALT 53 H, Albumin 2.3 L, PT 12.6 H, INR 1.20 H, CBC w Diff NO MAN DIFF REQ, RBC 3.25 L, MCV 88.3, MCH 29.7, RDW 14.8 H, MPV 9.4, Gran % 95.5 H, Lymphocytes % 2.3 L, Monocytes % 2.2, Eosinophils % 0, Basophils % 0 L, Absolute Granulocytes 21.0 H, Absolute Lymphocytes 0.5 L, Absolute Monocytes 0.5, Absolute Eosinophils 0, Absolute Basophils 0, PUBS MCHC 33.7 09/29/16 1800: CBC w Diff Cancelled, WBC Cancelled, RBC Cancelled, Hgb Cancelled, Hct Cancelled , MCV Cancelled, MCH Cancelled, RDW Cancelled, Plt Count Cancelled, MPV Cancelled, PUBS MCHC Cancelled 09/29/16 1440: Sodium Cancelled, Potassium Cancelled, Chloride Cancelled, Carbon Dioxide Cancelled, Anion Gap Cancelled, BUN Cancelled, Creatinine Cancelled, Glucose Cancelled, Calcium Cancelled, Phosphorus Cancelled, Magnesium Cancelled, Total Bilirubin Cancelled, AST Cancelled, ALT Cancelled, Albumin Cancelled 09/29/16 1440: Anion Gap 8, Estimated GFR > 60, Glucose 103 H, Calcium 7.1 L, Phosphorus 4.3, Magnesium 1.5 L, Total Bilirubin 0.9, AST 30, ALT 57 H, Troponin I < 0.01, Albumin 2.0 L, PT 16.6 H, INR 1.59 H, CBC w Diff NO MAN DIFF REQ, RBC 2.52 L , MCV 85.6, MCH 29.0, RDW 14.6 H, MPV 9.7, Gran % 94.9 H, Lymphocytes % 2.8 L , Monocytes % 2.3, Eosinophils % 0, Basophils % 0 L, Absolute Granulocytes 18.2 H, Absolute Lymphocytes 0.5 L, Absolute Monocytes 0.4, Absolute Eosinophils 0, Absolute Basophils 0, PUBS MCHC 33.8 09/29/16 1200: CBC w Diff Cancelled, WBC Cancelled, RBC Cancelled, Hgb Cancelled, Hct Cancelled , MCV Cancelled, MCH Cancelled, RDW Cancelled, Plt Count Cancelled, MPV Cancelled, PUBS MCHC Cancelled Impression/Plan Impression/Plan Impression/Plan: Impression 76 year old woman * acute blood loss anemia/gi bleed, likely upper source * supratherapeutic INR Plan -GI/Surgical evaluation -transfusion, reversal of INR -monitor cbc, coags -possible endoscopy -monitor hemodynamics -inhalers -ppi -empiric abx mechanical DVT prophylaxis TTS 35 min
--- NOTE | 2016-09-30 14:59 | PN- Gastroenterology ---
Assessment/Plan Assessment/Recommendations: (*Please refer to Dr. Bianchi's covering inpatient GI consult if 09/29/2016 & my previous inpatient GI consult of 09/11/2016. Extensive records reviewed). 76 y/o female, extremely poor historian, with numerous comorbidities (see below) , recently admitted to [facility], 09/11/2016 - 09/21/2016, with SBO after presenting with nausea, vomiting, & diarrhea. The patient failed conservative therapy with NG tube, and underwent expiratory laparotomy with lysis of adhesions 09/13/[address] Reed. A transition point was seen in the mid small bowel, as the proximal jejunum was severely dilated up to 5 cm. No mass or intraluminal process was appreciated intraoperatively. Adhesions were seen from the omentum to the anterior abdominal wall, and dissected. No small bowel was resected. She became hypoxic Day # 2 postop & was found to have a LLL infiltrate, consistent with probable aspiration pneumonia. She was treated with antibiotics and tapering prednisone. Her O2 sats improved, and she was discharged to a rehab center, off O2. 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 The patient has had an extensive previous GI workup by myself, but again, has * repeatedly refused outpatient PillCam. 02/16/03: H. pylori Ab- negative. : EGD/colonoscopy to TI (done for OB positive stool, microcytic anemia on Plavix then)-HP-negative gastritis, normal duodenal folds; left diverticulosis coli, hypertrophied anal papillae, with normal colonic mucosa to the TI. : normal Hgb electrophoresis (no beta thalassemia). 10/26/07: normal IgA 129. 10/27/07: elevated haptoglobin 282 (going against hemolysis), tTG Ab (IgA/IgG)- negative, normal fasting serum carotene 78. 10/27/07: EGD/colonoscopy to cecum- mild GERD without Diaz's esophagitis, small hiatal hernia, Z line at 38 cm, no Luis erosions, no varices. Prepyloric erosion with benign inflammation, H. pylori negative. Scarred yet patent pylorus, without any active peptic ulcer disease or gastric outlet obstruction. Duodenal biopsies- normal villi. Left- sided diverticulosis coli with normal colonic mucosa to the cecum. 03/16/09: EGD to the proximal jejunum with the pediatric colonoscope to 120 cm from above (done for recurrent Fe deficiency anemia & melena, on Pletal then)- pre-vocal cord leukoplakia, near the arytenoids (unsure if patient was compliant with suggested ENT follow-up), normal esophageal mucosa with Z line at 35 cm, biopsies- squamous mucosa with moderate GERD, without EOE or Diaz's esophagus. Small hiatal hernia, without any Luis erosions or varices. Diffuse gastritis, with biopsies- mild chronic gastritis, H. pylori negative. 7 mm x 5 mm prepyloric antral gastric ulcer, symmetrical, with radiating folds. No clot or visible vessel. No therapeutics. Direct biopsies deferred, as it was organizing. Patent pylorus, without gastric outlet obstruction. Nonbleeding gastric antral AVM, left intact without therapeutics. Scattered nonbleeding duodenal and jejunal AVMs, left intact without therapeutics. Normal caliber SB folds. The patient was last seen in covering GI consultation by Dr. Pinto on 05/25/10, for recurrent symptomatic anemia. 05/25/10: Push enteroscopy to jejunum with the pediatric colonoscope from above- 1 bleeding AVM at the lesser curvature of the stomach, BiCAP cautery, with cessation of bleed. 10 non- bleeding AVMs from the second portion of the duodenum to the distal jejunum, BiCAP cautery. *The patient again refused an outpatient PillCam. She had not been seen for outpatient GI. She had since had the 10/02/15: endovascular repair of AAA, followed by readmission 10/09/15 - 10/12/15 for mechanical fall & confusion, followed by STR. *There is no family history of GI disease, GI Ca, or inherited liver disease, However some siblings of alcoholic cirrhosis. One daughter- 40, from alcoholic cirrhosis and possible hepatoma. One son in [place]- 49, alive with history of EtOH abuse & Hep C. There is a strong family history of ASHD, smoking, drug & EtOH- related illnesses. The patient uses marijuana. She denied IVDA. 09/11/16: CT ABD & PELVIS ANGIOGRAM- 1. The [place] abdominal aortic aneurysm is smaller (3.3 cm, formally 5 cm preop) . 2. Aortobiiliac stent normal. No endoleak. No aorto enteric fistula. 3. 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 4. *Small bowel obstruction mid-abdomen as described, with grossly distended stomach, duodenum, & proximal jejunum (fecalization of intraluminal contents), with transition point near the umbilicus. Normal caliber ileum, with decompressed colon (*prior to 09/13/16: exp lap/GRICEL). 5. Diverticulosis coli. 6. Right adrenal nodule. *The patient was admitted to [facility] 09/29/2016, with weakness and limited mobility, essentially gone from her bed to the bathroom. Apparently, she was not on any anticoagulants, yet her admission 09/29/2016: *INR > 10 (*the rehab center denied any erroneous administration of Coumadin, etc), with H/H 4.2 /12.5, PLT 177, WBC 15.4, BUN/Cr 22/0.5, GFR > 60. She also had black tarry stool & 2 episodes of coffee ground emesis at [facility] & 2 a.m., the day of admission. Any chest pain, shortness of breath, or palpitations. She denied any abdominal pain or abdominal distention. She was on outpatient Omeprazole 20 mg daily, along with the Ecotrin 81 mg daily, again without any NSAIDs. She was on tapering doses of Prednisone. She has received a total of 4u PRBC & 2u FFP to date this admission, as of 4 p.m. on 09/30/2016, & 1 dose of Vitamin K 10 mg sc. 09/29/2016: *Admission labs- BUN/Cr 22/0.5, GFR > 60, Na 136, K 4.0, HCO3 31, AG 9, lipase 61, Ca 7.7, albumin 2.1, globulin 2.3, TBil 0.6, alk phos 67, AST 37, ALT 60, troponin < 0.01 (neg x 3), Fe 36, TIBC 234 (c/w chronic disease- although the Fe studies were sent after the 1st unit PRBC), Fe sat 15.4 %, ferritin 594, WBC 15.4 (94% gran, 14 gran Ab), H/H 4.2/12.5, MCV 85.5, RDW 15.3, PLT 177, *PT > 103, INR > 10, PTT 47. No B12/folate were sent recently. 09/29/2016: EKG- ST @ 116, normal axis, normal intervals, chronic mild ST elevation II, without acute ischemic changes. 09/29/2016: CT ABDOMEN AND PELVIS WITH IV CONTRAST- 1. *No evidence of intra-abdominal hematoma. The study was not specifically performed as a CTA, but *no definite evidence of active contrast extravasation into bowel is seen on this exam. 2. There is mild distention of proximal small bowel loops with gradual transition to normal caliber decompressed loops of bowel in the midabdomen, suggesting a partial/low grade bowel obstruction. No focal mass or distortion is seen at the point of this gradual transition. The previously seen more focal area of presumed adhesion in the mid abdomen is no longer visualized. 3. New trace left-sided pleural effusion with associated mild dependent atelectasis in the left lower lobe. 4. No significant change in moderate pericardial effusion. 5. Right adrenal mass again seen, most consistent with a small lipid rich adenoma. 6. Small right renal mass, consistent with a cyst. 7. *Stable abdominal aortic aneurysm, status post aortobiiliac stent graft placement. 3.7 cm max. 8. Chronic, enlarged left para-aortic lymph node. 9. Normal liver. 09/29/2016: XR PORTABLE CHEST- Improving left lower lobe opacity with residual minor subsegmental atelectasis. No acute abnormality. *As of 09/30/2016, the patient is currently hemodynamically stable (except for intermittent borderline tachycardia, with stable BP), & afebrile, in the ICU. She is on an IV Protonix drip & Zofran. She was apparently put on IV Ceftriaxone and Flagyl. She had a loose black bowel movement earlier today. There has been no recurrent hematemesis. K+/Mg2+ were repleted. She is currently on clears po. She denied any fevers, chills, abdominal pain, nausea, vomiting, BRBPR, chest pain or shortness of breath. Clinically, the patient appears to have had an upper GI bleed in the setting of severe coagulopathy, exact etiology of the latter unknown. The rehabilitation center denied giving the patient any erroneous Coumadin. Other possibilities for the coagulopathy could include malnutrition/malabsorption, although the patient's albumin does not seem to be low enough to cause this. The patient could have underlying liver disease. She had been on antibiotics relatively recently, which could have changed the gut mari, but again, this should not cause an INR > 10. The thrombocytopenia is noted as well, rule out component of DIC. 09/29/2016: Admission CT AP with IV contrast did not show any retroperitoneal hematoma, nor any gross aortoenteric fistula, post endovascular AAA repair, although CTA protocol was not done. *Please note, the patient just had 09/13/2016: exp lap with GRICEL for adhesions, & I would be a little leery of performing a colonoscopy at present unless this were absolutely needed. Clinically, I would start a GI workup from above. The patient's family seems to think the patient previously had complications from colonoscopies, but upon my review of the Tim procedures, this has not been the case. There is a very good change she was oozing from her known GI AVMs and of marked coagulopathy. Rule out recurrent peptic ulcer disease. Doubt varices. *She has repeatedly refused an outpatient Pillcam. DIC panel wasnegative. *SUGGEST: No aspirin. No NSAIDs. Continue IV Protonix drip. Clears po, then NPO after 11 :59 p.m. tonight for probable EGD (perhaps with a long scope from above as well , to check the jejunum), on 10/01/2016. Informed consent for EGD was obtained from the patient after careful explanation of the risks & benefits. Colonoscopy on hold for now, but may reconsider this, depending on clinical course. Maintain in ICU. 2 large bore IVs. O2 prn. T&C 2u PRBC. Keep Hgb > 8 ( ASHD). Strict I/O's. *Advise Hematology consult. Nutrition consult. Consider surgical consult. Close follow up of CBC, INR & platelets. DIC panel (negative). Consider checking full Hep A, B & C serologies, HIV, AMELIA & AMA, although the liver does not look cirrhotic on imaging studies. Broad spectrum antibiotics, bronchodilators, etc. per ICU team. The above was discussed with the patient & the medical house staff in great detail. 45 minutes of ICU care was spent on the patient. Problem List: 1. Anemia 2. Coagulopathy 3. Hematemesis 4. Melena 5. Angiodysplasia of gastrointestinal tract 6. History of peptic ulcer disease 7. Thrombocytopenia 8. Malnutrition 9. S/P AAA (abdominal aortic aneurysm) repair Subjective Subjective: (Extensive records reviewed. Covering GI consult of 09/29/16, per Dr. Tash mas). *As of 09/30/2016, the patient is currently hemodynamically stable (except for intermittent borderline tachycardia, with stable BP), & afebrile, in the ICU. She is on an IV Protonix drip & Zofran. She was apparently put on IV Ceftriaxone and Flagyl. She had a loose black bowel movement earlier today. There has been no recurrent hematemesis. K+/Mg2+ were repleted. She is currently on clears po. She denied any fevers, chills, abdominal pain, nausea, vomiting, BRBPR, chest pain or shortness of breath. Review of Systems: Constitutional: Reports: malaise Denies: chills, fevers, diaphoresis, weakness, unexplained weight loss. EENTM: Denies: blurred vision, double vision, visual changes, eye pain, eye drainage, eye tearing, icterus, ear discharge, ear pain, ear redness, hearing changes, nasal congestion, epistaxis, nasal pain, throat pain, throat swelling, mouth pain, tooth pain. Cardiovascular: Denies: chest pain, edema, orthopena, palpitations, peripheral edema, syncope. Respiratory: Denies: SOB, cough, hemoptysis, orthopnea, sputum production, stridor, wheezing. GI: Reports: melena Denies: abdominal pain, diarrhea, distention, nausea, bloody stool, vomiting, recurrent hematemesis, bloating, constipation, bowel incontinence, melena, changes in stool, steatorrhea. Genitourinary: Denies: discharge, dysuria, frequency, hematuria, hesitation, nocturia, pain, urgency. Musculoskeletal: Reports: back pain (chronic), joint pain (DJD). Denies: gout, joint swelling, muscle pain, muscle stiffness, neck pain. Skin: Denies: cysts, change in skin color, change in hair/nails, dryness, erythema, jaundice, lesions, lymphangitis, lumps, moles, rash. Neurological/Psychological: Reports: anxiety, emotional problems, headache (chronic). Denies: ataxia, cognitive dysfunction, confusion, depressed, dementia, numbness, paresthesia, pre-existing deficit, petit mal seizures, tingling, tremors, tonic- clonic seizures, unable to move lower ext, unable to move upper ext, weakness. Hematologic/Endocrine: Denies: bruising, bleeding, polyuria, polydipsia. Immunologic/Allergic: Denies: splenectomy, HIV/AIDS, lymphadenopathy. All Other Systems: Reviewed and Negative Objective Vital Signs and I&Os Vital Signs Date Time Temp Pulse Resp B/P B/P Pulse O2 O2 Flow FiO2 Mean Ox Delivery Rate 09/30 1025 Nasal 2.5L Cannula 09/30 0944 99 Nasal 2.5L Cannula 09/30 0800 97 Nasal 2.0L Cannula 09/30 0800 98.2 90 19 132/68 97 Nasal 2.0L Cannula 09/30 0400 96 Nasal 2.0L Cannula 09/30 0000 98.0 96 18 139/63 96 Nasal 2.0L Cannula 09/30 0000 98 Nasal 2.0L Cannula 09/29 2000 97 Nasal 2.0L Cannula 09/29 1835 95 Nasal 2.0L Cannula 09/29 1600 98.7 104 20 132/58 95 Nasal 2.0L Cannula 09/29 1600 94 Nasal 2.0L Cannula Intake & Output 09/30 1600 09/30 0400 09/29 1600 09/29 0400 09/28 1600 09/28 0400 Intake Total 3213 1202 2484 Output Total 1100 1550 500 Balance 2113 -348 1984 Intake, Blood 625 881 1712 Product Intake, IV 2493 852 1484 Intake, Oral 370 0 0 Number 151 0 0 Bowel Movements Output, 50 Emesis Output, Urine 1100 1500 500 Patient 133 lb 135 lb Weight Weight Bed scale Measurement Method Physical Exam: Well-developed, slightly malnourished elderly female, in mild distress Sclera anicteric. Conjunctiva less pale. Oropharynx clear. Poor dentition- edentulous. No oral thrush. No aphthous ulcers. There is no adenopathy, thyromegaly, or JVD. No peripheral stigmata of inflammatory bowel disease or chronic liver disease on exam. No spiders on the anterior chest wall. No CVA tenderness. Breast & pelvic exams: API. Lungs: clear to A&P, without wheezing, rales, or rhonchi. Slightly prolonged expiratory phase. Mild decreased BS at left base. Heart exam: regular rate rhythm, S1 S2, I/ systolic murmur. Abdominal exam: normoactive bowel sounds, moderately distended tympanitic belly, nontender, without guarding or rebound. Healing midline infraumbilical scar with will. No mass. No organomegaly. No definite fluid shift. No pulsatile mass. No epigastric bruit. Digital rectal exam: API- melena. Extremities: without C, C, or E. No palpable cords. No palmar erythema. No Dupuytren's contractures. Distal pulses 2+ bilaterally. DTRs 2+ bilaterally. Alert and oriented x 3. Right handed. CN II-XII intact. Motor 5/5 B/L. No tremor. No asterixis. A detailed exam for peripheral neuropathy was deferred. Current Medications: Current Medications Sig/Ebenezer Start time Last Medication Dose Route Stop Time Status Admin Albuterol Sulfate 3 ML BID 09/29 1000 09/30 INH 0941 Albuterol Sulfate 2 PUF Q4-6 PRN PRN 09/29 0515 AC INH Ceftriaxone Sodium 1,000 MG DAILY 09/29 1037 09/30 IV 1025 Magnesium Sulfate 1 GM Q2H 09/30 0845 MO 09/30 Dextrose/Water 100 ML IV 09/30 1044 0845 Magnesium Sulfate 1 GM .STK-MED ONE 09/29 1808 DC IM 09/29 1809 Magnesium Sulfate 1 GM Q2H 09/29 1545 MO 09/29 Dextrose/Water 100 ML IV 09/29 1944 1810 Metronidazole 500 MG Q8H 09/29 2100 09/30 N/A 1 UNIT IV 1256 Morphine Sulfate 1 MG ONCE ONE 09/29 1715 DC 09/29 IV 06/18 1716 1722 Morphine Sulfate 2 MG Q4P PRN 09/29 0515 AC 09/29 IV 2034 Ondansetron HCl 4 MG Q6P PRN 09/29 0515 AC 09/29 IV 1446 Pantoprazole Sodium 40 MG Q5H 09/29 0515 AC 09/30 Sodium Chloride 100 ML IV 1025 Polyethylene Glycol 1 GAL ONCE ONE 09/30 1800 CAN PO 09/30 1801 Potassium Chloride 10 MEQ Q1H 09/29 2330 DC 09/30 IV 09/30 0031 0130 Potassium Chloride 10 MEQ Q1H 09/29 1545 DC 09/29 IV 09/29 1746 1937 Sodium Chloride 1,000 ML .Q8H 09/29 0515 AC 09/30 IV 0627 Tiotropium Letona 1 PUF DAILY 09/29 1000 AC 09/30 INH 1025 Results Pertinent Lab Results: Laboratory Tests 09/30 09/30 09/30 1510 1440 1241 Coagulation PT (9.4 - 12.5 SEC) 11.5 INR (0.90 - 1.19) 1.10 APTT (25 - 37 SEC) 26 Fibrinogen Activity (200 - 393 MG/DL) 346 Fibrin Degrad Products (< 10 ug/ml) <10 ug/ml Hematology CBC w Diff NO MAN DIFF REQ WBC (4.8 - 10.8 /CUMM) 10.7 RBC (4.20 - 5.40 /CUMM) 2.97 L Hgb (12.0 - 16.0 G/DL) 8.8 L Hct (37 - 47 %) 26.0 L MCV (81.0 - 99.0 FL) 87.5 MCH (27.0 - 31.0 PG) 29.5 RDW (11.5 - 14.5 %) 14.6 H Plt Count (130 - 400 /CUMM) 83 L MPV (7.4 - 10.4 FL) 9.5 Gran % (42.2 - 75.2 %) 92.6 H Lymphocytes % (20.5 - 51.1 %) 4.5 L Monocytes % (1.7 - 9.3 %) 2.8 Eosinophils % (0 - 5 %) 0.1 Basophils % (0.0 - 2.0 %) 0 L Absolute Granulocytes (1.4 - 6.5 /CUMM) 9.9 H Absolute Lymphocytes (1.2 - 3.4 /CUMM) 0.5 L Absolute Monocytes (0.10 - 0.60 /CUMM) 0.3 Absolute Eosinophils (0.0 - 0.7 /CUMM) 0 Absolute Basophils (0.0 - 0.2 /CUMM) 0 PUBS MCHC (33.0 - 37.0 G/DL) 33.8 09/30 09/29 0550 2359 Chemistry Sodium (137 - 145 mmol/L) 138 Potassium (3.5 - 5.1 mmol/L) 3.7 Chloride (98 - 107 mmol/L) 102 Carbon Dioxide (22 - 30 mmol/L) 27 Anion Gap (5 - 16) 9 BUN (7 - 17 mg/dL) 16 Creatinine (0.5 - 1.0 mg/dL) 0.7 Estimated GFR (>60 ml/min) > 60 Glucose (65 - 99 mg/dL) 74 Calcium (8.4 - 10.2 mg/dL) 7.1 L Phosphorus (2.5 - 4.5 mg/dL) 3.3 Magnesium (1.6 - 2.3 mg/dL) 1.9 Total Bilirubin (0.2 - 1.3 mg/dL) 0.6 AST (14 - 36 U/L) 22 ALT (9 - 52 U/L) 50 Albumin (3.5 - 5.0 g/dL) 1.9 L Hematology CBC w Diff MAN DIFF ORDERED Cancelled WBC (4.8 - 10.8 /CUMM) 14.5 H Cancelled RBC (4.20 - 5.40 /CUMM) 2.72 L Cancelled Hgb (12.0 - 16.0 G/DL) 8.1 L Cancelled Hct (37 - 47 %) 23.9 L Cancelled MCV (81.0 - 99.0 FL) 88.0 Cancelled MCH (27.0 - 31.0 PG) 29.7 Cancelled RDW (11.5 - 14.5 %) 14.8 H Cancelled Plt Count (130 - 400 /CUMM) 94 L Cancelled MPV (7.4 - 10.4 FL) 9.7 Cancelled Gran % (42.2 - 75.2 %) 92.7 H Lymphocytes % (20.5 - 51.1 %) 4.3 L Monocytes % (1.7 - 9.3 %) 2.9 Eosinophils % (0 - 5 %) 0.1 Basophils % (0.0 - 2.0 %) 0 L Absolute Granulocytes (1.4 - 6.5 /CUMM) 13.5 H Segmented Neutrophils (42.2 - 75.2 %) 92 H Band Neutrophils (0.0 - 5.0 %) 3 Absolute Lymphocytes (1.2 - 3.4 /CUMM) 0.6 L Lymphocytes (20.5 - 51.1 %) 4 L Monocytes (1.7 - 9.3 %) 1 L Absolute Monocytes (0.10 - 0.60 /CUMM) 0.4 Absolute Eosinophils (0.0 - 0.7 /CUMM) 0 Absolute Basophils (0.0 - 0.2 /CUMM) 0 Platelet Estimate (ADEQUATE) DECREASED Polychromasia 1+ Basophilic Stippling SLIGHT Ovalocytes FEW PUBS MCHC (33.0 - 37.0 G/DL) 33.8 Cancelled Other Body Source Fld Total RBCs Counted (%) 100 Serology Hepatitis A IgM Ab (NONREACTIVE) Pending Hep Bs Antigen (NONREACTIVE) Pending Hep B Core IgM Ab Conf (NONREACTIVE) Pending Hepatitis C Antibody (NONREACTIVE) Pending 09/29 09/29 09/29 2222 1800 1440 Chemistry Sodium (137 - 145 mmol/L) 137 Cancelled Potassium (3.5 - 5.1 mmol/L) 3.6 Cancelled Chloride (98 - 107 mmol/L) 100 Cancelled Carbon Dioxide (22 - 30 mmol/L) 29 Cancelled Anion Gap (5 - 16) 9 Cancelled BUN (7 - 17 mg/dL) 17 Cancelled Creatinine (0.5 - 1.0 mg/dL) 0.7 Cancelled Estimated GFR (>60 ml/min) > 60 Glucose (65 - 99 mg/dL) 107 H Cancelled Calcium (8.4 - 10.2 mg/dL) 7.3 L Cancelled Phosphorus (2.5 - 4.5 mg/dL) 3.5 Cancelled Magnesium (1.6 - 2.3 mg/dL) 2.2 Cancelled Total Bilirubin (0.2 - 1.3 mg/dL) 0.9 Cancelled AST (14 - 36 U/L) 29 Cancelled ALT (9 - 52 U/L) 53 H Cancelled Albumin (3.5 - 5.0 g/dL) 2.3 L Cancelled Coagulation PT (9.4 - 12.5 SEC) 12.6 H INR (0.90 - 1.19) 1.20 H Hematology CBC w Diff NO MAN DIFF REQ Cancelled WBC (4.8 - 10.8 /CUMM) 22.0 H Cancelled RBC (4.20 - 5.40 /CUMM) 3.25 L Cancelled Hgb (12.0 - 16.0 G/DL) 9.7 L Cancelled Hct (37 - 47 %) 28.7 L Cancelled MCV (81.0 - 99.0 FL) 88.3 Cancelled MCH (27.0 - 31.0 PG) 29.7 Cancelled RDW (11.5 - 14.5 %) 14.8 H Cancelled Plt Count (130 - 400 /CUMM) 109 L Cancelled MPV (7.4 - 10.4 FL) 9.4 Cancelled Gran % (42.2 - 75.2 %) 95.5 H Lymphocytes % (20.5 - 51.1 %) 2.3 L Monocytes % (1.7 - 9.3 %) 2.2 Eosinophils % (0 - 5 %) 0 Basophils % (0.0 - 2.0 %) 0 L Absolute Granulocytes (1.4 - 6.5 /CUMM) 21.0 H Absolute Lymphocytes (1.2 - 3.4 /CUMM) 0.5 L Absolute Monocytes (0.10 - 0.60 /CUMM) 0.5 Absolute Eosinophils (0.0 - 0.7 /CUMM) 0 Absolute Basophils (0.0 - 0.2 /CUMM) 0 PUBS MCHC (33.0 - 37.0 G/DL) 33.7 Cancelled 09/29 09/29 09/29 1440 1200 0810 Chemistry Sodium (137 - 145 mmol/L) 139 Potassium (3.5 - 5.1 mmol/L) 3.4 L Chloride (98 - 107 mmol/L) 101 Carbon Dioxide (22 - 30 mmol/L) 31 H Anion Gap (5 - 16) 8 BUN (7 - 17 mg/dL) 19 H Creatinine (0.5 - 1.0 mg/dL) 0.7 Estimated GFR (>60 ml/min) > 60 Glucose (65 - 99 mg/dL) 103 H Calcium (8.4 - 10.2 mg/dL) 7.1 L Phosphorus (2.5 - 4.5 mg/dL) 4.3 Magnesium (1.6 - 2.3 mg/dL) 1.5 L Total Bilirubin (0.2 - 1.3 mg/dL) 0.9 AST (14 - 36 U/L) 30 ALT (9 - 52 U/L) 57 H Troponin I (< 0.11 ng/ml) < 0.01 < 0.01 Albumin (3.5 - 5.0 g/dL) 2.0 L Coagulation PT (9.4 - 12.5 SEC) 16.6 H INR (0.90 - 1.19) 1.59 H Hematology CBC w Diff NO MAN DIFF REQ Cancelled WBC (4.8 - 10.8 /CUMM) 19.2 H Cancelled RBC (4.20 - 5.40 /CUMM) 2.52 L Cancelled Hgb (12.0 - 16.0 G/DL) 7.3 *L Cancelled Hct (37 - 47 %) 21.6 L Cancelled MCV (81.0 - 99.0 FL) 85.6 Cancelled MCH (27.0 - 31.0 PG) 29.0 Cancelled RDW (11.5 - 14.5 %) 14.6 H Cancelled Plt Count (130 - 400 /CUMM) 112 L Cancelled MPV (7.4 - 10.4 FL) 9.7 Cancelled Gran % (42.2 - 75.2 %) 94.9 H Lymphocytes % (20.5 - 51.1 %) 2.8 L Monocytes % (1.7 - 9.3 %) 2.3 Eosinophils % (0 - 5 %) 0 Basophils % (0.0 - 2.0 %) 0 L Absolute Granulocytes (1.4 - 6.5 /CUMM) 18.2 H Absolute Lymphocytes (1.2 - 3.4 /CUMM) 0.5 L Absolute Monocytes (0.10 - 0.60 /CUMM) 0.4 Absolute Eosinophils (0.0 - 0.7 /CUMM) 0 Absolute Basophils (0.0 - 0.2 /CUMM) 0 PUBS MCHC (33.0 - 37.0 G/DL) 33.8 Cancelled 09/29 09/29 0810 0440 Chemistry Iron (37 - 170 ug/dL) 36 L TIBC (265 - 497 ug/dL) 234 L Ferritin (11.1 - 264 ng/mL) 594.0 H Coagulation PT (9.4 - 12.5 SEC) 83.3 *H Cancelled INR (0.90 - 1.19) 8.10 *H Cancelled Hematology CBC w Diff MAN DIFF ORDERED WBC (4.8 - 10.8 /CUMM) 23.4 H RBC (4.20 - 5.40 /CUMM) 2.22 L Hgb (12.0 - 16.0 G/DL) 6.7 *L Hct (37 - 47 %) 19.2 *L MCV (81.0 - 99.0 FL) 86.4 MCH (27.0 - 31.0 PG) 30.0 RDW (11.5 - 14.5 %) 14.5 Plt Count (130 - 400 /CUMM) 141 MPV (7.4 - 10.4 FL) 9.4 Gran % (42.2 - 75.2 %) 95.3 H Lymphocytes % (20.5 - 51.1 %) 2.2 L Monocytes % (1.7 - 9.3 %) 2.5 Eosinophils % (0 - 5 %) 0 Basophils % (0.0 - 2.0 %) 0 L Absolute Granulocytes (1.4 - 6.5 /CUMM) 22.3 H Segmented Neutrophils (42.2 - 75.2 %) 81 H Band Neutrophils (0.0 - 5.0 %) 15 H Absolute Lymphocytes (1.2 - 3.4 /CUMM) 0.5 L Lymphocytes (20.5 - 51.1 %) 2 L Monocytes (1.7 - 9.3 %) 2 Absolute Monocytes (0.10 - 0.60 /CUMM) 0.6 Absolute Eosinophils (0.0 - 0.7 /CUMM) 0 Absolute Basophils (0.0 - 0.2 /CUMM) 0 Nucleated RBCs (0.0 - 0.0 /100WBC) 2 H Poikilocytosis 1+ Anisocytosis 1+ PUBS MCHC (33.0 - 37.0 G/DL) 34.7 06/18 0320 Chemistry Sodium (137 - 145 mmol/L) 136 L Potassium (3.5 - 5.1 mmol/L) 4.0 Chloride (98 - 107 mmol/L) 96 L Carbon Dioxide (22 - 30 mmol/L) 31 H Anion Gap (5 - 16) 9 BUN (7 - 17 mg/dL) 22 H Creatinine (0.5 - 1.0 mg/dL) 0.5 Estimated GFR (>60 ml/min) > 60 BUN/Creatinine Ratio (7 - 25 %) 44.0 H Glucose (65 - 99 mg/dL) 110 H Calcium (8.4 - 10.2 mg/dL) 7.7 L Total Bilirubin (0.2 - 1.3 mg/dL) 0.6 AST (14 - 36 U/L) 37 H ALT (9 - 52 U/L) 60 H Alkaline Phosphatase (<127 U/L) 67 Troponin I (< 0.11 ng/ml) < 0.01 Total Protein (6.3 - 8.2 g/dL) 4.4 L Albumin (3.5 - 5.0 g/dL) 2.1 L Globulin (1.9 - 4.2 gm/dL) 2.3 Albumin/Globulin Ratio (1.1 - 2.2 %) 0.9 L Lipase (23 - 300 U/L) 61 Coagulation PT (9.4 - 12.5 SEC) > 103.0 *H INR (0.90 - 1.19) > 10.0 *H APTT (25 - 37 SEC) 47 H Hematology CBC w Diff NO MAN DIFF REQ WBC (4.8 - 10.8 /CUMM) 15.4 H RBC (4.20 - 5.40 /CUMM) 1.46 L Hgb (12.0 - 16.0 G/DL) 4.2 *L Hct (37 - 47 %) 12.5 *L MCV (81.0 - 99.0 FL) 85.5 MCH (27.0 - 31.0 PG) 28.9 RDW (11.5 - 14.5 %) 15.3 H Plt Count (130 - 400 /CUMM) 177 MPV (7.4 - 10.4 FL) 10.1 Gran % (42.2 - 75.2 %) 93.6 H Lymphocytes % (20.5 - 51.1 %) 4.7 L Monocytes % (1.7 - 9.3 %) 1.7 Eosinophils % (0 - 5 %) 0 Basophils % (0.0 - 2.0 %) 0 L Absolute Granulocytes (1.4 - 6.5 /CUMM) 14.4 H Absolute Lymphocytes (1.2 - 3.4 /CUMM) 0.7 L Absolute Monocytes (0.10 - 0.60 /CUMM) 0.3 Absolute Eosinophils (0.0 - 0.7 /CUMM) 0 Absolute Basophils (0.0 - 0.2 /CUMM) 0 PUBS MCHC (33.0 - 37.0 G/DL) 33.8 Imaging/Other Studies: 09/29/2016: EKG- ST @ 116, normal axis, normal intervals, chronic mild ST elevation II, without acute ischemic changes. 09/29/2016: CT ABDOMEN AND PELVIS WITH IV CONTRAST- 1. *No evidence of intra-abdominal hematoma. The study was not specifically performed as a CTA, but *no definite evidence of active contrast extravasation into bowel is seen on this exam. 2. There is mild distention of proximal small bowel loops with gradual transition to normal caliber decompressed loops of bowel in the midabdomen, suggesting a partial/low grade bowel obstruction. No focal mass or distortion is seen at the point of this gradual transition. The previously seen more focal area of presumed adhesion in the mid abdomen is no longer visualized. 3. New trace left-sided pleural effusion with associated mild dependent atelectasis in the left lower lobe. 4. No significant change in moderate pericardial effusion. 5. Right adrenal mass again seen, most consistent with a small lipid rich adenoma. 6. Small right renal mass, consistent with a cyst. 7. *Stable abdominal aortic aneurysm, status post aortobiiliac stent graft placement. 3.7 cm max. 8. Chronic, enlarged left para-aortic lymph node. 9. Normal liver. 09/29/2016: XR PORTABLE CHEST- Improving left lower lobe opacity with residual minor subsegmental atelectasis. No acute abnormality.
[2016-09-30 15:47] LABS: ABSOLUTE BASOPHIL COUNT 0 /CUMM (0.0-0.2); ABSOLUTE EOSINOPHIL COUNT 0 /CUMM (0.0-0.7); ABSOLUTE GRANULOCYTE CT 9.9 /CUMM (1.4-6.5); ABSOLUTE LYMPH COUNT 0.5 /CUMM (1.2-3.4); ABSOLUTE MONOCYTE COUNT 0.3 /CUMM (0.10-0.60); BASOPHIL % 0 % (0.0-2.0); EOSINOPHIL % 0.1 % (0-5); MEAN CORPUSCULAR HGB 29.5 PG (27.0-31.0); MEAN CORPUSCULAR HGB CONC 33.8 G/DL (33.0-37.0); MEAN CORPUSCULAR VOLUME 87.5 FL (81.0-99.0); MEAN PLATELET VOLUME 9.5 FL (7.4-10.4); PLATELET COUNT 83 /CUMM (130-400); RBC DISTRIBUTION WIDTH 14.6 % (11.5-14.5); RED BLOOD CELL CT 2.97 /CUMM (4.20-5.40); WHITE BLOOD CELL COUNT 10.7 /CUMM (4.8-10.8)
[2016-09-30 15:54] LABS: PT 11.5 SEC (9.4-12.5); PTT 26 SEC (25-37)
[2016-09-30 16:00] VITALS: BP 140/56
[2016-09-30 16:08] LABS: GRANULOCYTE % 92.6 % (42.2-75.2)
--- NOTE | 2016-09-30 17:52 | Cons- Hematology ---
General Information and HPI Consulting Request Date of Consult: 09/30/16 Requested By: CARL LIM Reason for Consult: elevated INR Source of Information: patient, old records Exam Limitations: no limitations History of Present Illness: Ms. Merlos is a 76-year-old female with history of CAD, COPD, hypertension, HLD , PUD, PVD, and AAA s/p endovascular repair, multiple AVMs, and SBO s/p laparotomy with lysis of adhesion on 09/13/[address] Reed who presented to the hospital with hematemesis. She was discharged to [facility] for rehabiliation. Since her discharge, she has no been eating well. She does drink some fluid, mostly juices. She continued to have abdominal pain and weakness. She subsequently had coffee ground emesis. She report dizziness and lightheadedness. She was sent to the hospital for further evaluation. On presentation, she was noted to have hemoglobin of 4.2 g/dL, hematocrit of 12.5%, WBC 15,400, and platelet count of 17,000. Her PT was 103 and INR was greater than 10. PTT was 47. Her last blood work prior to this was hemoglobin of 9.2 g/dL and hematocrit of 29.5%. Repeat blood work 5 hours later noted INR 8.1 and PTT 83.3. She was given a dose vitamin K 10 mg IV at around 5:40AM 09/29. She was given 2 units of FFP at 12:05 and 15:40 on 09/29/2016. INR was 1.59 after the first unit and 1.2 after the 2nd unit. Due to the elevated INR, hematology was consulted for further evaluation. Allergies/Medications Allergies: Coded Allergies: propoxyphene (UNKNOWN 09/29/15) Home Med List: Albuterol Sulfate (Proair Hfa) 8.5 GM HFA.AER.AD 2 PUF INH AD PRN RESPIRATORY (Reported) Albuterol Sulfate 2.5 MG/3 ML VIAL.NEB 1 Vial INH/QUINTON BID RESPIRATORY ( Reported) Alprazolam 0.5 MG TABLET 1 TAB PO TIDPRN PRN ANXIETY (Reported) Amlodipine Besylate 10 MG TABLET 1 TAB PO DAILY BP (Reported) Aspirin (Ecotrin*) 81 MG TABLET. 81 MG PO DAILY vascular / heart health start a baby aspirin daily, as per Benzonatate 100 MG CAPSULE 1 TAB PO TID COLD SYMPTOMS Ferrous Sulfate 325 MG (65 MG IRON) TABLET 1 TAB PO DAILY SUPPLEMENT ( Reported) Labetalol HCl 200 MG TABLET 1 TAB PO BID BP (Reported) Omeprazole 20 MG CAPSULE. 1 CAP PO DAILY PRN GERD (Reported) Prednisone 20 MG TABLET 2 TAB PO DAILY LUNG HEALTH Rosuvastatin Calcium (Crestor) 20 MG TABLET 1 TAB PO DAILY CHOLESTEROL ( Reported) Sertraline HCl 50 MG TABLET 1 TAB PO DAILY DEPRESSION Sodium Chloride ([place] Sea) 0.65 % SPRAY 2 SPRAY HARRY Q4P PRN CONGESTION Tiotropium [place] (Spiriva) 18 MCG CAP.W.DEV 1 CAP INH DAILY RESPIRATORY ( Reported) Tylenol With Codeine (Tylenol With Codeine #3 Tablet) 1 EACH TABLET 1-2 TAB PO Q4-6 PRN PRN PAIN take as directed. do not combine with tylenol. Current Medications: Current Medications Sig/Ebenezer Start time Last Medication Dose Route Stop Time Status Admin Albuterol Sulfate 3 ML BID 09/29 1000 AC 09/30 INH 0941 Albuterol Sulfate 2 PUF Q4-6 PRN PRN 09/29 0515 AC INH Ceftriaxone Sodium 1,000 MG DAILY 09/29 1037 AC 09/30 IV 1025 Magnesium Sulfate 1 GM Q2H 09/30 0845 VA 09/30 Dextrose/Water 100 ML IV 09/30 1044 0845 Magnesium Sulfate 1 GM .STK-MED ONE 09/29 1808 DC IM 09/29 1809 Magnesium Sulfate 1 GM Q2H 09/29 1545 VA 09/29 Dextrose/Water 100 ML IV 09/29 1944 1810 Metronidazole 500 MG Q8H 09/29 2100 AC 09/30 N/A 1 UNIT IV 1256 Morphine Sulfate 2 MG Q4P PRN 09/29 0515 09/29 IV 2034 Ondansetron HCl 4 MG Q6P PRN 09/29 0515 AC 09/29 IV 1446 Pantoprazole Sodium 40 MG Q5H 09/29 0515 09/30 Sodium Chloride 100 ML IV 1025 Polyethylene Glycol 1 GAL ONCE ONE 09/30 1800 CAN PO 09/30 1801 Potassium Chloride 10 MEQ Q1H 09/29 2330 DC 09/30 IV 09/30 0031 0130 Potassium Chloride 10 MEQ Q1H 09/29 1545 DC 09/29 IV 09/29 1746 1937 Sodium Chloride 1,000 ML .Q8H 09/29 0515 AC 09/30 IV 0627 Tiotropium [place] 1 PUF DAILY 09/29 1000 AC 09/30 INH 1025 Review of Systems Review of Systems Constitutional: Reports: malaise, weakness. Denies: chills, fever. Cardiovascular: Reports: orthopena, peripheral edema. Denies: chest pain. Respiratory: Reports: short of breath. GI: Reports: melena, vomiting (coffee ground). Genitourinary: Denies: dysuria. Musculoskeletal: Reports: back pain. Neurological/Psychological: Denies: confusion. Hematologic/Endocrine: Reports: bleeding. Denies: bruising. Immunologic/Allergic: Denies: lymphadenopathy. All Other Systems: Reviewed and Negative Past History Travel History Traveled to [place] past 21 day No Medical History Blood Transfusion Hx: Yes Neurological: TIA EENT: NONE Cardiovascular: aortic aneurysm (10/02/15: endovascular repair), CAD, hypertension, hyperlipidemia, myocardial infarction, PVD (09/22/02: R CEA) Respiratory: bronchitis, COPD (55 pk yr smoker) Gastrointestinal: NONE (asx on PPI), GERD, peptic ulcer disease, diverticulosis coli gastric & SB AVMs Hepatic: NONE Renal: NONE Musculoskeletal: degen joint disease, falls Psychiatric: anxiety Endocrine: vitamin D deficiency Blood Disorders: NONE (Fe def), anemia Cancer(s): NONE 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 FH: CAD (coronary artery disease) FATHER, , Age 65; Cause: Arteriosclerotic heart disease (ASHD). Psychosocial History Where Do You Live? Acute Rehab Who Do You Live With? self Services at Home: Nursing Primary Language: [place] Smoking Status: Current Some Day Smoker Living Will? no Power of Senior Vice President & General Counsel/HCP? no Functional Ability ADLs Independent: dressing, eating, toileting, bathing. Ambulation: independent IADLs Independent: shopping, housework, finances, food prep, telephone, medication admin. Needs Assist: transportation. Exam & Diagnostic Data Vital Signs and I&O Vital Signs Date Time Temp Pulse Resp B/P B/P Pulse O2 O2 Flow FiO2 Mean Ox Delivery Rate 09/30 1600 100 Nasal 2.0L Cannula 09/30 1600 99.7 86 20 140/56 100 Nasal 2.0L Cannula 09/30 1025 Nasal 2.5L Cannula 09/30 0944 99 Nasal 2.5L Cannula 09/30 0800 97 Nasal 2.0L Cannula 09/30 0800 98.2 90 19 132/68 97 Nasal 2.0L Cannula 09/30 0400 96 Nasal 2.0L Cannula 09/30 0000 98.0 96 18 139/63 96 Nasal 2.0L Cannula 09/30 0000 98 Nasal 2.0L Cannula 09/29 2000 97 Nasal 2.0L Cannula 09/29 1835 95 Nasal 2.0L Cannula Intake & Output 09/30 1600 09/30 0800 09/30 0000 Intake Total 2130 1083 1202 Output Total 126 209 1051 Balance 1730 383 -348 Intake, Blood 350 350 Product Intake, IV 1410 1083 852 Intake, Oral 370 0 0 Number 0 151 0 Bowel Movements Output, 50 Emesis Output, Urine 120 166 6235 Physical Exam General Appearance: no apparent distress, alert, awake, comfortable Head: atraumatic Eyes: Bilateral: PERRL. Ears, Nose, Throat: normal pharynx Neck: normal inspection, supple Respiratory: normal breath sounds, chest non-tender, no respiratory distress Cardiovascular: regular rate/rhythm, edema Gastrointestinal: normal bowel sounds, soft, no organomegaly, tenderness Extremities: pedal edema Neurologic/Psych: awake, alert, oriented x 3 Skin: normal color, warm/dry Lymphatic: no anterior cervical kyra Other Physical Findings: on 2L NC Last 48 Hours of Lab Results: Laboratory Tests 09/30 09/30 09/30 1510 1440 1241 Coagulation PT (9.4 - 12.5 SEC) 11.5 INR (0.90 - 1.19) 1.10 APTT (25 - 37 SEC) 26 Fibrinogen Activity (200 - 393 MG/DL) 346 Fibrin Degrad Products (< 10 ug/ml) <10 ug/ml Hematology CBC w Diff NO MAN DIFF REQ WBC (4.8 - 10.8 /CUMM) 10.7 RBC (4.20 - 5.40 /CUMM) 2.97 L Hgb (12.0 - 16.0 G/DL) 8.8 L Hct (37 - 47 %) 26.0 L MCV (81.0 - 99.0 FL) 87.5 MCH (27.0 - 31.0 PG) 29.5 RDW (11.5 - 14.5 %) 14.6 H Plt Count (130 - 400 /CUMM) 83 L MPV (7.4 - 10.4 FL) 9.5 Gran % (42.2 - 75.2 %) 92.6 H Lymphocytes % (20.5 - 51.1 %) 4.5 L Monocytes % (1.7 - 9.3 %) 2.8 Eosinophils % (0 - 5 %) 0.1 Basophils % (0.0 - 2.0 %) 0 L Absolute Granulocytes (1.4 - 6.5 /CUMM) 9.9 H Absolute Lymphocytes (1.2 - 3.4 /CUMM) 0.5 L Absolute Monocytes (0.10 - 0.60 /CUMM) 0.3 Absolute Eosinophils (0.0 - 0.7 /CUMM) 0 Absolute Basophils (0.0 - 0.2 /CUMM) 0 PUBS MCHC (33.0 - 37.0 G/DL) 33.8 09/30 09/30 09/30 0550 0500 0500 Chemistry Sodium (137 - 145 mmol/L) 138 Potassium (3.5 - 5.1 mmol/L) 3.7 Chloride (98 - 107 mmol/L) 102 Carbon Dioxide (22 - 30 mmol/L) 27 Anion Gap (5 - 16) 9 BUN (7 - 17 mg/dL) 16 Creatinine (0.5 - 1.0 mg/dL) 0.7 Estimated GFR (>60 ml/min) > 60 Glucose (65 - 99 mg/dL) 74 Calcium (8.4 - 10.2 mg/dL) 7.1 L Phosphorus (2.5 - 4.5 mg/dL) 3.3 Magnesium (1.6 - 2.3 mg/dL) 1.9 Total Bilirubin (0.2 - 1.3 mg/dL) 0.6 AST (14 - 36 U/L) 22 ALT (9 - 52 U/L) 50 Albumin (3.5 - 5.0 g/dL) 1.9 L Hematology CBC w Diff MAN DIFF ORDERED WBC (4.8 - 10.8 /CUMM) 14.5 H RBC (4.20 - 5.40 /CUMM) 2.72 L Hgb (12.0 - 16.0 G/DL) 8.1 L Hct (37 - 47 %) 23.9 L MCV (81.0 - 99.0 FL) 88.0 MCH (27.0 - 31.0 PG) 29.7 RDW (11.5 - 14.5 %) 14.8 H Plt Count (130 - 400 /CUMM) 94 L MPV (7.4 - 10.4 FL) 9.7 Gran % (42.2 - 75.2 %) 92.7 H Lymphocytes % (20.5 - 51.1 %) 4.3 L Monocytes % (1.7 - 9.3 %) 2.9 Eosinophils % (0 - 5 %) 0.1 Basophils % (0.0 - 2.0 %) 0 L Absolute Granulocytes (1.4 - 6.5 /CUMM) 13.5 H Segmented Neutrophils (42.2 - 75.2 %) 92 H Band Neutrophils (0.0 - 5.0 %) 3 Absolute Lymphocytes (1.2 - 3.4 /CUMM) 0.6 L Lymphocytes (20.5 - 51.1 %) 4 L Monocytes (1.7 - 9.3 %) 1 L Absolute Monocytes (0.10 - 0.60 /CUMM) 0.4 Absolute Eosinophils (0.0 - 0.7 /CUMM) 0 Absolute Basophils (0.0 - 0.2 /CUMM) 0 Platelet Estimate (ADEQUATE) DECREASED Polychromasia 1+ Basophilic Stippling SLIGHT Ovalocytes FEW PUBS MCHC (33.0 - 37.0 G/DL) 33.8 Immunology AMELIA Titer Pending Anti-Nuclear Antibody Pending Anti-Mitochondrial Ab Pending Other Body Source Fld Total RBCs Counted (%) 100 Serology Hepatitis A IgM Ab (NONREACTIVE) Pending Hep Bs Antigen (NONREACTIVE) Pending Hep B Core IgM Ab Conf (NONREACTIVE) Pending Hepatitis C Antibody (NONREACTIVE) Pending 09/29 09/29 09/29 5632 9854 1800 Chemistry Sodium (137 - 145 mmol/L) 137 Potassium (3.5 - 5.1 mmol/L) 3.6 Chloride (98 - 107 mmol/L) 100 Carbon Dioxide (22 - 30 mmol/L) 29 Anion Gap (5 - 16) 9 BUN (7 - 17 mg/dL) 17 Creatinine (0.5 - 1.0 mg/dL) 0.7 Estimated GFR (>60 ml/min) > 60 Glucose (65 - 99 mg/dL) 107 H Calcium (8.4 - 10.2 mg/dL) 7.3 L Phosphorus (2.5 - 4.5 mg/dL) 3.5 Magnesium (1.6 - 2.3 mg/dL) 2.2 Total Bilirubin (0.2 - 1.3 mg/dL) 0.9 AST (14 - 36 U/L) 29 ALT (9 - 52 U/L) 53 H Albumin (3.5 - 5.0 g/dL) 2.3 L Coagulation PT (9.4 - 12.5 SEC) 12.6 H INR (0.90 - 1.19) 1.20 H Hematology CBC w Diff Cancelled NO MAN DIFF REQ Cancelled WBC (4.8 - 10.8 /CUMM) Cancelled 22.0 H Cancelled RBC (4.20 - 5.40 /CUMM) Cancelled 3.25 L Cancelled Hgb (12.0 - 16.0 G/DL) Cancelled 9.7 L Cancelled Hct (37 - 47 %) Cancelled 28.7 L Cancelled MCV (81.0 - 99.0 FL) Cancelled 88.3 Cancelled MCH (27.0 - 31.0 PG) Cancelled 29.7 Cancelled RDW (11.5 - 14.5 %) Cancelled 14.8 H Cancelled Plt Count (130 - 400 /CUMM) Cancelled 109 L Cancelled MPV (7.4 - 10.4 FL) Cancelled 9.4 Cancelled Gran % (42.2 - 75.2 %) 95.5 H Lymphocytes % (20.5 - 51.1 %) 2.3 L Monocytes % (1.7 - 9.3 %) 2.2 Eosinophils % (0 - 5 %) 0 Basophils % (0.0 - 2.0 %) 0 L Absolute Granulocytes (1.4 - 6.5 /CUMM) 21.0 H Absolute Lymphocytes (1.2 - 3.4 /CUMM) 0.5 L Absolute Monocytes (0.10 - 0.60 /CUMM) 0.5 Absolute Eosinophils (0.0 - 0.7 /CUMM) 0 Absolute Basophils (0.0 - 0.2 /CUMM) 0 PUBS MCHC (33.0 - 37.0 G/DL) Cancelled 33.7 Cancelled 09/29 09/29 09/29 1440 1440 1200 Chemistry Sodium (137 - 145 mmol/L) Cancelled 139 Potassium (3.5 - 5.1 mmol/L) Cancelled 3.4 L Chloride (98 - 107 mmol/L) Cancelled 101 Carbon Dioxide (22 - 30 mmol/L) Cancelled 31 H Anion Gap (5 - 16) Cancelled 8 BUN (7 - 17 mg/dL) Cancelled 19 H Creatinine (0.5 - 1.0 mg/dL) Cancelled 0.7 Estimated GFR (>60 ml/min) > 60 Glucose (65 - 99 mg/dL) Cancelled 103 H Calcium (8.4 - 10.2 mg/dL) Cancelled 7.1 L Phosphorus (2.5 - 4.5 mg/dL) Cancelled 4.3 Magnesium (1.6 - 2.3 mg/dL) Cancelled 1.5 L Total Bilirubin (0.2 - 1.3 mg/dL) Cancelled 0.9 AST (14 - 36 U/L) Cancelled 30 ALT (9 - 52 U/L) Cancelled 57 H Troponin I (< 0.11 ng/ml) < 0.01 Albumin (3.5 - 5.0 g/dL) Cancelled 2.0 L Coagulation PT (9.4 - 12.5 SEC) 16.6 H INR (0.90 - 1.19) 1.59 H Hematology CBC w Diff NO MAN DIFF REQ Cancelled WBC (4.8 - 10.8 /CUMM) 19.2 H Cancelled RBC (4.20 - 5.40 /CUMM) 2.52 L Cancelled Hgb (12.0 - 16.0 G/DL) 7.3 *L Cancelled Hct (37 - 47 %) 21.6 L Cancelled MCV (81.0 - 99.0 FL) 85.6 Cancelled MCH (27.0 - 31.0 PG) 29.0 Cancelled RDW (11.5 - 14.5 %) 14.6 H Cancelled Plt Count (130 - 400 /CUMM) 112 L Cancelled MPV (7.4 - 10.4 FL) 9.7 Cancelled Gran % (42.2 - 75.2 %) 94.9 H Lymphocytes % (20.5 - 51.1 %) 2.8 L Monocytes % (1.7 - 9.3 %) 2.3 Eosinophils % (0 - 5 %) 0 Basophils % (0.0 - 2.0 %) 0 L Absolute Granulocytes (1.4 - 6.5 /CUMM) 18.2 H Absolute Lymphocytes (1.2 - 3.4 /CUMM) 0.5 L Absolute Monocytes (0.10 - 0.60 /CUMM) 0.4 Absolute Eosinophils (0.0 - 0.7 /CUMM) 0 Absolute Basophils (0.0 - 0.2 /CUMM) 0 PUBS MCHC (33.0 - 37.0 G/DL) 33.8 Cancelled 09/2918 09/29 0810 0810 0440 Chemistry Iron (37 - 170 ug/dL) 36 L TIBC (265 - 497 ug/dL) 234 L Ferritin (11.1 - 264 ng/mL) 594.0 H Troponin I (< 0.11 ng/ml) < 0.01 Coagulation PT (9.4 - 12.5 SEC) 83.3 *H Cancelled INR (0.90 - 1.19) 8.10 *H Cancelled Hematology CBC w Diff MAN DIFF ORDERED WBC (4.8 - 10.8 /CUMM) 23.4 H RBC (4.20 - 5.40 /CUMM) 2.22 L Hgb (12.0 - 16.0 G/DL) 6.7 *L Hct (37 - 47 %) 19.2 *L MCV (81.0 - 99.0 FL) 86.4 MCH (27.0 - 31.0 PG) 30.0 RDW (11.5 - 14.5 %) 14.5 Plt Count (130 - 400 /CUMM) 141 MPV (7.4 - 10.4 FL) 9.4 Gran % (42.2 - 75.2 %) 95.3 H Lymphocytes % (20.5 - 51.1 %) 2.2 L Monocytes % (1.7 - 9.3 %) 2.5 Eosinophils % (0 - 5 %) 0 Basophils % (0.0 - 2.0 %) 0 L Absolute Granulocytes (1.4 - 6.5 /CUMM) 22.3 H Segmented Neutrophils (42.2 - 75.2 %) 81 H Band Neutrophils (0.0 - 5.0 %) 15 H Absolute Lymphocytes (1.2 - 3.4 /CUMM) 0.5 L Lymphocytes (20.5 - 51.1 %) 2 L Monocytes (1.7 - 9.3 %) 2 Absolute Monocytes (0.10 - 0.60 /CUMM) 0.6 Absolute Eosinophils (0.0 - 0.7 /CUMM) 0 Absolute Basophils (0.0 - 0.2 /CUMM) 0 Nucleated RBCs (0.0 - 0.0 /100WBC) 2 H Poikilocytosis 1+ Anisocytosis 1+ PUBS MCHC (33.0 - 37.0 G/DL) 34.7 06/18 0320 Chemistry Sodium (137 - 145 mmol/L) 136 L Potassium (3.5 - 5.1 mmol/L) 4.0 Chloride (98 - 107 mmol/L) 96 L Carbon Dioxide (22 - 30 mmol/L) 31 H Anion Gap (5 - 16) 9 BUN (7 - 17 mg/dL) 22 H Creatinine (0.5 - 1.0 mg/dL) 0.5 Estimated GFR (>60 ml/min) > 60 BUN/Creatinine Ratio (7 - 25 %) 44.0 H Glucose (65 - 99 mg/dL) 110 H Calcium (8.4 - 10.2 mg/dL) 7.7 L Total Bilirubin (0.2 - 1.3 mg/dL) 0.6 AST (14 - 36 U/L) 37 H ALT (9 - 52 U/L) 60 H Alkaline Phosphatase (<127 U/L) 67 Troponin I (< 0.11 ng/ml) < 0.01 Total Protein (6.3 - 8.2 g/dL) 4.4 L Albumin (3.5 - 5.0 g/dL) 2.1 L Globulin (1.9 - 4.2 gm/dL) 2.3 Albumin/Globulin Ratio (1.1 - 2.2 %) 0.9 L Lipase (23 - 300 U/L) 61 Coagulation PT (9.4 - 12.5 SEC) > 103.0 *H INR (0.90 - 1.19) > 10.0 *H APTT (25 - 37 SEC) 47 H Hematology CBC w Diff NO MAN DIFF REQ WBC (4.8 - 10.8 /CUMM) 15.4 H RBC (4.20 - 5.40 /CUMM) 1.46 L Hgb (12.0 - 16.0 G/DL) 4.2 *L Hct (37 - 47 %) 12.5 *L MCV (81.0 - 99.0 FL) 85.5 MCH (27.0 - 31.0 PG) 28.9 RDW (11.5 - 14.5 %) 15.3 H Plt Count (130 - 400 /CUMM) 177 MPV (7.4 - 10.4 FL) 10.1 Gran % (42.2 - 75.2 %) 93.6 H Lymphocytes % (20.5 - 51.1 %) 4.7 L Monocytes % (1.7 - 9.3 %) 1.7 Eosinophils % (0 - 5 %) 0 Basophils % (0.0 - 2.0 %) 0 L Absolute Granulocytes (1.4 - 6.5 /CUMM) 14.4 H Absolute Lymphocytes (1.2 - 3.4 /CUMM) 0.7 L Absolute Monocytes (0.10 - 0.60 /CUMM) 0.3 Absolute Eosinophils (0.0 - 0.7 /CUMM) 0 Absolute Basophils (0.0 - 0.2 /CUMM) 0 PUBS MCHC (33.0 - 37.0 G/DL) 33.8 Imaging/Other Studies: Abdomen/pelvis CT 09/29/2016: 1. No evidence of intra-abdominal hematoma. The study was not specifically performed as a CTA, but no definite evidence of active contrast extravasation into bowel is seen on this exam. 2. There is mild distention of proximal small bowel loops with gradual transition to normal caliber decompressed loops of bowel in the midabdomen, suggesting a partial/low grade bowel obstruction. No focal mass or distortion is seen at the point of this gradual transition. The previously seen more focal area of presumed adhesion in the mid abdomen is no longer visualized. 3. New trace left-sided pleural effusion with associated mild dependent atelectasis in the left lower lobe. 4. No significant change in moderate pericardial effusion. 5. Right adrenal mass again seen, most consistent with a small lipid rich adenoma. 6. Small right renal mass, consistent with a cyst. 7. Stable abdominal aortic aneurysm, status post aortobiiliac stent graft placement. 8. Chronic, enlarged left para-aortic lymph node. Assessment/Plan Assessment: Ms. Merlos is a 76-year-old female with PVD, PUD, COPD, CAD, AAA s/p endovascular repair, and recently SBO s/p lysis of adhesion who presents to the hospital with hematemesis, coffee ground emesis, and elevated INR. She has been having significant issues with oral intake since her surgery during the most recent admission. Her elevated INR is likely secondary to factor deficiency. With her decreased oral intake, she likely has vitamin K deficiency. INR normalized after FFP and vitamin K 10 mg IM. INR continues to be normal after 24 hours. Fibrinogren was check and is normal. She no longer has obvious bleeding. If she does bleed, she may need platelet transfusion and FFP given her recent usage of aspirin. Her INR can be monitor for now. She may need a daily low dose vitamin K as an outpatient if she does not keep a good oral intake. Her thrombocytopenia is likely an acute consumptive process from bleeding. Recommendations: 1. Monitor PT/INR/PTT daily 2. Check CBC at least daily 3. GI evaluation for for bleeding: EGD tomorrow 4. Consider platelet transfusion if bleeding 5. Hold aspirin and anticoagulation for now Problem List: 1. Malnutrition 2. Thrombocytopenia 3. Coagulopathy 4. Hematemesis 5. Elevated INR Other Findings/Comments: Please call [phone] Consult Acknowledgment - Thank you for your consult request.
[2016-10-01] VITALS: BP 138/54
[2016-10-01 05:10] LABS: ABSOLUTE BASOPHIL COUNT 0 /CUMM (0.0-0.2); ABSOLUTE EOSINOPHIL COUNT 0 /CUMM (0.0-0.7); ABSOLUTE GRANULOCYTE CT 8.7 /CUMM (1.4-6.5); ABSOLUTE LYMPH COUNT 0.5 /CUMM (1.2-3.4); ABSOLUTE MONOCYTE COUNT 0.3 /CUMM (0.10-0.60); BASOPHIL % 0.2 % (0.0-2.0); EOSINOPHIL % 0.2 % (0-5); GRANULOCYTE % 91.1 % (42.2-75.2); HEMATOCRIT 29.9 % (37-47); MEAN CORPUSCULAR HGB 29.3 PG (27.0-31.0); MEAN CORPUSCULAR HGB CONC 33.1 G/DL (33.0-37.0); MEAN CORPUSCULAR VOLUME 88.5 FL (81.0-99.0); MEAN PLATELET VOLUME 9.9 FL (7.4-10.4); PLATELET COUNT 96 /CUMM (130-400); RBC DISTRIBUTION WIDTH 15.2 % (11.5-14.5); RED BLOOD CELL CT 3.38 /CUMM (4.20-5.40); WHITE BLOOD CELL COUNT 9.5 /CUMM (4.8-10.8)
[2016-10-01 05:24] LABS: PT 12.9 SEC (9.4-12.5)
--- NOTE | 2016-10-01 07:04 | PN- Gastroenterology ---
Assessment/Plan Assessment/Recommendations: (*Please refer to Dr. Bianchi's covering inpatient GI consult if 09/29/2016 & my previous inpatient GI consult of 09/11/2016. Extensive records reviewed). 76 y/o female, extremely poor historian, with numerous comorbidities (see below) , recently admitted to , 09/11/2016 - 09/21/2016, with SBO after presenting with nausea, vomiting, & diarrhea. The patient failed conservative therapy with NG tube, and underwent expiratory laparotomy with lysis of adhesions 09/13/[address] Reed. A transition point was seen in the mid small bowel, as the proximal jejunum was severely dilated up to 5 cm. No mass or intraluminal process was appreciated intraoperatively. Adhesions were seen from the omentum to the anterior abdominal wall, and dissected. No small bowel was resected. She became hypoxic Day # 2 postop & was found to have a LLL infiltrate, consistent with probable aspiration pneumonia. She was treated with antibiotics and tapering prednisone. Her O2 sats improved, and she was discharged to a rehab center, off O2. 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 The patient has had an extensive previous GI workup by myself, but again, has * repeatedly refused outpatient PillCam. 02/16/03: H. pylori Ab- negative. : EGD/colonoscopy to TI (done for OB positive stool, microcytic anemia on Plavix then)-HP-negative gastritis, normal duodenal folds; left diverticulosis coli, hypertrophied anal papillae, with normal colonic mucosa to the TI. : normal Hgb electrophoresis (no beta thalassemia). 10/26/07: normal IgA 129. 10/27/07: elevated haptoglobin 282 (going against hemolysis), tTG Ab (IgA/IgG)- negative, normal fasting serum carotene 78. 10/27/07: EGD/colonoscopy to cecum- mild GERD without Diaz's esophagitis, small hiatal hernia, Z line at 38 cm, no Luis erosions, no varices. Prepyloric erosion with benign inflammation, H. pylori negative. Scarred yet patent pylorus, without any active peptic ulcer disease or gastric outlet obstruction. Duodenal biopsies- normal villi. Left- sided diverticulosis coli with normal colonic mucosa to the cecum. 03/16/09: EGD to the proximal jejunum with the pediatric colonoscope to 120 cm from above (done for recurrent Fe deficiency anemia & melena, on Pletal then)- pre-vocal cord leukoplakia, near the arytenoids (unsure if patient was compliant with suggested ENT follow-up), normal esophageal mucosa with Z line at 35 cm, biopsies- squamous mucosa with moderate GERD, without EOE or Diaz's esophagus. Small hiatal hernia, without any Luis erosions or varices. Diffuse gastritis, with biopsies- mild chronic gastritis, H. pylori negative. 7 mm x 5 mm prepyloric antral gastric ulcer, symmetrical, with radiating folds. No clot or visible vessel. No therapeutics. Direct biopsies deferred, as it was organizing. Patent pylorus, without gastric outlet obstruction. Nonbleeding gastric antral AVM, left intact without therapeutics. Scattered nonbleeding duodenal and jejunal AVMs, left intact without therapeutics. Normal caliber SB folds. The patient was last seen in covering GI consultation by Dr. Pinto on 05/25/10, for recurrent symptomatic anemia. 05/25/10: Push enteroscopy to jejunum with the pediatric colonoscope from above- 1 bleeding AVM at the lesser curvature of the stomach, BiCAP cautery, with cessation of bleed. 10 non- bleeding AVMs from the second portion of the duodenum to the distal jejunum, BiCAP cautery. *The patient again refused an outpatient PillCam. She had not been seen for outpatient GI. She had since had the 10/02/15: endovascular repair of AAA, followed by readmission 10/09/15 - 10/12/15 for mechanical fall & confusion, followed by STR. *There is no family history of GI disease, GI Ca, or inherited liver disease, However some siblings of alcoholic cirrhosis. One daughter- 40, from alcoholic cirrhosis and possible hepatoma. One son in [place]- 49, alive with history of EtOH abuse & Hep C. There is a strong family history of ASHD, smoking, drug & EtOH- related illnesses. The patient uses marijuana. She denied IVDA. 09/11/16: CT ABD & PELVIS ANGIOGRAM- 1. The [place] abdominal aortic aneurysm is smaller (3.3 cm, formally 5 cm preop) . 2. Aortobiiliac stent normal. No endoleak. No aorto enteric fistula. 3. 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 4. *Small bowel obstruction mid-abdomen as described, with grossly distended stomach, duodenum, & proximal jejunum (fecalization of intraluminal contents), with transition point near the umbilicus. Normal caliber ileum, with decompressed colon (*prior to 09/13/16: exp lap/GRICEL). 5. Diverticulosis coli. 6. Right adrenal nodule. *The patient was admitted to 09/29/2016, with weakness and limited mobility, essentially gone from her bed to the bathroom. Apparently, she was not on any anticoagulants, yet her admission 09/29/2016: *INR > 10 (*the rehab center denied any erroneous administration of Coumadin, etc), with H/H 4.2 /12.5, PLT 177, WBC 15.4, BUN/Cr 22/0.5, GFR > 60. She also had black tarry stool & 2 episodes of coffee ground emesis at [facility] & 2 a.m., the day of admission. Any chest pain, shortness of breath, or palpitations. She denied any abdominal pain or abdominal distention. She was on outpatient Omeprazole 20 mg daily, along with the Ecotrin 81 mg daily, again without any NSAIDs. She was on tapering doses of Prednisone. She has received a total of 4u PRBC & 2u FFP to date this admission, as of 4 p.m. on 09/30/2016, & 1 dose of Vitamin K 10 mg sc. 09/29/2016: *Admission labs- BUN/Cr 22/0.5, GFR > 60, Na 136, K 4.0, HCO3 31, AG 9, lipase 61, Ca 7.7, albumin 2.1, globulin 2.3, TBil 0.6, alk phos 67, AST 37, ALT 60, troponin < 0.01 (neg x 3), Fe 36, TIBC 234 (c/w chronic disease- although the Fe studies were sent after the 1st unit PRBC), Fe sat 15.4 %, ferritin 594, WBC 15.4 (94% gran, 14 gran Ab), H/H 4.2/12.5, MCV 85.5, RDW 15.3, PLT 177, *PT > 103, INR > 10, PTT 47. No B12/folate were sent recently. 09/29/2016: EKG- ST @ 116, normal axis, normal intervals, chronic mild ST elevation II, without acute ischemic changes. 09/29/2016: CT ABDOMEN AND PELVIS WITH IV CONTRAST- 1. *No evidence of intra-abdominal hematoma. The study was not specifically performed as a CTA, but *no definite evidence of active contrast extravasation into bowel is seen on this exam. 2. There is mild distention of proximal small bowel loops with gradual transition to normal caliber decompressed loops of bowel in the midabdomen, suggesting a partial/low grade bowel obstruction. No focal mass or distortion is seen at the point of this gradual transition. The previously seen more focal area of presumed adhesion in the mid abdomen is no longer visualized. 3. New trace left-sided pleural effusion with associated mild dependent atelectasis in the left lower lobe. 4. No significant change in moderate pericardial effusion. 5. Right adrenal mass again seen, most consistent with a small lipid rich adenoma. 6. Small right renal mass, consistent with a cyst. 7. *Stable abdominal aortic aneurysm, status post aortobiiliac stent graft placement. 3.7 cm max. 8. Chronic, enlarged left para-aortic lymph node. 9. Normal liver. 09/29/2016: XR PORTABLE CHEST- Improving left lower lobe opacity with residual minor subsegmental atelectasis. No acute abnormality. *As of 09/30/2016, the patient is currently hemodynamically stable (except for intermittent borderline tachycardia, with stable BP), & afebrile, in the ICU. She is on an IV Protonix drip & Zofran. She was apparently put on IV Ceftriaxone and Flagyl. She had a loose black bowel movement earlier today. There has been no recurrent hematemesis. K+/Mg2+ were repleted. She is currently on clears po. She denied any fevers, chills, abdominal pain, nausea, vomiting, BRBPR, chest pain or shortness of breath. *As of 10/01/16, the patient remains hemodynamically stable. O2 sat 2L nc 91%. Tm 100, on broad spectrum antibiotics (IV Ceftriaxone & Flagyl), per ICU. BC/UC remain negative. She denied any symptoms of UTI or URI. She remained on an IV Protonix drip & Zofran. She tolerated clears & is now NPO for EGD later today, perhaps with a long scope from above. She had melena at 8 PM last evening. She denied any abdominal pain, nausea, vomiting, recurrent hematemesis, chest pain, or shortness of breath. Her abdominal wounds continue to heal from her 09/13/16: exp lap & GRICEL. She last got PRBC on 09/30/16. 09/30/16: *Hep A, B & C; AMELIA, AMA- pending 09/30/16: PTT 26, fibrinogen 346, FDP < 10 10/01/16: WBC 9.5, H/H9.9/29.9, PLT 96, PT 12.9, INR 1.23, BUN/Cr 9/0.6, GFR > 60, *K 3.1, *albumin 1.9, other LFTs neg Clinically, the patient appears to have had an upper GI bleed in the setting of severe coagulopathy, exact etiology of the latter unknown (*see hematology consult of 09/30/16). The rehabilitation center denied giving the patient any erroneous Coumadin. Other possibilities for the coagulopathy could include malnutrition/malabsorption, as the patient's albumin is low. The patient could have underlying liver disease. She had been on antibiotics relatively recently, which could have changed the gut mari, but again, this should not cause an INR > 10. The thrombocytopenia is noted as well, rule out component of DIC (panel- neg). 09/29/2016: Admission CT AP with IV contrast did not show any retroperitoneal hematoma, nor any gross aortoenteric fistula, post endovascular AAA repair, although CTA protocol was not done. *Please note, the patient just had 09/13/2016: exp lap with GRICEL for adhesions, & I would be a little leery of performing a colonoscopy at present unless this were absolutely needed. Clinically, I would start a GI workup from above. The patient's family seems to think the patient previously had complications from colonoscopies, but upon my review of the Tim procedures, this has not been the case. There is a very good change she was oozing from her known GI AVMs in the setting of marked coagulopathy. Rule out recurrent peptic ulcer disease. Doubt varices. *She has repeatedly refused an outpatient Pillcam, which would require a patency capsule, keeping in mind the past history of SBO. *SUGGEST: No aspirin. No NSAIDs. Continue IV Protonix drip. Maintain NPO for EGD (perhaps with a long scope from above as well, to check the jejunum), later today, on 10/01/2016. Informed consent for EGD was obtained from the patient after careful explanation of the risks & benefits. Colonoscopy on hold for now, but may reconsider this, depending on clinical course. *Would prefer to wait a few months for a colonoscopy, until after her abdominal wounds heal, post : exp lap/GRICEL. Maintain in ICU for now. *Depending on EGD results, outpatient PillCam with patency capsule, as patient allows (previously refused). 2 large bore IVs. O2 prn. T&C 2u PRBC. Keep Hgb > 8 (ASHD). Strict I/O's. Follow-up with Hematology. *Nutrition consult. Consider surgical consult. Close follow up of CBC, INR & platelets daily. *Advise checking full Hep A, B & C serologies, HIV, AMELIA & AMA, although the liver does not look cirrhotic on imaging studies. Broad spectrum antibiotics, bronchodilators, etc. per ICU team. *Replete K+. The above was discussed with the patient & the medical house staff in great detail. 30 minutes of ICU care was spent on the patient. Problem List: 1. Anemia 2. Coagulopathy 3. Hematemesis 4. Melena 5. Angiodysplasia of gastrointestinal tract 6. Thrombocytopenia 7. Malnutrition 8. History of peptic ulcer disease 9. S/P AAA (abdominal aortic aneurysm) repair Subjective Subjective: The patient was seen by Dr. Blevins, of hematology, on 09/30/16. Her elevated INR on admission was felt to be likely secondary to factor deficiency. It corrected rapidly within 24 hours, after FFP and vitamin K. She was felt to have probable vitamin K deficiency, due to decreased po intake. There was no evidence of DIC. Her aspirin remains on hold. Her thrombocytopenia was felt to be due to a consumptive process from bleeding. *As of 10/01/16, the patient remains hemodynamically stable. O2 sat 2L nc 91%. Tm 100, on broad spectrum antibiotics (IV Ceftriaxone & Flagyl), per ICU. BC/UC remain negative. She denied any symptoms of UTI or URI. She remained on an IV Protonix drip & Zofran. She tolerated clears & is now NPO for EGD later today, perhaps with a long scope from above. She had melena at 8 PM last evening. She denied any abdominal pain, nausea, vomiting, recurrent hematemesis, chest pain, or shortness of breath. Her abdominal wounds continue to heal from her 09/13/16: exp lap & GRICEL. She last got PRBC on 09/30/16. 09/30/16: *Hep A, B & C; AMELIA, AMA- pending 09/30/16: PTT 26, fibrinogen 346, FDP < 10 10/01/16: WBC 9.5, H/H9.9/29.9, PLT 96, PT 12.9, INR 1.23, BUN/Cr 9/0.6, GFR > 60, *K 3.1, *albumin 1.9, other LFTs neg Review of Systems: Constitutional: Reports: malaise Denies: chills, fevers, diaphoresis, weakness, unexplained weight loss. EENTM: Denies: blurred vision, double vision, visual changes, eye pain, eye drainage, eye tearing, icterus, ear discharge, ear pain, ear redness, hearing changes, nasal congestion, epistaxis, nasal pain, throat pain, throat swelling, mouth pain, tooth pain. Cardiovascular: Denies: chest pain, edema, orthopena, palpitations, peripheral edema, syncope. Respiratory: Denies: SOB, cough, hemoptysis, orthopnea, sputum production, stridor, wheezing. GI: Reports: melena Denies: abdominal pain, diarrhea, distention, nausea, bloody stool, vomiting, recurrent hematemesis, bloating, constipation, bowel incontinence, melena, changes in stool, steatorrhea. Genitourinary: Denies: discharge, dysuria, frequency, hematuria, hesitation, nocturia, pain, urgency. Musculoskeletal: Reports: back pain (chronic), joint pain (DJD). Denies: gout, joint swelling, muscle pain, muscle stiffness, neck pain. Skin: Denies: cysts, change in skin color, change in hair/nails, dryness, erythema, jaundice, lesions, lymphangitis, lumps, moles, rash. Neurological/Psychological: Reports: anxiety, emotional problems, headache (chronic). Denies: ataxia, cognitive dysfunction, confusion, depressed, dementia, numbness, paresthesia, pre-existing deficit, petit mal seizures, tingling, tremors, tonic- clonic seizures, unable to move lower ext, unable to move upper ext, weakness. Hematologic/Endocrine: Denies: bruising, bleeding, polyuria, polydipsia. Immunologic/Allergic: Denies: splenectomy, HIV/AIDS, lymphadenopathy. All Other Systems: Reviewed and Negative Objective Vital Signs and I&Os Vital Signs Date Time Temp Pulse Resp B/P B/P Pulse O2 O2 Flow FiO2 Mean Ox Delivery Rate 10/01 0400 91 Nasal 2.0L Cannula 10/01 0000 100.0 90 24 138/54 95 Nasal 2.0L Cannula 10/01 0000 95 Nasal 2.0L Cannula 09/30 2000 95 Nasal 2.0L Cannula 09/30 1600 100 Nasal 2.0L Cannula 09/30 1600 99.7 86 20 140/56 100 Nasal 2.0L Cannula 09/30 1025 Nasal 2.5L Cannula 09/30 0944 99 Nasal 2.5L Cannula 09/30 0800 97 Nasal 2.0L Cannula 09/30 0800 98.2 90 19 132/68 97 Nasal 2.0L Cannula Intake & Output 10/01 1600 10/01 0400 09/30 1600 09/30 0400 09/29 1600 09/29 0400 Intake Total 1141 1610 3213 1202 2484 Output Total 576 107 0895 1550 500 Balance 801 1210 2113 -348 1984 Intake, Blood 891 056 8574 Product Intake, IV 1141 1160 2493 852 1484 Intake, Oral 450 370 0 0 Number 0 1 151 0 0 Bowel Movements Output, 50 Emesis Output, Urine 967 575 9614 1500 500 Patient 133 lb 135 lb Weight Weight Bed scale Measurement Method Physical Exam: Well-developed, slightly malnourished elderly female, in NAD Sclera anicteric. Conjunctiva pink. Oropharynx clear. Poor dentition- edentulous. No oral thrush. No aphthous ulcers. There is no adenopathy, thyromegaly, or JVD. No peripheral stigmata of inflammatory bowel disease or chronic liver disease on exam. No spiders on the anterior chest wall. No CVA tenderness. Breast & pelvic exams: API. Lungs: clear to A&P, without wheezing, rales, or rhonchi. Slightly prolonged expiratory phase. Mild decreased BS at left base. Heart exam: regular rate rhythm, S1 S2, I/ systolic murmur. Abdominal exam: normoactive bowel sounds, moderately distended tympanitic belly, nontender, without guarding or rebound. Healing midline infraumbilical scar with will. No mass. No organomegaly. No definite fluid shift. No pulsatile mass. No epigastric bruit. Digital rectal exam: API- melena, earlier this admission. Extremities: without C, C, or E. No palpable cords. No palmar erythema. No Dupuytren's contractures. Distal pulses 2+ bilaterally. DTRs 2+ bilaterally. Alert and oriented x 3. Right handed. CN II-XII intact. Motor 5/5 B/L. No tremor. No asterixis. A detailed exam for peripheral neuropathy was deferred. Current Medications: Current Medications Sig/Ebenezer Start time Last Medication Dose Route Stop Time Status Admin Albuterol Sulfate 3 ML BID 09/29 1000 AC 09/30 INH 2056 Albuterol Sulfate 2 PUF Q4-6 PRN PRN 09/29 0515 AC INH Alprazolam 0.5 MG ONCE ONE 09/30 2044 DC 09/30 PO 09/30 Ceftriaxone Sodium 1,000 MG DAILY 09/29 1037 AC 09/30 IV 1025 Magnesium Sulfate 1 GM Q2H 09/30 0845 DC 09/30 Dextrose/Water 100 ML IV 09/30 1044 0845 Metronidazole 500 MG Q8H 09/29 2100 AC 10/01 N/A 1 UNIT IV 0615 Morphine Sulfate 2 MG Q4P PRN 09/29 0515 AC 10/01 IV 0111 Ondansetron HCl 4 MG Q6P PRN 09/29 0515 AC 09/29 IV 1446 Pantoprazole Sodium 40 MG Q5H 09/29 0515 AC 10/01 Sodium Chloride 100 ML IV 0656 Polyethylene Glycol 1 GAL ONCE ONE 09/30 1800 CAN PO 09/30 1801 Potassium Chloride 10 MEQ Q1H 10/01 0745 UNVr IV 10/01 0946 Potassium Chloride 10 MEQ Q1H 10/01 0600 DC 10/01 IV 10/01 0701 0656 Sodium Chloride 1,000 ML .Q8H 09/29 0515 AC 10/01 IV 0614 Tiotropium [place] 1 PUF DAILY 09/29 1000 AC 09/30 INH 1025 Results Pertinent Lab Results: Laboratory Tests 10/01 09/30 0420 1510 Chemistry Sodium (137 - 145 mmol/L) 136 L Potassium (3.5 - 5.1 mmol/L) 3.1 L Chloride (98 - 107 mmol/L) 107 Carbon Dioxide (22 - 30 mmol/L) 23 Anion Gap (5 - 16) 6 BUN (7 - 17 mg/dL) 9 Creatinine (0.5 - 1.0 mg/dL) 0.6 Estimated GFR (>60 ml/min) > 60 Glucose (65 - 99 mg/dL) 72 Calcium (8.4 - 10.2 mg/dL) 7.1 L Phosphorus (2.5 - 4.5 mg/dL) 3.1 Magnesium (1.6 - 2.3 mg/dL) 1.9 Total Bilirubin (0.2 - 1.3 mg/dL) 0.5 AST (14 - 36 U/L) 21 ALT (9 - 52 U/L) 32 Albumin (3.5 - 5.0 g/dL) 1.9 L Coagulation PT (9.4 - 12.5 SEC) 12.9 H INR (0.90 - 1.19) 1.23 H Hematology CBC w Diff MAN DIFF ORDERED NO MAN DIFF REQ WBC (4.8 - 10.8 /CUMM) 9.5 10.7 RBC (4.20 - 5.40 /CUMM) 3.38 L 2.97 L Hgb (12.0 - 16.0 G/DL) 9.9 L 8.8 L Hct (37 - 47 %) 29.9 L 26.0 L MCV (81.0 - 99.0 FL) 88.5 87.5 MCH (27.0 - 31.0 PG) 29.3 29.5 RDW (11.5 - 14.5 %) 15.2 H 14.6 H Plt Count (130 - 400 /CUMM) 96 L 83 L MPV (7.4 - 10.4 FL) 9.9 9.5 Gran % (42.2 - 75.2 %) 91.1 H 92.6 H Lymphocytes % (20.5 - 51.1 %) 5.5 L 4.5 L Monocytes % (1.7 - 9.3 %) 3.0 2.8 Eosinophils % (0 - 5 %) 0.2 0.1 Basophils % (0.0 - 2.0 %) 0.2 0 L Absolute Granulocytes (1.4 - 6.5 /CUMM) 8.7 H 9.9 H Segmented Neutrophils (42.2 - 75.2 %) 86 H Band Neutrophils (0.0 - 5.0 %) 9 H Absolute Lymphocytes (1.2 - 3.4 /CUMM) 0.5 L 0.5 L Lymphocytes (20.5 - 51.1 %) 4 L Absolute Monocytes (0.10 - 0.60 /CUMM) 0.3 0.3 Absolute Eosinophils (0.0 - 0.7 /CUMM) 0 0 Absolute Basophils (0.0 - 0.2 /CUMM) 0 0 Metamyelocytes (0.0 - 1.0 %) 1 Platelet Estimate (ADEQUATE) DECREASED Poikilocytosis 1+ Basophilic Stippling 1+ Ovalocytes 1+ PUBS MCHC (33.0 - 37.0 G/DL) 33.1 33.8 09/30 09/30 09/30 1440 1241 0550 Chemistry Sodium (137 - 145 mmol/L) 138 Potassium (3.5 - 5.1 mmol/L) 3.7 Chloride (98 - 107 mmol/L) 102 Carbon Dioxide (22 - 30 mmol/L) 27 Anion Gap (5 - 16) 9 BUN (7 - 17 mg/dL) 16 Creatinine (0.5 - 1.0 mg/dL) 0.7 Estimated GFR (>60 ml/min) > 60 Glucose (65 - 99 mg/dL) 74 Calcium (8.4 - 10.2 mg/dL) 7.1 L Phosphorus (2.5 - 4.5 mg/dL) 3.3 Magnesium (1.6 - 2.3 mg/dL) 1.9 Total Bilirubin (0.2 - 1.3 mg/dL) 0.6 AST (14 - 36 U/L) 22 ALT (9 - 52 U/L) 50 Albumin (3.5 - 5.0 g/dL) 1.9 L Coagulation PT (9.4 - 12.5 SEC) 11.5 INR (0.90 - 1.19) 1.10 APTT (25 - 37 SEC) 26 Fibrinogen Activity (200 - 393 MG/DL) 346 Fibrin Degrad Products (< 10 ug/ml) <10 ug/ml Hematology CBC w Diff MAN DIFF ORDERED WBC (4.8 - 10.8 /CUMM) 14.5 H RBC (4.20 - 5.40 /CUMM) 2.72 L Hgb (12.0 - 16.0 G/DL) 8.1 L Hct (37 - 47 %) 23.9 L MCV (81.0 - 99.0 FL) 88.0 MCH (27.0 - 31.0 PG) 29.7 RDW (11.5 - 14.5 %) 14.8 H Plt Count (130 - 400 /CUMM) 94 L MPV (7.4 - 10.4 FL) 9.7 Gran % (42.2 - 75.2 %) 92.7 H Lymphocytes % (20.5 - 51.1 %) 4.3 L Monocytes % (1.7 - 9.3 %) 2.9 Eosinophils % (0 - 5 %) 0.1 Basophils % (0.0 - 2.0 %) 0 L Absolute Granulocytes (1.4 - 6.5 /CUMM) 13.5 H Segmented Neutrophils (42.2 - 75.2 %) 92 H Band Neutrophils (0.0 - 5.0 %) 3 Absolute Lymphocytes (1.2 - 3.4 /CUMM) 0.6 L Lymphocytes (20.5 - 51.1 %) 4 L Monocytes (1.7 - 9.3 %) 1 L Absolute Monocytes (0.10 - 0.60 /CUMM) 0.4 Absolute Eosinophils (0.0 - 0.7 /CUMM) 0 Absolute Basophils (0.0 - 0.2 /CUMM) 0 Platelet Estimate (ADEQUATE) DECREASED Polychromasia 1+ Basophilic Stippling SLIGHT Ovalocytes FEW PUBS MCHC (33.0 - 37.0 G/DL) 33.8 Other Body Source Fld Total RBCs Counted (%) 100 Serology Hepatitis A IgM Ab (NONREACTIVE) Pending Hep Bs Antigen (NONREACTIVE) Pending Hep B Core IgM Ab Conf (NONREACTIVE) Pending Hepatitis C Antibody (NONREACTIVE) Pending 09/30 09/30 09/29 0500 0500 2359 Hematology CBC w Diff Cancelled WBC Cancelled RBC Cancelled Hgb Cancelled Hct Cancelled MCV Cancelled MCH Cancelled RDW Cancelled Plt Count Cancelled MPV Cancelled PUBS MCHC Cancelled Immunology AMELIA Titer Pending Anti-Nuclear Antibody Pending Anti-Mitochondrial Ab Pending 09/29 09/29 09/29 2222 1800 1440 Chemistry Sodium (137 - 145 mmol/L) 137 Cancelled Potassium (3.5 - 5.1 mmol/L) 3.6 Cancelled Chloride (98 - 107 mmol/L) 100 Cancelled Carbon Dioxide (22 - 30 mmol/L) 29 Cancelled Anion Gap (5 - 16) 9 Cancelled BUN (7 - 17 mg/dL) 17 Cancelled Creatinine (0.5 - 1.0 mg/dL) 0.7 Cancelled Estimated GFR (>60 ml/min) > 60 Glucose (65 - 99 mg/dL) 107 H Cancelled Calcium (8.4 - 10.2 mg/dL) 7.3 L Cancelled Phosphorus (2.5 - 4.5 mg/dL) 3.5 Cancelled Magnesium (1.6 - 2.3 mg/dL) 2.2 Cancelled Total Bilirubin (0.2 - 1.3 mg/dL) 0.9 Cancelled AST (14 - 36 U/L) 29 Cancelled ALT (9 - 52 U/L) 53 H Cancelled Albumin (3.5 - 5.0 g/dL) 2.3 L Cancelled Coagulation PT (9.4 - 12.5 SEC) 12.6 H INR (0.90 - 1.19) 1.20 H Hematology CBC w Diff NO MAN DIFF REQ Cancelled WBC (4.8 - 10.8 /CUMM) 22.0 H Cancelled RBC (4.20 - 5.40 /CUMM) 3.25 L Cancelled Hgb (12.0 - 16.0 G/DL) 9.7 L Cancelled Hct (37 - 47 %) 28.7 L Cancelled MCV (81.0 - 99.0 FL) 88.3 Cancelled MCH (27.0 - 31.0 PG) 29.7 Cancelled RDW (11.5 - 14.5 %) 14.8 H Cancelled Plt Count (130 - 400 /CUMM) 109 L Cancelled MPV (7.4 - 10.4 FL) 9.4 Cancelled Gran % (42.2 - 75.2 %) 95.5 H Lymphocytes % (20.5 - 51.1 %) 2.3 L Monocytes % (1.7 - 9.3 %) 2.2 Eosinophils % (0 - 5 %) 0 Basophils % (0.0 - 2.0 %) 0 L Absolute Granulocytes (1.4 - 6.5 /CUMM) 21.0 H Absolute Lymphocytes (1.2 - 3.4 /CUMM) 0.5 L Absolute Monocytes (0.10 - 0.60 /CUMM) 0.5 Absolute Eosinophils (0.0 - 0.7 /CUMM) 0 Absolute Basophils (0.0 - 0.2 /CUMM) 0 PUBS MCHC (33.0 - 37.0 G/DL) 33.7 Cancelled 09/29 09/29 09/29 1440 1200 0810 Chemistry Sodium (137 - 145 mmol/L) 139 Potassium (3.5 - 5.1 mmol/L) 3.4 L Chloride (98 - 107 mmol/L) 101 Carbon Dioxide (22 - 30 mmol/L) 31 H Anion Gap (5 - 16) 8 BUN (7 - 17 mg/dL) 19 H Creatinine (0.5 - 1.0 mg/dL) 0.7 Estimated GFR (>60 ml/min) > 60 Glucose (65 - 99 mg/dL) 103 H Calcium (8.4 - 10.2 mg/dL) 7.1 L Phosphorus (2.5 - 4.5 mg/dL) 4.3 Magnesium (1.6 - 2.3 mg/dL) 1.5 L Total Bilirubin (0.2 - 1.3 mg/dL) 0.9 AST (14 - 36 U/L) 30 ALT (9 - 52 U/L) 57 H Troponin I (< 0.11 ng/ml) < 0.01 < 0.01 Albumin (3.5 - 5.0 g/dL) 2.0 L Coagulation PT (9.4 - 12.5 SEC) 16.6 H INR (0.90 - 1.19) 1.59 H Hematology CBC w Diff NO MAN DIFF REQ Cancelled WBC (4.8 - 10.8 /CUMM) 19.2 H Cancelled RBC (4.20 - 5.40 /CUMM) 2.52 L Cancelled Hgb (12.0 - 16.0 G/DL) 7.3 *L Cancelled Hct (37 - 47 %) 21.6 L Cancelled MCV (81.0 - 99.0 FL) 85.6 Cancelled MCH (27.0 - 31.0 PG) 29.0 Cancelled RDW (11.5 - 14.5 %) 14.6 H Cancelled Plt Count (130 - 400 /CUMM) 112 L Cancelled MPV (7.4 - 10.4 FL) 9.7 Cancelled Gran % (42.2 - 75.2 %) 94.9 H Lymphocytes % (20.5 - 51.1 %) 2.8 L Monocytes % (1.7 - 9.3 %) 2.3 Eosinophils % (0 - 5 %) 0 Basophils % (0.0 - 2.0 %) 0 L Absolute Granulocytes (1.4 - 6.5 /CUMM) 18.2 H Absolute Lymphocytes (1.2 - 3.4 /CUMM) 0.5 L Absolute Monocytes (0.10 - 0.60 /CUMM) 0.4 Absolute Eosinophils (0.0 - 0.7 /CUMM) 0 Absolute Basophils (0.0 - 0.2 /CUMM) 0 PUBS MCHC (33.0 - 37.0 G/DL) 33.8 Cancelled 18 09/29 0810 0440 Chemistry Iron (37 - 170 ug/dL) 36 L TIBC (265 - 497 ug/dL) 234 L Ferritin (11.1 - 264 ng/mL) 594.0 H Coagulation PT (9.4 - 12.5 SEC) 83.3 *H Cancelled INR (0.90 - 1.19) 8.10 *H Cancelled Hematology CBC w Diff MAN DIFF ORDERED WBC (4.8 - 10.8 /CUMM) 23.4 H RBC (4.20 - 5.40 /CUMM) 2.22 L Hgb (12.0 - 16.0 G/DL) 6.7 *L Hct (37 - 47 %) 19.2 *L MCV (81.0 - 99.0 FL) 86.4 MCH (27.0 - 31.0 PG) 30.0 RDW (11.5 - 14.5 %) 14.5 Plt Count (130 - 400 /CUMM) 141 MPV (7.4 - 10.4 FL) 9.4 Gran % (42.2 - 75.2 %) 95.3 H Lymphocytes % (20.5 - 51.1 %) 2.2 L Monocytes % (1.7 - 9.3 %) 2.5 Eosinophils % (0 - 5 %) 0 Basophils % (0.0 - 2.0 %) 0 L Absolute Granulocytes (1.4 - 6.5 /CUMM) 22.3 H Segmented Neutrophils (42.2 - 75.2 %) 81 H Band Neutrophils (0.0 - 5.0 %) 15 H Absolute Lymphocytes (1.2 - 3.4 /CUMM) 0.5 L Lymphocytes (20.5 - 51.1 %) 2 L Monocytes (1.7 - 9.3 %) 2 Absolute Monocytes (0.10 - 0.60 /CUMM) 0.6 Absolute Eosinophils (0.0 - 0.7 /CUMM) 0 Absolute Basophils (0.0 - 0.2 /CUMM) 0 Nucleated RBCs (0.0 - 0.0 /100WBC) 2 H Poikilocytosis 1+ Anisocytosis 1+ PUBS MCHC (33.0 - 37.0 G/DL) 34.7 18 0320 Chemistry Sodium (137 - 145 mmol/L) 136 L Potassium (3.5 - 5.1 mmol/L) 4.0 Chloride (98 - 107 mmol/L) 96 L Carbon Dioxide (22 - 30 mmol/L) 31 H Anion Gap (5 - 16) 9 BUN (7 - 17 mg/dL) 22 H Creatinine (0.5 - 1.0 mg/dL) 0.5 Estimated GFR (>60 ml/min) > 60 BUN/Creatinine Ratio (7 - 25 %) 44.0 H Glucose (65 - 99 mg/dL) 110 H Calcium (8.4 - 10.2 mg/dL) 7.7 L Total Bilirubin (0.2 - 1.3 mg/dL) 0.6 AST (14 - 36 U/L) 37 H ALT (9 - 52 U/L) 60 H Alkaline Phosphatase (<127 U/L) 67 Troponin I (< 0.11 ng/ml) < 0.01 Total Protein (6.3 - 8.2 g/dL) 4.4 L Albumin (3.5 - 5.0 g/dL) 2.1 L Globulin (1.9 - 4.2 gm/dL) 2.3 Albumin/Globulin Ratio (1.1 - 2.2 %) 0.9 L Lipase (23 - 300 U/L) 61 Coagulation PT (9.4 - 12.5 SEC) > 103.0 *H INR (0.90 - 1.19) > 10.0 *H APTT (25 - 37 SEC) 47 H Hematology CBC w Diff NO MAN DIFF REQ WBC (4.8 - 10.8 /CUMM) 15.4 H RBC (4.20 - 5.40 /CUMM) 1.46 L Hgb (12.0 - 16.0 G/DL) 4.2 *L Hct (37 - 47 %) 12.5 *L MCV (81.0 - 99.0 FL) 85.5 MCH (27.0 - 31.0 PG) 28.9 RDW (11.5 - 14.5 %) 15.3 H Plt Count (130 - 400 /CUMM) 177 MPV (7.4 - 10.4 FL) 10.1 Gran % (42.2 - 75.2 %) 93.6 H Lymphocytes % (20.5 - 51.1 %) 4.7 L Monocytes % (1.7 - 9.3 %) 1.7 Eosinophils % (0 - 5 %) 0 Basophils % (0.0 - 2.0 %) 0 L Absolute Granulocytes (1.4 - 6.5 /CUMM) 14.4 H Absolute Lymphocytes (1.2 - 3.4 /CUMM) 0.7 L Absolute Monocytes (0.10 - 0.60 /CUMM) 0.3 Absolute Eosinophils (0.0 - 0.7 /CUMM) 0 Absolute Basophils (0.0 - 0.2 /CUMM) 0 PUBS MCHC (33.0 - 37.0 G/DL) 33.8 Imaging/Other Studies: 09/29/2016: EKG- ST @ 116, normal axis, normal intervals, chronic mild ST elevation II, without acute ischemic changes. 09/29/2016: CT ABDOMEN AND PELVIS WITH IV CONTRAST- 1. *No evidence of intra-abdominal hematoma. The study was not specifically performed as a CTA, but *no definite evidence of active contrast extravasation into bowel is seen on this exam. 2. There is mild distention of proximal small bowel loops with gradual transition to normal caliber decompressed loops of bowel in the midabdomen, suggesting a partial/low grade bowel obstruction. No focal mass or distortion is seen at the point of this gradual transition. The previously seen more focal area of presumed adhesion in the mid abdomen is no longer visualized. 3. New trace left-sided pleural effusion with associated mild dependent atelectasis in the left lower lobe. 4. No significant change in moderate pericardial effusion. 5. Right adrenal mass again seen, most consistent with a small lipid rich adenoma. 6. Small right renal mass, consistent with a cyst. 7. *Stable abdominal aortic aneurysm, status post aortobiiliac stent graft placement. 3.7 cm max. 8. Chronic, enlarged left para-aortic lymph node. 9. Normal liver. 09/29/2016: XR PORTABLE CHEST- Improving left lower lobe opacity with residual minor subsegmental atelectasis. No acute abnormality.
--- NOTE | 2016-10-01 07:44 | PN- Resident CRCU ---
NICKI ANDERSON,YUMI 10/01/16 0744: Subjective HPI/CRCU Issues: Symptomatic Acute blood loss anemia UGIB Elevated INR 24 Hour Events: Patient is seen and examined at bedside. She is nothing by mouth for planned EGD today. One reported melenic bowel movement episode by nursing staff during last evening. She does not endorse any chest pain, palpitation, shortness of breath, fever, chills, BRPR, vomiting, nausea, abdominal pain or dysuria. Objective Vital Signs & I&O Last 8 Hrs of Vitals and I&O: Laboratory Tests 10/01 09/30 0420 1510 Chemistry Sodium (137 - 145 mmol/L) 136 L Potassium (3.5 - 5.1 mmol/L) 3.1 L Chloride (98 - 107 mmol/L) 107 Carbon Dioxide (22 - 30 mmol/L) 23 Anion Gap (5 - 16) 6 BUN (7 - 17 mg/dL) 9 Creatinine (0.5 - 1.0 mg/dL) 0.6 Estimated GFR (>60 ml/min) > 60 Glucose (65 - 99 mg/dL) 72 Calcium (8.4 - 10.2 mg/dL) 7.1 L Phosphorus (2.5 - 4.5 mg/dL) 3.1 Magnesium (1.6 - 2.3 mg/dL) 1.9 Total Bilirubin (0.2 - 1.3 mg/dL) 0.5 AST (14 - 36 U/L) 21 ALT (9 - 52 U/L) 32 Albumin (3.5 - 5.0 g/dL) 1.9 L Coagulation PT (9.4 - 12.5 SEC) 12.9 H INR (0.90 - 1.19) 1.23 H Hematology CBC w Diff MAN DIFF ORDERED NO MAN DIFF REQ WBC (4.8 - 10.8 /CUMM) 9.5 10.7 RBC (4.20 - 5.40 /CUMM) 3.38 L 2.97 L Hgb (12.0 - 16.0 G/DL) 9.9 L 8.8 L Hct (37 - 47 %) 29.9 L 26.0 L MCV (81.0 - 99.0 FL) 88.5 87.5 MCH (27.0 - 31.0 PG) 29.3 29.5 RDW (11.5 - 14.5 %) 15.2 H 14.6 H Plt Count (130 - 400 /CUMM) 96 L 83 L MPV (7.4 - 10.4 FL) 9.9 9.5 Gran % (42.2 - 75.2 %) 91.1 H 92.6 H Lymphocytes % (20.5 - 51.1 %) 5.5 L 4.5 L Monocytes % (1.7 - 9.3 %) 3.0 2.8 Eosinophils % (0 - 5 %) 0.2 0.1 Basophils % (0.0 - 2.0 %) 0.2 0 L Absolute Granulocytes (1.4 - 6.5 /CUMM) 8.7 H 9.9 H Segmented Neutrophils (42.2 - 75.2 %) 86 H Band Neutrophils (0.0 - 5.0 %) 9 H Absolute Lymphocytes (1.2 - 3.4 /CUMM) 0.5 L 0.5 L Lymphocytes (20.5 - 51.1 %) 4 L Absolute Monocytes (0.10 - 0.60 /CUMM) 0.3 0.3 Absolute Eosinophils (0.0 - 0.7 /CUMM) 0 0 Absolute Basophils (0.0 - 0.2 /CUMM) 0 0 Metamyelocytes (0.0 - 1.0 %) 1 Platelet Estimate (ADEQUATE) DECREASED Poikilocytosis 1+ Basophilic Stippling 1+ Ovalocytes 1+ PUBS MCHC (33.0 - 37.0 G/DL) 33.1 33.8 09/30 1440 Coagulation PT (9.4 - 12.5 SEC) 11.5 INR (0.90 - 1.19) 1.10 APTT (25 - 37 SEC) 26 Fibrinogen Activity (200 - 393 MG/DL) 346 Vital Signs Date Time Temp Pulse Resp B/P B/P Pulse O2 O2 Flow FiO2 Mean Ox Delivery Rate 10/01 1213 Nasal 2.5L Cannula 10/01 1200 99 Nasal 2.0L Cannula 10/01 1018 96 Nasal 2.0L Cannula 10/01 0800 99.3 100 21 150/60 97 Nasal 2.0L Cannula 10/01 0800 94 Nasal 2.0L Cannula 10/01 0400 91 Nasal 2.0L Cannula 10/01 0000 100.0 90 24 138/54 95 Nasal 2.0L Cannula 10/01 0000 95 Nasal 2.0L Cannula 09/30 2000 95 Nasal 2.0L Cannula 09/30 1600 100 Nasal 2.0L Cannula 09/30 1600 99.7 86 20 140/56 100 Nasal 2.0L Cannula Intake & Output 10/01 1600 10/01 0800 10/01 0000 Intake Total 1141 1610 Output Total 340 400 Balance 801 1210 Intake, IV 1141 1160 Intake, Oral 450 Number 0 1 Bowel Movements Output, Urine 340 400 Patient 66.791 kg Weight Weight Bed scale Measurement Method Intake & Output 10/01 1600 Intake Total Output Total Balance Patient 66.791 kg Weight Weight Bed scale Measurement Method Exam General Appearance: alert, awake, comfortable Neck: normal inspection, supple, full range of motion Respiratory: no respiratory distress, lungs clear Cardiovascular: regular rate/rhythm Gastrointestinal: normal bowel sounds, soft, non-tender Current Medications: Current Medications Sig/Ebenezer Start time Last Medication Dose Route Stop Time Status Admin Albuterol Sulfate 3 ML BID 09/29 1000 AC 10/01 INH 1017 Albuterol Sulfate 2 PUF Q4-6 PRN PRN 09/29 0515 AC INH Alprazolam 0.5 MG ONCE ONE 09/30 2044 DC 09/30 PO 09/300 Ceftriaxone Sodium 1,000 MG DAILY 09/29 1037 AC 10/01 IV 0905 Magnesium Sulfate 1 GM Q2H 10/01 0745 DC 10/01 Dextrose/Water 100 ML IV 10/01 0944 1024 Metronidazole 500 MG Q8H 09/29 2100 AC 10/01 N/A 1 UNIT IV 1312 Morphine Sulfate 2 MG Q4P PRN 09/29 0515 AC 10/01 IV 0812 Ondansetron HCl 4 MG Q6P PRN 09/29 0515 AC 09/29 IV 1446 Pantoprazole Sodium 40 MG Q5H 09/29 0515 AC 10/01 Sodium Chloride 100 ML IV 1216 Polyethylene Glycol 1 GAL ONCE ONE 09/30 1800 CAN PO 09/30 1801 Potassium Chloride 10 MEQ Q1H 10/01 0930 DC 10/01 IV 10/01 0931 1000 Potassium Chloride 10 MEQ Q1H 10/01 0745 DC IV 10/01 0946 Potassium Chloride 10 MEQ Q1H 10/01 0600 DC 10/01 IV 10/01 0701 0812 Sodium Chloride 1,000 ML .Q8H 09/29 0515 AC 10/01 IV 1312 Tiotropium [place] 1 PUF DAILY 09/29 1000 AC 10/01 INH 0905 Impression/Plan Impression/Problem List Impression: This is a 76-year-old woman with past medical history of CAD, COPD, hypertension, hyperlipidemia, PUD, severe PVD, AAA endovascular repair, not on any anticoagulation, s/p laparatomy with GRICEL due to SBO 2 week ago, presented to [facility] ED with symptomatic anemia and two episoded of ematesis described as coffe ground. ED course: Vitals : temp 95.8, HR 113, BP 107/53, sats 96% RA. Exam: AAO, lethargic but able to provide appropriate answer, dry mucous membranes, pallor++. Labs: WBC 15.4, H/H 4.2/12.5 (01/10 on 09/25/2016), INR > 10, Na 136, bicarb 31, BUN 22, AST 37, ALT 60, trop neg. EKG: Sinus tachycardia with nonspecific ST-T changes. Echo (2017): EF 55-60%. Impression * Acute Symptomatic Anemia from acute blood loss. s/p 2 units PRBC, with Hemoglobin at 8 today. Due to a new episode of melena and a drop of hbg by 1.6 since last night, will transfuse 1 more as it is anticipated that her Hgb will further drop. * GI bleed as evident by 2 reported episodes of coffe ground vomitus and black tarry stool. Most likely UGIB. Etiology to be considered include AVM in the setting of INR>10, Peptic ulcer in the setting of ASA use, vs recent SBO lap with GRICEL, vs Diloufey lesion vs Dejah lesion (less likely as no vomitng/ retching reportes). Blatchford Glascow score :12 requiring admission and possible EGD. * Elevated INR and not on any anticouagulation. Possible etiology include auto anti-coagulation vs malabasorption vs Liver pathology. However the INR rate of above 10 is concerning and may not be explained by malabsorption or auto anticoagulation. Continue to trend INR and if patient continues to have elevated levels will consider to 250 g vitamin K daily supplementation. * Thrombocytopenia. Consumptive secondary to acute blood loss. If patient develops any acute bleeding or continue to have persistent melenic bowel movements, will consider giving platelets transfusion regardless of platelet count. This is with the thought process that current platelets and patient's body are dysfunctional secondary to aspirin use. * History of recent SBO requiring laparotomy and GRICEL * History of hypertension Plan Continue to keep at ICU PRBC transfusion to maintain a goal of hemoglobin above 8 if needed Nothing by mouth for possible EGD Continue to keep 2 large bore IV assess Hemodynamic support with IV normal saline if needed to maintain SBP above 90 and MAP>65. [place] vitamin K supplementation of 250 g daily if INR continues to increase Awaiting further GI recommendations(appreciated) Continue IV PPI Will hold off any BP meds for now in the setting of UGIB Problem List: 1. Acute blood loss anemia 2. Thrombocytopenia 3. Coagulopathy Pain Ratin Tomorrow's Labs & Rationales: ICU PT/INR-Elevated Plan DVT/Prophylaxis: precious HAND MD,Fawn SEGURA 10/01/16 1033: Attending MD Review Statement Attending Sign Off Attending Cosign Statement: I have: examined this patient, reviewed [facility] EMR data, personally reviewd images, discussd w/resident/PA/UTILIZATION MANAGEMENT RN, discussed mgmt plan w/roxi, agreed w/resident/ PA/UTILIZATION MANAGEMENT RN.
[2016-10-01 08:00] VITALS: BP 150/60
--- NOTE | 2016-10-01 10:34 | PN- Hematology ---
Subjective Subjective: She still has abdominal pain. She has no new bleeding. She was NPO over night. Review of Systems: Constitutional: Reports: malaise, weakness. Denies: chills, fever. Cardiovascular: Reports: orthopena, peripheral edema. Denies: chest pain. Respiratory: Reports: short of breath. GI: Denies: vomiting Musculoskeletal: Reports: back pain. Hematologic/Endocrine: Denies: bruising. bleeding. All Other Systems: Reviewed and Negative Objective Vital Signs and I&Os Vital Signs Date Time Temp Pulse Resp B/P B/P Pulse O2 O2 Flow FiO2 Mean Ox Delivery Rate 10/01 1018 96 Nasal 2.0L Cannula 10/01 0800 99.3 100 21 150/60 97 Nasal 2.0L Cannula 10/01 0800 94 Nasal 2.0L Cannula 10/01 0400 91 Nasal 2.0L Cannula 10/01 0000 100.0 90 24 138/54 95 Nasal 2.0L Cannula 10/01 0000 95 Nasal 2.0L Cannula 09/30 2000 95 Nasal 2.0L Cannula 09/30 1600 100 Nasal 2.0L Cannula 09/30 1600 99.7 86 20 140/56 100 Nasal 2.0L Cannula Intake & Output 10/01 1600 10/01 0800 10/01 0000 09/30 1600 09/30 0800 09/30 0000 Intake Total 1141 1610 2130 1083 1202 Output Total 340 400 936 987 4525 Balance 801 1210 1730 383 -348 Intake, Blood 350 350 Product Intake, IV 1141 1160 1410 1083 852 Intake, Oral 450 370 0 0 Number 0 1 0 151 0 Bowel Movements Output, 50 Emesis Output, Urine 340 400 231 452 9753 Patient 66.791 kg Weight Weight Bed scale Measurement Method Physical Exam: General Appearance: no apparent distress, alert, awake, comfortable Respiratory: normal breath sounds, chest non-tender, no respiratory distress Cardiovascular: regular rate/rhythm, edema Gastrointestinal: normal bowel sounds, soft, no organomegaly, tenderness, healing incision Extremities: pedal edema Neurologic/Psych: awake, alert, oriented x 3 Skin: normal color, warm/dry Other Physical Findings: on 2L NC Current Medications: Current Medications Sig/Ebenezer Start time Last Medication Dose Route Stop Time Status Admin Albuterol Sulfate 3 ML BID 09/29 1000 AC 10/01 INH 1017 Albuterol Sulfate 2 PUF Q4-6 PRN PRN 09/29 0515 AC INH Alprazolam 0.5 MG ONCE ONE 09/30 2044 DC 09/30 PO 09/30 Ceftriaxone Sodium 1,000 MG DAILY 09/29 1037 AC 10/01 IV 0905 Magnesium Sulfate 1 GM Q2H 10/01 0745 DC 10/01 Dextrose/Water 100 ML IV 10/01 0944 1024 Magnesium Sulfate 1 GM Q2H 09/30 0845 DC 09/30 Dextrose/Water 100 ML IV 09/30 1044 0845 Metronidazole 500 MG Q8H 09/29 2100 AC 10/01 N/A 1 UNIT IV 0615 Morphine Sulfate 2 MG Q4P PRN 09/29 0515 AC 10/01 IV 0812 Ondansetron HCl 4 MG Q6P PRN 09/29 0515 AC 09/29 IV 1446 Pantoprazole Sodium 40 MG Q5H 09/29 0515 AC 10/01 Sodium Chloride 100 ML IV 0656 Polyethylene Glycol 1 GAL ONCE ONE 09/30 1800 CAN PO 09/30 1801 Potassium Chloride 10 MEQ Q1H 10/01 0930 DC 10/01 IV 10/01 0931 1000 Potassium Chloride 10 MEQ Q1H 10/01 0745 DC IV 10/01 0946 Potassium Chloride 10 MEQ Q1H 10/01 0600 DC 10/01 IV 10/01 0701 0812 Sodium Chloride 1,000 ML .Q8H 09/29 0515 AC 10/01 IV 0614 Tiotropium [place] 1 PUF DAILY 09/29 1000 AC 10/01 INH 0905 Results Last 24 Hours of Lab Results: Laboratory Tests 10/01 09/30 0420 1510 Chemistry Sodium (137 - 145 mmol/L) 136 L Potassium (3.5 - 5.1 mmol/L) 3.1 L Chloride (98 - 107 mmol/L) 107 Carbon Dioxide (22 - 30 mmol/L) 23 Anion Gap (5 - 16) 6 BUN (7 - 17 mg/dL) 9 Creatinine (0.5 - 1.0 mg/dL) 0.6 Estimated GFR (>60 ml/min) > 60 Glucose (65 - 99 mg/dL) 72 Calcium (8.4 - 10.2 mg/dL) 7.1 L Phosphorus (2.5 - 4.5 mg/dL) 3.1 Magnesium (1.6 - 2.3 mg/dL) 1.9 Total Bilirubin (0.2 - 1.3 mg/dL) 0.5 AST (14 - 36 U/L) 21 ALT (9 - 52 U/L) 32 Albumin (3.5 - 5.0 g/dL) 1.9 L Coagulation PT (9.4 - 12.5 SEC) 12.9 H INR (0.90 - 1.19) 1.23 H Hematology CBC w Diff MAN DIFF ORDERED NO MAN DIFF REQ WBC (4.8 - 10.8 /CUMM) 9.5 10.7 RBC (4.20 - 5.40 /CUMM) 3.38 L 2.97 L Hgb (12.0 - 16.0 G/DL) 9.9 L 8.8 L Hct (37 - 47 %) 29.9 L 26.0 L MCV (81.0 - 99.0 FL) 88.5 87.5 MCH (27.0 - 31.0 PG) 29.3 29.5 RDW (11.5 - 14.5 %) 15.2 H 14.6 H Plt Count (130 - 400 /CUMM) 96 L 83 L MPV (7.4 - 10.4 FL) 9.9 9.5 Gran % (42.2 - 75.2 %) 91.1 H 92.6 H Lymphocytes % (20.5 - 51.1 %) 5.5 L 4.5 L Monocytes % (1.7 - 9.3 %) 3.0 2.8 Eosinophils % (0 - 5 %) 0.2 0.1 Basophils % (0.0 - 2.0 %) 0.2 0 L Absolute Granulocytes (1.4 - 6.5 /CUMM) 8.7 H 9.9 H Segmented Neutrophils (42.2 - 75.2 %) 86 H Band Neutrophils (0.0 - 5.0 %) 9 H Absolute Lymphocytes (1.2 - 3.4 /CUMM) 0.5 L 0.5 L Lymphocytes (20.5 - 51.1 %) 4 L Absolute Monocytes (0.10 - 0.60 /CUMM) 0.3 0.3 Absolute Eosinophils (0.0 - 0.7 /CUMM) 0 0 Absolute Basophils (0.0 - 0.2 /CUMM) 0 0 Metamyelocytes (0.0 - 1.0 %) 1 Platelet Estimate (ADEQUATE) DECREASED Poikilocytosis 1+ Basophilic Stippling 1+ Ovalocytes 1+ PUBS MCHC (33.0 - 37.0 G/DL) 33.1 33.8 09/30 09/30 1440 1241 Coagulation PT (9.4 - 12.5 SEC) 11.5 INR (0.90 - 1.19) 1.10 APTT (25 - 37 SEC) 26 Fibrinogen Activity (200 - 393 MG/DL) 346 Fibrin Degrad Products (< 10 ug/ml) <10 ug/ml Assessment/Plan Assessment/Recommendations: Ms. Merlos is a 76-year-old female with PVD, PUD, COPD, CAD, AAA s/p endovascular repair, and recently SBO s/p lysis of adhesion who presents to the hospital with hematemesis, coffee ground emesis, and elevated INR. She has been having significant issues with oral intake since her surgery during the most recent admission. Her elevated INR is likely secondary to factor deficiency. With her decreased oral intake, she likely has vitamin K deficiency. INR normalized after FFP and vitamin K 10 mg IM. INR is slightly elevated today. She continues to not have a routine diet and nutritional intake. She may need a more daily supplementation of vitamin K. Option may be to give her low dose 250 mcg vitamin K daily. Her thrombocytopenia is likely an acute consumptive process from bleeding. This has improved. Recommendations: 1. Monitor PT/INR/PTT daily 2. Check CBC at least daily 3. Consider platelet transfusion if bleeding 4. Consider daily vitamin K (100 mcg to 250 mcg daily) 5. Hold aspirin and anticoagulation for now Please call [phone] with any questions or concerns. Problem List: 1. Acute blood loss anemia 2. Thrombocytopenia 3. Malnutrition 4. Coagulopathy
--- NOTE | 2016-10-01 10:56 | NUR ---
@0800-PT ALERT AND ORIENTED X 3. CALM AND COOP. HENRY. C/O PAIN TO ABD 7/10-MEDICATED WITH PRN MORPHINE 2MG DOSE AND ASSISTED TO COMF POSITION. CONT ON 2LNC. O2SAT 94%, DIM BS TO BASES, DENIES SOB. NEBS PER RT. NSR/ST HR 80-104. BP STABLE SBP 150. PT REMAINS NPO FOR PLAN OF EGD TODAY, TIME UNKNOWN AT THIS TIME. ABD DISTENDED, TENDER AROUND STAPLE INCISION. HYPOACTIVE BS. ALLEN IN PLACE WITH MARTHA URINE, ADEQUATE HOURLY OUTPUT. SKIN INTACT EXCEPT FOR STAPLE INCISION TO ABD-OPEN TO AIR. ALPS PLACED TO BLE. INCREASED EDEMA TO BLE +2 PITTING NOTED, REPORTED TO MD AND ELEVATED ON PILLOWS AT THIS TIME. IV PROTONIX GTT CONT AT 8MG/HR AND NS INFUSING AT 125ML/HR. K+ 3.1, MAG 1.9. PT TO RECIEVE TOTAL OF 3 RUNS KCL 10MEQ AND 1GM MAG BOLUS THIS AM. CONT TO MONITOR CLOSELY. CALL BROWN WITHIN REACH.
--- NOTE | 2016-10-01 11:00 | NUR ---
@1000-3RD KCL BOLUS INFUSING. TO RECIEVE MAG BOLUS WHEN K+ BOLUS COMPLETE. PLAN FOR EGD AT 1PM, PT AWARE OF POC. PT REPOSITIONED TO SIDE AFTER BACKRUB. DENIES COMPLAINTS AT THIS TIME. NEW IV ESTABLISHED TO RFA DUE TO LH SITE LEAKING AND REMOVED. IV ABX ADMINISTERED ORD. CALL BROWN WITHIN REACH.
--- NOTE | 2016-10-01 14:17 | NUR ---
@1400-GI TEAM AT BEDSIDE IN ICU FOR EGD. CONT TO MONITOR.
--- NOTE | 2016-10-01 14:38 | NUR ---
@1430-PT TAYLOR EGD. O2 NEEDS INCREASED. PT DROWSY. O2SAT 88%. NC INCREASED TO 5LNC. O2SAT 89-90%. RT AT BEDSIDE.
--- NOTE | 2016-10-01 14:38 | Proc Note Endoscopy ---
Endoscopy Procedure Medical History: unchanged Mental Status: alert/oriented Heart/Lung Eval Prior to Sedation: within normal limits (COPD) Candidate for Sedation? Yes Procedure Date: 10/01/16 Procedure Type: EGD to the jejunum (160 cm from the incisors) with pedicolonoscope Firmware Engineer: SENTHIL MCNAMARA MD ASA Classification: IV (IV-E) Indications: (*Please refer to Dr. Bianchi's coveringGI consult of 09/29/16 & my follow-up notes of 09/30/16 & 10/01/16). 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 *The patient was admitted to [facility] 09/29/2016 with severe anemia, hematemesis & melena, in the setting of severe coagulopathy (H/H 4.2/12.5, PLT 177, WBC 15.4, BUN/Cr 22/0.5, GFR > 60, INR > 10- no on A/C therapy), the latter felt to be from a combination of malnutrition and antibiotic therapy, with presumed low vitamin K levels. The INR responded fairly rapidly to FFP and Vitamin K 10 mg IM x 1. She has received a total of 4u PRBC & 2u FFP. 2016: CT abdomen and pelvis with IV contrast- no evidence of intra-abdominal hematoma nor any aortoenteric fistula, although CTA protocol was not used. Stable abdominal aortic aneurysm, status post aortobiiliac stent graft placement. 3.7 cm max (please see CT report for details). Instrument: diagnostic gastroscope, pediatric colonoscope to jejunum (160 cm from the incisors) Meds Received: MAC Patient's Tolerance: good Complications: none Extent Reached: jejunum 160 cm from the incisors Procedure: Upper endoscopy to the jejunum (160 cm from the incisors), was initially performed with the Olympus high definition videoendoscope, subsequently switched to the Olympus high-definition pediatric videocolonoscope from above, after obtaining informed consent from the patient, with the security risk analyst and pulse oximeter, with the assistance of Dr. Roberto, of [facility]. The patient was edentulous. Her false teeth had been removed earlier this admission. A mouthpiece was placed in the usual fashion to protect the patient's oral cavity. The patient was placed in the left lateral decubitus position and sedated by [facility]. At this point, the endoscope was advanced through the fenestrated hole in the NRB mask, into the mouth, then into the esophagus, using direct visualization technique. I did not get a good look at the vocal cords. Some dried mucus and perhaps a scant amount of old food was seen in the oropharynx, and the patient was aggressively suctioned. Aspiration precautions were used intraoperatively. The proximal esophageal mucosa appeared normal. There were no esophageal rings, webs, lesions, strictures, or ulcers. There was no monilia or vesicles. There was no esophageal ribbing. The Z line was well demarcated at 33 cm. There was a 2 cm hiatal hernia pouch, from 33-35 cm, without any Luis erosions. The distal esophagus revealed increased erythema and inflammation, consistent with 2+ nonerosive distal GERD. Biopsies were deferred. There were no ectopic islands, nor gross Diaz's esophagus. There were no esophageal or gastric varices, nor any Dejah Velez tear. The koch of the stomach distended normally with air insufflation. Direct and retroflexed views of the stomach were performed. There was nothing endoscopically to suggest gastroparesis or portal gastropathy. The mucosa of the gastric cardia and fundus appeared normal. The lesser curvature and incisura appeared inflamed. There was a 1.5 cm superficial gastric ulcer at the posterior wall of the gastric body, which appeared symmetrical, with radiating folds. There was no clot or visible vessel. This was left intact. Biopsies were deferred. No therapeutics were performed. The gastric antrum appeared normal, without any gastric ulcers or gastric lesions. The pylorus was patent, without any gastric outlet obstruction or channel ulcer. The duodenal bulb, duodenal sweep, & third portion of the duodenum appeared normal, without any duodenal ulcers, distal ulcerations, or angiodysplasias. I was not able to see the ampulla with the direct-viewing scope. The folds of the second & third portions of the duodenum were normal in caliber, without any flattening, nodularity, scalloping, or mosaic pattern. Bile was seen in the duodenum. No active upper GI bleeding was seen. The patient tolerated the initial procedure well. At this point, the single-channel Olympus high-definition videoendoscope was removed, and the Olympus high-definition pediatric videocolonoscope was reinserted, down to the jejunum, 160 cm from the incisors, in view of the patient's past history of small bowel angiodysplasias. The small bowel appeared intact and within normal limits to the jejunum (160 cm from the incisors), without any additional pathology. No distal small bowel ulcerations, lesions, or recurrent angiodysplasias were seen. The patient tolerated the second portion of the procedure well. *Documenting photographs were obtained and placed inside the patient's chart postoperatively. Impression: 1. 1.5 cm superficial gastric ulcer at the posterior wall of the gastric body, which appeared symmetrical, with radiating folds. There was no clot or visible vessel. Biopsies were deferred. No therapeutics were performed. 2. 2+ nonerosive distal GERD. Z line at 33 cm. Biopsies deferred. 3. 2 cm hiatal hernia pouch from 33-35 cm. No Luis erosions. 4. Otherwise, normal EGD to the jejunum, 160 cm from the incisors, with the use of the Olympus high definition pediatric videocolonoscope from above. No recurrent small bowel angiodysplasia seen. Bile was seen in the small bowel. Recommendations: *May discontinue IV Protonix drip. *Switch to po Protonix 40 mg po BID for now. *Check stool antigen for H. pylori. Suction oropharynx aggressively. Aspiration precautions. Clears po, & advance diet, as tolerated. Nutrition consult for supplements. No aspirin. No NSAIDs. *May transfer patient out of ICU. Keep Hgb > 8 (ASHD). Supplemental O2 prn. Follow-up with hematology. Close follow up of CBC, INR & platelets daily. *Advise checking full Hep A, B & C serologies, HIV, AMELIA & AMA, although the liver does not look cirrhotic on imaging studies. Broad spectrum antibiotics, bronchodilators, etc. per ICU team. *Replete K+. *Advise follow-up EGD in 2 months (i.e.- by 01/2017), to recheck gastric ulcer, with plans for direct biopsies if it persists. The low likelihood of malignant potential of the gastric ulcer was discussed with the patient, although it has to be excluded. Consideration for simultaneous colonoscopy then, as she will be due for surveillance, and by that time, her abdominal wounds post expiratory laparotomy will have healed. The patient has previously refused an outpatient PillCam with patency capsule, but as the EGD from above was negative to the jejunum, we can probably hold off on this for now, keeping in mind recent 09/13/16: SBO/GRICEL. The above was discussed with the patient and the medical house staff postoperatively. She has my office number. *Further inpatient GI follow-up, as needed. CC: FRANCIA ANDERSON,ANAHI Trejo; KOMAL ANDERSON,VANDANA; KIRAN ANDERSON,Lexie CANO; ADRIANA ANDERSON,VIOLETA Wang; CATHERINE ANDERSON,MARYANN; SUJEY ANDERSON,AN; CHELSEA ANDERSON,MAKAYLA Patel; RAPHAEL ANDERSON,CARL
--- NOTE | 2016-10-01 15:19 | PN- General Surgery ---
Subjective Subjective: Patient status post EGD She states she has been having near daily bowel movements, positive flatus, no abdominal pain Objective Vital Signs and I&Os Vital Signs Date Time Temp Pulse Resp B/P B/P Pulse O2 O2 Flow FiO2 Mean Ox Delivery Rate 10/01 1213 Nasal 2.5L Cannula 10/01 1200 99 Nasal 2.0L Cannula 10/01 1018 96 Nasal 2.0L Cannula 10/01 0800 99.3 100 21 150/60 97 Nasal 2.0L Cannula 10/01 0800 94 Nasal 2.0L Cannula 10/01 0400 91 Nasal 2.0L Cannula 10/01 0000 100.0 90 24 138/54 95 Nasal 2.0L Cannula 10/01 0000 95 Nasal 2.0L Cannula 09/30 2000 95 Nasal 2.0L Cannula 09/30 1600 100 Nasal 2.0L Cannula 09/30 1600 99.7 86 20 140/56 100 Nasal 2.0L Cannula Intake & Output 10/01 1600 10/01 0800 10/01 0000 09/30 1600 09/30 0800 09/30 0000 Intake Total 945 1141 1610 2130 1083 1202 Output Total 550 340 400 742 674 8835 Balance 566 093 0306 1730 383 -348 Intake, Blood 350 350 Product Intake, IV 945 1141 1160 1410 1083 852 Intake, Oral 0 450 370 0 0 Number 1 0 1 0 151 0 Bowel Movements Output, 50 Emesis Output, Urine 550 340 400 372 234 5361 Patient 147 lb Weight Weight Bed scale Measurement Method Physical Exam: Well-developed well-nourished no apparent distress. HEENT: Atraumatic, extraocular motion intact Neck: Supple, no lymphadenopathy Respiratory: No respiratory distress Abdomen: Abdomen is softly distended. Midline surgical incision is well-healed with surgical will in place. Abdomen is nontender. Extremities: No edema, no calf pain Neuro: Alert and oriented x3 Psych: Mood affect normal, normal memory normal judgment. Skin: Warm and dry, no rash on exposed skin Assessment/Plan Assessment/Plan Postoperative day #18 status post exploratory laparoscopy and lysis of adhesion for small bowel obstruction -Surgical will were removed, incision has healed well -May resume regular diet from general surgical standpoint. Please call with any further questions or concerns Core Measures/Miscellaneous Venous Thromboembolism VTE Risk Factors: Age > 40, Surgery VTE Contraindications: No Contraindications VTE Diagnosis: No VTE Type: NONE VTE Confirmed by (Test): NONE Beta Darwin Is Beta Darwin a Home Med? No Antibiotics Is Patient on Antibiotics? No
[2016-10-01 16:00] VITALS: BP 120/60
--- NOTE | 2016-10-02 03:56 | NUR ---
TRANSFER NOTE: PATIENT RECEIVED TO FLOOR AT APPROXIMATELY 2230 10/01/16 VITAL SIGNS UPON ARRIVAL TO FLOOR WERE TEMP = 101.3, BP = 130/56, HR = 105, RR = 24, SAO2 = 91% ON 2L O2 VIA NASAL CANNULA, AND PAIN = 7/10, DR DE JESUS MADE AWARE AND NEW ORDERS RECEIVED FOR BLOOD CULTURES, TYLENOL PO AND CHEST X-RAY. LUNG SOUNDS + FOR SLIGHT RHONCHI BOTH BASES. BOWEL SOUNDS HYPOACTIVE. TYLENOL PO GIVEN AND TEMP DECREASED TO 99.9. BLOOD CULTURES DRAWN AND TRANSPORTED TO LAB. IV ZOFRAN AND IV MORPHINE GIVEN FOR C/O NAUSEA AND PAIN. BY 0100, PATIENT SLEEPING COMFORTABLY. SEE EMAR AND PROCESS INTERVENTIONS FOR ANY FURTHER DETAILS.
[2016-10-02 06:00] VITALS: BP 128/52
--- NOTE | 2016-10-02 07:07 | RADIOLOGY REPORT ---
EXAMINATION: XR PORTABLE CHEST CLINICAL INFORMATION: Persistent fever. Evaluate for pneumonia. COMPARISON: Several prior chest x-rays, most recent of which is dated 09/29/2016. TECHNIQUE: Portable AP semierect view of the chest was obtained. FINDINGS: The cardiac mediastinal silhouette remains enlarged. Low lung volumes are noted with crowding of bronchovascular lung markings in the lung bases. Hazy opacity in the left lung base is most likely related to overlying soft tissues and low lung volumes. No definite focal consolidation is seen on portable exam. Osteopenia and mild degenerative changes in the spine and shoulder joints again noted. IMPRESSION: 1. Cardiomegaly. 2. Low lung volumes with bibasilar crowding of bronchovascular lung markings. No definite focal pneumonia. Recommend PA and lateral views of the chest for more sensitive assessment of the left lung base.
[2016-10-02 08:03] LABS: ABSOLUTE BASOPHIL COUNT 0 /CUMM (0.0-0.2); ABSOLUTE EOSINOPHIL COUNT 0 /CUMM (0.0-0.7); ABSOLUTE GRANULOCYTE CT 5.9 /CUMM (1.4-6.5); ABSOLUTE LYMPH COUNT 0.5 /CUMM (1.2-3.4); ABSOLUTE MONOCYTE COUNT 0.3 /CUMM (0.10-0.60); BASOPHIL % 0 % (0.0-2.0); EOSINOPHIL % 0.2 % (0-5); GRANULOCYTE % 87.9 % (42.2-75.2); HEMATOCRIT 29.8 % (37-47); MEAN CORPUSCULAR HGB 29.3 PG (27.0-31.0); MEAN CORPUSCULAR HGB CONC 33.3 G/DL (33.0-37.0); MEAN CORPUSCULAR VOLUME 87.8 FL (81.0-99.0); MEAN PLATELET VOLUME 9.6 FL (7.4-10.4); PLATELET COUNT 95 /CUMM (130-400); RBC DISTRIBUTION WIDTH 15.5 % (11.5-14.5); WHITE BLOOD CELL COUNT 6.7 /CUMM (4.8-10.8)
--- NOTE | 2016-10-02 08:12 | Transfer of Care Summary ---
Hospital Course Course Hospital Course: This is a 76 yo lady with a PMH og PUD, severe PVD, AAA endovascular repair, not on any anticoagulation, s/p laparatomy with GRICEL due to SBO 2 week ago, on Aspirin therapy, presented to [facility] ED with decreased oral intake, nausea in the setting of two episodes of coffee ground emesis, and a 7 day hx of black tarry stools per the patient. Denied any BRBPR, H&H 4.2 and 12.5, BUN 22. INR >10, PT >103. Previous enteroscopy, 05/25/10: Push enteroscopy to jejunum revealed 1 bleeding AVM at the lesser curvature of the stomach, BiCAP cautery, with cessation of bleed. 10 non-bleeding AVMs from the second portion of the duodenum to the distal jejunum, BiCAP cautery. Pt was then admitted to ICU for evaluation and management of symptomatic anemia due to possibly GI bleed. Assessment/Plan: This is a 76-year-old woman with past medical history of CAD, COPD, hypertension, hyperlipidemia, PUD, severe PVD, AAA endovascular repair, not on any anticoagulation, s/p laparatomy with GRICEL due to SBO 2 week ago, presented to [facility] ED with symptomatic anemia and two episode of ematesis described as coffe ground and 1 week of melena. ED course: Vitals : temp 95.8, HR 113, BP 107/53, sats 96% RA. Exam: AAO, lethargic but able to provide appropriate answer, dry mucous membranes, pallor++. Labs: WBC 15.4, H/H 4.2/12.5 (01/10 on 09/25/2016), INR > 10, Na 136, bicarb 31, BUN 22, AST 37, ALT 60, trop neg. EKG: Sinus tachycardia with nonspecific ST-T changes. Echo (2017): EF 55-60%. Impression * Acute Symptomatic Anemia from acute blood loss requiring 4 units of PRBC with appropriate correction status post tranfusion. H/H stable. * GI bleed as evident by 2 reported episodes of coffe ground vomitus and black tarry stool. Most likely UGIB. Etiology to be considered include Peptic ulcer in the setting of ASA use, vs recent SBO lap with GRICEL, vs AVM vs Diloufey lesion vs Dejah lesion (less likely as no vomitng/retching reportes). Blatchford Glascow score :12 requiring admission and EGD. Pt continued to have episodes of melena (2) during ICU stay, but no blood in vomitus or BRBPR. EGD was performed on 10/02 with the following results: * 1. 1.5 cm superficial gastric ulcer at the posterior wall of the gastric body , which appeared symmetrical, with radiating folds. There was no clot or visible vessel. Biopsies were deferred. No therapeutics were performed. 2. 2+ nonerosive distal GERD. Z line at 33 cm. Biopsies deferred. * 3. 2 cm hiatal hernia pouch from 33-35 cm. No Luis erosions. * 4. Otherwise, normal EGD to the jejunum, 160 cm from the incisors, with the use of the Olympus high definition pediatric videocolonoscope from above. No recurrent small bowel angiodysplasia seen. Bile was seen in the small bowel. Please see detailed GI note on 10/01 for f/u (outpatient, H pylori test f/u, colonoscopy in 2 months). * Hypercoagulable state. Not on any anticouagulation. Possible etiology include auto anti-coagulation vs malabasorption vs Liver pathology. Hematology was consulted, felt that most likely patient has very poor nutrition/malabsorption. Reccomended oral Vitamin K 250 mcg daily if PT continues to increase. * History of recent SBO requiring laparotomy and GRICEL. Surgery was consulted and also revieved CT Abdomen/pelvis. Per Surgery, pt is stable at their stand point. * History of hypertension. BP meds were held on admission due to GI bleed. Not restarted at ICU as BP was not elevated.
[2016-10-02 08:17] LABS: PT 15.9 SEC (9.4-12.5)
--- NOTE | 2016-10-02 08:18 | PN- Hematology ---
Subjective Subjective: She underwent EGD yesterday. She feels about the same today. She again has not eaten much. She has no new pain. Review of Systems: Constitutional: Denies: chills, fever. Cardiovascular: Reports: orthopena, peripheral edema. Denies: chest pain. Respiratory: Reports: short of breath. GI: Reports: abdominal pain. Denies: vomiting Musculoskeletal: Reports: back pain. Hematologic/Endocrine: Denies: bruising. bleeding. All Other Systems: Reviewed and Negative Objective Vital Signs and I&Os Vital Signs Date Time Temp Pulse Resp B/P B/P Pulse O2 O2 Flow FiO2 Mean Ox Delivery Rate 10/02 0600 99.0 97 21 128/52 92 Nasal 2.0L Cannula 10/02 0110 99.9 10/02 0011 100.3 10/02 0000 91 Nasal 2.0L Cannula 10/01 2213 100.9 10/01 2146 101.4 10/01 2145 101.4 10/01 2048 101.4 10/01 2045 101.4 10/01 1907 96 Nasal 3.0L Cannula 10/01 1600 99.2 98 21 120/60 95 Nasal 4.0L Cannula 10/01 1600 95 Nasal 4.0L Cannula 10/01 1213 Nasal 2.5L Cannula 10/01 1200 99 Nasal 2.0L Cannula 10/01 1018 96 Nasal 2.0L Cannula Intake & Output 10/02 1600 10/02 0800 10/02 0000 10/01 1600 10/01 0800 10/01 0000 Intake Total 1150 9132 283 6876 1610 Output Total 350 550 340 400 Balance 1150 1050 740 428 0470 Intake, IV 1030 2232 252 3332 1160 Intake, Oral 120 400 0 450 Number 0 1 0 1 Bowel Movements Output, Urine 350 550 340 400 Patient 66.791 kg Weight Weight Bed scale Measurement Method Physical Exam: General Appearance: no apparent distress, alert, awake, comfortable Respiratory: normal breath sounds, no respiratory distress Cardiovascular: regular rate/rhythm, edema Gastrointestinal: normal bowel sounds, soft, no organomegaly, tenderness, healing incision Extremities: edema Neurologic/Psych: awake, alert, oriented x 3 Skin: normal color, warm/dry Other Physical Findings: on 2L NC Current Medications: Current Medications Sig/Ebenezer Start time Last Medication Dose Route Stop Time Status Admin Acetaminophen 650 MG .STK-MED ONE 10/02 0002 DC PO 10/02 0003 Acetaminophen 650 MG ONCE ONE 10/01 2315 DC 10/02 PO 10/01 2316 0011 Acetaminophen 650 MG ONCE ONE 10/01 2045 DC 10/01 PO 10/01 2046 2048 Albuterol Sulfate 3 ML BID 09/29 1000 AC 10/01 INH 1905 Albuterol Sulfate 2 PUF Q4-6 PRN PRN 09/29 0515 AC INH Alprazolam 0.5 MG TIDPRN PRN 10/01 2300 AC PO 10/08 2259 Ceftriaxone Sodium 1,000 MG DAILY 10/02 1000 AC IV Ceftriaxone Sodium 1,000 MG DAILY 09/29 1037 DC 10/01 IV 0905 Chlorhexidine 1 GM .STK-MED ONE 10/01 1438 DC Gluconate TOP 10/01 1439 Magnesium Sulfate 1 GM Q2H 10/01 0745 DC 10/01 Dextrose/Water 100 ML IV 10/01 0944 1024 Metronidazole 500 MG Q8H 09/29 2100 AC 10/02 N/A 1 UNIT IV 0443 Morphine Sulfate 2 MG Q4P PRN 09/29 0515 AC 10/02 IV 0704 Omeprazole 40 MG DAILY AC 10/02 0700 CAN PO Omeprazole 40 MG BID 10/01 2200 AC 10/01 PO 2044 Ondansetron HCl 4 MG .STK-MED ONE 10/02 0002 DC IM 10/02 0003 Ondansetron HCl 4 MG Q6P PRN 09/29 0515 AC 10/02 IV 0011 Pantoprazole Sodium 40 MG Q5H 09/29 0515 DC 10/01 Sodium Chloride 100 ML IV 1216 Potassium Chloride 20 MEQ ONCE ONE 10/01 2200 DC 10/01 PO 10/01 2201 2044 Potassium Chloride 20 MEQ ONCE ONE 10/01 1815 DC 10/01 PO 10/01 1816 1811 Potassium Chloride 60 MEQ ONCE ONE 10/01 1800 CAN PO 10/01 1801 Potassium Chloride 10 MEQ Q1H 10/01 0930 DC 10/01 IV 10/01 0931 1000 Potassium Chloride 10 MEQ Q1H 10/01 0745 DC IV 10/01 0946 Sodium Chloride 1,000 ML .Q8H 09/29 0515 AC 10/02 IV 0443 Tiotropium Home 1 PUF DAILY 09/29 1000 AC 10/01 INH 0905 Results Last 24 Hours of Lab Results: Laboratory Tests 10/02 10/02 10/01 10/01 0619 0618 1607 1230 Chemistry Sodium (137 - 145 mmol/L) 137 137 Potassium (3.5 - 5.1 mmol/L) 3.4 L 3.3 L Chloride (98 - 107 mmol/L) 110 H 107 Carbon Dioxide (22 - 30 mmol/L) 24 24 Anion Gap (5 - 16) 3 L 6 BUN (7 - 17 mg/dL) 6 L 6 L Creatinine (0.5 - 1.0 mg/dL) 0.6 0.6 Estimated GFR (>60 ml/min) > 60 > 60 Glucose (65 - 99 mg/dL) 82 67 Calcium (8.4 - 10.2 mg/dL) 7.2 L 6.9 L Phosphorus (2.5 - 4.5 mg/dL) 3.0 2.8 Magnesium (1.6 - 2.3 mg/dL) 1.8 2.0 Total Bilirubin (0.2 - 1.3 mg/dL) 0.5 0.4 AST (14 - 36 U/L) 24 23 ALT (9 - 52 U/L) 37 33 Albumin (3.5 - 5.0 g/dL) 1.8 L 1.7 L Coagulation PT (9.4 - 12.5 SEC) Pending 14.0 H INR (0.90 - 1.19) Pending 1.34 H Hematology CBC w Diff Pending Cancelled WBC Pending Cancelled RBC Pending Cancelled Hgb Pending Cancelled Hct Pending Cancelled MCV Pending Cancelled MCH Pending Cancelled RDW Pending Cancelled Plt Count Pending Cancelled MPV Pending Cancelled PUBS MCHC Pending Cancelled Recent Imaging Studies: EGD 10/01/2016: 1. 1.5 cm superficial gastric ulcer at the posterior wall of the gastric body, which appeared symmetrical, with radiating folds. There was no clot or visible vessel. Biopsies were deferred. No therapeutics were performed. 2. 2+ nonerosive distal GERD. Z line at 33 cm. Biopsies deferred. 3. 2 cm hiatal hernia pouch from 33-35 cm. No Luis erosions. 4. Otherwise, normal EGD to the jejunum, 160 cm from the incisors, with the use of the Olympus high definition pediatric videocolonoscope from above. No recurrent small bowel angiodysplasia seen. Bile was seen in the small bowel. Assessment/Plan Assessment/Recommendations: Ms. Merlos is a 76-year-old female with PVD, PUD, COPD, CAD, AAA s/p endovascular repair, and recently SBO s/p lysis of adhesion who presents to the hospital with hematemesis, coffee ground emesis, and elevated INR. She has been having significant issues with oral intake since her surgery during the most recent admission. Her elevated INR is likely secondary to factor deficiency. With her decreased oral intake, she likely has vitamin K deficiency. INR normalized after FFP and vitamin K 10 mg IM. INR is trending upward. This is likely secondary to continued decrease nutritional intake. She may need daily low dose vitamin K as she is now on antibiotic also for fever overnight. Her thrombocytopenia is likely an acute consumptive process from bleeding. CBC is pending today. Recommendations: 1. Monitor PT/INR/PTT daily 2. Check CBC at least daily 3. Consider daily vitamin K (100 mcg to 250 mcg daily) Please call [phone] with any questions or concerns. Problem List: 1. Acute blood loss anemia 2. Malnutrition 3. Coagulopathy 4. History of peptic ulcer disease
[2016-10-02] MEDS ORDERED: PROTONIX40 M3 PO (08:59)
--- NOTE | 2016-10-02 09:19 | PN- Housestaff ---
SHAUNA CHENG 10/02/16 0918: Subjective Follow-up For: Acute Symptomatic Anemia from acute blood loss Upper GI bleed Subjective: MAXIMUM TEMPERATURE 100.3 last night. This morning patient is alert, awake and oriented. She is complaining of dizziness and lightheadedness. Denies any further episode of vomiting. She had a bowel movement this morning and it was black tarry stool. Review of Systems Constitutional: Reports: see HPI. Objective Last 24 Hrs of Vital Signs/I&O Vital Signs Date Time Temp Pulse Resp B/P B/P Pulse O2 O2 Flow FiO2 Mean Ox Delivery Rate 10/02 1150 95 Nasal 2.0L Cannula 10/02 1042 Nasal 2.5L Cannula 10/02 0600 99.0 97 21 128/52 92 Nasal 2.0L Cannula 10/02 0110 99.9 10/02 0011 100.3 10/02 0000 91 Nasal 2.0L Cannula 10/01 2213 100.9 10/01 2146 101.4 10/01 2145 101.4 10/01 2048 101.4 10/01 2045 101.4 10/01 1907 96 Nasal 3.0L Cannula 10/01 1600 99.2 98 21 120/60 95 Nasal 4.0L Cannula 10/01 1600 95 Nasal 4.0L Cannula Intake & Output 10/02 1600 10/02 0800 10/02 0000 Intake Total 1150 1400 Output Total 350 Balance 1150 1050 Intake, IV 1030 1000 Intake, Oral 120 400 Number 0 Bowel Movements Output, Urine 350 Physical Exam General Appearance: Alert, Oriented X3, Cooperative, No Acute Distress Neck: Supple Cardiovascular: tachycardia Lungs: Clear to Auscultation Abdomen: Normal Bowel Sounds, Soft, No Tenderness Extremities: 1+ pitting edema bilaterally Current Medications: Current Medications Sig/Ebenezer Start time Last Medication Dose Route Stop Time Status Admin Acetaminophen 650 MG .STK-MED ONE 10/02 0002 DC PO 10/02 0003 Acetaminophen 650 MG ONCE ONE 10/015 DC 10/02 PO 10/02 2315 0011 Acetaminophen 650 MG ONCE ONE 10/01 2044 DC 10/01 PO 10/01 Albuterol Sulfate 3 ML BID 09/29 1000 AC 10/02 INH 1147 Albuterol Sulfate 2 PUF Q4-6 PRN PRN 09/29 0515 AC INH Alprazolam 0.5 MG TIDPRN PRN 10/01 2300 AC PO 10/08 2259 Ceftriaxone Sodium 1,000 MG DAILY 10/02 1000 AC 10/02 IV 1153 Ceftriaxone Sodium 1,000 MG DAILY 09/29 1037 DC 10/01 IV 0905 Chlorhexidine 1 GM .STK-MED ONE 10/01 1438 DC Gluconate TOP 10/01 1439 Metronidazole 500 MG Q8H 09/29 2100 AC 10/02 N/A 1 UNIT IV 1156 Morphine Sulfate 2 MG Q4P PRN 09/29 0515 AC 10/02 IV 0704 Omeprazole 40 MG DAILY AC 10/02 0700 CAN PO Omeprazole 40 MG BID 10/01 2200 AC 10/02 PO 0841 Ondansetron HCl 4 MG .STK-MED ONE 10/02 0002 DC IM 10/02 0003 Ondansetron HCl 4 MG Q6P PRN 09/29 0515 10/02 IV 0011 Pantoprazole Sodium 40 MG Q5H 09/29 0515 DC 10/01 Sodium Chloride 100 ML IV 1216 Potassium Chloride 20 MEQ ONCE ONE 10/01 2200 DC 10/01 PO 10/01 2201 2044 Potassium Chloride 20 MEQ ONCE ONE 10/01 1815 DC 10/01 PO 10/01 1816 1811 Potassium Chloride 60 MEQ ONCE ONE 10/01 1800 CAN PO 10/01 1801 Sodium Chloride 1,000 ML .Q8H 09/29 0515 DC 10/02 IV 0443 Tiotropium [place] 1 PUF DAILY 09/29 1000 AC 10/02 INH 0842 Last 24 Hrs of Lab/Sean Results Last 24 Hrs of Labs/Mics: Laboratory Tests 10/02/16618: CBC w Diff MAN DIFF ORDERED, RBC 3.40 L, MCV 87.8, MCH 29.3, RDW 15.5 H, MPV 9.6, Gran % 87.9 H, Lymphocytes % 7.9 L, Monocytes % 4.0, Eosinophils % 0.2, Basophils % 0 L, Absolute Granulocytes 5.9, Segmented Neutrophils 78 H, Band Neutrophils 10 H, Absolute Lymphocytes 0.5 L, Lymphocytes 8 L, Monocytes 3, Absolute Monocytes 0.3, Absolute Eosinophils 0, Basophils 1, Absolute Basophils 0, Platelet Estimate DECREASED, Polychromasia 1+, Anisocytosis 1+, PUBS MCHC 33.3 06/21/17 0618: Anion Gap 3 L, Estimated GFR > 60, Glucose 82, Calcium 7.2 L, Phosphorus 3.0, Magnesium 1.8, Total Bilirubin 0.5, AST 24, ALT 37, Albumin 1.8 L, PT 15.9 H, INR 1.52 H 10/01/16 1607: Anion Gap 6, Estimated GFR > 60, Glucose 67, Calcium 6.9 L, Phosphorus 2.8, Magnesium 2.0, Total Bilirubin 0.4, AST 23, ALT 33, Albumin 1.7 L, PT 14.0 H, INR 1.34 H Microbiology 10/02 0035 BLOOD: Blood Culture - RECD 10/02 0005 BLOOD: Blood Culture - RECD Assessment/Plan Assessment: She 76-year-old woman with past medical history of peptic ulcer disease. 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 History of iron deficiency anemia. Multiple transfusions. Hypertension, hyperlipidemia, COPD not on home oxygen, anxiety, PA, peripheral vascular disease, endovascular AAA repair, history of TIA, and recent history of small bowel obstruction with lysis of adhesions 2 weeks prior to admission. Problem list 1. Symptomatic anemia secondary to acute blood loss status post 4 units of blood transfusion. H&H 9.9/29.8 morning 2. Upper GI bleed status post EGD. Showed 1.5 cm superficial gastric ulcer and GERD 3. Hypercoagulable state. INR 1.5 to this morning 4. Fever. MAXIMUM TEMPERATURE 101.4 5. Thrombocytopenia. Platelet count 95 this morning 6. Hypokalemia 7. Malnutrition PLAN * Monitor vitals closely * Watch for any active GI bleed. Call GI in case of overt bleed * Monitor PT/INR/PTT daily * Check CBC daily. Keep hemoglobin more than 8 * Avoid NSAIDs and Aspirin * Continue PPI * Started vitamin K 0.1 mg daily * Continue IV ceftriaxone and Flagyl for now * Follow-up blood cultures * Advanced diet to full liquid today. Can advance to regular diet 14 her if patient tolerates * Adequate pain management * Nutrition consult * Alps for DVT prophylaxis * Full code Problem List: 1. Acute blood loss anemia Pain Ratin Pain Location: back Pain Goal: Pain 4 or less Pain Plan: tylenol Tomorrow's Labs & Rationales: cbc, INR DVT/Prophylaxis: JOSE Queen 10/02/16 1536: Attending MD Review Statement Attending Statement Attending MD Statement: examined this patient, discuss w/resident/PA/DYE FEEDER, agreed w/resident/PA/DYE FEEDER, discussed with family, reviewed EMR data (avail), discussed with nursing, discussed with case mgmt, reviewed images, amended to note Attending Assessment/Plan: 76 o/f with acute blood loss anemia transferred from ICU to floor , found to have fever, on ceftriaxone and flagyl as per ICU team, obtain repeat chest xray r/o aspiration. Patient recieved multiple transfusions. GI on board, non bleeding ulcer, ?source of bleed, h/o AVMs in past, f/u GI, PCP as o/p.
[2016-10-02 14:24] VITALS: BP 130/60
[2016-10-02 22:48] VITALS: BP 134/64
[2016-10-03 06:22] VITALS: BP 140/58
[2016-10-03 07:47] LABS: ABSOLUTE BASOPHIL COUNT 0 /CUMM (0.0-0.2); ABSOLUTE EOSINOPHIL COUNT 0 /CUMM (0.0-0.7); ABSOLUTE GRANULOCYTE CT 6.5 /CUMM (1.4-6.5); ABSOLUTE LYMPH COUNT 0.6 /CUMM (1.2-3.4); ABSOLUTE MONOCYTE COUNT 0.3 /CUMM (0.10-0.60); BASOPHIL % 0 % (0.0-2.0); EOSINOPHIL % 0.2 % (0-5); GRANULOCYTE % 87.3 % (42.2-75.2); HEMATOCRIT 29.2 % (37-47); MEAN CORPUSCULAR HGB 29.5 PG (27.0-31.0); MEAN CORPUSCULAR HGB CONC 33.5 G/DL (33.0-37.0); MEAN CORPUSCULAR VOLUME 88.3 FL (81.0-99.0); MEAN PLATELET VOLUME 9.6 FL (7.4-10.4); PLATELET COUNT 95 /CUMM (130-400); RBC DISTRIBUTION WIDTH 15.5 % (11.5-14.5); RED BLOOD CELL CT 3.31 /CUMM (4.20-5.40); WHITE BLOOD CELL COUNT 7.5 /CUMM (4.8-10.8)
[2016-10-03 08:17] LABS: PT 17.6 SEC (9.4-12.5)
--- NOTE | 2016-10-03 09:30 | NUR ---
CALLED INTO ROOM BY VIKKI COLE; PATIENT ASSISTED BACK TO BED AND NOW LAYING IN BED BUT COMPLAINING OF CENTRAL CHEST PAIN; VITALS OBTAINED (SEE INTERVENTION); RESIDENT DR CHENG #[id number] NOTIFIED AND AWARE; ORDERED ENTERED FOR EKG AND TROPONIN; EKG BEING COMPLETED AND TROPONIN BEING DRAWN BY VIKKI COLE; PER DR PRINGLE SHE WILL COME ASSESS THE PATIENT; AWAITING DR PRINGLE TO BEDSIDE;
[2016-10-03 09:31] VITALS: BP 124/60
--- NOTE | 2016-10-03 09:40 | NUR ---
RACHEL COMPLETED AND ON CHART; DR PRINGLE AWARE
--- NOTE | 2016-10-03 09:50 | NUR ---
TROPONIN DRAWN AND SENT TO LAB
--- NOTE | 2016-10-03 10:07 | PN- Housestaff ---
SHAUNA CHENG 10/03/16 1007: Subjective Follow-up For: Acute Symptomatic Anemia from acute blood loss Upper GI bleed Subjective: This morning patient is alert, awake and oriented. She is complaining of dizziness and lightheadedness. Denies any further episode of vomiting. Review of Systems Constitutional: Reports: see HPI. Objective Last 24 Hrs of Vital Signs/I&O Vital Signs Date Time Temp Pulse Resp B/P B/P Pulse O2 O2 Flow FiO2 Mean Ox Delivery Rate 10/05 0935 97 Nasal 2.0L Cannula 10/05 0720 98.2 106 20 124/54 93 10/05 0416 97.8 10/05 0237 99.6 10/05 0000 99.6 112 20 126/60 92 Nasal 2.0L Cannula 10/05 0000 92 Nasal 2.0L Cannula 10/04 2352 101.3 10/04 2352 101.3 10/04 2200 101.7 118 20 140/80 90 Nasal 1.0L Cannula 10/04 2149 101.7 10/04 1938 90 Nasal 1.0L Cannula 10/04 1600 Nasal 1.0L Cannula 10/04 1450 99.6 116 18 140/60 91 Intake & Output 10/05 1600 10/05 0800 10/05 0000 Intake Total 240 100 Output Total 350 350 Balance -110 -250 Intake, Oral 240 100 Number 1 Bowel Movements Output, Urine 350 350 Physical Exam General Appearance: Alert, Cooperative, No Acute Distress Cardiovascular: tachy Lungs: b/l basal crackles Abdomen: Soft, epigastric tenderness Extremities: 1+ pitting edema Assessment/Plan Assessment: She 76-year-old woman with past medical history of peptic ulcer disease. 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 History of iron deficiency anemia. Multiple transfusions. Hypertension, hyperlipidemia, COPD not on home oxygen, anxiety, ID, peripheral vascular disease, endovascular AAA repair, history of TIA, and recent history of small bowel obstruction with lysis of adhesions 2 weeks prior to admission. Problem list 1. Symptomatic anemia secondary to acute blood loss status post 4 units of blood transfusion. H&H 9.9/29.8 morning 2. Upper GI bleed status post EGD. Showed 1.5 cm superficial gastric ulcer and GERD 3. Hypercoagulable state. INR 1.5 to this morning 4. Fever. MAXIMUM TEMPERATURE 101.4 5. Thrombocytopenia. Platelet count 95 this morning 6. Hypokalemia 7. Malnutrition PLAN * Monitor vitals closely * Watch for any active GI bleed. Call GI in case of overt bleed * Monitor PT/INR/PTT daily * Check CBC daily. Keep hemoglobin more than 8 * Avoid NSAIDs and Aspirin * Continue PPI * Started vitamin K 0.1 mg daily * Continue IV ceftriaxone and Flagyl for now * Follow-up blood cultures * Advanced diet to full liquid today. Can advance to regular diet 14 her if patient tolerates * Adequate pain management * Nutrition consult * Alps for DVT prophylaxis * Full code Problem List: 1. Acute blood loss anemia Pain Ratin Pain Location: belly Pain Goal: Pain 4 or less Pain Plan: tylenol, morphine Tomorrow's Labs & Rationales: cbc DVT/Prophylaxis: pharmacological JOSE HERMAN 10/03/16 1300: Attending MD Review Statement Attending Statement Attending MD Statement: examined this patient, discuss w/resident/PA/UNHAIRING MACHINE OPERATOR, agreed w/resident/PA/UNHAIRING MACHINE OPERATOR, discussed with family, reviewed EMR data (avail), discussed with nursing, discussed with case mgmt, reviewed images, amended to note Attending Assessment/Plan: 76 o/f with acute blood loss anemia transferred from ICU to floor , found to have fever, on ceftriaxone possible UTI, repeat chest xray no acute process but atelectasis+ afebrile for past 24 hrs. Patient recieved multiple transfusions. GI signed off, non bleeding ulcer, ?source of bleed, h/o AVMs in past, encourage incentive spirometry, f/u GI, PCP as o/p. anticipate d/c soon.
--- NOTE | 2016-10-03 10:59 | NUR ---
DR HERMAN AND DR PRINGLE AT BEDSIDE; PATIENT TO GO FOR CXR AT THIS TIME;
--- NOTE | 2016-10-03 11:44 | RADIOLOGY REPORT ---
EXAMINATION: XR CHEST CLINICAL INFORMATION: Pneumonia chills shortness of breath. COMPARISON: Prior examinations including chest 10/01/2016. TECHNIQUE: 2 views of the chest were obtained. FINDINGS: The cardiac silhouette is mildly enlarged but unchanged. The recent CT shows a pericardial effusion which likely at least in part explains the enlargement. Minimal linear opacity at the left base unchanged compatible scarring and/or discoid atelectasis. Trace left pleural effusion unchanged. Minimal right apical pleural thickening unchanged. Pulmonary vascularity normal. Calcification of the dorsal aorta unchanged. IMPRESSION: Stable enlarged cardiac silhouette which appears at least in part due to pericardial effusion as seen on recent CT. Chronic apical pleural thickening minimal scarring or discoid atelectasis left base unchanged. Small left pleural effusion.
--- NOTE | 2016-10-03 12:12 | PN- Hematology ---
Subjective Subjective: She is feeling about the same. Abdomen is improved. She has no fever or chills. Review of Systems: Constitutional: Denies: chills, fever. Cardiovascular: Denies: chest pain. Respiratory: Reports: short of breath. GI: Reports: abdominal pain. Denies: vomiting Musculoskeletal: Reports: back pain. Hematologic/Endocrine: Denies: bruising. bleeding. All Other Systems: Reviewed and Negative Objective Vital Signs and I&Os Vital Signs Date Time Temp Pulse Resp B/P B/P Pulse O2 O2 Flow FiO2 Mean Ox Delivery Rate 10/03 0931 97.7 112 22 124/60 94 Nasal 3.0L Cannula 10/03 0843 93 Nasal 2.0L Cannula 10/03 0622 99.4 111 26 140/58 93 Nasal 3.0L Cannula 10/03 0000 97 Nasal 2.0L Cannula 10/02 2248 97.6 98 20 134/64 97 Nasal 3.0L Cannula 10/02 1955 96 Nasal 2.0L Cannula 10/02 1600 98 Nasal 2.0L Cannula 10/02 1424 98.1 101 20 130/60 93 Nasal 2.0L Cannula Intake & Output 10/03 1600 10/03 0800 10/03 0000 10/02 1600 10/02 0800 10/02 0000 Intake Total 006 822 6701 1150 1400 Output Total 200 501 450 350 Balance 380 49 750 1150 1050 Intake, IV 268 571 3802 1000 Intake, Oral 037 472 4319 120 400 Number 0 1 1 0 Bowel Movements Output, Stool 1 Output, Urine 200 500 450 350 Physical Exam: General Appearance: no apparent distress, alert, awake, comfortable Respiratory: normal breath sounds, no respiratory distress Cardiovascular: regular rate/rhythm, edema Gastrointestinal: normal bowel sounds, soft, no organomegaly, tenderness, healing incision Extremities: edema Neurologic/Psych: awake, alert, oriented x 3 Skin: normal color, warm/dry Other Physical Findings: on 2L NC Current Medications: Current Medications Sig/Ebenezer Start time Last Medication Dose Route Stop Time Status Admin Acetaminophen 650 MG Q6-PRN PRN 10/03 0645 AC 10/03 PO 0650 Albuterol Sulfate 3 ML BID 09/29 1000 AC 10/03 INH 0832 Albuterol Sulfate 2 PUF Q4-6 PRN PRN 09/29 0515 AC INH Alprazolam 0.5 MG TIDPRN PRN 10/01 2300 AC 10/03 PO 10/08 2259 0847 Ceftriaxone Sodium 1,000 MG DAILY 10/02 1000 AC 10/03 IV 0839 Metronidazole 500 MG Q8H 09/29 2100 DC 10/03 N/A 1 UNIT IV 0502 Morphine Sulfate 2 MG Q4P PRN 09/29 0515 AC 10/03 IV 0839 Omeprazole 40 MG BID 10/01 2200 AC 10/03 PO 0839 Ondansetron HCl 4 MG Q6P PRN 09/29 0515 AC 10/02 IV 0011 Phytonadione 5 MG ONCE ONE 10/02 1600 DC 10/02 PO 10/02 1601 1758 Phytonadione 0.1 MG DAILY 10/02 1404 DC PO Potassium Chloride 40 MEQ ONCE ONE 10/02 1400 DC 10/02 PO 10/02 1401 1758 Tiotropium [place] 1 PUF DAILY 09/29 1000 AC 10/03 INH 0839 Results Last 24 Hours of Lab Results: Laboratory Tests 10/03 10/03 0945 0684 Chemistry Sodium (137 - 145 mmol/L) 137 Potassium (3.5 - 5.1 mmol/L) 3.9 Chloride (98 - 107 mmol/L) 109 H Carbon Dioxide (22 - 30 mmol/L) 23 Anion Gap (5 - 16) 5 BUN (7 - 17 mg/dL) 4 L Creatinine (0.5 - 1.0 mg/dL) 0.6 Estimated GFR (>60 ml/min) > 60 BUN/Creatinine Ratio (7 - 25 %) 6.7 L Troponin I (< 0.11 ng/ml) < 0.01 Coagulation PT (9.4 - 12.5 SEC) 17.6 H INR (0.90 - 1.19) 1.68 H Hematology CBC w Diff MAN DIFF ORDERED WBC (4.8 - 10.8 /CUMM) 7.5 RBC (4.20 - 5.40 /CUMM) 3.31 L Hgb (12.0 - 16.0 G/DL) 9.8 L Hct (37 - 47 %) 29.2 L MCV (81.0 - 99.0 FL) 88.3 MCH (27.0 - 31.0 PG) 29.5 RDW (11.5 - 14.5 %) 15.5 H Plt Count (130 - 400 /CUMM) 95 L MPV (7.4 - 10.4 FL) 9.6 Gran % (42.2 - 75.2 %) 87.3 H Lymphocytes % (20.5 - 51.1 %) 8.4 L Monocytes % (1.7 - 9.3 %) 4.1 Eosinophils % (0 - 5 %) 0.2 Basophils % (0.0 - 2.0 %) 0 L Absolute Granulocytes (1.4 - 6.5 /CUMM) 6.5 Segmented Neutrophils (42.2 - 75.2 %) Pending Band Neutrophils (0.0 - 5.0 %) Pending Absolute Lymphocytes (1.2 - 3.4 /CUMM) 0.6 L Lymphocytes (20.5 - 51.1 %) Pending Monocytes (1.7 - 9.3 %) Pending Absolute Monocytes (0.10 - 0.60 /CUMM) 0.3 Eosinophils (0 - 5.0 %) Pending Absolute Eosinophils (0.0 - 0.7 /CUMM) 0 Absolute Basophils (0.0 - 0.2 /CUMM) 0 PUBS MCHC (33.0 - 37.0 G/DL) 33.5 10/03 0127 Urines Urinalysis LIGHT H Urine Color (YEL,AMB,STR) YEL Urine Clarity (CLEAR) HAZY H Urine pH (5.0 - 8.0) 6.0 Ur Specific [place] (1.001 - 1.035) 1.025 Urine Protein (NEG,<30 MG/DL) 100 H Urine Ketones (NEG) NEG Urine Nitrite (NEG) POS H Urine Bilirubin (NEG) NEG Urine Urobilinogen (0.1 - 1.0 EU/dl) 0.2 Ur Leukocyte Esterase (NEG) TRACE H Ur Microscopic SEDIMENT EXAMINED Urine RBC (0 - 5 /HPF) 1-3 Urine WBC (0 - 2 /HPF) 5-10 H Ur Epithelial Cells (NONE,FEW) FEW Urine Bacteria (NEG/NONE) MOD H Hyaline Casts (0/LPF) 1-3 H Urine Mucus (FEW,NONE) MOD H Urine Hemoglobin (NEG) NEG Urine Glucose (N MG/DL) NEG Assessment/Plan Assessment/Recommendations: Ms. Merlos is a 76-year-old female with PVD, PUD, COPD, CAD, AAA s/p endovascular repair, and recently SBO s/p lysis of adhesion who presents to the hospital with hematemesis, coffee ground emesis, and elevated INR. She has been having significant issues with oral intake since her surgery during the most recent admission. Her elevated INR is likely secondary to factor deficiency. With her decreased oral intake, she likely has vitamin K deficiency. INR normalized after FFP and vitamin K 10 mg IM. Her INR continues to trend upward with her decrease oral intake and antibiotics. She may get daily supplementation of vitamin K low dose. Due to formulary issues, she can take vitamin K 5 mg oral every 2-3 days. Hopefully this will be enough with her increasing her oral intake. Thrombocytopenia is stable currently. She has no bleeding issues. Recommendations: 1. Monitor PT/INR/PTT daily 2. Check CBC at least daily 3. Vitamin K 5 mg PO eveyr 48-72 hours Please call [phone] with any questions or concerns. Problem List: 1. Thrombocytopenia 2. Acute blood loss anemia 3. Coagulopathy
[2016-10-03 14:30] VITALS: BP 126/50
--- NOTE | 2016-10-03 15:18 | PN- Housestaff ---
Subjective Follow-up For: Acute Symptomatic Anemia from acute blood loss Upper GI bleed Subjective: This morning she is alert, awake and oriented. She is very sweaty. Denies any chest pain, palpitations. She denies any nausea, vomiting. Complains of mild upper abdominal pain but tolerating full liquid diet. Later on she started complaining of mid chest pain. EKG and troponins were ordered stat. EKG did not show any acute ST-T wave changes. Troponins negative Review of Systems Constitutional: Reports: see HPI. Objective Last 24 Hrs of Vital Signs/I&O Vital Signs Date Time Temp Pulse Resp B/P B/P Pulse O2 O2 Flow FiO2 Mean Ox Delivery Rate 10/03 1430 98.2 100 20 126/50 94 Nasal 1.0L Cannula 10/03 0931 97.7 112 22 124/60 94 Nasal 3.0L Cannula 10/03 0843 93 Nasal 2.0L Cannula 10/03 06 99.4 111 26 140/58 93 Nasal 3.0L Cannula 10/03 0000 97 Nasal 2.0L Cannula 10/02 2248 97.6 98 20 134/64 97 Nasal 3.0L Cannula 10/02 1955 96 Nasal 2.0L Cannula 10/02 1600 98 Nasal 2.0L Cannula Intake & Output 10/03 1600 10/03 0800 10/03 0000 Intake Total 400 580 550 Output Total 200 501 Balance 400 380 49 Intake, IV 0 100 100 Intake, Oral 400 480 450 Number 0 1 Bowel Movements Output, Stool 1 Output, Urine 200 500 Physical Exam General Appearance: Alert, Oriented X3, Cooperative, No Acute Distress Neck: Supple Cardiovascular: tachycardia Lungs: bilateral basal crackles Abdomen: Normal Bowel Sounds, Soft, No Tenderness, mild tenderness on deep palpation of epigastric area Extremities: 1+ pitting edema bilaterally Current Medications: Current Medications Sig/Ebenezer Start time Last Medication Dose Route Stop Time Status Admin Acetaminophen 650 MG Q6-PRN PRN 10/03 0645 AC 10/03 PO 0650 Albuterol Sulfate 3 ML BID 09/29 1000 AC 10/03 INH 0832 Albuterol Sulfate 2 PUF Q4-6 PRN PRN 09/29 0515 AC INH Alprazolam 0.5 MG TIDPRN PRN 10/01 2300 AC 10/03 PO 10/08 2259 0847 Ceftriaxone Sodium 1,000 MG DAILY 10/02 1000 AC 10/03 IV 0839 Metronidazole 500 MG Q8H 09/29 2100 DC 10/03 N/A 1 UNIT IV 0502 Morphine Sulfate 2 MG Q4P PRN 09/29 0515 AC 10/03 IV 0839 Omeprazole 40 MG BID 10/01 2200 AC 10/03 PO 0839 Ondansetron HCl 4 MG Q6P PRN 09/29 0515 AC 10/02 IV 0011 Phytonadione 5 MG ONCE ONE 10/02 1600 DC 10/02 PO 10/02 1601 1758 Phytonadione 0.1 MG DAILY 10/02 1404 DC PO Tiotropium [place] 1 PUF DAILY 09/29 1000 AC 10/03 INH 0839 Last 24 Hrs of Lab/Sean Results Last 24 Hrs of Labs/Mics: Laboratory Tests 10/03/16 0945: Troponin I < 0.01 10/03/16 0625: Anion Gap 5, Estimated GFR > 60, BUN/Creatinine Ratio 6.7 L, PT 17.6 H, INR 1.68 H, CBC w Diff MAN DIFF ORDERED, RBC 3.31 L, MCV 88.3, MCH 29.5, RDW 15.5 H, MPV 9.6, Gran % 87.3 H, Lymphocytes % 8.4 L, Monocytes % 4.1, Eosinophils % 0.2, Basophils % 0 L, Absolute Granulocytes 6.5, Segmented Neutrophils 69, Band Neutrophils 20 H, Absolute Lymphocytes 0.6 L, Lymphocytes 6 L, Monocytes 3, Absolute Monocytes 0.3, Eosinophils 2, Absolute Eosinophils 0, Absolute Basophils 0, Platelet Estimate DECREASED, Polychromasia 1+, Basophilic Stippling 1+, Anisocytosis 1+, PUBS MCHC 33.5 10/03/16 0127: Urinalysis LIGHT H, Urine Color YEL, Urine Clarity HAZY H, Urine pH 6.0, Ur Specific [place] 1.025, Urine Protein 100 H, Urine Ketones NEG, Urine Nitrite POS H, Urine Bilirubin NEG, Urine Urobilinogen 0.2, Ur Leukocyte Esterase TRACE H, Ur Microscopic SEDIMENT EXAMINED, Urine RBC 1-3, Urine WBC 5-10 H, Ur Epithelial Cells FEW, Urine Bacteria MOD H, Hyaline Casts 1-3 H, Urine Mucus MOD H, Urine Hemoglobin NEG, Urine Glucose NEG Microbiology 10/03 126 URINE ROUT: Urine Culture - RECD Assessment/Plan Assessment: She 76-year-old woman with past medical history of peptic ulcer disease. 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 History of iron deficiency anemia. Multiple transfusions. Hypertension, hyperlipidemia, COPD not on home oxygen, anxiety, HI, peripheral vascular disease, endovascular AAA repair, history of TIA, and recent history of small bowel obstruction with lysis of adhesions 2 weeks prior to admission. Problem list 1. Symptomatic anemia secondary to acute blood loss due to PUD vs AVMS status post 4 units of blood transfusion. H&H 9.8/29.2 2. Hypercoagulable state. INR 1.68 to this morning. On vitamin K PO 4. Fever. MAXIMUM TEMPERATURE 100.3 on October 02. No fevers overnight. Chest x -ray did not show any acute process. UA is dirty 5. Thrombocytopenia. Platelet count 95 this morning. Still having black tarry stools 7. Malnutrition 8. UTI. UA is positive for nitrites and leukocyte esterase with 5-10 WBCs 9. Oxygen dependent. 2 L of oxygen via nasal cannula. Most likely atelectasis PLAN * Monitor vitals closely * Watch for any active GI bleed. Call GI in case of overt bleed * Monitor PT/INR/PTT daily * Check CBC daily. Keep hemoglobin more than 8 * Avoid NSAIDs and Aspirin * Continue PPI * Started vitamin K 5 mg daily Q48-72H * Continue IV ceftriaxone. Change to by mouth antibiotics tomorrow * Urine culture negative to date * Blood cultures NTD * Try to taper down oxygen. Keep oxygen saturation more than 92%. Will check laboratory oxygen saturation with and without oxygen * Incentive spirometry * Advanced diet to regular today * Adequate pain management * Nutrition consult * Alps for DVT prophylaxis * Full code * Anticipated discharge tomorrow Problem List: 1. Acute blood loss anemia 2. Malnutrition 3. Thrombocytopenia 4. Coagulopathy Pain Ratin Pain Location: back Pain Goal: Pain 4 or less Pain Plan: tylenol Tomorrow's Labs & Rationales: cbc DVT/Prophylaxis: mechanical
--- NOTE | 2016-10-03 22:11 | Event Note ---
Event Note Event Note: Received a call from patient's granddson Jose R Foreman asking for updates to his grandmother Didi Merlos. He wants to speak to M.Marjorie. was covering the patient as he has concerns regarding plan of care. Please contact him on [phone]
[2016-10-03 22:47] VITALS: BP 140/80
--- NOTE | 2016-10-04 06:43 | NUR ---
NURSING NOTE: PATIENTS VS BP 128/54, HR 115, T 100.3, RR 20, O2 SAT 90% ON 1L NC AT THIS TIME. PATIENT IN NO ACUTE DISTRESS, A&OX3, RESTING IN BED. MD Norman PEREIRA MADE AWARE, STATED SHE WILL "LET THE DAY TEAM KNOW." NO FURTHER ORDERS AT THIS TIME. WILL CONTINUE TO MONITOR AND INFORM DAY RN OF ABOVE.
[2016-10-04 06:49] VITALS: BP 128/54
[2016-10-04 08:34] LABS: PT 16.2 SEC (9.4-12.5)
[2016-10-04 08:43] LABS: ABSOLUTE BASOPHIL COUNT 0 /CUMM (0.0-0.2); ABSOLUTE EOSINOPHIL COUNT 0 /CUMM (0.0-0.7); ABSOLUTE GRANULOCYTE CT 6.4 /CUMM (1.4-6.5); ABSOLUTE LYMPH COUNT 0.8 /CUMM (1.2-3.4); ABSOLUTE MONOCYTE COUNT 0.2 /CUMM (0.10-0.60); BASOPHIL % 0 % (0.0-2.0); EOSINOPHIL % 0.2 % (0-5); GRANULOCYTE % 86.7 % (42.2-75.2); HEMATOCRIT 30.5 % (37-47); MEAN CORPUSCULAR HGB 29.5 PG (27.0-31.0); MEAN CORPUSCULAR HGB CONC 33.5 G/DL (33.0-37.0); MEAN PLATELET VOLUME 9.2 FL (7.4-10.4); PLATELET COUNT 126 /CUMM (130-400); RBC DISTRIBUTION WIDTH 15.8 % (11.5-14.5); RED BLOOD CELL CT 3.46 /CUMM (4.20-5.40); WHITE BLOOD CELL COUNT 7.4 /CUMM (4.8-10.8)
[2016-10-04 08:44] VITALS: BP 130/60
--- NOTE | 2016-10-04 10:03 | PN- Housestaff ---
SHAUNA CHENG 10/04/16 1003: Subjective Follow-up For: Acute Symptomatic Anemia from acute blood loss Upper GI bleed (PUD vs AVMs) Acute hypoxic respiratory failure Tachycardia Subjective: MAXIMUM TEMPERATURE 100.3 this morning. She still on 1 L of oxygen via nasal cannula and desaturated down to 86% upon ambulation. She is complaining of abdominal pain. Denies any nausea or vomiting. Had a bowel movement yesterday. Complaining of poor appetite and sleep. Review of Systems Constitutional: Reports: see HPI. Objective Last 24 Hrs of Vital Signs/I&O Vital Signs Date Time Temp Pulse Resp B/P B/P Pulse O2 O2 Flow FiO2 Mean Ox Delivery Rate 10/04 0844 99.9 118 20 130/60 92 Nasal Cannula 10/04 0649 100.3 115 20 128/54 90 Nasal 1.0L Cannula 10/04 0000 93 Nasal 1.0L Cannula 10/03 2247 99.8 118 20 140/80 93 Room Air 10/03 1855 94 Nasal 1.0L Cannula 10/03 1600 94 Nasal 1.0L Cannula 10/03 1430 98.2 100 20 126/50 94 Nasal 1.0L Cannula Intake & Output 10/04 1600 10/04 0800 10/04 0000 Intake Total 510 600 Output Total 250 400 Balance 260 200 Intake, IV 30 Intake, Oral 480 600 Number 0 Bowel Movements Output, Stool 100 Output, Urine 250 300 Physical Exam General Appearance: Alert, Oriented X3, Cooperative, No Acute Distress Neck: Supple Cardiovascular: tachycardia Lungs: bilateral basal crackles Abdomen: Normal Bowel Sounds, Soft, mildly distended, tenderness but no guarding or rigidity, no rebound tenderness Extremities: 1+ pitting edema bilaterally Current Medications: Current Medications Sig/Ebenezer Start time Last Medication Dose Route Stop Time Status Admin Acetaminophen 650 MG Q6-PRN PRN 10/03 0645 AC 10/03 PO 0650 Albuterol Sulfate 3 ML BID 09/29 1000 AC 10/04 INH 0901 Albuterol Sulfate 2 PUF Q4-6 PRN PRN 09/29 0515 AC INH Alprazolam 0.5 MG TIDPRN PRN 10/01 2300 AC 10/03 PO 10/08 2259 2136 Ceftriaxone Sodium 1,000 MG DAILY 10/02 1000 AC 10/04 IV 1010 Morphine Sulfate 2 MG Q4P PRN 09/29 0515 AC 10/04 IV 1012 Omeprazole 40 MG BID 10/01 2200 AC 10/04 PO 1011 Ondansetron HCl 4 MG Q6P PRN 09/29 0515 10/02 IV 0011 Phytonadione 5 MG 1000 10/04 1000 DC 10/04 PO 10/04 1001 1011 Tiotropium [place] 1 PUF DAILY 09/29 1000 AC 10/04 INH 1011 Last 24 Hrs of Lab/Sean Results Last 24 Hrs of Labs/Mics: Laboratory Tests 10/04/16 1130: Anion Gap 7, Estimated GFR > 60, BUN/Creatinine Ratio 10.0, Lactic Acid 1.3 10/04/16 0735: PT 16.2 H, INR 1.55 H, CBC w Diff MAN DIFF ORDERED, RBC 3.46 L, MCV 88.0, MCH 29.5, RDW 15.8 H, MPV 9.2, Gran % 86.7 H, Lymphocytes % 10.5 L, Monocytes % 2.6, Eosinophils % 0.2, Basophils % 0 L, Absolute Granulocytes 6.4, Segmented Neutrophils 79 H, Band Neutrophils 14 H, Absolute Lymphocytes 0.8 L, Lymphocytes 5 L, Monocytes 2, Absolute Monocytes 0.2, Absolute Eosinophils 0, Absolute Basophils 0, Platelet Estimate VERIFIED BY SMEAR, Anisocytosis 1+, PUBS MCHC 33.5 Assessment/Plan Assessment: She 76-year-old woman with past medical history of peptic ulcer disease. 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 History of iron deficiency anemia. Multiple transfusions. Hypertension, hyperlipidemia, COPD not on home oxygen, anxiety, HI, peripheral vascular disease, endovascular AAA repair, history of TIA, and recent history of small bowel obstruction with lysis of adhesions 2 weeks prior to admission. Problem list 1. Symptomatic anemia secondary to acute blood loss due to PUD vs AVMS status post 4 units of blood transfusion. H&H 10.2/30.5 today 2. Coagulopathy. INR 1.55 this morning. On vitamin K PO Q48H 4. Fever. MAXIMUM TEMPERATURE 100.3 this am. 5. Thrombocytopenia. Platelet count 126 this morning. No active bleeding 7. Malnutrition 8. UTI. On ceftriaxone 9. Acute hypoxic respiratory failure. on 1 L of oxygen via nasal cannula. He desaturated down to 86% on oxygen upon ambulation 10. Tachycardia. In the setting of fever, tachycardia, respiratory failure and bilateral lower extremity swelling DVT and PE could be a possibility. PLAN * Monitor vitals closely * Watch for any active GI bleed. Call GI in case of overt bleed * Monitor PT/INR/PTT daily * Check CBC daily. Keep hemoglobin more than 8 * Avoid NSAIDs and Aspirin * Continue PPI * Continue vitamin K 5 mg daily Q48 * DC IV ceftriaxone. Change to by mouth Keflex today * Urine culture negative to date * Blood cultures NTD * Try to taper down oxygen. Keep oxygen saturation more than 92% * Continue Incentive spirometry * Doppler ultrasound bilateral lower extremity and CTA chest to rule out DVT and PE * Tolerating regular diet * Alps for DVT prophylaxis * Full code Problem List: 1. Acute blood loss anemia 2. Malnutrition 3. Thrombocytopenia 4. Coagulopathy Pain Ratin Pain Location: back and abdomen Pain Goal: Pain 4 or less Pain Plan: dilaudid Tomorrow's Labs & Rationales: cbc DVT/Prophylaxis: mechanical VIRGILJOSE 10/04/16 1016: Attending MD Review Statement Attending Statement Attending MD Statement: examined this patient, discuss w/resident/PA/GUEST ROOM ATTENDANT, agreed w/resident/PA/GUEST ROOM ATTENDANT, discussed with family, reviewed EMR data (avail), discussed with nursing, discussed with case mgmt, reviewed images, amended to note Attending Assessment/Plan: 76 o/f with acute blood loss anemia transferred from ICU to floor , found to have fever, sinus tachycardia on ceftriaxone possible UTI, repeat chest xray no acute process but atelectasis+ afebrile for past 24-48 hrs. obtain USG lower extremity b/l, Patient recieved multiple transfusions. GI signed off, non bleeding ulcer, ?source of bleed, h/o AVMs in past, encourage incentive spirometry, f/u GI as o/p, PCP as o/p. anticipate d/c soon.
--- NOTE | 2016-10-04 10:06 | NUR ---
Pt ambulated with RW and assist of 2 while on 1L O2 via nasal cannula. Pt desaturated to 86% and pulse elevated to 140. Pt c/o lightheadedness and weakness. Assisted back to bed. pulse ox now 94% on 1L and pulse 128. Dr. Berg notified.
--- NOTE | 2016-10-04 11:20 | ULTRASOUND REPORT ---
EXAMINATION: US TRIPLEX OF LOWER EXTREMITIES, BILATERAL CLINICAL INFORMATION: This is a 76-year-old female with bilateral calf pain. Leg swelling. Possible deep vein thrombosis. COMPARISON: None TECHNIQUE: Color-flow triplex imaging with spectral analysis and compression Doppler were performed on the lower extremities. FINDINGS: Respiratory variation, normal compression and augmented flow are noted throughout the lower extremities. The visualized common femoral vein, superficial femoral vein, profunda femoral vein, popliteal vein and midcalf peroneal and posterior tibial venous segments show no evidence of deep venous thrombosis. There is no Yu's cyst. IMPRESSION: Normal triplex scan without evidence of deep venous thrombosis involving the lower extremities.
--- NOTE | 2016-10-04 12:27 | PN- Hematology ---
Subjective Subjective: She is trying to eat more today. She states she had some dark stool still. She has no gross bleeding. Review of Systems: Constitutional: Denies: chills, fever. Cardiovascular: Denies: chest pain. Respiratory: Reports: short of breath. GI: Reports: abdominal pain. Denies: vomiting Musculoskeletal: Reports: back pain. Hematologic/Endocrine: Denies: bruising. bleeding. All Other Systems: Reviewed and Negative Objective Vital Signs and I&Os Vital Signs Date Time Temp Pulse Resp B/P B/P Pulse O2 O2 Flow FiO2 Mean Ox Delivery Rate 10/04 0844 99.9 118 20 130/60 92 Nasal Cannula 10/04 0649 100.3 115 20 128/54 90 Nasal 1.0L Cannula 10/04 0000 93 Nasal 1.0L Cannula 10/03 2247 99.8 118 20 140/80 93 Room Air 10/03 1855 94 Nasal 1.0L Cannula 10/03 1600 94 Nasal 1.0L Cannula 10/03 1430 98.2 100 20 126/50 94 Nasal 1.0L Cannula Intake & Output 10/04 1600 10/04 0800 10/04 0000 10/03 1600 10/03 0800 10/03 0000 Intake Total 510 600 400 580 550 Output Total 250 400 200 501 Balance 260 200 400 380 49 Intake, IV 30 0 100 100 Intake, Oral 480 600 400 480 450 Number 0 0 1 Bowel Movements Output, Stool 100 1 Output, Urine 250 300 200 500 Physical Exam: General Appearance: no apparent distress, alert, awake, comfortable Respiratory: normal breath sounds, no respiratory distress Cardiovascular: regular rate/rhythm Gastrointestinal: normal bowel sounds, soft, no organomegaly, tenderness, healing incision Extremities: edema Neurologic/Psych: awake, alert, oriented x 3 Skin: normal color, warm/dry Other Physical Findings: on 1L NC Current Medications: Current Medications Sig/Ebenezer Start time Last Medication Dose Route Stop Time Status Admin Acetaminophen 650 MG Q6-PRN PRN 10/03 0645 AC 10/03 PO 0650 Albuterol Sulfate 3 ML BID 09/29 1000 AC 10/04 INH 0901 Albuterol Sulfate 2 PUF Q4-6 PRN PRN 09/29 0515 AC INH Alprazolam 0.5 MG TIDPRN PRN 10/01 2300 AC 10/03 PO 10/089 2136 Ceftriaxone Sodium 1,000 MG DAILY 10/02 1000 AC 10/04 IV 1010 Morphine Sulfate 2 MG Q4P PRN 09/29 0515 AC 10/04 IV 1012 Omeprazole 40 MG BID 10/01 2200 AC 10/04 PO 1011 Ondansetron HCl 4 MG Q6P PRN 09/29 0515 AC 10/02 IV 0011 Phytonadione 5 MG 1000 10/04 1000 DC 10/04 PO 10/04 1001 1011 Tiotropium [place] 1 PUF DAILY 09/29 1000 AC 10/04 INH 1011 Results Last 24 Hours of Lab Results: Laboratory Tests 10/04 10/04 1130 0735 Chemistry Sodium (137 - 145 mmol/L) 135 L Potassium (3.5 - 5.1 mmol/L) 4.0 Chloride (98 - 107 mmol/L) 106 Carbon Dioxide (22 - 30 mmol/L) 23 Anion Gap (5 - 16) 7 BUN (7 - 17 mg/dL) 6 L Creatinine (0.5 - 1.0 mg/dL) 0.6 Estimated GFR (>60 ml/min) > 60 BUN/Creatinine Ratio (7 - 25 %) 10.0 Lactic Acid (0.7 - 2.1 mmol/L) 1.3 Coagulation PT (9.4 - 12.5 SEC) 16.2 H INR (0.90 - 1.19) 1.55 H Hematology CBC w Diff MAN DIFF ORDERED WBC (4.8 - 10.8 /CUMM) 7.4 RBC (4.20 - 5.40 /CUMM) 3.46 L Hgb (12.0 - 16.0 G/DL) 10.2 L Hct (37 - 47 %) 30.5 L MCV (81.0 - 99.0 FL) 88.0 MCH (27.0 - 31.0 PG) 29.5 RDW (11.5 - 14.5 %) 15.8 H Plt Count (130 - 400 /CUMM) 126 L MPV (7.4 - 10.4 FL) 9.2 Gran % (42.2 - 75.2 %) 86.7 H Lymphocytes % (20.5 - 51.1 %) 10.5 L Monocytes % (1.7 - 9.3 %) 2.6 Eosinophils % (0 - 5 %) 0.2 Basophils % (0.0 - 2.0 %) 0 L Absolute Granulocytes (1.4 - 6.5 /CUMM) 6.4 Segmented Neutrophils (42.2 - 75.2 %) 79 H Band Neutrophils (0.0 - 5.0 %) 14 H Absolute Lymphocytes (1.2 - 3.4 /CUMM) 0.8 L Lymphocytes (20.5 - 51.1 %) 5 L Monocytes (1.7 - 9.3 %) 2 Absolute Monocytes (0.10 - 0.60 /CUMM) 0.2 Absolute Eosinophils (0.0 - 0.7 /CUMM) 0 Absolute Basophils (0.0 - 0.2 /CUMM) 0 Platelet Estimate (ADEQUATE) VERIFIED BY SMEAR Anisocytosis 1+ PUBS MCHC (33.0 - 37.0 G/DL) 33.5 Assessment/Plan Assessment/Recommendations: Ms. Merlos is a 76-year-old female with PVD, PUD, COPD, CAD, AAA s/p endovascular repair, and recently SBO s/p lysis of adhesion who presents to the hospital with hematemesis, coffee ground emesis, and elevated INR. She has been having significant issues with oral intake since her surgery during the most recent admission. Her elevated INR is likely secondary to factor deficiency. With her decreased oral intake, she likely has vitamin K deficiency. INR normalized after FFP and vitamin K 10 mg IM. INR improved today. She has received vitamin K 5 mg 2 days prior. She will get vitamin K 5 mg today. She may need low dose vitamin K until nutritional status improves. Thrombocytopenia is improving with no bleeding and improving nutriton. Platelet count is 126,000 today. Recommendations: 1. Monitor PT/INR/PTT daily 2. Check CBC at least daily 3. Vitamin K 5 mg PO eveyr 48-72 hours Please call [phone] with any new questions or concerns. Problem List: 1. Acute blood loss anemia 2. Malnutrition 3. Thrombocytopenia 4. Coagulopathy
[2016-10-04 14:50] VITALS: BP 140/60
--- NOTE | 2016-10-04 16:16 | CT SCAN REPORT ---
EXAMINATION: CT ANGIOGRAM OF THE CHEST WITH AND WITHOUT CONTRAST (CT PULMONARY ANGIOGRAM FOR PE) CLINICAL INFORMATION: Shortness of breath, tachycardia. COMPARISON: CT abdomen and pelvis 09/29/2016, chest radiograph 10/03/2016. TECHNIQUE: Prior to contrast administration, noncontrast localization images were obtained. Subsequently, multidetector volumetric imaging was performed from the thoracic inlet to below the diaphragms following the administration of 62 mL Optiray 320 intravenous contrast. No contrast reaction reported. Sagittal, coronal, and MIP oblique sagittal reformatted images were obtained on the CT workstation, uploaded to PACS, and reviewed. Total exam dose-length product 261.13 mGy-cm. FINDINGS: QUALITY OF STUDY/CONTRAST BOLUS: Satisfactory PULMONARY ARTERIES: No central or segmental pulmonary emboli. The main pulmonary artery is enlarged measuring 3.6 cm. THORACIC AORTA: No aneurysm or dissection. LUNG: There are moderate centrilobular emphysematous changes throughout both lungs with an upper lobe predominance. There are ground-glass opacities with increased reticular markings in a somewhat subpleural distribution in the left upper lobe. There is a spiculated 7 x 7 mm nodular opacity in the right upper lobe (2, 78/427), there is subpleural thickening/scarring in the lung apices and along the posterior right upper lobe and to lesser extent along the posterior left upper lung field. There are small, left greater than right pleural effusions with adjacent consolidative airspace opacities likely reflecting atelectasis. PLEURA: Small bilateral left greater than right pleural effusions. Bilateral pleural-parenchymal thickening. MEDIASTINUM: The heart is enlarged. There is a stable moderate-sized pleural effusion. No enlarged mediastinal lymphadenopathy. No evidence of septal bowing or right heart strain. CHEST WALL/AXILLA: No axillary or internal mammary lymphadenopathy. OSSEOUS STRUCTURES: No acute or suspicious osseous abnormality. UPPER ABDOMEN: 1.9 x 1.3 cm right adrenal nodule. The stomach is distended with fluid and gas. No reflux of contrast into the hepatic veins to suggest elevated right heart pressures. IMPRESSION: 1. No pulmonary embolism. 2. Spiculated right upper lobe 7 x 7 mm nodular opacity is concerning for a primary lung malignancy. 3. Moderate centrilobular emphysema. The ground-glass opacities with increased reticular markings in the subpleural distribution in the left upper lobe may represent underlying fibrotic change, although an underlying infectious process is also possible. 4. Small left greater than right pleural effusions. 5. Enlarged heart with moderate pericardial effusion, similar to prior. 6. Enlarged main pulmonary artery raises concern for underlying pulmonary hypertension. 7. 1.9 cm right adrenal nodule. VTE: negative
--- NOTE | 2016-10-04 17:51 | NUR ---
A+O X 3. ON 1L O2 VIA NC. MILD SHORTNESS OF BREATH NOTED. CRACKLES AT BASES VITAL SIGNS STABLE. DENIES CHEST PAIN. + PULSES. DENIES NUMBNESS/TINGLING +1 EDEMA TO BLE. WEAK GAIT. ABDOMEN DISTENDED AND FIRM. HYPOACTIVE BOWEL SOUNDS. PATIENT RESTING AT THIS TIME. WILL CONTINUE TO MONITOR
[2016-10-04 22:00] VITALS: BP 140/80
--- NOTE | 2016-10-04 22:31 | NUR ---
RN DOCUMENTATION NOTIFIED OF TEMP OF 101.7. TYLENOL GIVEN WILL CONTINUE TO MONITOR
[2016-10-05] VITALS: BP 126/60
--- NOTE | 2016-10-05 01:37 | NUR ---
PATIENT TEMP 101.4 MD KELLI DE JESUS AWARE. IV TYLENOL GIVEN BUT NOT ABLE TO SCAN ON EMAR. WILL CINTINUE TO MONITOR
--- NOTE | 2016-10-05 02:38 | NUR ---
TYLENOL IV WAS AMINISTERED, BLOOD CULTURES SENT TO LAB & AWAITING RESULTS. TEMP NOW 99.6, HR 112, BP 126/60, O2SAT 92% ON 2L NC. PT C/O CHILLS, BODYACHE & WEAKNESS. PT DENIES ANY OTHER DISCOMFORT. PT A&O X3. PT DENIES HI, AVH. MD KELLI DE JESUS AWARE. PT RESTING COMFORTABLY IN BED. WILL CONTINUE TO MONITOR.
--- NOTE | 2016-10-05 04:16 | NUR ---
PATIENT TEMP 97.8 ORALLY. PT STATED "I FEEL A LITTLE BIT BETTER. WILL CONTINUE TO MONITOR
[2016-10-05 07:20] VITALS: BP 124/54
--- NOTE | 2016-10-05 08:40 | NUR ---
PATIENT HAD A BM THIS AM AT ABOUT 0820. THIS RN AND INCOMING RN WERE HELPING PATIENT. IT WAS GREEN DIARRHEA. PATIENT DENIES ABD PAIN, STOMACH DISCOMFORT OR ABD TENDERNESS. +BS. INCOMING RN WILL ASSUME CARE AND STATED WILL NOTIFY MD.
--- NOTE | 2016-10-05 08:44 | Discharge Summary ---
Visit Information Visit Dates Admission Date: 09/29/16 Discharge Date: 10/10/2016 Hospital Course Course Attending Physician: JOSE HERMAN MD Primary Care Physician: HAYDEE ANDERSON,REAL [place] Hospital Course: This is a 76 yo lady with a PMH og PUD, severe PVD, AAA endovascular repair, not on any anticoagulation, s/p laparatomy with GRICEL due to SBO 2 week ago, on Aspirin therapy, presented to [facility] ED with decreased oral intake, nausea in the setting of two episodes of coffee ground emesis, and a 7 day hx of black tarry stools per the patient. Denied any BRBPR, H&H 4.2 and 12.5, BUN 22. INR >10, PT >103. Previous enteroscopy, 05/25/10: Push enteroscopy to jejunum revealed 1 bleeding AVM at the lesser curvature of the stomach, BiCAP cautery, with cessation of bleed. 10 non-bleeding AVMs from the second portion of the duodenum to the distal jejunum, BiCAP cautery. ED course: Vitals : temp 95.8, HR 113, BP 107/53, sats 96% RA. Exam: AAO, lethargic but able to provide appropriate answer, dry mucous membranes, pallor++. Labs: WBC 15.4, H/H 4.2/12.5 (01/10 on 09/25/2016), INR > 10, Na 136, bicarb 31, BUN 22, AST 37, ALT 60, trop neg. EKG: Sinus tachycardia with nonspecific ST-T changes. Echo (2017): EF 55-60%. She was initially admitted in ICU for following problems. 1. Acute Symptomatic Anemia from acute blood loss 2/2 upper GI bleed requiring 4 units of PRBC with appropriate correction status post tranfusion. H/H was stable after that. 2. Upper GI bleed as evident by 2 reported episodes of coffe ground vomitus and black tarry stool. Etiology to be considered include Peptic ulcer in the setting of ASA use vs AVM. Pt continued to have episodes of melena during ICU stay, but no blood in vomitus or BRBPR. EGD was performed on 10/02 with the following results: * 1. 1.5 cm superficial gastric ulcer at the posterior wall of the gastric body , which appeared symmetrical, with radiating folds. There was no clot or visible vessel. Biopsies were deferred. No therapeutics were performed. 2. 2+ nonerosive distal GERD. Z line at 33 cm. Biopsies deferred. * 3. 2 cm hiatal hernia pouch from 33-35 cm. No Luis erosions. * 4. Otherwise, normal EGD to the jejunum, 160 cm from the incisors, with the use of the Olympus high definition pediatric videocolonoscope from above. No recurrent small bowel angiodysplasia seen. Bile was seen in the small bowel. Dr. Romero advised follow-up EGD in 2 months (i.e.- by 01/2017), to recheck gastric ulcer, with plans for direct biopsies if it persists. Consideration for simultaneous colonoscopy then, as she will be due for surveillance, and by that time, her abdominal wounds post expiratory laparotomy will have healed. She was initially on IV Protonix drip that was discontinued and switched to by mouth Protonix. Her diet was advanced from clear to regular and she tolerated it well. No more coffee-ground emesis but she continued having black tarry stools. H&H was stable and she did not require any more blood transfusion. 3. Hypercoagulable state. Not on any anticouagulation. INR was more than 10 on admission. Hematology was consulted, felt that most likely patient has very poor nutrition/malabsorption. Reccomended oral Vitamin K 5 mg Q48H. INR trended down to 1.41 on October 07 and then again bumped up to 2.93 on October 09. 4. History of recent SBO on 09/13/2016 requiring laparotomy and lysis of adhesions. Surgery was consulted and also revieved CT Abdomen/pelvis. Per Surgery, pt is stable at their stand point. Surgical will were removed. CT ABD & PELVIS W IV CONTRAST 09/29/16 IMPRESSION: 1. No evidence of intra-abdominal hematoma. The study was not specifically performed as a CTA, but no definite evidence of active contrast extravasation into bowel is seen on this exam. 2. There is mild distention of proximal small bowel loops with gradual transition to normal caliber decompressed loops of bowel in the midabdomen, suggesting a partial/low grade bowel obstruction. No focal mass or distortion is seen at the point of this gradual transition. The previously seen more focal area of presumed adhesion in the mid abdomen is no longer visualized. 3. New trace left-sided pleural effusion with associated mild dependent atelectasis in the left lower lobe. 4. No significant change in moderate pericardial effusion. 5. Right adrenal mass again seen, most consistent with a small lipid rich adenoma. 6. Small right renal mass, consistent with a cyst. 7. Stable abdominal aortic aneurysm, status post aortobiiliac stent graft placement. 8. Chronic, enlarged left para-aortic lymph node. Later in the course of hospitalization patient was again nausea is started vomiting and complaining of abdominal pain. She was made nothing by mouth and started on IV fluids. CT abdomen and pelvis with oral and IV contrast was obtained on 10/05/16. She also reoprted constipation with no flatus. IMPRESSION: 1. Distal small-bowel obstruction with a suspected transition point within the right mid abdomen. Air and stool within the colon, suggesting that this is a partial small-bowel obstruction. No intra-abdominal free air or free fluid. 2. Abdominal aortic and proximal iliac artery stents, not significantly changed since the prior examination. 3. Stable right adrenal mass. 4. Small left and trace right pleural effusions with adjacent atelectasis versus infiltrates, unchanged. Surgery was also consulted again. Surgery recommended to discontinue IV morphine that she was getting for pain as it might be contributing to decreased transit. She was started on clear liquid diet. She started having bowel movements and passing flatus. Her diet was advanced to regular later on. 4. Fevers During the course of hospitalization patient spiked fever. She was started on IV ceftriaxone and Flagyl empirically for any intra-abdominal infection. Chest x-ray was also done as there was question for aspiration. IMPRESSION: Stable enlarged cardiac silhouette which appears at least in part due to pericardial effusion as seen on recent CT. Chronic apical pleural thickening minimal scarring or discoid atelectasis left base unchanged. Small left pleural effusion. UA was also done that showed hazy color with positive urine nitrites and leukocyte esterase. 5-10 WBC count. Her ceftriaxone was continued but Flagyl was discontinued later on. Urine culture and blood culture were ordered but did not grow anything. Later on IV ceftriaxone was switched to by mouth Keflex. She continued spiking fevers. Keflex was discontinued. Infectious disease specialist, was consulted. WBC count remained normal. Urine culture October 05 grew gram-positive cocci. UA and urine culture were repeated. She also has had several episodes of loose greenish BMs and she was begun on po Vancomycin per ID. later on C. difficile stool toxin was negative. C. difficile PCR was also sent that came back negative and vancomycin was discontinued. Later on urine cx grew VRE and Farzaneh that likely represented colonization or contamination with no symptoms. 5. Acute hypoxic respiratory failure/Tachycardia. Patient was on 2 L of oxygen via nasal cannula initially that was tapered down to 1 L. Patient desaturated to 88% on Friday for results of oxygen upon ambulation. Her legs were also swollen and she was tachycardic intermittently. Doppler venous ultrasound of bilateral lower extremities and CTA was done to rule out DVT and PE. Doppler venous ultrasound did not show any evidence of DVT. CTA chest IMPRESSION: 1. No pulmonary embolism. 2. Spiculated right upper lobe 7 x 7 mm nodular opacity is concerning for a primary lung malignancy. 3. Moderate centrilobular emphysema. The ground-glass opacities with increased reticular markings in the subpleural distribution in the left upper lobe may represent underlying fibrotic change, although an underlying infectious process is also possible. 4. Small left greater than right pleural effusions. 5. Enlarged heart with moderate pericardial effusion, similar to prior. 6. Enlarged main pulmonary artery raises concern for underlying pulmonary hypertension. 7. 1.9 cm right adrenal nodule. VTE: negative Pulm was called for consultation. She requested to see Arnulfo Armas MD. For her lung nodule he recommended a repeat CT and pulmonary function tests in 6 weeks. She was given total respiratory care and nebulization treatment. Repete ECHO 10/09/16 CONCLUSIONS Left ventricular wall thickness at upper limits of normal. Normal left ventricular ejection fraction visually estimated at >65 Abnormal relaxation filling pattern of the left ventricle for age (stage 1 diastolic dysfunction). Left atrial size at the upper limits of normal. Moderate thickening/calcification of the mitral valve leaflets. Mild mitral annular calcification. Trace mitral regurgitation. Focal thickening of the aortic valve cusps. No aortic stenosis. Trace aortic regurgitation. Unable to estimate the right ventricular systolic pressure. There is a left pleural effusion. There is a small mostly posterior pericardial effusion without hemodynamic compromise. 6. Confusion and AMS 10/09/16: Patient was confused and having visual hallucinations. Her vitals were stable at that time. On 2 L of oxygen. She vomited 1 time. Emesis was guaiac positive. She was also complaining of epigastric pain. Stat Abdominal x- ray showed significant interval improvement in appearance of bowel gas pattern with a few air filled loops of bowel and Chest x-ray revealed retrocardiac airspace disease unchanged from previous films. Later on rapid response was called because she was hypotensive 88/58 , hypothermic 95.8 and hypoglycemic, blood sugar <50. She was given 1 L normal saline bolus and 1 amp of dextrose. Her blood pressure improved to 100 systolic and blood glucose improved to 127. Her mental status also improved little bit. Labs including CBC, BEP, INR, LFTs, ammonia, lactic acid and troponins were ordered. Stat EKG did not show any acute ST-T wave changes. Urgent head CT and right upper quadrant ultrasound were ordered and patients was transferred to ICU. Call was made to her grandson Kahlil Conrad and updated about her clinical condition and transfer to ICU. Consent was obtained from son for central line. A right femoral triple-lumen catheter was placed because of INR 2.41. ID recommended repeat blood cultures, UA and urine culture. She was started on vancomycin and Ceftaz. Blood work showed WBC count 18, H&H 8.6/26.5, platelet count 95, sodium 136, chloride 107, anion gap 20, bicarbonate 9, creatinine 0.8, lactic acid 15.1, phosphorous 6, magnesium 2.2, cortisol a.m. >123, TSH 0.669, free T4 1 0.81, thyroxine 3.4, INR 2.93, ABGs pH 7.22, bicarbonate 9, PCO2 23. Acetaminophen levels 13. Total bilirubin 0.9, direct bilirubin 0.8, AST 913, ALT 281, alkaline phosphatase 130. Various possibilities of elevated lactic acid, worsening anion gap metabolic acidoses were considered. Most likely differentials were 1. Fulminant liver failure , 2. bowel ischemia 3. sepsis. Abdominal ultrasound showed Echogenic bile within the gallbladder lumen without cholelithiasis or cholecystitis. The liver was of normal size and echogenicity without focal lesions nor intrahepatic biliary ductal dilation. CT ABD & PELVIS W IV CONTRAST; CT CHEST W IV CONTRAST was obtained. IMPRESSION: CT scan of the chest: 1. Increasing bilateral pleural effusions, small on the right side and moderate on the left side with no significant change in subjacent areas of volume loss and consolidation in both lower lobes, left greater than right. Findings are suspicious for bibasilar pneumonia and atelectasis. 2. No significant change in patchy areas of groundglass opacity in the left upper lobe. New or increasing groundglass opacities in the right upper lobe are seen. Findings are consistent with multifocal pneumonia. 3. Enlarged central pulmonary arteries, suspicious for pulmonary arterial hypertension. 4. Small pericardial effusion, unchanged. 5. Atherosclerotic vascular calcifications, including three-vessel mild coronary artery calcifications. 6. Dilated fluid-filled esophagus. This may be related to reflux, dysmotility, or subtle stricture at the GE junction. Consider further assessment with barium swallow. CT scan of the abdomen and pelvis: 1. Significant improvement in the degree of small bowel distention is seen. Mildly distended and fluid-filled small bowel loops remain without definite transition point noted. There is passage of the previously administered contrast into the colon and rectosigmoid region and findings are consistent with resolving partial small bowel obstruction. Continued close monitoring is requested. 2. Other incidental findings including stable right adrenal mass, abdominal aortic aneurysm, atrophic pancreas, and bilateral probable vascular calcifications in the kidneys again noted, unchanged. surgery was also on board. Per Dr. Reed there is doubt if elevated lactate is due to bowel source. Cannot exclude ischemia without IV contrast, but prior CT showed patent visceral vessels. Consider doppler u/s liver to r/o thrombotic disease of liver. US-ABD/PELV ORGAN DOPPLER IMPRESSION: Patent IVC, portal vein and hepatic veins. No thrombus. Later on she was also started on IV Falgyl. Also started bicarbonate drip. Meanwhile she received 2 liters of normal saline bolus. Bp - low 80/doppler, therefor pressor support with levophed was started. Plan was discussed with constant communication with Dr Armas, Dr Reed and Dr. Lozada.There was low threshold for intubation. Both grandsons ( one physically present, other over the phone), Mr. Houston Guillory - who was also the immediate next of kin and decision maker, were constantly updated, and discussion about her current status, possible differentials, clincal status, anticipated plan of care, living wishes, poor prognosis, was updated and discussed, they were constant part of decision make at every step above. CTA abdomen/pelvis was ordered. Call back from [facility] with Critical Results on CTA IMPRESSION: 1. Evidence of bowel ischemia with portal venous gas in the left lobe of liver. This gas is new since the CAT scan performed earlier today. The enhancement of the celiac axis and SMA is thready with the vessel size being small. The superior mesenteric vein and portal vein caliber is also diminished compared with CAT scan of 10/05/2016. The bowel loops however do not show abnormal dilatation and there is no air in the bowel wall. No free air or free fluid in the mesentery. 2. Bilateral pleural effusions with bibasilar atelectasis. Findings discussed with Dr reed. Suggested emergent consult with vascualr surgery. Dr Klein recommended that management would be mainly surgical. Patient was very poor surgical candidate. Dr reed discussed pros and cons of surgery with Kahlil Soria. The decision was made by the family to change the Code status to comfort measures only. Attending physician was present at the time. Informed Arnulfo Armas MD. Explained the family about the management plan. Ms Dillard at 5:08 AM. Confirmed by checking the absent pupilary reflexes and absent heart sounds. Informed the family, and consoled them. Also informed the attending physician. Complications: Acute hypoxic respiratory failure Bowel ischemia Sepsis Allergies: Coded Allergies: propoxyphene (UNKNOWN 09/29/15) Disposition Summary Disposition Principal Diagnosis: Acute blood loss anemia secondary to upper GI bleed Sepsis Additional Diagnosis: Acute hypoxic respiratory failure probably ischemia Discharge Disposition: Discharge Instructions General Discharge Information Code Status: Comfort Care Only Patient's Diet: patient Patient's Activity: patient Follow-Up Instructions/Appts: patient Medications at Discharge Discharge Medications: Stop taking the following medications: Omeprazole (Omeprazole) 20 MG CAPSULE. ORAL DAILY as needed for GERD Aspirin (Ecotrin*) 81 MG TABLET. ORAL DAILY Days = 30 Prednisone (Prednisone) 20 MG TABLET ORAL DAILY Qty = 30 Continue taking these medications: Amlodipine Besylate (Amlodipine Besylate) 10 MG TABLET 1 Tablet ORAL DAILY Comments: DOCUMENTED PER CMR DURING PRE-SX INTERVIEW Last Taken: 09/21/16 Time: 1000 Rosuvastatin Calcium (Crestor) 20 MG TABLET 1 Tablet ORAL DAILY Comments: DOCUMENTED PER CMR DURING PRE-SX INTERVIEW NOT GIVEN IN HOSPITAL Labetalol HCl (Labetalol HCl) 200 MG TABLET 1 Tablet ORAL TWICE DAILY Comments: DOCUMENTED PER CMR DURING PRE-SX INTERVIEW Last Taken: 09/21/16 Time: 1000 Ferrous Sulfate (Ferrous Sulfate) 325 MG (65 MG IRON) TABLET 1 Tablet ORAL DAILY Tiotropium Peralta (Spiriva) 18 MCG CAP.W.DEV 1 Capsule Inhale through mouth DAILY Comments: DOCUMENTED PER CMR DURING PRE-SX INTERVIEW Last Taken: 09/21/16 Time: 1000 Albuterol Sulfate (Proair Hfa) 8.5 GM HFA.AER.AD 2 Puff Inhale through mouth As Directed as needed for RESPIRATORY Comments: DOCUMENTED PER CMR DURING PRE-SX INTERVIEW NOT GIVEN IN HOSPITAL Albuterol Sulfate (Albuterol Sulfate) 2.5 MG/3 ML VIAL.NEB 1 Vial Inhale Solution TWICE DAILY Comments: DOCUMENTED PER CMR DURING PRE-SX INTERVIEW Tylenol With Codeine (Tylenol With Codeine #3 Tablet) 1 EACH TABLET 1-2 Tablet ORAL EVERY 4-6 HOURS NEEDED as needed for PAIN Qty = 30 Instructions: take as directed. do not combine with tylenol. Comments: NOT GIVEN IN HOSPITAL Alprazolam (Alprazolam) 0.5 MG TABLET 1 Tablet ORAL THREE TIMES A DAY NEEDED as needed for ANXIETY Qty = 60 Comments: NOT GIVEN IN HOSPITAL Benzonatate (Benzonatate) 100 MG CAPSULE 1 Tablet ORAL THREE TIMES DAILY Qty = 30 Comments: Last Taken: 09/21/16 Time: 1000 Sodium Chloride ([place]) 0.65 % SPRAY 2 [place] In the nose EVERY 4 HOURS NEEDED as needed for CONGESTION Qty = 30 Comments: Last Taken: 09/14/16 Time: 1000 Sertraline HCl (Sertraline HCl) 50 MG TABLET 1 Tablet ORAL DAILY Qty = 30 Comments: Last Taken: 09/21/16 Time: 1000 Start taking the following new medications: Pantoprazole Sodium (Protonix) 40 MG TABLET.DR 1 Tablet ORAL TWICE DAILY Qty = 60 No Refills Cephalexin (Cephalexin) 500 MG CAPSULE 1 Tablet ORAL EVERY 12 HOURS Qty = 6 No Refills Copies To: HAYDEE ANDERSON,REAL [place]
--- NOTE | 2016-10-05 08:46 | PN- Housestaff ---
MICH WARREN 10/05/16 0844: Subjective Follow-up For: symptomatic anemia of blood loss Complaints: lower abdominal pain LLQ>RLQ fever fatigue Subjective: 76 yo lady with a PMH og PUD, severe PVD, AAA endovascular repair, not on any anticoagulation, s/p laparatomy with GRICEL was admitted for severe symptomatic anemia. Patient had an EGD done which showed: EGD was performed on 10/02 with the following results: * 1. 1.5 cm superficial gastric ulcer at the posterior wall of the gastric body , which appeared symmetrical, with radiating folds. There was no clot or visible vessel. Biopsies were deferred. No therapeutics were performed. 2. 2+ nonerosive distal GERD. Z line at 33 cm. Biopsies deferred. * 3. 2 cm hiatal hernia pouch from 33-35 cm. No Luis erosions. * 4. Otherwise, normal EGD to the jejunum, 160 cm from the incisors, with the use of the Olympus high definition pediatric videocolonoscope from above. No recurrent small bowel angiodysplasia seen. Bile was seen in the small bowel. Hypercoagulable state. Not on any anticouagulation. Possible etiology include auto anti-coagulation vs malabasorption vs Liver pathology. Hematology was consulted, felt that most likely patient has very poor nutrition/malabsorption. Patient was started on Vit K supplemement and PT/INR improved. Subjective: Patient was visited and examined today. Patient is very tired, since she could not geta proper sleep last night. She had Fever and rigors around midnight. Patient had moved her bowel this am wwhich was dark. She does not endorse any chest pain, palpitation, shortness of breath, BRPR, vomiting, nausea,dysuria. Objecive: Patients VS for the past 24 h were reviewed. Her average resting HR is above 100 b/min, and she has two spiked of temp of >101F last night. Exam General Appearance: AO x3; sleeping comfortabely in her bed; not in obvious distress Neck: normal inspection, supple, full range of motion Respiratory: no respiratory distress, lungs clear Cardiovascular: regular rate/rhythm Gastrointestinal: normal bowel sounds, soft, non-tender Assessment 76 yeras old woman was admitted for sevre symptomatic anemia secondary to malnutrition-associated coagulapathy. List of problems 1. Symptomatic anemia secondary to acute blood loss due to PUD vs AVMS status post 4 units of blood transfusion. H&H 10.2/30.5 today 2. Coagulopathy. INR 1.55 this morning. On vitamin K PO Q48H 4. Fever. MAXIMUM TEMPERATURE 101.3 this am, while she was tretaed for for UTI w/ proper Abx. Jasmine Cx werer sent. Not stable for D/C. 5. mild-mod Thrombocytopenia w/o active bleeding. 7. Malnutrition vit k- repleted 8. UTI. On cephalexin 9. Acute hypoxic respiratory failure. on 1 L of oxygen via nasal cannula. He desaturated down to 86% on oxygen upon ambulation 10. resting tachycardia. In the setting of fever and/or respiratory failure. PE and DVT were effectively R/O. However, this symptom needs to be controlled as in long run would cause tachyxardia-induced myopathy. 1. Acute blood loss anemia 2. Malnutrition 3. Thrombocytopenia 4. Coagulopathy Review of Systems Constitutional: Reports: see HPI, chills, fever. EENTM: Reports: no symptoms. Cardiovascular: Reports: no symptoms. Respiratory: Reports: no symptoms. Gastrointestinal: Reports: see HPI, abdominal pain, changes in stool. Objective Last 24 Hrs of Vital Signs/I&O Vital Signs Date Time Temp Pulse Resp B/P B/P Pulse O2 O2 Flow FiO2 Mean Ox Delivery Rate 10/05 0720 98.2 106 20 124/54 93 10/05 0416 97.8 10/05 0237 99.6 10/05 0000 99.6 112 20 126/60 92 Nasal 2.0L Cannula 10/05 0000 92 Nasal 2.0L Cannula 10/04 2352 101.3 10/04 2352 101.3 10/04 2200 101.7 118 20 140/80 90 Nasal 1.0L Cannula 10/04 2149 101.7 10/04 1938 90 Nasal 1.0L Cannula 10/04 1600 Nasal 1.0L Cannula 10/04 1450 99.6 116 18 140/60 91 Intake & Output 10/05 1600 10/05 0800 10/05 0000 Intake Total 240 100 Output Total 350 350 Balance -110 -250 Intake, Oral 240 100 Number 1 Bowel Movements Output, Urine 350 350 Physical Exam General Appearance: Alert, Oriented X3, Cooperative, No Acute Distress Skin: No Rashes, No Breakdown, No Significant Lesion Skin Temp/Moisture Exam: Warm/Dry Neck: No JVD, No thryomegaly, +2 Carotid Pulse wo Bruit, No LAD Lymphatic: Axillary nl, Cervical nl Cardiovascular: Normal S1, Normal S2, No Murmurs Lungs: Clear to Auscultation, Normal Air Movement Abdomen: Soft, No Tenderness, No Hepatospenomegaly Extremities: No Cyanosis, No Edema, Normal Pulses Other Physical Findings: none Current Medications: Current Medications Sig/Ebenezer Start time Last Medication Dose Route Stop Time Status Admin Acetaminophen 1,000 MG ONCE ONE 10/05 0015 DC N/A 1 UNIT IV 10/05 0029 Acetaminophen 650 MG .STK-MED ONE 10/04 2146 DC PO 10/04 214 Acetaminophen 650 MG Q6-PRN PRN 10/03 0645 AC 10/04 PO 214 Albuterol Sulfate 3 ML BID 09/29 1000 AC 10/04 INH 1924 Albuterol Sulfate 2 PUF Q4-6 PRN PRN 09/29 0515 AC INH Alprazolam 0.5 MG TIDPRN PRN 10/01 2300 AC 10/03 PO 10/08 2259 2136 Ceftriaxone Sodium 1,000 MG DAILY 10/02 1000 DC 10/04 IV 1010 Cephalexin 500 MG Q12 10/04 2200 AC 10/04 PO 2114 Cephalexin 500 MG Q6 10/04 1800 DC PO Morphine Sulfate 2 MG Q4P PRN 09/29 0515 AC 10/04 IV 1959 Omeprazole 40 MG BID 10/01 2200 AC 10/04 PO 2114 Ondansetron HCl 4 MG Q6P PRN 09/29 0515 AC 10/02 IV 0011 Phytonadione 5 MG 1000 10/04 1000 DC 10/04 PO 10/04 1001 1011 Tiotropium [place] 1 PUF DAILY 09/29 1000 AC 10/04 INH 1011 Last 24 Hrs of Lab/Sean Results Last 24 Hrs of Labs/Mics: Laboratory Tests 10/05/16 0651: PT 15.0 H, INR 1.43 H 10/04/16 1130: Anion Gap 7, Estimated GFR > 60, BUN/Creatinine Ratio 10.0, Lactic Acid 1.3 Microbiology 10/05 0700 URINE ROUT: Urine Culture - RECD 10/05 0155 BLOOD: Blood Culture - RECD 10/05 0125 BLOOD: Blood Culture - RECD 10/05 9 URINE ROUT: Urine Culture - CAN Cancelled: Cancelled via OE: Per MD Decision 10/05 9 BLOOD: Blood Culture - CAN Cancelled: Cancelled via OE: Per MD Decision 10/05 9 BLOOD: Blood Culture - CAN Cancelled: Cancelled via OE: Per MD Decision Assessment/Plan Assessment: discussed above Problem List: 1. COPD with acute bronchitis 2. Malnutrition 3. Coagulopathy 4. Thrombocytopenia 5. History of peptic ulcer disease 6. Acute blood loss anemia 7. Elevated INR 8. Symptomatic anemia Pain Ratin Pain Location: LLQ Pain Goal: Pain 4 or less Pain Plan: PO tylenol PRN 650 mg Tomorrow's Labs & Rationales: CBC and Pt INR JOSE LIGHT 10/05/16 1303: Attending MD Review Statement Attending Statement Attending MD Statement: examined this patient, discuss w/resident/PA/SHUT OFF WORKER, agreed w/resident/PA/SHUT OFF WORKER, discussed with family, reviewed EMR data (avail), discussed with nursing, discussed with case mgmt, reviewed images, amended to note Attending Assessment/Plan: 76 o/f with acute blood loss anemia transferred from ICU to floor , found to have fever, sinus tachycardia on ceftriaxone possible UTI, repeat chest xray no acute process but atelectasis+, had fever spike, Consult ID, USG lower extremity b/l negative CTA chest concerning for pulmonary opacity [id number] malignancy f/u pulmonary, Patient recieved multiple transfusions. GI signed off, non bleeding ulcer, ?source of bleed, h/o AVMs in past, encourage incentive spirometry, f/u GI as o/p, PCP as o/p. YARED ANDERSON,DEBBY 10/07/16 1056: Attending MD Review Statement Attending Statement Attending Assessment/Plan: Seen by Dr. Light.
[2016-10-05] MEDS ORDERED: CEPHALEXIN500 M3 PO (08:48)
--- NOTE | 2016-10-05 08:51 | Patient Discharge Instructions ---
Discharge Instructions General Discharge Information You were seen/treated for: Acute blood loss anemia secondary to upper GI bleed Coagulopathy Acute respiratory failure Watch for these problems: Bright red blood per rectum or coffee-ground emesis Special Instructions: 1. Please follow up with her primary care provider after discharge 2. Please follow-up with field support rep, Dr. Adorno after discharge 3. Please follow-up with manager sas, Dr. Hernández after discharge Diet Continue normal diet: Yes Activity Activity Limited to: Walking with Assistance Acute Coronary Syndrome Inclusion Criteria At DC or during hospital stay patient has or had the following: ACS DIAGNOSIS No Discharge Core Measures Meds if any: Prescribed or Continued at Discharge Meds if any: NOT Prescribed or Continued at Discharge Congestive Heart Failure Inclusion Criteria At DC or during hospital stay patient has or had the following: CHF DIAGNOSIS No Discharge Core Measures Meds if any: Prescribed or Continued at Discharge Meds if any: NOT Prescribed or Continued at Discharge Cerebrovascular accident Inclusion Criteria At DC or during hospital stay patient has or had the following: CVA/TIA Diagnosis No Discharge Core Measures Meds if any: Prescribed or Continued at Discharge Meds if any: NOT Prescribed or Continued at Discharge Venous thromboembolism Inclusion Criteria VTE Diagnosis No VTE Type NONE VTE Confirmed by (Test) NONE Discharge Core Measures - Per Current guidelines, there needs to be overlap - treatment for the first 5 days of Warfarin therapy. - If discharged on Warfarin prior to 5 days of - overlap therapy, the patient will need to be - assessed for post discharge needs including - *Post discharge parental anticoagulation - *Warfarin and/or parental anticoagulation education - *Follow up date to check INR post discharge At least 5 days overlap therapy as Inpatient No Meds if any: Prescribed or Continued at Discharge Note: Overlap Therapy is Warfarin and Anticoagulant Meds if any: NOT Prescribed or Continued at Discharge
[2016-10-05 14:02] VITALS: BP 130/60
[2016-10-05 16:41] LABS: ABSOLUTE BASOPHIL COUNT 0 /CUMM (0.0-0.2); ABSOLUTE EOSINOPHIL COUNT 0 /CUMM (0.0-0.7); ABSOLUTE GRANULOCYTE CT 5.5 /CUMM (1.4-6.5); ABSOLUTE LYMPH COUNT 0.4 /CUMM (1.2-3.4); ABSOLUTE MONOCYTE COUNT 0.2 /CUMM (0.10-0.60); BASOPHIL % 0 % (0.0-2.0); EOSINOPHIL % 0.1 % (0-5); HEMATOCRIT 29.4 % (37-47); MEAN CORPUSCULAR HGB 29.4 PG (27.0-31.0); MEAN CORPUSCULAR HGB CONC 33.5 G/DL (33.0-37.0); MEAN CORPUSCULAR VOLUME 87.8 FL (81.0-99.0); MEAN PLATELET VOLUME 8.7 FL (7.4-10.4); PLATELET COUNT 123 /CUMM (130-400); RBC DISTRIBUTION WIDTH 15.7 % (11.5-14.5); RED BLOOD CELL CT 3.34 /CUMM (4.20-5.40); WHITE BLOOD CELL COUNT 6.1 /CUMM (4.8-10.8)
[2016-10-05 16:52] LABS: GRANULOCYTE % 89.9 % (42.2-75.2)
--- NOTE | 2016-10-05 17:10 | CT SCAN REPORT ---
EXAMINATION: CT ABDOMEN AND PELVIS WITH CONTRAST CLINICAL INFORMATION: Abdominal pain, fevers. Evaluate for ischemic colitis, diverticulitis, bowel obstruction. COMPARISON: Multiple priors, most recent CTA chest dated 10/04/[address] abdomen/pelvis dated 09/29/2016. TECHNIQUE: Multidetector volumetric imaging was performed of the abdomen and pelvis before and after the IV administration of 95 mL of Optiray 350 intravenous contrast. Oral contrast was also administered. Sagittal and coronal reformatted images were obtained on the technologist's workstation. DLP: 408.01 mGy-cm FINDINGS: LUNG BASES: Small left and trace right-sided pleural effusions are redemonstrated with adjacent atelectasis versus infiltrates, not significantly changed since the prior examination. LIVER, GALLBLADDER, AND BILIARY TREE: The liver is normal in size, shape, and attenuation. No focal hepatic lesion or biliary ductal dilatation is present. The gallbladder is unremarkable with no evidence of radiopaque gallstones, gallbladder wall thickening, or obvious pericholecystic inflammatory changes. PANCREAS: Atrophic. SPLEEN: Unremarkable. ADRENAL GLANDS: A 1.3 cm right adrenal mass is unchanged when compared to the prior examination. KIDNEYS AND URETERS: The kidneys are normal in size, shape, and attenuation. No hydronephrosis, hydroureter, or calculi seen. Subcentimeter hypodensities are redemonstrated within the right kidney, too small to characterize. Multiple bilateral probable vascular calcifications are seen within the kidneys. BLADDER: Unremarkable. GASTROINTESTINAL TRACT: A small sliding-type hiatal hernia is redemonstrated. Oral contrast fails to progress past the proximal small bowel. There are dilated proximal small-bowel loops with air-fluid levels. A transition point is suspected within the right middle quadrant. Air and fluid is seen within the large bowel, suggesting that this is a partial bowel obstruction. There is no intra-abdominal free air or free fluid. ABDOMINAL WALL: No significant hernia is appreciated. LYMPH NODES: There is no significant lymphadenopathy. VASCULAR: Abdominal aortic and proximal iliac artery stents are redemonstrated, not significantly changed since the prior examination. There is no extraluminal extravasation of contrast. Atherosclerotic calcifications are seen throughout the abdominal aorta and its branch vessels. PELVIC VISCERA: The uterus and adnexa are unremarkable. OSSEOUS STRUCTURES: There is no lytic or blastic osseous lesion. There are mild degenerative changes within the visualized lower thoracic and lumbar spine. IMPRESSION: 1. Distal small-bowel obstruction with a suspected transition point within the right mid abdomen. Air and stool within the colon, suggesting that this is a partial small-bowel obstruction. No intra-abdominal free air or free fluid. 2. Abdominal aortic and proximal iliac artery stents, not significantly changed since the prior examination. 3. Stable right adrenal mass. 4. Small left and trace right pleural effusions with adjacent atelectasis versus infiltrates, unchanged.
--- NOTE | 2016-10-05 19:53 | NUR ---
NSG NOTE: UPON BEDSIDE REPORT, AUDI STATED SHE WAS FREEZING AND FELT LIKE SHE HAD A FEVER; PATIENT TEMP 102.2; PATIENT WAS AFEBRILE ALL SHIFT UNTIL NOW; THIS RN TEXT-PAGED TOM #299 TO MAKE AWARE; THIS RN ADMINISTERED IV TYLENOL; REPORT GIVEN TO HEAVEN CHRISTIAN AND ANDRES RUIZ TO MONITOR PATIENTS STATUS
[2016-10-05 22:41] VITALS: BP 128/58
[2016-10-06 06:00] VITALS: BP 138/60
--- NOTE | 2016-10-06 07:53 | NUR ---
PT WAS SPITTING UP SMALL AMOUNTS OF CONTRAST THROUGHOUT THE NIGHT BUT THIS AM IS VOMITING YELLOW/GREEN, DR. LOMAS NOTIFIED. ABDOMEN IS DISTENDED AND FIRM, ZOFRAN GIVEN WITH GOOD EFFECT. HOUSESTAFF TO EVALUATE. VSS. TEMP REMAINS 99 AND PULSE IS 110-120.
--- NOTE | 2016-10-06 08:10 | PN- Housestaff ---
MICH WARREN 10/06/16 0810: Subjective Follow-up For: symptomatic anemia fever Review of Systems Constitutional: Reports: see HPI. Objective Last 24 Hrs of Vital Signs/I&O Vital Signs Date Time Temp Pulse Resp B/P B/P Pulse O2 O2 Flow FiO2 Mean Ox Delivery Rate 10/07 1407 98.2 112 20 154/70 93 Nasal 3.0L Cannula 10/07 0908 96 Nasal 2.5L Cannula 10/07 0800 Nasal 2.5L Cannula 10/07 0703 97.7 103 20 130/54 91 Nasal 2.0L Cannula 10/06 2235 98.9 103 18 116/48 93 Nasal 2.5L Cannula 10/06 1950 95 Nasal 2.0L Cannula 10/06 1600 Nasal 2.5L Cannula Intake & Output 10/07 1600 10/07 0800 10/07 0000 Intake Total 800 1000 1000 Output Total 351 595 9343 Balance 600 900 -100 Intake, IV 1000 1000 Intake, Oral 800 0 Number 2 3 2 Bowel Movements Output, Urine 196 498 7610 Physical Exam General Appearance: Alert, Oriented X3, Cooperative, Mild Distress Assessment/Plan Assessment: discussed above JOSE HERMAN 10/06/16 0931: Attending MD Review Statement Attending Statement Attending MD Statement: examined this patient, discuss w/resident/PA/LOG YARD MANAGER, agreed w/resident/PA/LOG YARD MANAGER, discussed with family, reviewed EMR data (avail), discussed with nursing, discussed with case mgmt, reviewed images, amended to note Attending Assessment/Plan: 76 o/f with acute blood loss anemia transferred from ICU to floor , found to have fever, sinus tachycardia on ceftriaxone possible UTI, repeat chest xray no acute process but atelectasis+, had fever spike, Consulted ID, CT abd/plevis with distal small bowel obstrcution, c diff pending, empiric started on oral vanco. USG lower extremity b/l negative CTA chest concerning for pulmonary opacity [id number] malignancy f/u pulmonary observation for now, Patient recieved multiple transfusions. GI signed off, non bleeding ulcer, ?source of bleed, h/o AVMs in past, encourage incentive spirometry, f/u GI as o/p, PCP as o/p.
[2016-10-06 08:24] LABS: ABSOLUTE BASOPHIL COUNT 0 /CUMM (0.0-0.2); ABSOLUTE EOSINOPHIL COUNT 0 /CUMM (0.0-0.7); ABSOLUTE GRANULOCYTE CT 6.7 /CUMM (1.4-6.5); ABSOLUTE LYMPH COUNT 0.4 /CUMM (1.2-3.4); ABSOLUTE MONOCYTE COUNT 0.3 /CUMM (0.10-0.60); BASOPHIL % 0 % (0.0-2.0); EOSINOPHIL % 0 % (0-5); GRANULOCYTE % 91.2 % (42.2-75.2); HEMATOCRIT 29.9 % (37-47); MEAN CORPUSCULAR HGB 29.5 PG (27.0-31.0); MEAN CORPUSCULAR HGB CONC 33.3 G/DL (33.0-37.0); MEAN CORPUSCULAR VOLUME 88.4 FL (81.0-99.0); MEAN PLATELET VOLUME 9.5 FL (7.4-10.4); PLATELET COUNT 134 /CUMM (130-400); RBC DISTRIBUTION WIDTH 15.9 % (11.5-14.5); RED BLOOD CELL CT 3.38 /CUMM (4.20-5.40); WHITE BLOOD CELL COUNT 7.3 /CUMM (4.8-10.8)
[2016-10-06 08:31] LABS: PT 15.5 SEC (9.4-12.5)
--- NOTE | 2016-10-06 09:00 | NUR ---
PT STABLE AT PRESENT. NAUSEA SLIGHTLY IMPROVED POST ZOFRAN ADMINISTRATION. OFF THE FLOOR NOW TO X-RAY. PENDING RETURN TO FLOOR.
--- NOTE | 2016-10-06 09:03 | Event Note ---
Event Note Event Note: I called the online merchandising manager surgen ( Dr. Byrd and Dr. Reed answering service at [phone]). The answering ervice did not answer and I left my pager number and my vlear request on need for a CALL back from surgical team.
--- NOTE | 2016-10-06 09:52 | RADIOLOGY REPORT ---
EXAMINATION: ABDOMEN 2 VIEWS CLINICAL INFORMATION: Abdominal pain. Bilious vomiting. Obstruction. COMPARISON: 10/05/2016. TECHNIQUE: Supine and upright views of the abdomen are provided. FINDINGS: Again identified are dilated loops of bowel fuels sales representative of a distal small bowel obstruction. The degree of bowel dilation is equivocally decreased from the most recent exam. There is no evidence for pneumatosis or pneumoperitoneum. A vascular stent is again identified. The cardiac silhouette is enlarged, but stable. There is persistent retrocardiac airspace disease. In addition, partially visualized is wedge-shaped opacification overlying the left upper lung zone. IMPRESSION: Distal small bowel obstruction. Dilated loops of bowel are equivocally decreased from prior exam. Persistent retrocardiac airspace disease. Partially visualized is wedge-shaped opacity overlying the left upper lung zone. Consider correlation with a dedicated 2 view chest series for further characterization.
--- NOTE | 2016-10-06 11:25 | Cons- Infect Disease ---
General Information and HPI Consulting Request Date of Consult: 10/06/16 Requested By: JOSE HERMAN MD Reason for Consult: Unexplained fevers Source of Information: patient, old records History of Present Illness: This is a 76-year-old woman with a history of coronary artery disease, hypertension, peripheral vascular disease, status post endovascular repair of a AAA, on no anticoagulation, COPD and multiple AVMs, hospitalized 2 1/2 weeks prior to admission with a small bowel obstruction requiring exploratory laparotomy for lysis of adhesions, with her postop course complicated by aspiration pneumonia treated with a 5 day course of Unasyn, readmitted on September 29 after presenting to the emergency room with coffee ground emesis. On admission she was afebrile. Laboratory data revealed a white blood cell count of 15,000, H&H 4 and 12.5, BUN/creatinine 22 and 0.5, AST/ALT 37 and 60, INR greater than 10. Chest x-ray revealed an improving left lower lobe opacity. CT of the abdomen and pelvis revealed mild distention of the proximal small bowel loops suggesting a partial/low-grade bowel obstruction with a new trace left- sided pleural effusion and dependent atelectasis in the left lower lobe and with no significant change in the moderate pericardial effusion. She was transfused 4 units of packed RBCs and 2 units of FFP with stabilization of her H&H and correction of her INR. She was begun on Ceftriaxone and Flagyl. On October 01 she underwent upper endoscopy which revealed a superficial gastric ulcer and nonerosive distal GERD. In the evening she spiked a fever to 101.4, with no cultures obtained. She remained afebrile until October 04 when she re-spiked to 101.7 and she was again febrile last evening to 102.2. Her white blood cell count increased to 23,000 on the day of admission but normalized by the next morning and has remained normal since. The Flagyl was discontinued on October 03. The Ceftriaxone was continued until October 04, at which point she was changed to Keflex. She has had several episodes of diarrhea over the last several days, and she was begun on po Vancomycin last evening empirically after discussion with me. She has tolerated a diet, but, this morning, she had one episode of vomiting. She does report some abdominal discomfort. She denies any shortness of breath or chest pain but does note a dry cough. She denies any dysuria. Allergies/Medications Allergies: Coded Allergies: propoxyphene (UNKNOWN 09/29/15) Home Med List: Albuterol Sulfate (Proair Hfa) 8.5 GM HFA.AER.AD 2 PUF INH AD PRN RESPIRATORY (Reported) Albuterol Sulfate 2.5 MG/3 ML VIAL.NEB 1 Vial INH/[place] BID RESPIRATORY ( Reported) Alprazolam 0.5 MG TABLET 1 TAB PO TIDPRN PRN ANXIETY (Reported) Amlodipine Besylate 10 MG TABLET 1 TAB PO DAILY BP (Reported) Aspirin (Ecotrin*) 81 MG TABLET. 81 MG PO DAILY vascular / heart health start a baby aspirin daily, as per Benzonatate 100 MG CAPSULE 1 TAB PO TID COLD SYMPTOMS Cephalexin 500 MG CAPSULE 1 TAB PO Q12 UTI Ferrous Sulfate 325 MG (65 MG IRON) TABLET 1 TAB PO DAILY SUPPLEMENT ( Reported) Labetalol HCl 200 MG TABLET 1 TAB PO BID BP (Reported) Omeprazole 20 MG CAPSULE.DR 1 CAP PO DAILY PRN GERD (Reported) Pantoprazole Sodium (Protonix) 40 MG TABLET.DR 1 TAB PO BID ACID Prednisone 20 MG TABLET 2 TAB PO DAILY LUNG HEALTH Rosuvastatin Calcium (Crestor) 20 MG TABLET 1 TAB PO DAILY CHOLESTEROL ( Reported) Sertraline HCl 50 MG TABLET 1 TAB PO DAILY DEPRESSION Sodium Chloride ([place]) 0.65 % SPRAY 2 SPRAY HARRY Q4P PRN CONGESTION Tiotropium [place] (Spiriva) 18 MCG CAP.W.DEV 1 CAP INH DAILY RESPIRATORY ( Reported) Tylenol With Codeine (Tylenol With Codeine #3 Tablet) 1 EACH TABLET 1-2 TAB PO Q4-6 PRN PRN PAIN take as directed. do not combine with tylenol. Past History Travel History Traveled to [place] past 21 day No Medical History Blood Transfusion Hx: Yes Neurological: TIA EENT: NONE Cardiovascular: aortic aneurysm, CAD, hypertension, hyperlipidemia, myocardial infarction, PVD Respiratory: bronchitis, COPD (55 pk yr smoker) Gastrointestinal: GERD, peptic ulcer disease, diverticulosis coli gastric & SB AVMs Hepatic: NONE Renal: NONE Musculoskeletal: degen joint disease, falls Psychiatric: anxiety Endocrine: vitamin D deficiency Blood Disorders: anemia Cancer(s): NONE LUMITE INJECTOR/Reproductive: NONE History of MRSA: No History of VRE: No History of CDIFF: No Isolation History: Standard Influenza Vaccine: 12/14/15 Surgical History Surgical History: (x 2), 10/02/15: Endovascular repair of AAA SBO s/p laparotomy and lysis of adhesions, right carotid endarterectomy September 2002 Family History Relations & Conditions If Any: MOTHER, , Age 51; Cause: ASHD (arteriosclerotic heart disease). FH: CAD (coronary artery disease) FATHER, , Age 65; Cause: Arteriosclerotic heart disease (ASHD). Psychosocial History Where Do You Live? Acute Rehab Who Do You Live With? self Services at Home: Nursing Primary Language: Lao Smoking Status: Current Some Day Smoker Living Will? no Power of Nurse Sane/HCP? no Functional Ability ADLs Independent: dressing, eating, toileting, bathing. Ambulation: independent IADLs Independent: shopping, housework, finances, food prep, telephone, medication admin. Needs Assist: transportation. Review of Systems Review of Systems All Other Systems: Reviewed and Negative Exam & Diagnostic Data Last 24 Hrs of Vital Signs/I&O Vital Signs Date Time Temp Pulse Resp B/P B/P Pulse O2 O2 Flow FiO2 Mean Ox Delivery Rate 10/06 0826 95 Nasal 2.5L Cannula 10/06 0600 99.5 120 22 138/60 92 Nasal 2.5L Cannula 10/06 0000 95 Nasal 2.0L Cannula 10/05 2241 99.5 119 18 128/58 94 Room Air 10/05 2112 92 Nasal 2.0L Cannula 10/05 2045 99.0 10/05 1947 102.2 10/05 1600 Nasal 2.0L Cannula 10/05 1402 98.7 106 20 130/60 92 Nasal 2.0L Cannula Intake & Output 10/06 1600 10/06 0800 10/06 0000 Intake Total 400 400 Output Total 300 1050 Balance 100 -650 Intake, Oral 400 400 Output, Urine 300 1050 Physical Exam Other Physical Findings: She is awake and alert in no acute distress. MAXIMUM TEMPERATURE 102.2. Skin reveals an ecchymosis on the left forearm. HEENT exam is negative. Neck is supple with no adenopathy. Lungs decreased breath sounds at the left base. Heart regular rhythm with no murmur. Abdomen is mildly distended, tender to palpation diffusely, with no guarding or rebound, positive bowel sounds. Back questionable left CVA tenderness. Extremities right leg swelling compared to the left leg, with no tenderness on palpation. Neuro is without focality. Last 24 Hours of Lab Results: Laboratory Tests 10/06 10/05 0652 1609 Chemistry Sodium (137 - 145 mmol/L) 133 L Potassium (3.5 - 5.1 mmol/L) 3.3 L Chloride (98 - 107 mmol/L) 105 Carbon Dioxide (22 - 30 mmol/L) 20 L Anion Gap (5 - 16) 8 BUN (7 - 17 mg/dL) 7 Creatinine (0.5 - 1.0 mg/dL) 0.6 Estimated GFR (>60 ml/min) > 60 BUN/Creatinine Ratio (7 - 25 %) 11.7 Coagulation PT (9.4 - 12.5 SEC) 15.5 H INR (0.90 - 1.19) 1.48 H Hematology CBC w Diff MAN DIFF ORDERED NO MAN DIFF REQ WBC (4.8 - 10.8 /CUMM) 7.3 6.1 RBC (4.20 - 5.40 /CUMM) 3.38 L 3.34 L Hgb (12.0 - 16.0 G/DL) 10.0 L 9.8 L Hct (37 - 47 %) 29.9 L 29.4 L MCV (81.0 - 99.0 FL) 88.4 87.8 MCH (27.0 - 31.0 PG) 29.5 29.4 RDW (11.5 - 14.5 %) 15.9 H 15.7 H Plt Count (130 - 400 /CUMM) 134 123 L MPV (7.4 - 10.4 FL) 9.5 8.7 Gran % (42.2 - 75.2 %) 91.2 H 89.9 H Lymphocytes % (20.5 - 51.1 %) 5.4 L 7.2 L Monocytes % (1.7 - 9.3 %) 3.4 2.8 Eosinophils % (0 - 5 %) 0 0.1 Basophils % (0.0 - 2.0 %) 0 L 0 L Absolute Granulocytes (1.4 - 6.5 /CUMM) 6.7 H 5.5 Segmented Neutrophils (42.2 - 75.2 %) 81 H Band Neutrophils (0.0 - 5.0 %) 13 H Absolute Lymphocytes (1.2 - 3.4 /CUMM) 0.4 L 0.4 L Lymphocytes (20.5 - 51.1 %) 5 L Monocytes (1.7 - 9.3 %) 1 L Absolute Monocytes (0.10 - 0.60 /CUMM) 0.3 0.2 Absolute Eosinophils (0.0 - 0.7 /CUMM) 0 0 Absolute Basophils (0.0 - 0.2 /CUMM) 0 0 Platelet Estimate (ADEQUATE) DECREASED Polychromasia 1+ Hypochromic-Microcytic 1+ Poikilocytosis 2+ Anisocytosis 1+ PUBS MCHC (33.0 - 37.0 G/DL) 33.3 33.5 Last 24 Hours of Sean Results: Blood cultures September 29 negative Blood cultures October 02 negative Blood cultures October 05 negative Urine culture September 29 negative Urine culture October 03 approximately 20,000 colonies of yeast Urine culture October 05 greater than 100,000 colonies of a gram-positive cocci Stool C. difficile October 05 pending Diagnostic Data Recent Imaging Findings: Chest x-ray September 29 revealed an improving left lower lobe opacity. CT of the abdomen and pelvis September 29 revealed mild distention of the proximal small bowel loops suggesting a partial/low-grade bowel obstruction with a new trace left-sided pleural effusion and dependent atelectasis in the left lower lobe and with no significant change in the moderate pericardial effusion. Chest x-ray October 03, personally reviewed, reveals scarring or atelectasis at the left base with a small left pleural effusion CTA of the chest October 03 reveals a spiculated right upper lobe opacity concerning for malignancy; moderate centrilobular emphysema, with ground glass opacities with increased reticular markings in the left upper lobe; small left greater than right pleural effusions; moderate pericardial effusion similar to the previous study CT of the abdomen and pelvis October 05 revealed a distal small bowel obstruction with a suspected transition point within the right midabdomen, suggesting a partial small bowel obstruction, with no free air or free fluid Abdominal x-ray October 06 revealed a distal small bowel obstruction Assessment/Plan Assessment/Plan Impression: This is a 76-year-old woman with a history of coronary artery disease, hypertension, peripheral vascular disease, COPD and multiple AVMs, hospitalized 2 1/2 weeks prior to admission with a small bowel obstruction requiring exploratory laparotomy for lysis of adhesions, admitted on September 29 with hematemesis, found to be severely anemic with an unexplained coagulopathy, status post transfusion of packed RBCs and FFP with an upper endoscopy revealing a superficial gastric ulcer, treated with broad-spectrum antibiotics since admission for unclear reasons, with intermittent fevers without an obvious source. She has had recent diarrhea and, with her abdominal tenderness and recent antibiotics, C. difficile must be considered, and she has been started empirically on Vancomycin pending test results. The positive urine cultures, initially for yeast and, more recently, for gram negative rods, are of unclear significance as she has no urinary symptoms though she does have questionable left CVA tenderness, and a repeat sample, with the urinalysis, may be helpful. She has a chronic left lower lobe density but no significant respiratory symptoms; therefore pneumonia seems unlikely. Her normal white blood cell count suggest the possibility of a noninfectious process, for example a DVT, particularly with her right leg swelling, but her recent Dopplers were negative. The episode of vomiting this morning may be related to the partial small bowel obstruction suggested on the recent CT scan and she will need surgical reevaluation. The spiculated right upper lobe nodule seen on the recent CT is concerning for a primary malignancy and she will warrant further evaluation for this as well. Suggestion: 1. Follow-up stool for C. difficile 2. Repeat urinalysis and urine culture in a sterile fashion 3. Await surgical reevaluation regarding her recent emesis 4. Pulmonary evaluation at some point for the right upper lobe nodule seen on CT scan 5. Continue po Vancomycin pending above Consult Acknowledgment - Thank you for your consult request.
--- NOTE | 2016-10-06 11:53 | PN- Housestaff ---
See Addendum Subjective Follow-up For: SBO symptomatic anemia Complaints: severe abdominal pain and vomitting Subjective: Patient was visited and examined today. She had Fever of 102 last night and was started on Vancomycin. Reports increase in lower abdomen R>L, and nautiousness and x2 vomitting, she reports no radha pass. she did not eat or drink. She does not endorse any chest pain, palpitation, shortness of breath, BRPR,dysuria. Objecive: Patients VS for the past 24 h were reviewed. spike of fever of 102 and tachycardia persumebly due to fever and pain. Patient is in moderate-severe distress. Reluctant to move and breathing quickly and shalow. No documented BM. WBC increased, PLT increased, BUN (slightly increased), Na and K are both low, CO2 decreased Exam General Appearance: AO x3; in obvious distress and agony and breathing shalow and fast, uncomfortable. HEET: Mouth is dry, supple, full range of motion Respiratory: no respiratory distress, lungs clear Cardiovascular: regular rate/rhythm Gastrointestinal: abdomen is distended, decreased BS, Phytsical exam of her abdomen is much worst than yesterday; +++ gaurding, Tenderness [place] L LQ(R>L), RT is + on the RLQ, Abdomen is slightly more distended and BS decreased. Assessment 76 yeras old woman was admitted for abdominal pain due to SBO 2/2 adhesion s/p adhesion lysis procedure sevre symptomatic anemia secondary to malnutrition-associated coagulapathy. List of problems 1. Symptomatic anemia secondary to acute blood loss due to PUD vs AVMS status post 4 units of blood transfusion. H&H 10.2/30.5 today 2. Coagulopathy. INR 1.48 this morning.H&H:02/09.9 On vitamin K PO Q48H 4. SBO by clinical findings and imaging: she was started on PO vancomycin yesterday per ID for Cdiff but had another spike of manju to 102 last night. My thought is that her picture, radio and clinical, in its totality shows a worsening partial/complete bowel obstruction. NPO, IV fluids, Convert PO meds ti Iv and stop unnecessary PO medication, stop pain medication ( I spoke to the nurse as well) with the concern that these medications would pervert the real ph/ex findings and would certaily blunt the pain. I am holding these meds till surgery team examine the patient. She eventually needs a NG Tube. Abdominal Xray multiple views. 5. mild-mod Thrombocytopenia improved??? or hemoconcentration 6.Hypokalemia and hyponatremia: will do a urin lyte test and FeNA, urine and serum osmolarity. I am thinking this patient is clinically dry and the cause of her mild hypokalemia, hyponatremia. I will start NLsaline 1000 ml +40 meq of K and 2 10 meq runs of K IV. Review of Systems Constitutional: Reports: see HPI. EENTM: Denies: blurred vision, double vision, visual changes, eye pain, eye drainage, eye tearing, icterus, ear discharge, ear pain, ear redness, hearing changes, nasal congestion, epistaxis, nasal pain, throat pain, throat swelling, mouth pain, tooth pain. Cardiovascular: Reports: no symptoms. Respiratory: Reports: no symptoms. Gastrointestinal: Reports: see HPI, abdominal pain, bloating, vomiting. Genitourinary: Reports: no symptoms. Objective Last 24 Hrs of Vital Signs/I&O Vital Signs Date Time Temp Pulse Resp B/P B/P Pulse O2 O2 Flow FiO2 Mean Ox Delivery Rate 10/06 0826 95 Nasal 2.5L Cannula 10/06 0600 99.5 120 22 138/60 92 Nasal 2.5L Cannula 10/06 0000 95 Nasal 2.0L Cannula 10/05 2241 99.5 119 18 128/58 94 Room Air 10/05 2112 92 Nasal 2.0L Cannula 10/05 2045 99.0 10/05 1947 102.2 10/05 1600 Nasal 2.0L Cannula 10/05 1402 98.7 106 20 130/60 92 Nasal 2.0L Cannula Intake & Output 10/06 1600 10/06 0800 10/06 0000 Intake Total 400 400 Output Total 300 1050 Balance 100 -650 Intake, Oral 400 400 Output, Urine 300 1050 Physical Exam General Appearance: Alert, Oriented X3, Cooperative, Moderate Distress HEENT: Atraumatic, PERRLA, EOMI, Mucous Membr. moist/pink Neck: Supple, No JVD, No thryomegaly, +2 Carotid Pulse wo Bruit, No LAD Lymphatic: Axillary nl, Cervical nl Cardiovascular: Normal S1, Normal S2, No Murmurs Lungs: Clear to Auscultation, Normal Air Movement Abdomen: gaurding, tenderness, RT, Neurological: Normal Speech Extremities: No Clubbing, No Cyanosis, No Edema, Normal Pulses, No Tenderness/ Swelling Current Medications: Current Medications Sig/[place] Start time Last Medication Dose Route Stop Time Status Admin Acetaminophen 650 MG Q6-PRN PRN 10/03 0645 DC 10/04 PO 2149 Albuterol Sulfate 3 ML BID 09/29 1000 AC 10/06 INH 0823 Albuterol Sulfate 2 PUF Q4-6 PRN PRN 09/29 0515 AC INH Alprazolam 0.5 MG TIDPRN PRN 10/01 2300 AC 10/05 PO 10/08 2259 2201 Cephalexin 500 MG Q12 10/04 220 DC 10/05 PO 1043 Lorazepam 0.5 MG Q4P PRN 10/06 0900 AC IV Morphine Sulfate 2 MG Q4P PRN 09/29 0515 DC 10/06 IV 0310 Omeprazole 40 MG BID 10/01 220 DC 10/05 PO 2203 Ondansetron HCl 4 MG .STK-MED ONE 10/05 2111 DC IM 10/05 2112 Ondansetron HCl 4 MG Q6P PRN 09/29 0515 AC 10/06 IV 0723 Pantoprazole Sodium 40 MG DAILY 10/06 1000 AC IV Potassium Chloride 40 MEQ Q8H 10/06 1145 AC Sodium Chloride 1,000 ML IV Potassium Chloride 40 MEQ ONCE ONE 10/05 1815 DC 10/05 PO 10/05 181 2200 Tiotropium [place] 1 PUF DAILY 09/29 1000 AC 10/05 INH 1043 Vancomycin HCl 125 MG Q6H 10/06 0900 AC 10/06 PO 0959 Vancomycin HCl 125 MG Q6 10/05 1854 DC 10/06 PO 0311 Last 24 Hrs of Lab/Sean Results Last 24 Hrs of Labs/Mics: Laboratory Tests 10/06/16 0652: PT 15.5 H, INR 1.48 H, CBC w Diff MAN DIFF ORDERED, RBC 3.38 L, MCV 88.4, MCH 29.5, RDW 15.9 H, MPV 9.5, Gran % 91.2 H, Lymphocytes % 5.4 L, Monocytes % 3.4, Eosinophils % 0, Basophils % 0 L, Absolute Granulocytes 6.7 H, Segmented Neutrophils 81 H, Band Neutrophils 13 H, Absolute Lymphocytes 0.4 L, Lymphocytes 5 L, Monocytes 1 L, Absolute Monocytes 0.3, Absolute Eosinophils 0 , Absolute Basophils 0, Platelet Estimate DECREASED, Polychromasia 1+, Hypochromic-Microcytic 1+, Poikilocytosis 2+, Anisocytosis 1+, PUBS MCHC 33.3 10/05/16 1609: Anion Gap 8, Estimated GFR > 60, BUN/Creatinine Ratio 11.7, CBC w Diff NO MAN DIFF REQ, RBC 3.34 L, MCV 87.8, MCH 29.4, RDW 15.7 H, MPV 8.7, Gran % 89.9 H, Lymphocytes % 7.2 L, Monocytes % 2.8, Eosinophils % 0.1, Basophils % 0 L, Absolute Granulocytes 5.5, Absolute Lymphocytes 0.4 L, Absolute Monocytes 0.2, Absolute Eosinophils 0, Absolute Basophils 0, PUBS MCHC 33.5 Microbiology 10/05 2114 BLOOD: Blood Culture - RECD 10/05 2036 BLOOD: Blood Culture - RECD 10/05 1520 STOOL: Clostridium difficile Toxin A & B - RECD Lines/Diet/Fluids Fluids/Infusions: none Assessment/Plan Assessment: discussed above Problem List: 1. Small bowel obstruction 2. Anemia 3. Tachycardia 4. History of peptic ulcer Pain Ratin Pain Location: RLQ Pain Goal: no pain med Pain Plan: stop pain medication as it interfere with ph/ex Tomorrow's Labs & Rationales: cbc bep pt inr DVT/Prophylaxis: mechanical Attending MD Review Statement Attending Statement Attending MD Statement: examined this patient, discuss w/resident/PA/STRUCTURAL ANALYST, agreed w/resident/PA/STRUCTURAL ANALYST, discussed with family, reviewed EMR data (avail), discussed with nursing, discussed with case mgmt, reviewed images, amended to note Attending Assessment/Plan: Attending Statement Attending MD Statement: examined this patient, discuss w/resident/PA/STRUCTURAL ANALYST, agreed w/resident/PA/STRUCTURAL ANALYST, discussed with family, reviewed EMR data (avail), discussed with nursing, discussed with case mgmt, reviewed images, amended to note Attending Assessment/Plan: 76 o/f with acute blood loss anemia transferred from ICU to floor , found to have fever, sinus tachycardia on ceftriaxone possible UTI, repeat chest xray no acute process but atelectasis+, had fever spike, Consulted ID, CT abd/plevis with distal small bowel obstrcution, c diff pending, empiric started on oral vanco. USG lower extremity b/l negative CTA chest concerning for pulmonary opacity [id number] malignancy f/u pulmonary observation for now, Patient recieved multiple transfusions. GI signed off, non bleeding ulcer, ?source of bleed, h/o AVMs in past, encourage incentive spirometry, f/u GI as o/p, PCP as o/p. NOTE ENTERED BY: MICH WARREN MD DATE/TIME ENTERED:10/06/16809 REPORT NUMBER:[id number] CONFIDENTIAL, DO NOT COPY WITHOUT APPROPRIATE AUTHORIZATION.
--- NOTE | 2016-10-06 12:38 | Cons- General Surgery ---
General Information and HPI Consulting Request Date of Consult: 10/06/16 Requested By: JOSE HERMAN MD History of Present Illness: CC: bowel obstruction HPI: Patient is known to our service having undergone a laparotomy for small bowel obstruction little over 3 weeks ago on review she had a prolonged postoperative course with an NG tube but eventually was discharged to rehabilitation facility postoperative day 8 now she's been readmitted September 29 a week ago with an upper GI bleed requiring transfusions, she is an underlying history of gastrointestinal AVMs followed by gastroenterology she'll history of a AAA peripheral vascular disease COPD she is a current smoker, during this admission, she had a fever of 1015 days ago she's on empiric antibiotics there is a question of aspiration pneumonia on previous admission, her abdomen was reimaged yesterday CT scan was interpreted as small bowel obstruction so we've been called to reevaluate. Presently she is a little bit confused but denies any abdominal pain according to the nurses she has not vomited and she had some bowel movements yesterday. I've reviewed the [facility]. There is also a history of coronary artery disease peptic ulcer disease. Of note when she was readmitted her INR was found to be over 10 and this apparently without any anticoagulants. Allergies/Medications Allergies: Coded Allergies: propoxyphene (UNKNOWN 09/29/15) Home Med List: Albuterol Sulfate (Proair Hfa) 8.5 GM HFA.AER.AD 2 PUF INH AD PRN RESPIRATORY (Reported) Albuterol Sulfate 2.5 MG/3 ML VIAL.NEB 1 Vial INH/[place] BID RESPIRATORY ( Reported) Alprazolam 0.5 MG TABLET 1 TAB PO TIDPRN PRN ANXIETY (Reported) Amlodipine Besylate 10 MG TABLET 1 TAB PO DAILY BP (Reported) Aspirin (Ecotrin*) 81 MG TABLET. 81 MG PO DAILY vascular / heart health start a baby aspirin daily, as per Benzonatate 100 MG CAPSULE 1 TAB PO TID COLD SYMPTOMS Cephalexin 500 MG CAPSULE 1 TAB PO Q12 UTI Ferrous Sulfate 325 MG (65 MG IRON) TABLET 1 TAB PO DAILY SUPPLEMENT ( Reported) Labetalol HCl 200 MG TABLET 1 TAB PO BID BP (Reported) Omeprazole 20 MG CAPSULE. 1 CAP PO DAILY PRN GERD (Reported) Pantoprazole Sodium (Protonix) 40 MG TABLET.DR 1 TAB PO BID ACID Prednisone 20 MG TABLET 2 TAB PO DAILY LUNG HEALTH Rosuvastatin Calcium (Crestor) 20 MG TABLET 1 TAB PO DAILY CHOLESTEROL ( Reported) Sertraline HCl 50 MG TABLET 1 TAB PO DAILY DEPRESSION Sodium Chloride (Deep Sea) 0.65 % SPRAY 2 SPRAY HARRY Q4P PRN CONGESTION Tiotropium [place] (Spiriva) 18 MCG CAP.W.DEV 1 CAP INH DAILY RESPIRATORY ( Reported) Tylenol With Codeine (Tylenol With Codeine #3 Tablet) 1 EACH TABLET 1-2 TAB PO Q4-6 PRN PRN PAIN take as directed. do not combine with tylenol. Current Medications: I reviewed Current Medications Sig/Ebenezer Start time Last Medication Dose Route Stop Time Status Admin Acetaminophen 1,000 MG Q4-6 PRN PRN 10/06 1230 UNVr IV Acetaminophen 320 MG Q4 HRS NEEDED PRN 10/06 1230 UNVr PO Acetaminophen 650 MG Q6-PRN PRN 10/03 0645 DC 10/04 PO 2149 Albuterol Sulfate 3 ML BID 09/29 1000 AC 10/06 INH 0823 Albuterol Sulfate 2 PUF Q4-6 PRN PRN 09/29 0515 AC INH Alprazolam 0.5 MG TIDPRN PRN 10/01 2300 AC 10/05 PO 10/08 2259 2201 Cephalexin 500 MG Q12 10/04 2200 DC 10/05 PO 1043 Lorazepam 0.5 MG Q4P PRN 10/06 0900 AC IV Morphine Sulfate 2 MG Q4P PRN 09/29 0515 DC 10/06 IV 0310 Omeprazole 40 MG BID 10/01 2200 DC 10/05 PO 2203 Ondansetron HCl 4 MG .STK-MED ONE 10/05 2110 DC IM 10/05 2112 Ondansetron HCl 4 MG Q6P PRN 09/29 0515 AC 10/06 IV 0723 Pantoprazole Sodium 40 MG DAILY 10/06 1000 AC 10/06 IV 1150 Potassium Chloride 40 MEQ Q8H 10/06 1145 AC Sodium Chloride 1,000 ML IV Potassium Chloride 40 MEQ ONCE ONE 10/05 1815 DC 10/05 PO 10/05 1816 2200 Tiotropium [place] 1 PUF DAILY 09/29 1000 AC 10/06 INH 1150 Vancomycin HCl 125 MG Q6H 10/06 0900 AC 10/06 PO 0959 Vancomycin HCl 125 MG Q6 10/05 1854 DC 10/06 PO 0311 Past History Medical History Blood Transfusion Hx: Yes Neurological: TIA EENT: NONE Cardiovascular: aortic aneurysm, CAD, hypertension, hyperlipidemia, myocardial infarction, PVD Respiratory: bronchitis, COPD (55 pk yr smoker) Gastrointestinal: GERD, peptic ulcer disease, diverticulosis coli gastric & SB AVMs Hepatic: NONE Renal: NONE Musculoskeletal: degen joint disease, falls Psychiatric: anxiety Endocrine: vitamin D deficiency Blood Disorders: anemia Cancer(s): NONE ADVERTISING SPECIALIST/Reproductive: NONE Surgical History Pertinent Surgical History: (x 2), 10/02/15: Endovascular repair of AAA SBO s/p laparotomy and lysis of adhesions right carotid endarterectomy September 2002 Family History Relations & Conditions If Any: MOTHER, , Age 51; Cause: ASHD (arteriosclerotic heart disease). FH: CAD (coronary artery disease) FATHER, , Age 65; Cause: Arteriosclerotic heart disease (ASHD). Psychosocial History Where Do You Live? Acute Rehab Who Do You Live With? self Services at Home: Nursing Primary Language: Iraqi Smoking Status: Current Some Day Smoker Living Will? no Power of Management Services Technician/HCP? no Functional Ability ADLs Independent: dressing, eating, toileting, bathing. Ambulation: independent IADLs Independent: shopping, housework, finances, food prep, telephone, medication admin. Needs Assist: transportation. Review of Systems Review of Systems: Limited due to patient's mental status so its either unobtainable or as found on review Constitutional: as above ENMT: No sore throat Cardiovascular: No chest pain, palpitations or leg swelling Respiratory: No shortness of breath, cough, or sputum or dyspnea on exertion GI: as above : No dysuria or hematuria Musculoskeletal: unobtainable Skin / Breast: No jaundice, rashes or itching Psychiatric: remote HX of ETOH, anxiety Hematologic / lymphatic system: as above Exam & Diagnostic Data Vital Signs and I&O I reviewed Vital Signs Date Time Temp Pulse Resp B/P B/P Pulse O2 O2 Flow FiO2 Mean Ox Delivery Rate 10/06 0826 95 Nasal 2.5L Cannula 10/06 0600 99.5 120 22 138/60 92 Nasal 2.5L Cannula 10/06 0000 95 Nasal 2.0L Cannula 10/05 2241 99.5 119 18 128/58 94 Room Air 06/24 2112 92 Nasal 2.0L Cannula 10/05 2044 99.0 10/05 1946 102.2 10/06 1599 Nasal 2.0L Cannula 10/05 1402 98.7 106 20 130/60 92 Nasal 2.0L Cannula I reviewed Intake & Output 10/06 0810/06 0000 10/05 0800 10/05 0000 Intake Total 233 288 5793 240 100 Output Total 300 1050 350 350 Balance 100 -650 1080 -110 -250 Intake, IV 0 Intake, Oral 859 688 2442 240 100 Number 1 1 Bowel Movements Output, Urine 300 1050 350 350 Physical Exam: Constitutional: pleasant, no acute distress, conversant but a little confused Eyes: sclera anicteric ENMT: ears and nose atraumatic, moist mucous membranes, good dentition, no lip lesions Neck: Supple, trachea is midline, no cervical or supraclavicular adenopathy and no palpable thyromegaly Cardiovascular: S1, S2, no murmurs, no peripheral edema Respiratory: clear to auscultation with normal respiratory effort and no intercostal retractions GI: abdomen soft, nontender, slightly distended, no palpable hepatosplenomegaly Extremities / lymphatics: symmetrically warm, free range of motion no peripheral edema, no cervical, supraclavicular, axillary, or inguinal adenopathy Musculoskeletal: Did not evaluate gait and station, no digital cyanosis, good muscle strength and tone no atrophy, motor grossly 5 out of 5 throughout Skin: no jaundice, no rashes warm, nondiaphoretic, no areas of erythema or induration Psychiatric: mood and affect are appropriate, awake and alert Last 24 Hours of Labs: I reviewed Laboratory Tests 10/06 10/05 0652 1609 Chemistry Sodium (137 - 145 mmol/L) 133 L Potassium (3.5 - 5.1 mmol/L) 3.3 L Chloride (98 - 107 mmol/L) 105 Carbon Dioxide (22 - 30 mmol/L) 20 L Anion Gap (5 - 16) 8 BUN (7 - 17 mg/dL) 7 Creatinine (0.5 - 1.0 mg/dL) 0.6 Estimated GFR (>60 ml/min) > 60 BUN/Creatinine Ratio (7 - 25 %) 11.7 Coagulation PT (9.4 - 12.5 SEC) 15.5 H INR (0.90 - 1.19) 1.48 H Hematology CBC w Diff MAN DIFF ORDERED NO MAN DIFF REQ WBC (4.8 - 10.8 /CUMM) 7.3 6.1 RBC (4.20 - 5.40 /CUMM) 3.38 L 3.34 L Hgb (12.0 - 16.0 G/DL) 10.0 L 9.8 L Hct (37 - 47 %) 29.9 L 29.4 L MCV (81.0 - 99.0 FL) 88.4 87.8 MCH (27.0 - 31.0 PG) 29.5 29.4 RDW (11.5 - 14.5 %) 15.9 H 15.7 H Plt Count (130 - 400 /CUMM) 134 123 L MPV (7.4 - 10.4 FL) 9.5 8.7 Gran % (42.2 - 75.2 %) 91.2 H 89.9 H Lymphocytes % (20.5 - 51.1 %) 5.4 L 7.2 L Monocytes % (1.7 - 9.3 %) 3.4 2.8 Eosinophils % (0 - 5 %) 0 0.1 Basophils % (0.0 - 2.0 %) 0 L 0 L Absolute Granulocytes (1.4 - 6.5 /CUMM) 6.7 H 5.5 Segmented Neutrophils (42.2 - 75.2 %) 81 H Band Neutrophils (0.0 - 5.0 %) 13 H Absolute Lymphocytes (1.2 - 3.4 /CUMM) 0.4 L 0.4 L Lymphocytes (20.5 - 51.1 %) 5 L Monocytes (1.7 - 9.3 %) 1 L Absolute Monocytes (0.10 - 0.60 /CUMM) 0.3 0.2 Absolute Eosinophils (0.0 - 0.7 /CUMM) 0 0 Absolute Basophils (0.0 - 0.2 /CUMM) 0 0 Platelet Estimate (ADEQUATE) DECREASED Polychromasia 1+ Hypochromic-Microcytic 1+ Poikilocytosis 2+ Anisocytosis 1+ PUBS MCHC (33.0 - 37.0 G/DL) 33.3 33.5 Assessment/Plan Assessment/Plan I reviewed multiple films on PACS myself, today's multiview of the abdomen which shows some dilated small bowel similar to yesterday CT scan but today the stomach is not particularly distended. Also reviewed the CT scans from yesterday the and September 11 showing some intermittently dilated small bowel also with some dilated stomach initially no significant free fluid the first CT scan was preoperative. Impression, patient with several comorbidities including cardiovascular disease with intermittent small bowel obstruction but source of SBO not clear, even in OR 09-13-16, had prolonged NGT course postop, had fever then too, then readm with blood loss, fevers again, bowel (mostly small) still dilated on imaging, was also getting morphine ev 4 hours, this may be contributing to decreased transit, denies vomiting, abd softly distended, pos BS, WBC normal after initially being in the 20s, not acidotic, if she vomits NGT, otherwise stop the narcotic element and mobilize. Whty fever not obvious either. Problem List: 1. Small bowel obstruction 2. Acute blood loss anemia 3. Coagulopathy Consult Acknowledgment - Thank you for your consult request.
--- NOTE | 2016-10-06 14:30 | NUR ---
PT ORDERED TO BE NPO AND ACCORDING TO DIET ORDER, PT NOT TO HAVE ANY PO MEDS OR ICE CHIPS. DR. POSADA CONTACTED FOR CLARIFICATION OF ORDER PT IS ON PO VANCO. PER , PT TO RECEIVE PO VANCO BUT NO OTHER ORAL MEDS. REPORTS HE WILL NOT ADJUST DIET ORDER BUT INSTEAD WILL PLACE NURSING MISC ORDER. PENDING POSSIBLE NEW ORDER. TO INFORM ONCOMING RN. WILL CONT TO [facility].
[2016-10-06 14:52] VITALS: BP 118/60
--- NOTE | 2016-10-06 15:00 | NUR ---
LATE ENTRY: PT HAS BEEN DOING WELL SINCE SHE HAS BEEN PLACED NPO. PT HAS NOT VOMITED SINCE 7:30 AM. PT DID HAVE DRY HEAVES AT ONE POINT DURING TRANSFER ASSIST TO [facility]. NO DISTRESS. ONCOMING RN TO RESUME CARE FOR THIS PT. SAFETY MAINTAINED.
[2016-10-06 17:25] LABS: ABSOLUTE BASOPHIL COUNT 0 /CUMM (0.0-0.2); ABSOLUTE EOSINOPHIL COUNT 0 /CUMM (0.0-0.7); ABSOLUTE GRANULOCYTE CT 5.6 /CUMM (1.4-6.5); ABSOLUTE LYMPH COUNT 0.5 /CUMM (1.2-3.4); ABSOLUTE MONOCYTE COUNT 0.2 /CUMM (0.10-0.60); BASOPHIL % 0.1 % (0.0-2.0); EOSINOPHIL % 0 % (0-5); GRANULOCYTE % 88.6 % (42.2-75.2); HEMATOCRIT 27.9 % (37-47); MEAN CORPUSCULAR HGB 29.4 PG (27.0-31.0); MEAN CORPUSCULAR HGB CONC 33.3 G/DL (33.0-37.0); MEAN CORPUSCULAR VOLUME 88.2 FL (81.0-99.0); MEAN PLATELET VOLUME 9.1 FL (7.4-10.4); PLATELET COUNT 125 /CUMM (130-400); RBC DISTRIBUTION WIDTH 15.8 % (11.5-14.5); RED BLOOD CELL CT 3.16 /CUMM (4.20-5.40); WHITE BLOOD CELL COUNT 6.4 /CUMM (4.8-10.8)
[2016-10-06 22:35] VITALS: BP 116/48
[2016-10-07 07:03] VITALS: BP 130/54
[2016-10-07 08:23] LABS: PT 14.8 SEC (9.4-12.5)
[2016-10-07 08:39] LABS: ABSOLUTE BASOPHIL COUNT 0 /CUMM (0.0-0.2); ABSOLUTE EOSINOPHIL COUNT 0 /CUMM (0.0-0.7); ABSOLUTE GRANULOCYTE CT 5.7 /CUMM (1.4-6.5); ABSOLUTE LYMPH COUNT 0.6 /CUMM (1.2-3.4); ABSOLUTE MONOCYTE COUNT 0.2 /CUMM (0.10-0.60); BASOPHIL % 0 % (0.0-2.0); EOSINOPHIL % 0.1 % (0-5); GRANULOCYTE % 87.1 % (42.2-75.2); MEAN CORPUSCULAR HGB 29.1 PG (27.0-31.0); MEAN CORPUSCULAR HGB CONC 32.9 G/DL (33.0-37.0); MEAN CORPUSCULAR VOLUME 88.5 FL (81.0-99.0); MEAN PLATELET VOLUME 9.1 FL (7.4-10.4); PLATELET COUNT 123 /CUMM (130-400); RBC DISTRIBUTION WIDTH 16.3 % (11.5-14.5); RED BLOOD CELL CT 2.94 /CUMM (4.20-5.40); WHITE BLOOD CELL COUNT 6.5 /CUMM (4.8-10.8)
--- NOTE | 2016-10-07 09:53 | PN- Housestaff ---
SHAUNA CHENG 10/07/16 0952: Subjective Follow-up For: Acute blood loss anemia secondary to upper GI bleed Partial small bowel obstruction Diarrhea Subjective: Patient is alert, awake and oriented. She is on 2.5 L of oxygen right now. Denies any nausea, vomiting. Reports mild abdominal pain. Still having loose greenish colored bowel movements. She is passing gas. Denies any chest pain or discomfort Review of Systems Constitutional: Reports: see HPI. Objective Last 24 Hrs of Vital Signs/I&O Vital Signs Date Time Temp Pulse Resp B/P B/P Pulse O2 O2 Flow FiO2 Mean Ox Delivery Rate 10/07 1407 98.2 112 20 154/70 93 Nasal 3.0L Cannula 10/07 0908 96 Nasal 2.5L Cannula 10/07 0800 Nasal 2.5L Cannula 10/07 0703 97.7 103 20 130/54 91 Nasal 2.0L Cannula 10/06 2235 98.9 103 18 116/48 93 Nasal 2.5L Cannula 10/06 1950 95 Nasal 2.0L Cannula 10/06 1600 Nasal 2.5L Cannula Intake & Output 10/07 1600 10/07 0800 10/07 0000 Intake Total 800 1000 1000 Output Total 740 197 4589 Balance 600 900 -100 Intake, IV 1000 1000 Intake, Oral 800 0 Number 2 3 2 Bowel Movements Output, Urine 209 418 5899 Physical Exam General Appearance: Alert, Oriented X3, Cooperative, No Acute Distress Neck: Supple Cardiovascular: tachy Lungs: bilateral basal crackles Abdomen: Normal Bowel Sounds, Soft, mild tenderness on palpation of epigastric area. No guarding or rigidity Extremities: 1+ pitting edema bilaterally Current Medications: Current Medications Sig/Ebenezer Start time Last Medication Dose Route Stop Time Status Admin Acetaminophen 1,000 MG Q6P PRN 10/06 1230 AC 10/07 IV 1200 Acetaminophen 320 MG Q4 HRS NEEDED PRN 10/06 1230 AC PO Albuterol Sulfate 3 ML BID 09/29 1000 AC 10/07 INH 0905 Albuterol Sulfate 2 PUF Q4-6 PRN PRN 09/29 0515 AC INH Alprazolam 0.5 MG BID PRN 10/07 1100 AC PO 10/14 1059 Alprazolam 0.5 MG TIDPRN PRN 10/01 2300 AC 10/05 PO 10/08 2259 2201 Lorazepam 0.5 MG Q4P PRN 10/06 0900 DC IV Omeprazole 40 MG DAILY AC 10/08 0700 AC PO Ondansetron HCl 4 MG .STK-MED ONE 10/07 0331 DC IM 10/07 0332 Ondansetron HCl 4 MG .STK-MED ONE 10/06 2159 DC IM 10/06 2200 Ondansetron HCl 4 MG .STK-MED ONE 10/06 1547 DC IM 10/06 1548 Ondansetron HCl 4 MG Q6P PRN 09/29 0515 AC 10/07 IV 0952 Pantoprazole Sodium 40 MG DAILY 10/06 1000 DC 10/07 IV 0943 Patient Medication 1 ED .STK-MED ONE 10/07 1354 DC Teaching ED 10/07 1355 Potassium Chloride 40 MEQ Q8H 10/06 1145 DC 10/07 Sodium Chloride 1,000 ML IV 06 Tiotropium Vendor 1 PUF DAILY 09/29 1000 AC 10/07 INH 0943 Vancomycin HCl 125 MG Q6H 10/07 1000 AC 10/07 PO 1055 Vancomycin HCl 125 MG Q6H 10/06 0900 DC 10/07 PO 0340 Last 24 Hrs of Lab/Sean Results Last 24 Hrs of Labs/Mics: Laboratory Tests 10/07/16 0610: Anion Gap 6, Estimated GFR > 60, BUN/Creatinine Ratio 12.0, PT 14.8 H, INR 1.41 H, CBC w Diff MAN DIFF ORDERED, RBC 2.94 L, MCV 88.5, MCH 29.1, RDW 16.3 H, MPV 9.1, Gran % 87.1 H, Lymphocytes % 9.8 L, Monocytes % 3.0, Eosinophils % 0.1, Basophils % 0 L, Absolute Granulocytes 5.7, Segmented Neutrophils 75, Band Neutrophils 19 H, Absolute Lymphocytes 0.6 L, Lymphocytes 5 L, Monocytes 1 L , Absolute Monocytes 0.2, Absolute Eosinophils 0, Absolute Basophils 0, Platelet Estimate VERIFIED BY SMEAR, Normocytic RBCs VERIFIED, Normochromic RBCs VERIFIED , PUBS MCHC 32.9 L 10/07/16 0430: Urinalysis LIGHT H, Urine Color YEL, Urine Clarity CLEAR, Urine pH 6.0, Ur Specific [place] 1.020, Urine Protein 30 H, Urine Ketones 15 H, Urine Nitrite NEG, Urine Bilirubin NEG, Urine Urobilinogen 0.2, Ur Leukocyte Esterase SMALL H , Ur Microscopic SEDIMENT EXAMINED, Urine WBC 1-3 H, Ur Epithelial Cells MOD H , Urine Bacteria FEW H, Urine Mucus FEW, Urine Hemoglobin TRACE-INTACT, Urine Glucose NEG 10/06/16 1618: Anion Gap 8, Estimated GFR > 60, BUN/Creatinine Ratio 11.7, Lactic Acid 1.1, CBC w Diff NO MAN DIFF REQ, RBC 3.16 L, MCV 88.2, MCH 29.4, RDW 15.8 H, MPV 9.1, Gran % 88.6 H, Lymphocytes % 8.4 L, Monocytes % 2.9, Eosinophils % 0, Basophils % 0.1, Absolute Granulocytes 5.6, Absolute Lymphocytes 0.5 L, Absolute Monocytes 0.2, Absolute Eosinophils 0, Absolute Basophils 0, PUBS MCHC 33.3 Microbiology 10/07 0430 URINE ROUT: Urine Culture - RECD Assessment/Plan Assessment: She 76-year-old woman with past medical history of peptic ulcer disease. 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 History of iron deficiency anemia. Multiple transfusions. Hypertension, hyperlipidemia, COPD not on home oxygen, anxiety, MA, peripheral vascular disease, endovascular AAA repair, history of TIA, and recent history of small bowel obstruction with lysis of adhesions 2 weeks prior to admission. Problem list 1. Symptomatic anemia secondary to acute blood loss due to PUD vs AVMS status post 4 units of blood transfusion. H&H stable 2. Hypercoagulable state. INR 1.41 to this morning. On vitamin K PO 3. Sepsis. MAXIMUM TEMPERATURE 102.2 on October 05. No fevers overnight. Chest x-ray did not show any acute process. UA is dirty. urine culture growing from positive cocci NG most likely contamination. 4. Thrombocytopenia. Platelet count 123 this morning. 7. Malnutrition 8. Acute hypoxic respiratory failure. 3 L of oxygen via nasal cannula. CTA chest showing no PE but moderate emphysema, pulmonary hypertension and spiculated right upper lobe nodule 7 mm in size concerning for malignancy 9. Diarrhea. ? C. difficile. Stool antigen negative for C. difficile. On by mouth vancomycin 10. Partial small bowel obstruction. Moving her bowels and flatus. PLAN * Monitor vitals closely * Watch for any active GI bleed. Call GI in case of overt bleed * Monitor PT/INR/PTT daily * Check CBC daily. Keep hemoglobin more than 8 * Avoid NSAIDs and Aspirin * Continue PPI * Continue vitamin K 5 mg daily Q48h * Continue by mouth vancomycin * Check C. difficile PCR * Try to taper down oxygen. Keep oxygen saturation more than 92%. Will check ambulatory oxygen saturation with and without oxygen * Incentive spirometry * Pulm consult * Advanced diet to clear liquid today * Adequate pain management * Alps for DVT prophylaxis * Full code Problem List: 1. Acute blood loss anemia Pain Ratin Pain Location: back Pain Goal: Pain 4 or less Pain Plan: tylenol Tomorrow's Labs & Rationales: cbc DVT/Prophylaxis: mechanical VIRGILJOSE 10/07/16 0956: Attending MD Review Statement Attending Statement Attending MD Statement: examined this patient, discuss w/resident/PA/SQUAD BOSS, agreed w/resident/PA/SQUAD BOSS, discussed with family, reviewed EMR data (avail), discussed with nursing, discussed with case mgmt, reviewed images, amended to note Attending Assessment/Plan: 76 o/f with acute blood loss anemia transferred from ICU to floor , found to have fever, sinus tachycardia on ceftriaxone possible UTI, repeat chest xray no acute process but atelectasis+, had fever spike, Consulted ID, CT abd/plevis with distal small bowel obstrcution, c diff negative, empiric started on oral vanco. Surgery reviewed, passing flatus, USG lower extremity b/l negative CTA chest concerning for pulmonary opacity [id number] malignancy f/u pulmonary observation for now, Patient recieved multiple transfusions. GI signed off, non bleeding ulcer, ?source of bleed, h/o AVMs in past, encourage incentive spirometry, f/u GI as o/p, PCP as o/p.
--- NOTE | 2016-10-07 12:07 | PN- Hematology ---
Subjective Subjective: Over the weekend, she was NPO again for SBO on CT scan. She had fever with increasing abdominal pain at that time. She is currently afebrile. She was started on vancomycin. Blood cultures and urine culture were sent. C. difficile was negative. Review of Systems Constitutional: Denies: chills, fever. Cardiovascular: Denies: chest pain. Gastrointestinal: Reports: abdominal pain (stable). Denies: diarrhea. Musculoskeletal: Denies: back pain. Hematologic/Endocrine: Denies: bruising, bleeding. All Other Systems: Reviewed and Negative Objective Vital Signs and I&Os Vital Signs Date Time Temp Pulse Resp B/P B/P Pulse O2 O2 Flow FiO2 Mean Ox Delivery Rate 10/07 0908 96 Nasal 2.5L Cannula 10/07 0800 Nasal 2.5L Cannula 10/07 0703 97.7 103 20 130/54 91 Nasal 2.0L Cannula 10/06 2235 98.9 103 18 116/48 93 Nasal 2.5L Cannula 10/06 1950 95 Nasal 2.0L Cannula 10/06 1600 Nasal 2.5L Cannula 10/06 1452 99.0 112 20 118/60 96 Nasal 2.5L Cannula Intake & Output 10/07 1600 10/07 0800 10/07 0000 10/06 1600 10/06 0800 10/06 0000 Intake Total 1000 1000 495 400 400 Output Total 906 947 6926 300 1050 Balance -200 900 -100 495 100 -650 Intake, IV 1000 1000 475 Intake, Oral 0 20 400 400 Number 3 2 1 Bowel Movements Output, Urine 083 116 2586 300 1050 Physical Exam: General Appearance: no apparent distress, alert, awake, comfortable Respiratory: normal breath sounds, no respiratory distress Cardiovascular: regular rate/rhythm Gastrointestinal: normal bowel sounds, soft, no organomegaly, non-tenderness, healing incision Extremities: edema Neurologic/Psych: awake, alert, oriented x 3 Skin: normal color, warm/dry Other Physical Findings: on 1L NC Current Medications: Current Medications Sig/Ebenezer Start time Last Medication Dose Route Stop Time Status Admin Acetaminophen 1,000 MG Q6P PRN 10/06 1230 AC 10/07 IV 1200 Acetaminophen 320 MG Q4 HRS NEEDED PRN 10/06 1230 AC PO Albuterol Sulfate 3 ML BID 09/29 1000 AC 10/07 INH 0905 Albuterol Sulfate 2 PUF Q4-6 PRN PRN 09/29 0515 AC INH Alprazolam 0.5 MG BID PRN 10/07 1100 AC PO 10/14 1059 Alprazolam 0.5 MG TIDPRN PRN 10/01 2300 AC 10/05 PO 10/08 2259 2201 Lorazepam 0.5 MG Q4P PRN 10/06 0900 DC IV Omeprazole 40 MG DAILY AC 10/08 0700 AC PO Ondansetron HCl 4 MG .STK-MED ONE 10/07 0331 DC IM 10/07 0332 Ondansetron HCl 4 MG .STK-MED ONE 10/06 2159 DC IM 10/06 2200 Ondansetron HCl 4 MG .STK-MED ONE 10/06 1547 DC IM 10/06 1548 Ondansetron HCl 4 MG Q6P PRN 09/29 0515 AC 10/07 IV 0952 Pantoprazole Sodium 40 MG DAILY 10/06 1000 DC 10/07 IV 0943 Potassium Chloride 40 MEQ Q8H 10/06 1145 DC 10/07 Sodium Chloride 1,000 ML IV 0626 Tiotropium [place] 1 PUF DAILY 09/29 1000 AC 10/07 INH 0943 Vancomycin HCl 125 MG Q6H 10/07 1000 AC 10/07 PO 1055 Vancomycin HCl 125 MG Q6H 10/06 0900 DC 10/07 PO 0340 Results Last 24 Hours of Lab Results: Laboratory Tests 10/07 0610 Chemistry Sodium (137 - 145 mmol/L) 138 Potassium (3.5 - 5.1 mmol/L) 4.1 Chloride (98 - 107 mmol/L) 111 H Carbon Dioxide (22 - 30 mmol/L) 21 L Anion Gap (5 - 16) 6 BUN (7 - 17 mg/dL) 6 L Creatinine (0.5 - 1.0 mg/dL) 0.5 Estimated GFR (>60 ml/min) > 60 BUN/Creatinine Ratio (7 - 25 %) 12.0 Coagulation PT (9.4 - 12.5 SEC) 14.8 H INR (0.90 - 1.19) 1.41 H Hematology CBC w Diff MAN DIFF ORDERED WBC (4.8 - 10.8 /CUMM) 6.5 RBC (4.20 - 5.40 /CUMM) 2.94 L Hgb (12.0 - 16.0 G/DL) 8.6 L Hct (37 - 47 %) 26.0 L MCV (81.0 - 99.0 FL) 88.5 MCH (27.0 - 31.0 PG) 29.1 RDW (11.5 - 14.5 %) 16.3 H Plt Count (130 - 400 /CUMM) 123 L MPV (7.4 - 10.4 FL) 9.1 Gran % (42.2 - 75.2 %) 87.1 H Lymphocytes % (20.5 - 51.1 %) 9.8 L Monocytes % (1.7 - 9.3 %) 3.0 Eosinophils % (0 - 5 %) 0.1 Basophils % (0.0 - 2.0 %) 0 L Absolute Granulocytes (1.4 - 6.5 /CUMM) 5.7 Segmented Neutrophils (42.2 - 75.2 %) 75 Band Neutrophils (0.0 - 5.0 %) 19 H Absolute Lymphocytes (1.2 - 3.4 /CUMM) 0.6 L Lymphocytes (20.5 - 51.1 %) 5 L Monocytes (1.7 - 9.3 %) 1 L Absolute Monocytes (0.10 - 0.60 /CUMM) 0.2 Absolute Eosinophils (0.0 - 0.7 /CUMM) 0 Absolute Basophils (0.0 - 0.2 /CUMM) 0 Platelet Estimate (ADEQUATE) VERIFIED BY SMEAR Normocytic RBCs VERIFIED Normochromic RBCs VERIFIED PUBS MCHC (33.0 - 37.0 G/DL) 32.9 L 10/07 10/06 0430 1618 Chemistry Sodium (137 - 145 mmol/L) 135 L Potassium (3.5 - 5.1 mmol/L) 3.7 Chloride (98 - 107 mmol/L) 104 Carbon Dioxide (22 - 30 mmol/L) 23 Anion Gap (5 - 16) 8 BUN (7 - 17 mg/dL) 7 Creatinine (0.5 - 1.0 mg/dL) 0.6 Estimated GFR (>60 ml/min) > 60 BUN/Creatinine Ratio (7 - 25 %) 11.7 Lactic Acid (0.7 - 2.1 mmol/L) 1.1 Hematology CBC w Diff NO MAN DIFF REQ WBC (4.8 - 10.8 /CUMM) 6.4 RBC (4.20 - 5.40 /CUMM) 3.16 L Hgb (12.0 - 16.0 G/DL) 9.3 L Hct (37 - 47 %) 27.9 L MCV (81.0 - 99.0 FL) 88.2 MCH (27.0 - 31.0 PG) 29.4 RDW (11.5 - 14.5 %) 15.8 H Plt Count (130 - 400 /CUMM) 125 L MPV (7.4 - 10.4 FL) 9.1 Gran % (42.2 - 75.2 %) 88.6 H Lymphocytes % (20.5 - 51.1 %) 8.4 L Monocytes % (1.7 - 9.3 %) 2.9 Eosinophils % (0 - 5 %) 0 Basophils % (0.0 - 2.0 %) 0.1 Absolute Granulocytes (1.4 - 6.5 /CUMM) 5.6 Absolute Lymphocytes (1.2 - 3.4 /CUMM) 0.5 L Absolute Monocytes (0.10 - 0.60 /CUMM) 0.2 Absolute Eosinophils (0.0 - 0.7 /CUMM) 0 Absolute Basophils (0.0 - 0.2 /CUMM) 0 PUBS MCHC (33.0 - 37.0 G/DL) 33.3 Urines Urinalysis LIGHT H Urine Color (YEL,AMB,STR) YEL Urine Clarity (CLEAR) CLEAR Urine pH (5.0 - 8.0) 6.0 Ur Specific [place] (1.001 - 1.035) 1.020 Urine Protein (NEG,<30 MG/DL) 30 H Urine Ketones (NEG) 15 H Urine Nitrite (NEG) NEG Urine Bilirubin (NEG) NEG Urine Urobilinogen (0.1 - 1.0 EU/dl) 0.2 Ur Leukocyte Esterase (NEG) SMALL H Ur Microscopic SEDIMENT EXAMINED Urine WBC (0 - 2 /HPF) 1-3 H Ur Epithelial Cells (NONE,FEW) MOD H Urine Bacteria (NEG/NONE) FEW H Urine Mucus (FEW,NONE) FEW Urine Hemoglobin (NEG) TRACE-INTACT Urine Glucose (N MG/DL) NEG Recent Imaging Studies: CT abd/pelvis 10/05/2016: 1. Distal small-bowel obstruction with a suspected transition point within the right mid abdomen. Air and stool within the colon, suggesting that this is a partial small-bowel obstruction. No intra-abdominal free air or free fluid. 2. Abdominal aortic and proximal iliac artery stents, not significantly changed since the prior examination. 3. Stable right adrenal mass. 4. Small left and trace right pleural effusions with adjacent atelectasis versus infiltrates, unchanged. Assessment/Plan Assessment/Recommendations: Ms. Merlos is a 76-year-old female with PVD, PUD, COPD, CAD, AAA s/p endovascular repair, and recently SBO s/p lysis of adhesion who presents to the hospital with hematemesis, coffee ground emesis, and elevated INR. She has been having significant issues with oral intake since her surgery during the most recent admission. Her elevated INR is likely secondary to factor deficiency. With her decreased oral intake, she likely has vitamin K deficiency. INR normalized after FFP and vitamin K 10 mg IM. She continues to have difficulty with oral intake. She has been off and on NPO status. Her INR was improving with vitamin K and oral intake. Platelet normalized previously but decreased recently. She will continue to be monitored for now. Recommendations: 1. Monitor PT/INR/PTT daily 2. Vitamin K 5 mg PO every 72 hours until normal oral intake Please call [phone] with any new questions or concerns. Problem List: 1. Small bowel obstruction 2. Coagulopathy 3. Thrombocytopenia 4. Malnutrition 5. Acute blood loss anemia
--- NOTE | 2016-10-07 13:39 | PN- Infect Dx ---
Subjective Subjective: Afebrile. She has had no further nausea or vomiting. She continues to have diarrhea, with 3 stools reported yesterday and 3 overnight. Objective Last 24 Hrs of Vital Signs/I&O Vital Signs Date Time Temp Pulse Resp B/P B/P Pulse O2 O2 Flow FiO2 Mean Ox Delivery Rate 10/07 0908 96 Nasal 2.5L Cannula 10/07 0800 Nasal 2.5L Cannula 10/07 0703 97.7 103 20 130/54 91 Nasal 2.0L Cannula 10/06 2235 98.9 103 18 116/48 93 Nasal 2.5L Cannula 10/06 1950 95 Nasal 2.0L Cannula 10/06 1600 Nasal 2.5L Cannula 10/06 1452 99.0 112 20 118/60 96 Nasal 2.5L Cannula Intake & Output 10/07 1600 10/07 0800 10/07 0000 Intake Total 1000 1000 Output Total 217 294 6671 Balance -200 900 -100 Intake, IV 1000 1000 Intake, Oral 0 Number 3 2 Bowel Movements Output, Urine 514 491 2751 Physical Exam Other Physical Findings: She appears comfortable in no acute distress Lungs crackles at the left base Heart regular rhythm with no murmur Abdomen is soft, nontender with positive bowel sounds Extremities bilateral lower extremity swelling, right greater than left Results Last 24 Hours of Lab Results: Laboratory Tests 10/07 0610 Chemistry Sodium (137 - 145 mmol/L) 138 Potassium (3.5 - 5.1 mmol/L) 4.1 Chloride (98 - 107 mmol/L) 111 H Carbon Dioxide (22 - 30 mmol/L) 21 L Anion Gap (5 - 16) 6 BUN (7 - 17 mg/dL) 6 L Creatinine (0.5 - 1.0 mg/dL) 0.5 Estimated GFR (>60 ml/min) > 60 BUN/Creatinine Ratio (7 - 25 %) 12.0 Coagulation PT (9.4 - 12.5 SEC) 14.8 H INR (0.90 - 1.19) 1.41 H Hematology CBC w Diff MAN DIFF ORDERED WBC (4.8 - 10.8 /CUMM) 6.5 RBC (4.20 - 5.40 /CUMM) 2.94 L Hgb (12.0 - 16.0 G/DL) 8.6 L Hct (37 - 47 %) 26.0 L MCV (81.0 - 99.0 FL) 88.5 MCH (27.0 - 31.0 PG) 29.1 RDW (11.5 - 14.5 %) 16.3 H Plt Count (130 - 400 /CUMM) 123 L MPV (7.4 - 10.4 FL) 9.1 Gran % (42.2 - 75.2 %) 87.1 H Lymphocytes % (20.5 - 51.1 %) 9.8 L Monocytes % (1.7 - 9.3 %) 3.0 Eosinophils % (0 - 5 %) 0.1 Basophils % (0.0 - 2.0 %) 0 L Absolute Granulocytes (1.4 - 6.5 /CUMM) 5.7 Segmented Neutrophils (42.2 - 75.2 %) 75 Band Neutrophils (0.0 - 5.0 %) 19 H Absolute Lymphocytes (1.2 - 3.4 /CUMM) 0.6 L Lymphocytes (20.5 - 51.1 %) 5 L Monocytes (1.7 - 9.3 %) 1 L Absolute Monocytes (0.10 - 0.60 /CUMM) 0.2 Absolute Eosinophils (0.0 - 0.7 /CUMM) 0 Absolute Basophils (0.0 - 0.2 /CUMM) 0 Platelet Estimate (ADEQUATE) VERIFIED BY SMEAR Normocytic RBCs VERIFIED Normochromic RBCs VERIFIED PUBS MCHC (33.0 - 37.0 G/DL) 32.9 L 10/07 10/06 0430 1618 Chemistry Sodium (137 - 145 mmol/L) 135 L Potassium (3.5 - 5.1 mmol/L) 3.7 Chloride (98 - 107 mmol/L) 104 Carbon Dioxide (22 - 30 mmol/L) 23 Anion Gap (5 - 16) 8 BUN (7 - 17 mg/dL) 7 Creatinine (0.5 - 1.0 mg/dL) 0.6 Estimated GFR (>60 ml/min) > 60 BUN/Creatinine Ratio (7 - 25 %) 11.7 Lactic Acid (0.7 - 2.1 mmol/L) 1.1 Hematology CBC w Diff NO MAN DIFF REQ WBC (4.8 - 10.8 /CUMM) 6.4 RBC (4.20 - 5.40 /CUMM) 3.16 L Hgb (12.0 - 16.0 G/DL) 9.3 L Hct (37 - 47 %) 27.9 L MCV (81.0 - 99.0 FL) 88.2 MCH (27.0 - 31.0 PG) 29.4 RDW (11.5 - 14.5 %) 15.8 H Plt Count (130 - 400 /CUMM) 125 L MPV (7.4 - 10.4 FL) 9.1 Gran % (42.2 - 75.2 %) 88.6 H Lymphocytes % (20.5 - 51.1 %) 8.4 L Monocytes % (1.7 - 9.3 %) 2.9 Eosinophils % (0 - 5 %) 0 Basophils % (0.0 - 2.0 %) 0.1 Absolute Granulocytes (1.4 - 6.5 /CUMM) 5.6 Absolute Lymphocytes (1.2 - 3.4 /CUMM) 0.5 L Absolute Monocytes (0.10 - 0.60 /CUMM) 0.2 Absolute Eosinophils (0.0 - 0.7 /CUMM) 0 Absolute Basophils (0.0 - 0.2 /CUMM) 0 PUBS MCHC (33.0 - 37.0 G/DL) 33.3 Urines Urinalysis LIGHT H Urine Color (YEL,AMB,STR) YEL Urine Clarity (CLEAR) CLEAR Urine pH (5.0 - 8.0) 6.0 Ur Specific [place] (1.001 - 1.035) 1.020 Urine Protein (NEG,<30 MG/DL) 30 H Urine Ketones (NEG) 15 H Urine Nitrite (NEG) NEG Urine Bilirubin (NEG) NEG Urine Urobilinogen (0.1 - 1.0 EU/dl) 0.2 Ur Leukocyte Esterase (NEG) SMALL H Ur Microscopic SEDIMENT EXAMINED Urine WBC (0 - 2 /HPF) 1-3 H Ur Epithelial Cells (NONE,FEW) MOD H Urine Bacteria (NEG/NONE) FEW H Urine Mucus (FEW,NONE) FEW Urine Hemoglobin (NEG) TRACE-INTACT Urine Glucose (N MG/DL) NEG Last 24 Hours of Sean Results: Stool C. difficile October 05 negative Blood cultures October 05 negative Urine culture October 05 greater than 100,000 colonies of probable VRE and 40,000 colonies of yeast Urine culture October 07 pending Assessment/Plan Impression: Improved with temperatures now normal and white blood cell count remaining normal on empiric treatment with po Vancomycin, now Day 2 for possible C. difficile, with the toxin test negative. Her urine culture likely represents contamination or colonization with no urinary symptoms and she does not require treatment for this. Suggestion: 1. Would send stool for PCR for C. difficile 2. Special contact precautions for possible C. difficile pending above 3. Pulmonary evaluation for the right upper lobe nodule seen on CT scan 4. Continue po Vancomycin pending above
[2016-10-07 14:07] VITALS: BP 154/70
--- NOTE | 2016-10-07 14:50 | PN- General Surgery ---
Surgical Brief Attending Note Brief Attending Note: Patient appears to be improved from gastrointestinal obstructive standpoint. CT reviewed. Appears similar to preop lysis of adhesions. Operative findings showed diffusely dilated bowel without point of obstruction. My suspicioun is that she has some undiagnosed bowel motility d/o and/or intermittent ileus. No role for surgery. Advance diet tomorrow. Unclear source of acute recurrent GI blood loss. Defer to GI.
--- NOTE | 2016-10-07 15:15 | PN- Housestaff ---
Assessment/Plan Assessment: discussed above
--- NOTE | 2016-10-07 15:30 | NUR ---
NURSING NOTE: AUDI TRANSFERED FROM ROOM 219-[address] CUEVAS REQUEST FOR C-DIFF SPECIAL ENTERIC PRECAUTIONS TO BE IN PLACE. ALL PATIENT'S BELONGINGS, BEDSIDE TABLE, MEDICATIONS AND CHART TRANSFERED WITH PATIENT AT THIS TIME. WILL CONTINUE TO MONITOR.
--- NOTE | 2016-10-07 15:55 | NUR ---
NURSING NOTE: PATIENT FRIEND CAME INTO HOSPITAL TO VISIT AND ASKED FOR SOME INFORMATION ABOUT THE PATIENT, THE PATIENT WAS ASKED IF IT WAS ALRIGHT TO SHARE INFORMATION WITH THIS FRIEND. PATIENT EXPRESSED THAT THIS RN WAS ABLE TO SHARE INFORMATION WITH FRIEND IN FRONT OF PATIENT. THIS RN EXPLAINED THE REASON FOR THE ROOM TRANSFER WITH C-DIFF PRECAUTIONS. THIS RN WAS IN THE ROOM, THE PATIENT ALSO EXPLAINED TO THE FRIEND THAT "THE SURGEON, DR. TRAN CAME INTO MY ROOM AND TOLD ME I HAVE CANCER IN THE FEMUR." THIS RN WAS UNAWARE OF THIS INFORMATION. THIS RN HAS PLACED A CALL WITH MESSAGE SENT TO DR. TRAN FOR CALL BACK. WILL AWAIT CALL.
--- NOTE | 2016-10-07 18:02 | NUR ---
NURSING NOTE: DR. TRAN RETURNED THIS RN'S MESSAGE AND HE EXPLAINED THAT WHEN HE SPOKE WITH THE PATIENT THIS AFTERNOON, THE PATIENT WAS NOT ENTIRELY MAKING SENSE AND THAT SHE STATED "THE TALL [employer]IN WOMEN WHO CAME IN AND TOLD HER SHE HAS CANCER SOMEWHERE." ACCORDING TO DR. TRAN HE EXPLAINED TO HER THAT SHE DOES NOT HAVE CANCER. AT THIS TIME, THE PATIENT IS STILL UNDER THE IMPRESSION THAT SHE WAS TOLD SHE HAS CANCER. RN LOCUM TENENS ACE HAS BEEN INFORMED OF THE SITUATION AND WILL SPEAK WITH THE PATIENT AT THIS TIME.
--- NOTE | 2016-10-07 18:52 | NUR ---
NURSING NOTE: THIS RN SPOKE WITH CONTROL BOARD OPERATOR 084 REGARDING PATIENT'S BELIEF THAT SHE HAS CANCER. CONTROL BOARD OPERATOR STATED HE WILL LOOK INTO HER SITUATION AND SPEAK WITH THIS RN AND THE PATIENT REGARDING THE MATTER.
[2016-10-07 22:20] VITALS: BP 120/60
[2016-10-08 07:33] VITALS: BP 118/72
--- NOTE | 2016-10-08 09:17 | PN- Housestaff ---
SHAUNA CHENG 10/08/16 0917: Subjective Follow-up For: Acute blood loss anemia secondary to upper GI bleed Partial small bowel obstruction Diarrhea Subjective: This morning patient is alert, awake and oriented. She had 6 bowel movements yesterday. Abdominal pain little improved. Denies any nausea and vomiting. Review of Systems Constitutional: Reports: see HPI. Objective Last 24 Hrs of Vital Signs/I&O Vital Signs Date Time Temp Pulse Resp B/P B/P Pulse O2 O2 Flow FiO2 Mean Ox Delivery Rate 10/08 1401 98.7 92 18 122/60 96 Nasal 2.0L Cannula 10/08 1124 92 Nasal 3.0L Cannula 10/08 1053 Nasal 2.5L Cannula 10/08 1005 96 118/72 10/08 0800 94 Nasal 2.5L Cannula 10/08 0733 98.8 96 18 118/72 94 Nasal Cannula 10/08 0000 93 Nasal 2.0L Cannula 10/07 2220 98.7 98 18 120/60 93 Nasal 2.0L Cannula 10/07 2139 98 120/60 10/07 1920 95 Nasal 2.0L Cannula 10/07 1900 Nasal 2.0L Cannula Intake & Output 10/08 1600 10/08 0800 10/08 0000 Intake Total 400 270 800 Output Total 400 550 600 Balance 0 -280 200 Intake, IV 100 30 Intake, Oral 300 240 800 Number 2 1 1 Bowel Movements Output, Urine 400 550 600 Physical Exam General Appearance: Alert, Oriented X3, Cooperative, No Acute Distress Neck: Supple Lungs: bilateral basal crackles Abdomen: Normal Bowel Sounds, Soft, tenderness on deep palpation of epigastric area Extremities: pitting edema bilaterally Current Medications: Current Medications Sig/Ebenezer Start time Last Medication Dose Route Stop Time Status Admin Acetaminophen 1,000 MG .STK-MED ONE 10/08 0358 DC IV 10/08 0359 Acetaminophen 1,000 MG .STK-MED ONE 10/07 2008 DC IV 10/07 2009 Acetaminophen 1,000 MG Q6P PRN 10/06 1230 AC 10/08 IV 1011 Acetaminophen 320 MG Q4 HRS NEEDED PRN 10/06 1230 AC PO Albuterol Sulfate 3 ML BID 09/29 1000 AC 10/08 INH 1119 Albuterol Sulfate 2 PUF Q4-6 PRN PRN 09/29 0515 AC INH Alprazolam 0.5 MG BID PRN 10/07 1100 AC 10/08 PO 10/14 1059 1141 Alprazolam 0.5 MG TIDPRN PRN 10/01 2300 DC 10/07 PO 10/08 2259 2145 Atorvastatin Calcium 20 MG DAILY 10/07 1528 AC 10/08 PO 1005 Clonidine 0.1 MG TID PRN 10/08 0915 DC PO Furosemide 40 MG ONE ONE 10/08 1600 DC PO 10/08 1601 Labetalol HCl 200 MG BID 10/07 1528 AC 10/08 PO 1005 Omeprazole 40 MG DAILY AC 10/08 0700 AC 10/08 PO 0524 Ondansetron HCl 4 MG Q6P PRN 09/29 0515 AC 10/07 IV 0952 Sertraline HCl 50 MG DAILY 10/07 1528 AC 10/08 PO 1005 Tiotropium [place] 1 PUF DAILY 09/29 1000 AC 10/08 INH 1005 Vancomycin HCl 125 MG Q6H 10/07 1000 AC 10/08 PO 1005 Last 24 Hrs of Lab/Sean Results Last 24 Hrs of Labs/Mics: Microbiology 10/08 0240 STOOL: Clostridium difficile Toxin A & B - COMP Assessment/Plan Assessment: She 76-year-old woman with past medical history of peptic ulcer disease. 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 History of iron deficiency anemia. Multiple transfusions. Hypertension, hyperlipidemia, COPD not on home oxygen, anxiety, RI, peripheral vascular disease, endovascular AAA repair, history of TIA, and recent history of small bowel obstruction with lysis of adhesions 2 weeks prior to admission. Problem list 1. Symptomatic anemia secondary to acute blood loss due to PUD vs AVMS status post 4 units of blood transfusion. H&H stable 2. Hypercoagulable state. INR 1.41 to this morning. On vitamin K PO 3. Sepsis. MAXIMUM TEMPERATURE 102.2 on October 05. No fevers overnight. Chest x-ray did not show any acute process. UA is dirty. urine culture growing VRE and enterococcus. C. difficile stool antigen and PCR negative 4. Thrombocytopenia. 7. Malnutrition 8. Acute hypoxic respiratory failure. 3 L of oxygen via nasal cannula. CTA chest showing no PE but moderate emphysema, pulmonary hypertension and spiculated right upper lobe nodule 7 mm in size concerning for malignancy 9. Diarrhea. ? C. difficile. Stool antigen negative for C. difficile. On by mouth vancomycin. C. difficile PCR negative 10. Partial small bowel obstruction. Moving her bowels and flatus. PLAN * Monitor vitals closely * Watch for any active GI bleed. Call GI in case of overt bleed * Monitor PT/INR/PTT daily * Check CBC daily. Keep hemoglobin more than 8 * Avoid NSAIDs and Aspirin * Continue PPI * Continue vitamin K 5 mg daily Q48h * Continue by mouth vancomycin * Try to taper down oxygen. Keep oxygen saturation more than 92%. Will check ambulatory oxygen saturation with and without oxygen * Incentive spirometry * Pulm consult appreciated * Advanced diet to mechanical soft today * Adequate pain management * Alps for DVT prophylaxis * Full code Problem List: 1. Acute blood loss anemia 2. Malnutrition 3. Thrombocytopenia Pain Ratin Pain Location: belly Pain Goal: Pain 4 or less Pain Plan: tylenol Tomorrow's Labs & Rationales: cbc,bep DVT/Prophylaxis: mechanical VIRGIL,JOSE 10/08/16 0932: Attending MD Review Statement Attending Statement Attending MD Statement: examined this patient, discuss w/resident/PA/ED TRANSPORTER, agreed w/resident/PA/ED TRANSPORTER, discussed with family, reviewed EMR data (avail), discussed with nursing, discussed with case mgmt, reviewed images, amended to note Attending Assessment/Plan: 76 o/f with acute blood loss anemia transferred from ICU to floor , found to have fever, sinus tachycardia, repeat chest xray no acute process but atelectasis+, Consulted ID, CT abd/plevis with distal small bowel obstrcution, c diff negative sent for PCR, empiric started on oral vanco f/u ID. Surgery reviewed, passing flatus, USG lower extremity b/l negative CTA chest concerning for pulmonary opacity [id number] malignancy f/u pulmonary recommend o/p repeat CT chest 6 weeks, Patient recieved multiple transfusions. GI signed off, non bleeding ulcer, ?source of bleed, h/o AVMs in past, encourage incentive spirometry, f/u GI, pulmonary Dr Armas as o/p, PCP as o/p.
--- NOTE | 2016-10-08 09:36 | Cons- Pulmonary ---
General Information and HPI Consulting Request Date of Consult: 10/08/16 Requested By: med team History of Present Illness: This is a 76-year-old woman with a history of coronary artery disease, hypertension, peripheral vascular disease, status post endovascular repair of a AAA, on no anticoagulation, COPD and multiple AVMs, hospitalized 2 1/2 weeks prior to admission with a small bowel obstruction requiring exploratory laparotomy for lysis of adhesions, with her postop course complicated by aspiration pneumonia treated with a 5 day course of Unasyn, readmitted on September 29 after presenting to the emergency room with coffee ground emesis. On admission she was afebrile. Laboratory data revealed a white blood cell count of 15,000, H&H 4 and 12.5, BUN/creatinine 22 and 0.5, AST/ALT 37 and 60, INR greater than 10. Chest x-ray revealed an improving left lower lobe opacity. CT of the abdomen and pelvis revealed mild distention of the proximal small bowel loops suggesting a partial/low-grade bowel obstruction with a new trace left- sided pleural effusion and dependent atelectasis in the left lower lobe and with no significant change in the moderate pericardial effusion. She was transfused 4 units of packed RBCs and 2 units of FFP with stabilization of her H&H and correction of her INR. She was begun on Ceftriaxone and Flagyl. On October 01 she underwent upper endoscopy which revealed a superficial gastric ulcer and nonerosive distal GERD. In the evening she spiked a fever to 101.4, with no cultures obtained. She remained afebrile until October 04 when she re-spiked to 101.7 and she was again febrile last evening to 102.2. Her white blood cell count increased to 23,000 on the day of admission but normalized by the next morning and has remained normal since. She has had several episodes of diarrhea over the last several days, She still has diarrhea. She denies any shortness of breath or chest pain but does note a dry cough. She denies any dysuria. She underwent a ct chest and it revealed 7 mm nodule and hence this consult. She has sig smoking history and has had sig dyspnea on minimal excertion. Allergies/Medications Allergies: Coded Allergies: propoxyphene (UNKNOWN 09/29/15) Home Med List: Albuterol Sulfate (Proair Hfa) 8.5 GM HFA.AER.AD 2 PUF INH AD PRN RESPIRATORY (Reported) Albuterol Sulfate 2.5 MG/3 ML VIAL.NEB 1 Vial INH/[place] BID RESPIRATORY ( Reported) Alprazolam 0.5 MG TABLET 1 TAB PO TIDPRN PRN ANXIETY (Reported) Amlodipine Besylate 10 MG TABLET 1 TAB PO DAILY BP (Reported) Aspirin (Ecotrin*) 81 MG TABLET. 81 MG PO DAILY vascular / heart health start a baby aspirin daily, as per Benzonatate 100 MG CAPSULE 1 TAB PO TID COLD SYMPTOMS Cephalexin 500 MG CAPSULE 1 TAB PO Q12 UTI Ferrous Sulfate 325 MG (65 MG IRON) TABLET 1 TAB PO DAILY SUPPLEMENT ( Reported) Labetalol HCl 200 MG TABLET 1 TAB PO BID BP (Reported) Omeprazole 20 MG CAPSULE. 1 CAP PO DAILY PRN GERD (Reported) Pantoprazole Sodium (Protonix) 40 MG TABLET.DR 1 TAB PO BID ACID Prednisone 20 MG TABLET 2 TAB PO DAILY LUNG HEALTH Rosuvastatin Calcium (Crestor) 20 MG TABLET 1 TAB PO DAILY CHOLESTEROL ( Reported) Sertraline HCl 50 MG TABLET 1 TAB PO DAILY DEPRESSION Sodium Chloride (Deep Sea) 0.65 % SPRAY 2 SPRAY HARRY Q4P PRN CONGESTION Tiotropium [place] (Spiriva) 18 MCG CAP.W.DEV 1 CAP INH DAILY RESPIRATORY ( Reported) Tylenol With Codeine (Tylenol With Codeine #3 Tablet) 1 EACH TABLET 1-2 TAB PO Q4-6 PRN PRN PAIN take as directed. do not combine with tylenol. Review of Systems Review of Systems Constitutional: Reports: see HPI. 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 FH: CAD (coronary artery disease) FATHER, , Age 65; Cause: Arteriosclerotic heart disease (ASHD). Psychosocial History Where Do You Live? Acute Rehab Who Do You Live With? self Services at Home: Nursing Primary Language: Amharic Smoking Status: Current Some Day Smoker Living Will? 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 Ambulation: independent IADLs Independent: shopping, housework, finances, food prep, telephone, medication admin. Needs Assist: transportation. Exam & Diagnostic Data Last 24 Hrs of Vital Signs/I&O Vital Signs Date Time Temp Pulse Resp B/P B/P Pulse O2 O2 Flow FiO2 Mean Ox Delivery Rate 10/08 0733 98.8 96 18 118/72 94 Nasal Cannula 10/08 0000 93 Nasal 2.0L Cannula 10/07 2220 98.7 98 18 120/60 93 Nasal 2.0L Cannula 10/07 2139 98 120/60 10/07 1920 95 Nasal 2.0L Cannula 10/07 1900 Nasal 2.0L Cannula 10/07 1407 98.2 112 20 154/70 93 Nasal 3.0L Cannula Intake & Output 10/08 1600 10/08 0800 10/08 0000 Intake Total 270 800 Output Total 550 600 Balance -280 200 Intake, IV 30 Intake, Oral 240 800 Number 1 1 Bowel Movements Output, Urine 550 600 Last 48 Hrs of Labs/Sean: Laboratory Tests 10/07/16 0610: Anion Gap 6, Estimated GFR > 60, BUN/Creatinine Ratio 12.0, PT 14.8 H, INR 1.41 H, CBC w Diff MAN DIFF ORDERED, RBC 2.94 L, MCV 88.5, MCH 29.1, RDW 16.3 H, MPV 9.1, Gran % 87.1 H, Lymphocytes % 9.8 L, Monocytes % 3.0, Eosinophils % 0.1, Basophils % 0 L, Absolute Granulocytes 5.7, Segmented Neutrophils 75, Band Neutrophils 19 H, Absolute Lymphocytes 0.6 L, Lymphocytes 5 L, Monocytes 1 L , Absolute Monocytes 0.2, Absolute Eosinophils 0, Absolute Basophils 0, Platelet Estimate VERIFIED BY SMEAR, Normocytic RBCs VERIFIED, Normochromic RBCs VERIFIED , PUBS MCHC 32.9 L 10/07/16 0430: Urinalysis LIGHT H, Urine Color YEL, Urine Clarity CLEAR, Urine pH 6.0, Ur Specific [place] 1.020, Urine Protein 30 H, Urine Ketones 15 H, Urine Nitrite NEG, Urine Bilirubin NEG, Urine Urobilinogen 0.2, Ur Leukocyte Esterase SMALL H , Ur Microscopic SEDIMENT EXAMINED, Urine WBC 1-3 H, Ur Epithelial Cells MOD H , Urine Bacteria FEW H, Urine Mucus FEW, Urine Hemoglobin TRACE-INTACT, Urine Glucose NEG 10/06/16 1618: Anion Gap 8, Estimated GFR > 60, BUN/Creatinine Ratio 11.7, Lactic Acid 1.1, CBC w Diff NO MAN DIFF REQ, RBC 3.16 L, MCV 88.2, MCH 29.4, RDW 15.8 H, MPV 9.1, Gran % 88.6 H, Lymphocytes % 8.4 L, Monocytes % 2.9, Eosinophils % 0, Basophils % 0.1, Absolute Granulocytes 5.6, Absolute Lymphocytes 0.5 L, Absolute Monocytes 0.2, Absolute Eosinophils 0, Absolute Basophils 0, PUBS MCHC 33.3 Assessment/Plan Impression/Plan: General Appearance: no apparent distress, alert, awake, comfortable Respiratory: normal breath sounds, no respiratory distress Cardiovascular: regular rate/rhythm Gastrointestinal: normal bowel sounds, soft, no organomegaly, non-tenderness, healing incision Extremities: edema Neurologic/Psych: awake, alert, oriented x 3 Skin: normal color, warm/dry SIGNIFICANT DATA Abdominal x-ray showed distal small bowel obstruction CTA of the chest done on the showed no pulmonary embolism spiculated right upper lobe nodule concerning for malignancy with moderate centrilobular emphysema with groundglass opacities in the left upper lobe representing previous fibrotic process from previous infection small left greater than right effusion. Moderate pericardial effusion which is similar to prior with pulmonary hypertension and a small adrenal nodule. CT of the abdomen and pelvis showed distal small bowel obstruction peripheral vascular disease stable adrenal mass cultures so for negative stool for C. difficile PCR pending IMPRESSION This is a 76-year-old lady with history of significant smoking, significant emphysema, previous peptic ulcer disease, previous GI bleed with AVM, anemia, previous multiple transfusion, small bowel obstruction, hypertension, hyperlipidemia, peripheral vascular disease with previous heart disease with previous endovascular AAA repair and TIA, previous lysis of edema or a small bowel obstruction is now here with recurrence partial small bowel obstruction now with diarrhea as well. Her issues include * 7 mm lung nodule which is spiculated suggestive of primary lung malignancy which needs to be investigated when patient is more stable. Obviously her clinical status prior to any abdominal issues seems to be decompensated related to her significant COPD as seen in her CT and her history. * Significant anemia blood loss due to GI issues status post 4 units of blood transfusion * Ongoing fever with diarrhea infectious disease following rule out C. difficile * Hypoxemia related to fluid overload and effusion and atelectasis with significant underlying COPD. Patient does not seem to have any hypercarbia by previous ABG * Ischemic heart disease history with severe peripheral vascular disease in the past with aortic aneurysm repair and TIA and significant atherosclerosis * Moderate pericardial effusion seen since October 12 needs follow-up * Mild coagulopathy after transfusion no evidence suggestive of portal hypertension in the recent EGD * Small bowel obstruction with recent lysis of adhesions now with small bowel obstruction * Lower extremity swelling both sides negative DVT probable fluid overload RECOMMENDATION * For her Lung nodule she would need a repeat CT in 6 weeks when she is better clinically and she would need full pulmonary function test * Continue Spiriva and albuterol inhaler as ordered * Antibiotics per ID * She does have bilateral effusion with mild fluid overload clinically give her 40 mg by mouth Lasix 1 today * Keep her potassium more than 4 magnesium more than 2 repeat that today and replace * If she gets more short of breath repeat an echocardiogram as her pericardial effusion appears sizable and the CT scan * Repeat chest x-ray in 1-2 days * Follow hemoglobin and hematocrit and platelett and INR Consult Acknowledgment - Thank you for your consult request.
[2016-10-08 10:29] LABS: C.DIFFICILE TOXIN B QL PCR NOT DETECTED (NOT DETECTED)
--- NOTE | 2016-10-08 13:08 | NUR ---
AFTER SIPPING CHICKEN BROTH PATIENT BEGAN TO COMPLAIN OF "CHEST PAIN RADIATING TO MY BACK"; NIECE AT BEDSIDE; DR CHENG NOTFIED AND AWARE; EKG ORDERED AND IN PROGRESS AT THIS TIME;
[2016-10-08 14:01] VITALS: BP 122/60
--- NOTE | 2016-10-08 16:38 | PN- Infect Dx ---
Subjective Subjective: Afebrile. She noted some left-sided chest discomfort earlier today. She continues to have loose green stools, with 6 stools reported yesterday and 3 overnight. She denies any dysuria. Objective Last 24 Hrs of Vital Signs/I&O Vital Signs Date Time Temp Pulse Resp B/P B/P Pulse O2 O2 Flow FiO2 Mean Ox Delivery Rate 10/08 1401 98.7 92 18 122/60 96 Nasal 2.0L Cannula 10/08 1124 92 Nasal 3.0L Cannula 10/08 1053 Nasal 2.5L Cannula 10/08 1005 96 118/72 10/08 0800 94 Nasal 2.5L Cannula 10/08 0733 98.8 96 18 118/72 94 Nasal Cannula 10/08 0000 93 Nasal 2.0L Cannula 10/07 2220 98.7 98 18 120/60 93 Nasal 2.0L Cannula 10/07 2139 98 120/60 10/07 1920 95 Nasal 2.0L Cannula 10/07 1900 Nasal 2.0L Cannula Intake & Output 10/08 1600 10/08 0800 10/08 0000 Intake Total 400 270 800 Output Total 400 550 600 Balance 0 -280 200 Intake, IV 100 30 Intake, Oral 300 240 800 Number 2 1 1 Bowel Movements Output, Urine 400 550 600 Physical Exam Other Physical Findings: She is awake and alert in no acute distress Lungs crackles at the left base Heart regular rhythm with no murmur Abdomen is soft, nontender with positive bowel sounds Extremities 1-2+ edema both lower extremities, right greater than left Results Last 24 Hours of Lab Results: No labs from today Last 24 Hours of Sean Results: Stool C. difficile PCR negative Stool C. difficile toxin October 08 negative Urine culture October 05 greater than 100,000 colonies of VRE and approximately 40, 000 colonies of yeast Urine culture October 07 greater than 100,000 colonies of Enterococcus Blood cultures 4 October 05 negative Assessment/Plan Impression: Improved with temperatures normal and white blood cell count remaining normal on empiric treatment with po Vancomycin, begun 3 days ago for possible C. difficile , with the toxin test negative 2 and the PCR also negative, making this diagnosis unlikely. The positive urine culture for VRE and Farzaneh likely represents colonization or contamination and, with no symptoms, does not require treatment. The etiology of her recent fever remains unclear, though drug fever is possible, particularly with her normal white blood cell count. Pulmonary input appreciated regarding her nodule. Suggestion: 1. Discontinue po Vancomycin and follow off antibiotics
[2016-10-08 20:30] VITALS: BP 115/42
--- NOTE | 2016-10-08 21:06 | NUR ---
ALERT TO PERSON. CONFUSED TO PLACE AND TIME. ON 2L O2. DENIES SHORTNESS OF BREATH. VITAL SIGNS STABLE. DENIES CHEST PAIN. + PULSES. +2 EDEMA TO BLE DIAPHORETIC. MD AWARE. WILL CONTINUE TO MONITOR
[2016-10-08 21:30] VITALS: BP 120/60
[2016-10-09 06:48] VITALS: BP 120/60
--- NOTE | 2016-10-09 08:26 | RADIOLOGY REPORT ---
EXAMINATION: ABDOMEN 1 VIEW CLINICAL INFORMATION: Epigastric pain, vomiting. COMPARISON: Multiple prior exams are reviewed. The most recent is from 10/06/2016. TECHNIQUE: A supine view of the abdomen is provided. FINDINGS: There is been noticeable improvement in distended loops of bowel since the prior exam. Normal air-filled bowel is a modified on the current exam. A vascular stent is in place. The visualized lung bases are clear. The osseous structures are unremarkable. IMPRESSION: Significant interval improvement in appearance of bowel gas pattern. There are a few air-filled loops of bowel which have a benign appearance.
--- NOTE | 2016-10-09 08:28 | RADIOLOGY REPORT ---
EXAMINATION: CHEST 1 VIEW CLINICAL INFORMATION: Shortness of breath. COMPARISON: 10/03/2016. TECHNIQUE: An AP view of the chest is provided. FINDINGS: The cardiac silhouette is prominent, but stable. The mediastinal and hilar contours are unremarkable. There are no pneumothoraces. There is a retrocardiac opacity present. There is likely a small left pleural effusion. There is stable biapical scarring. The osseous structures are unremarkable. IMPRESSION: Retrocardiac airspace disease and likely small left pleural effusion persistent. Recommendation is for a followup chest series to be obtained following treatment and/or resolution of symptoms to assure resolution of this appearance.
--- NOTE | 2016-10-09 09:02 | PN- Housestaff ---
SHAUNA CHENG 10/09/16 0902: Subjective Follow-up For: Acute blood loss anemia secondary to upper GI bleed Diarrhea AMS Elevated liver enzymes Subjective: This morning patient is confused and having visual hallucinations. Her vitals are stable. On 2 L of oxygen. She vomited 1 time this morning. Emesis guaiac positive. She was also complaining of epigastric pain. 4 loose bowel movements yesterday. Later on rapid response was called because she was hypotensive, hypothermic and hypoglycemic. She was given 1 L normal saline bolus and 1 amp of dextrose. Her blood pressure improved 200 systolic and blood glucose improved to 127. Her mental status also improved. Labs including CBC, BEP, INR, LFTs, ammonia, lactic acid and troponins were sent. Stat EKG did not show any acute ST-T wave changes. Urgent head CT and right upper quadrant ultrasound were ordered. Review of Systems Constitutional: Reports: see HPI. Objective Last 24 Hrs of Vital Signs/I&O Vital Signs Date Time Temp Pulse Resp B/P B/P Pulse O2 O2 Flow FiO2 Mean Ox Delivery Rate 10/09 1010 95.6 92 22 88/44 91 Nasal 4.0L Cannula 10/09 0648 97.6 85 20 120/60 90 Nasal 2.0L Cannula 10/09 0000 Nasal 2.0L Cannula 10/08 2130 97.5 75 20 120/60 92 Nasal 2.0L Cannula 10/08 2030 97.5 80 20 115/42 94 Nasal 2.0L Cannula 10/08 1953 95 Nasal 2.0L Cannula 10/08 1600 Nasal 2.0L Cannula 10/08 1401 98.7 92 18 122/60 96 Nasal 2.0L Cannula 10/08 1124 92 Nasal 3.0L Cannula 10/08 1053 Nasal 2.5L Cannula Intake & Output 10/09 1600 10/09 0800 10/09 0000 Intake Total 160 150 Output Total 1 200 Balance 159 -50 Intake, IV 160 Intake, Oral 150 Number 1 Bowel Movements Output, 1 Emesis Output, Urine 200 Physical Exam General Appearance: Alert, confused Neck: Supple Cardiovascular: Regular Rate Lungs: B/L basal crackles Abdomen: Soft, distended, mild tenderness on plapation of epigastric area Neurological: Strength at 5/5 X4 Ext, Sensation Intact, Cranial Nerves 3-12 NL Extremities: No Edema Current Medications: Current Medications Sig/Ebenezer Start time Last Medication Dose Route Stop Time Status Admin Acetaminophen 1,000 MG Q6P PRN 10/06 1230 DC 10/08 IV 1720 Acetaminophen 320 MG Q4 HRS NEEDED PRN 10/06 1230 AC PO Albuterol Sulfate 3 ML BID 09/29 1000 AC 10/08 INH 1949 Albuterol Sulfate 2 PUF Q4-6 PRN PRN 09/29 0515 AC INH Alprazolam 0.5 MG BID PRN 10/07 1100 AC 10/08 PO 10/14 1059 1141 Alprazolam 0.5 MG TIDPRN PRN 10/01 2300 DC 10/07 PO 10/08 2259 2145 Atorvastatin Calcium 20 MG DAILY 10/07 1528 AC 10/08 PO 1005 Dextrose 25 GM ONCE ONE 10/09 0915 DC 10/09 IV 10/09 0916 0940 Dextrose/Sodium 1,000 ML Q13H 10/09 0945 AC Chloride IV 10/09 2244 Furosemide 40 MG ONE ONE 10/08 1600 DC 10/08 PO 10/08 1601 1741 Labetalol HCl 200 MG BID 10/07 1528 AC 10/08 PO 1005 Magnesium Oxide 400 MG ONE ONE 10/08 2030 DC PO 10/08 2031 Magnesium Sulfate 1 GM Q2H 10/09 0700 AC 10/09 Dextrose/Water 100 ML IV 10/09 1059 0941 Omeprazole 40 MG DAILY AC 10/08 0700 AC 10/08 PO 0524 Ondansetron HCl 4 MG Q6P PRN 09/29 0515 AC 10/09 IV 0727 Phytonadione 5 MG ONCE ONE 10/09 1015 AC PO 10/09 1016 Potassium Chloride 10 MEQ Q1H 10/08 2030 DC 10/09 IV 10/08 2131 0104 Potassium Chloride 40 MEQ ONCE ONE 10/08 2030 DC PO 10/08 2031 Sertraline HCl 50 MG DAILY 10/07 1528 AC 10/08 PO 1005 Sodium Chloride 500 ML BOLUS ONE 10/09 0915 CAN IV 10/09 1014 Sodium Chloride 1,000 ML BOLUS ONE 10/09 0915 DC 10/09 IV 10/09 1014 0941 Tiotropium [place] 1 PUF DAILY 09/29 1000 AC 10/08 INH 1005 Vancomycin HCl 125 MG Q6H 10/07 1000 DC 10/08 PO 1720 Last 24 Hrs of Lab/Sean Results Last 24 Hrs of Labs/Mics: Laboratory Tests 10/09/16 0925: Anion Gap 12, Estimated GFR > 60, BUN/Creatinine Ratio 5.0 L, Troponin I Pending 10/09/16 09: Sodium Cancelled, Potassium Cancelled, Chloride Cancelled, Carbon Dioxide Cancelled, Anion Gap Cancelled, BUN Cancelled, Creatinine Cancelled, BUN/ Creatinine Ratio Cancelled, PT 25.1 H, INR 2.41 H, CBC w Diff MAN DIFF ORDERED , RBC 3.07 L, MCV 87.8, MCH 28.8, RDW 16.2 H, MPV 9.8, Gran % 96.0 H, Lymphocytes % 3.3 L, Monocytes % 0.7 L, Eosinophils % 0, Basophils % 0 L, Absolute Granulocytes 13.7 H, Segmented Neutrophils 96 H, Band Neutrophils 3, Absolute Lymphocytes 0.5 L, Lymphocytes 1 L, Absolute Monocytes 0.1 L, Absolute Eosinophils 0, Absolute Basophils 0, Platelet Estimate DECREASED, Polychromasia 1+, Hypochromic-Microcytic 1+, Poikilocytosis 1+, Anisocytosis 1+, PUBS MCHC 32.8 L 10/09/16 0818: Total Bilirubin Cancelled, Direct Bilirubin Cancelled, AST Cancelled, ALT Cancelled, Alkaline Phosphatase Cancelled, Total Protein Cancelled, Albumin Cancelled 10/09/16 0150: Anion Gap 12, Estimated GFR > 60, BUN/Creatinine Ratio 6.0 L, Magnesium 1.2 L, Total Bilirubin 1.0, Direct Bilirubin 0.7 H, AST 292 H, ALT 92 H, Alkaline Phosphatase 146 H, Total Protein 4.0 L, Albumin 1.7 L 10/08/16 1745: Anion Gap 11, Estimated GFR > 60, BUN/Creatinine Ratio 6.0 L, Magnesium 1.3 L Assessment/Plan Assessment: She 76-year-old woman with past medical history of peptic ulcer disease. 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 History of iron deficiency anemia. Multiple transfusions. Hypertension, hyperlipidemia, COPD not on home oxygen, anxiety, [place], peripheral vascular disease, endovascular AAA repair, history of TIA, and recent history of small bowel obstruction with lysis of adhesions 2 weeks prior to admission. Problem list 1. Symptomatic anemia secondary to acute blood loss due to PUD vs AVMS status post 4 units of blood transfusion. H&H stable 2. Hypercoagulable state. INR 2.41 this morning. On vitamin K PO 3. SIRS. Hypothermia to 95.6. WBC count 14.2. Chest x-ray did not show any acute process. Abdominal x-ray showed significant improvement. UA is dirty. urine culture growing VRE and enterococcus. Most likely colonization. Diarrhera C. difficile stool antigen and PCR negative. 4. Thrombocytopenia. 7. Malnutrition 8. Acute hypoxic respiratory failure. 2 L of oxygen via nasal cannula. CTA chest showing no PE but moderate emphysema, pulmonary hypertension and spiculated right upper lobe nodule 7 mm in size concerning for malignancy 9. Altered mental status. Most likely due to hypoglycemia. Hypothermic with elevated WBC count of infection could be a possibility, ? gastroenteritis. 10. Elevated liver enzymes. ? Tylenol toxicity. PLAN * Monitor vitals closely * Watch for any active GI bleed. Call GI in case of overt bleed * Monitor PT/INR/PTT daily * Check CBC daily. Keep hemoglobin more than 8 * Avoid NSAIDs and Aspirin * Continue PPI * Continue vitamin K 5 mg daily Q48h * Try to taper down oxygen. Keep oxygen saturation more than 92%. Will check ambulatory oxygen saturation with and without oxygen * Accu checks TID * D5-1/2 NS 1 bag x 1 * Incentive spirometry * Pulm consult appreciated * RUQ u/s * CT head * Monitor LFTs daily * Mechanical soft diet * discontinued tylenol * Alps for DVT prophylaxis * Full code Problem List: 1. Acute blood loss anemia 2. Malnutrition 3. Thrombocytopenia 4. Coagulopathy Pain Ratin Pain Location: back Pain Goal: Pain 4 or less Pain Plan: neurontin Tomorrow's Labs & Rationales: bep DVT/Prophylaxis: mechanical JOSE HERMAN 10/09/16 0907: Attending MD Review Statement Attending Statement Attending MD Statement: examined this patient, discuss w/resident/PA/PRIMARY CARE PROVIDER, agreed w/resident/PA/PRIMARY CARE PROVIDER, discussed with family, reviewed EMR data (avail), discussed with nursing, discussed with case mgmt, reviewed images, amended to note Attending Assessment/Plan: 76 o/f with acute blood loss anemia transferred from ICU to floor , found to have fever, sinus tachycardia, repeat chest xray no acute process but atelectasis+ Consulted ID, CT abd/plevis with distal small bowel obstrcution, c diff negative sent for PCR, empiric started on oral vanco which was discontinued as per ID. Surgery reviewed, passing flatus thought 2/2 narcotics. Abdominal xray repeat with improvement. USG lower extremity b/l negative CTA chest concerning for pulmonary opacity [id number] malignancy f/u pulmonary recommend o/p repeat CT chest 6 weeks, Toxic metabolic enchepalopathy with hypoglycemia and low bp, given D50, IVF obtain LA, supportive care. Elevated LFTS on i/v tylenol, avoid hepatoxic drugs. check ammonia, reassess pain. Patient needing frequent neurochecks, f/u tylenol level transferred to higher level of care Patient recieved multiple transfusions. GI signed off, non bleeding ulcer, ? source of bleed, h/o AVMs in past, encourage incentive spirometry, f/u GI, pulmonary Dr Armas as o/p, PCP as o/p.
[2016-10-09 09:45] LABS: ABSOLUTE BASOPHIL COUNT 0 /CUMM (0.0-0.2); ABSOLUTE EOSINOPHIL COUNT 0 /CUMM (0.0-0.7); ABSOLUTE GRANULOCYTE CT 13.7 /CUMM (1.4-6.5); ABSOLUTE LYMPH COUNT 0.5 /CUMM (1.2-3.4); ABSOLUTE MONOCYTE COUNT 0.1 /CUMM (0.10-0.60); BASOPHIL % 0 % (0.0-2.0); EOSINOPHIL % 0 % (0-5); MEAN CORPUSCULAR HGB 28.8 PG (27.0-31.0); MEAN CORPUSCULAR HGB CONC 32.8 G/DL (33.0-37.0); MEAN CORPUSCULAR VOLUME 87.8 FL (81.0-99.0); MEAN PLATELET VOLUME 9.8 FL (7.4-10.4); PLATELET COUNT 89 /CUMM (130-400); RBC DISTRIBUTION WIDTH 16.2 % (11.5-14.5); RED BLOOD CELL CT 3.07 /CUMM (4.20-5.40)
[2016-10-09 09:52] LABS: PT 25.1 SEC (9.4-12.5); WHITE BLOOD CELL COUNT 14.2 /CUMM (4.8-10.8)
[2016-10-09 10:10] VITALS: BP 88/44
[2016-10-09 10:37] VITALS: BP 80/42
--- NOTE | 2016-10-09 11:53 | NUR ---
LATE ENTRY: PT HAD 2 EPISODES OF GUIAC POSITIVE EMESIS OVERNIGHT. DR PRINGLE ([id number]) NOTIFIED
--- NOTE | 2016-10-09 11:57 | NUR ---
LATE ENTRY: RAPID RESPONSE CALLED. PT RECTAL TEMP 95.8, P 80, BP 88/58, O2 87% ON 2L. BLOOD GLUCOSE LESS THAN 50. PT A/C WHICH IS NOT PER BASELINE. IV BOLUS HUNG AND AMP OF DEXTROSE GIVEN. SEE RAPID RESPONSE SHEET FOR MORE DETAILS
--- NOTE | 2016-10-09 12:21 | PN- Hematology ---
Subjective Subjective: She is more confused today. She has been confused since yesterday per nursing. She was felt to have abnormal electrolytes and was repleted overnight. She has an episode of emesis this morning. Review of Systems: Unable to be obtained due to confusion. Objective Vital Signs and I&Os Vital Signs Date Time Temp Pulse Resp B/P B/P Pulse O2 O2 Flow FiO2 Mean Ox Delivery Rate 10/09 1148 80 110/68 10/09 1129 Nasal 2.5L Cannula 10/09 1037 85 22 80/42 90 Nasal 4.0L Cannula 10/09 1010 95.6 92 22 88/44 91 Nasal 4.0L Cannula 10/09 0800 90 Nasal 4.0L Cannula 10/09 0648 97.6 85 20 120/60 90 Nasal 2.0L Cannula 10/09 0000 Nasal 2.0L Cannula 10/08 2130 97.5 75 20 120/60 92 Nasal 2.0L Cannula 10/08 2030 97.5 80 20 115/42 94 Nasal 2.0L Cannula 10/08 1953 95 Nasal 2.0L Cannula 10/08 1600 Nasal 2.0L Cannula 10/08 1401 98.7 92 18 122/60 96 Nasal 2.0L Cannula Intake & Output 10/09 1600 10/09 0800 10/09 0000 10/08 1600 10/08 0800 10/08 0000 Intake Total 160 150 400 270 800 Output Total 1 200 400 550 600 Balance 159 -50 0 -280 200 Intake, IV 160 100 30 Intake, Oral 150 300 240 800 Number 1 2 1 1 Bowel Movements Output, 1 Emesis Output, Urine 200 400 550 600 Physical Exam: General Appearance: confused Respiratory: normal breath sounds, no respiratory distress Cardiovascular: regular rate/rhythm Gastrointestinal: normal bowel sounds, soft, no organomegaly, tenderness, healing incision Extremities: edema Neurologic/Psych: awake, disoriented Skin: normal color, warm/dry Other Physical Findings: on 1L NC Current Medications: Current Medications Sig/Ebenezer Start time Last Medication Dose Route Stop Time Status Admin Acetaminophen 1,000 MG Q6P PRN 10/06 1230 DC 10/08 IV 1720 Acetaminophen 320 MG Q4 HRS NEEDED PRN 10/06 1230 AC PO Albuterol Sulfate 3 ML BID 09/29 1000 AC 10/08 INH 1949 Albuterol Sulfate 2 PUF Q4-6 PRN PRN 09/29 0515 AC INH Alprazolam 0.5 MG BID PRN 10/07 1100 AC 10/08 PO 10/14 1059 1141 Alprazolam 0.5 MG TIDPRN PRN 10/01 2300 DC 10/07 PO 10/08 2259 2145 Atorvastatin Calcium 20 MG DAILY 10/07 1528 AC 10/08 PO 1005 Dextrose 25 GM ONCE ONE 10/09 0915 DC 10/09 IV 10/09 0916 0940 Dextrose/Sodium 1,000 ML Q13H 10/09 0945 AC Chloride IV 10/09 2244 Dextrose/Water 250 ML .Q8H20M 10/09 1200 AC IV Furosemide 40 MG ONE ONE 10/08 1600 DC 10/08 PO 10/08 1601 1741 Labetalol HCl 200 MG BID 10/07 1528 AC 10/08 PO 1005 Magnesium Oxide 400 MG ONE ONE 10/08 2030 DC PO 10/08 2031 Magnesium Sulfate 1 GM Q2H 10/09 0700 DC 10/09 Dextrose/Water 100 ML IV 10/09 1059 0941 Omeprazole 40 MG DAILY AC 10/08 0700 AC 10/08 PO 0524 Ondansetron HCl 4 MG Q6P PRN 09/29 0515 AC 10/09 IV 0727 Phytonadione 5 MG ONCE ONE 10/09 1015 DC PO 10/09 1016 Potassium Chloride 10 MEQ Q1H 10/08 2030 DC 10/09 IV 10/08 2131 0104 Potassium Chloride 40 MEQ ONCE ONE 10/08 2030 DC PO 10/08 2031 Sertraline HCl 50 MG DAILY 10/07 1528 AC 10/08 PO 1005 Sodium Chloride 500 ML BOLUS ONE 10/09 0915 CAN IV 10/09 1014 Sodium Chloride 1,000 ML BOLUS ONE 10/09 0915 DC 10/09 IV 10/09 1014 0941 Tiotropium [place] 1 PUF DAILY 09/29 1000 AC 10/08 INH 1005 Vancomycin HCl 125 MG Q6H 10/07 1000 DC 10/08 PO 1720 Results Last 24 Hours of Lab Results: Laboratory Tests 10/09 10/09 0925 0925 Chemistry Sodium (137 - 145 mmol/L) Cancelled 137 Potassium (3.5 - 5.1 mmol/L) Cancelled 4.3 Chloride (98 - 107 mmol/L) Cancelled 108 H Carbon Dioxide (22 - 30 mmol/L) Cancelled 18 L Anion Gap (5 - 16) Cancelled 12 BUN (7 - 17 mg/dL) Cancelled 3 L Creatinine (0.5 - 1.0 mg/dL) Cancelled 0.6 Estimated GFR (>60 ml/min) > 60 BUN/Creatinine Ratio (7 - 25 %) Cancelled 5.0 L Total Bilirubin (0.2 - 1.3 mg/dL) 0.9 Direct Bilirubin (< 0.4 mg/dL) 0.8 H AST (14 - 36 U/L) 517 H ALT (9 - 52 U/L) 155 H Alkaline Phosphatase (<127 U/L) 130 H Troponin I (< 0.11 ng/ml) < 0.01 Total Protein (6.3 - 8.2 g/dL) 3.4 L Albumin (3.5 - 5.0 g/dL) 1.4 L TSH (0.270 - 4.200 uIU/mL) Pending Free T4 (0.78 - 2.44 ng/dL) Pending Thyroxine (T4) (4.5 - 10.9 ug/dL) Pending Cortisol AM Sample (4.46 - 22.7 ug/dL) Pending Coagulation PT (9.4 - 12.5 SEC) 25.1 H INR (0.90 - 1.19) 2.41 H Hematology CBC w Diff MAN DIFF ORDERED WBC (4.8 - 10.8 /CUMM) 14.2 H RBC (4.20 - 5.40 /CUMM) 3.07 L Hgb (12.0 - 16.0 G/DL) 8.9 L Hct (37 - 47 %) 27.0 L MCV (81.0 - 99.0 FL) 87.8 MCH (27.0 - 31.0 PG) 28.8 RDW (11.5 - 14.5 %) 16.2 H Plt Count (130 - 400 /CUMM) 89 L MPV (7.4 - 10.4 FL) 9.8 Gran % (42.2 - 75.2 %) 96.0 H Lymphocytes % (20.5 - 51.1 %) 3.3 L Monocytes % (1.7 - 9.3 %) 0.7 L Eosinophils % (0 - 5 %) 0 Basophils % (0.0 - 2.0 %) 0 L Absolute Granulocytes (1.4 - 6.5 /CUMM) 13.7 H Segmented Neutrophils (42.2 - 75.2 %) 96 H Band Neutrophils (0.0 - 5.0 %) 3 Absolute Lymphocytes (1.2 - 3.4 /CUMM) 0.5 L Lymphocytes (20.5 - 51.1 %) 1 L Absolute Monocytes (0.10 - 0.60 /CUMM) 0.1 L Absolute Eosinophils (0.0 - 0.7 /CUMM) 0 Absolute Basophils (0.0 - 0.2 /CUMM) 0 Platelet Estimate (ADEQUATE) DECREASED Polychromasia 1+ Hypochromic-Microcytic 1+ Poikilocytosis 1+ Anisocytosis 1+ PUBS MCHC (33.0 - 37.0 G/DL) 32.8 L 10/09 10/09 10/08 0818 0150 1745 Chemistry Sodium (137 - 145 mmol/L) 138 137 Potassium (3.5 - 5.1 mmol/L) 4.0 3.3 L Chloride (98 - 107 mmol/L) 109 H 106 Carbon Dioxide (22 - 30 mmol/L) 17 L 20 L Anion Gap (5 - 16) 12 11 BUN (7 - 17 mg/dL) 3 L 3 L Creatinine (0.5 - 1.0 mg/dL) 0.5 0.5 Estimated GFR (>60 ml/min) > 60 > 60 BUN/Creatinine Ratio (7 - 25 %) 6.0 L 6.0 L Magnesium (1.6 - 2.3 mg/dL) 1.2 L 1.3 L Total Bilirubin (0.2 - 1.3 mg/dL) Cancelled 1.0 Direct Bilirubin (< 0.4 mg/dL) Cancelled 0.7 H AST (14 - 36 U/L) Cancelled 292 H ALT (9 - 52 U/L) Cancelled 92 H Alkaline Phosphatase (<127 U/L) Cancelled 146 H Total Protein (6.3 - 8.2 g/dL) Cancelled 4.0 L Albumin (3.5 - 5.0 g/dL) Cancelled 1.7 L Assessment/Plan Assessment/Recommendations: Ms. Merlos is a 76-year-old female with PVD, PUD, COPD, CAD, AAA s/p endovascular repair, and recently SBO s/p lysis of adhesion who presents to the hospital with hematemesis, coffee ground emesis, and elevated INR. She has been having significant issues with oral intake since her surgery during the most recent admission. Her elevated INR is likely secondary to factor deficiency. With her decreased oral intake, she likely has vitamin K deficiency. INR normalized after FFP and vitamin K 10 mg IM. She is more confused today. She was noted to be more hypotensive and hypoglycemic in the chart. Her LFT has significantly increased along with INR. There is concern for worsening liver injury. Her platelet has also decreased. She will need abdominal imaging such as US with doppler to evaluate liver, biliary tract, and portal system. Elevated WBC concerning for infectious etiology. Given emesis, she may have some early aspiration. Recommendations: 1. Monitor PT/INR/PTT daily 2. Check CBC/CMP at least daily 3. US of the RUQ 4. Infectious work up: Blood cultures, urine culture, ?CT chest Please call [phone] with new questions or concerns. Problem List: 1. Thrombocytopenia 2. Coagulopathy 3. Malnutrition 4. Acute blood loss anemia 5. Hepatitis
--- NOTE | 2016-10-09 13:07 | NUR ---
REC'D THE PT FROM ROOM 208 AT 1050. TRANSFERRED TO CRCU WITH ASSIST OF 4 PERSONS W/O INCIDENT. PT IS ORIENTED TO PERSON AND PLACE, MILD SLURRING OF WORDS NOTED. HENRY. NIH IS A 2. SBP UPON ADMIT TO CRCU WAS 100 OR GREATER. THE BP HAS DECREASED TO THE 70'S VIA THE AUTOCUFF BUT WAS WAS IN THE HIGH 90'S TO 100'S MANUALLY. DR YUMI CACERES AWARE. FSG UPON ADMIT TO CR[facility] WAS 56 AT 1100. D10 AT 20ML/HR INITIATED AT 1110. REPEAT FSG AT 1220 WAS 178, AGAIN DR CACERES NOTIFIED. TO HAVE ANOTHER OBTAINED NOW AND MD WILL DECIDE UPON FURTHER TREATMENT. VITA BS ARE CLEAR WITH AN O2 SAT OF 93% ON A 4LNC. NO RESP DISTRESS NOTED. ABD IS SOFT WITH NORMOACTIVE BOWEL SOUNDS. UPON PALPATION OF THE 4 QUADRANTS OF THE ABD 5/10 TENDERNESS NOTED BY THE PT. AT 1200 A R FEMORAL TLC WAS PLACED BY DR WARREN UTILIZING THE PORTABLE ULTRASOUND MACHINE. CONTINUES ON D5 1/2 NS AT 50ML/HR-TO BE STOPPED PER .
--- NOTE | 2016-10-09 13:40 | PN- Infect Dx ---
Subjective Subjective: Recent events noted with 2 episodes of guaiac positive emesis overnight and with a rapid response called this morning after she was found to be hypothermic, with temperature 95.8, hypotensive, with a blood pressure of 88/58, and hypoglycemic, with a blood sugar less than 50. She was given IV fluids and dextrose and moved to the ICU. A right femoral triple-lumen catheter has been placed. At present she reports mild epigastric discomfort. Objective Last 24 Hrs of Vital Signs/I&O Vital Signs Date Time Temp Pulse Resp B/P B/P Pulse O2 O2 Flow FiO2 Mean Ox Delivery Rate 10/09 1259 93 Nasal 2.0L Cannula 10/09 1200 93 Nasal 4.0L Cannula 10/09 1148 80 110/68 10/09 1129 Nasal 2.5L Cannula 10/09 1037 85 22 80/42 90 Nasal 4.0L Cannula 10/09 1010 95.6 92 22 88/44 91 Nasal 4.0L Cannula 10/09 0800 90 Nasal 4.0L Cannula 10/09 0648 97.6 85 20 120/60 90 Nasal 2.0L Cannula 10/09 0000 Nasal 2.0L Cannula 10/08 2130 97.5 75 20 120/60 92 Nasal 2.0L Cannula 10/08 2030 97.5 80 20 115/42 94 Nasal 2.0L Cannula 10/08 1953 95 Nasal 2.0L Cannula 10/08 1600 Nasal 2.0L Cannula 10/08 1401 98.7 92 18 122/60 96 Nasal 2.0L Cannula Intake & Output 10/09 1600 10/09 0800 10/09 0000 Intake Total 160 150 Output Total 1 200 Balance 159 -50 Intake, IV 160 Intake, Oral 150 Number 1 Bowel Movements Output, 1 Emesis Output, Urine 200 Physical Exam Other Physical Findings: She is awake and alert, weak appearing, but in no acute distress Lungs are clear Heart regular rhythm with no murmur Abdomen is mildly distended, tender on palpation over the right upper quadrant and epigastrium, with no guarding or rebound, positive bowel sounds Back no CVA tenderness Extremities 1+ edema both lower extremities Results Last 24 Hours of Lab Results: Laboratory Tests 10/09 10/09 0925 0925 Chemistry Sodium (137 - 145 mmol/L) Cancelled 137 Potassium (3.5 - 5.1 mmol/L) Cancelled 4.3 Chloride (98 - 107 mmol/L) Cancelled 108 H Carbon Dioxide (22 - 30 mmol/L) Cancelled 18 L Anion Gap (5 - 16) Cancelled 12 BUN (7 - 17 mg/dL) Cancelled 3 L Creatinine (0.5 - 1.0 mg/dL) Cancelled 0.6 Estimated GFR (>60 ml/min) > 60 BUN/Creatinine Ratio (7 - 25 %) Cancelled 5.0 L Total Bilirubin (0.2 - 1.3 mg/dL) 0.9 Direct Bilirubin (< 0.4 mg/dL) 0.8 H AST (14 - 36 U/L) 517 H ALT (9 - 52 U/L) 155 H Alkaline Phosphatase (<127 U/L) 130 H Troponin I (< 0.11 ng/ml) < 0.01 Total Protein (6.3 - 8.2 g/dL) 3.4 L Albumin (3.5 - 5.0 g/dL) 1.4 L TSH (0.270 - 4.200 uIU/mL) 0.669 Free T4 (0.78 - 2.44 ng/dL) 1.81 Thyroxine (T4) (4.5 - 10.9 ug/dL) 3.4 L Cortisol AM Sample (4.46 - 22.7 ug/dL) > 123.0 H Coagulation PT (9.4 - 12.5 SEC) 25.1 H INR (0.90 - 1.19) 2.41 H Hematology CBC w Diff MAN DIFF ORDERED WBC (4.8 - 10.8 /CUMM) 14.2 H RBC (4.20 - 5.40 /CUMM) 3.07 L Hgb (12.0 - 16.0 G/DL) 8.9 L Hct (37 - 47 %) 27.0 L MCV (81.0 - 99.0 FL) 87.8 MCH (27.0 - 31.0 PG) 28.8 RDW (11.5 - 14.5 %) 16.2 H Plt Count (130 - 400 /CUMM) 89 L MPV (7.4 - 10.4 FL) 9.8 Gran % (42.2 - 75.2 %) 96.0 H Lymphocytes % (20.5 - 51.1 %) 3.3 L Monocytes % (1.7 - 9.3 %) 0.7 L Eosinophils % (0 - 5 %) 0 Basophils % (0.0 - 2.0 %) 0 L Absolute Granulocytes (1.4 - 6.5 /CUMM) 13.7 H Segmented Neutrophils (42.2 - 75.2 %) 96 H Band Neutrophils (0.0 - 5.0 %) 3 Absolute Lymphocytes (1.2 - 3.4 /CUMM) 0.5 L Lymphocytes (20.5 - 51.1 %) 1 L Absolute Monocytes (0.10 - 0.60 /CUMM) 0.1 L Absolute Eosinophils (0.0 - 0.7 /CUMM) 0 Absolute Basophils (0.0 - 0.2 /CUMM) 0 Platelet Estimate (ADEQUATE) DECREASED Polychromasia 1+ Hypochromic-Microcytic 1+ Poikilocytosis 1+ Anisocytosis 1+ PUBS MCHC (33.0 - 37.0 G/DL) 32.8 L 10/09 10/09 10/08 0818 0150 1745 Chemistry Sodium (137 - 145 mmol/L) 138 137 Potassium (3.5 - 5.1 mmol/L) 4.0 3.3 L Chloride (98 - 107 mmol/L) 109 H 106 Carbon Dioxide (22 - 30 mmol/L) 17 L 20 L Anion Gap (5 - 16) 12 11 BUN (7 - 17 mg/dL) 3 L 3 L Creatinine (0.5 - 1.0 mg/dL) 0.5 0.5 Estimated GFR (>60 ml/min) > 60 > 60 BUN/Creatinine Ratio (7 - 25 %) 6.0 L 6.0 L Magnesium (1.6 - 2.3 mg/dL) 1.2 L 1.3 L Total Bilirubin (0.2 - 1.3 mg/dL) Cancelled 1.0 Direct Bilirubin (< 0.4 mg/dL) Cancelled 0.7 H AST (14 - 36 U/L) Cancelled 292 H ALT (9 - 52 U/L) Cancelled 92 H Alkaline Phosphatase (<127 U/L) Cancelled 146 H Total Protein (6.3 - 8.2 g/dL) Cancelled 4.0 L Albumin (3.5 - 5.0 g/dL) Cancelled 1.7 L Last 24 Hours of Sean Results: Blood cultures 2 October 05 remain negative Recent Imaging Studies: Abdominal x-ray October 09 significant interval improvement in appearance of bowel gas pattern with a few air filled loops of bowel Chest x-ray October 09, personally reviewed, reveals retrocardiac airspace disease unchanged from previous films Assessment/Plan Impression: Deterioration in her status with hypotension, hypothermia and hypoglycemia this morning in the setting of guaiac positive emesis, raising concern for a recurrent GI bleed. The possibility of sepsis must also be considered, though she has no obvious source, with no evidence for pneumonia on her recent chest x- ray and with her recent urinalysis negative. The positive urine culture for VRE and Farzaneh likely represents colonization or contamination with no symptoms. Her liver enzymes are elevated and, with her right upper quadrant and epigastric tenderness, a biliary process could be considered, though her gallbladder looked normal on her recent CT of the abdomen and pelvis, which was with IV contrast. Suggestion: 1. Repeat blood cultures 2 2. Repeat urinalysis and urine culture 3. Right upper quadrant ultrasound 4. Consider repeat CT of the abdomen and pelvis if ultrasound is negative 5. GI reevaluation 6. Begin Vancomycin 1 g IV every 24 hours and Ceftazidime 1 g IV every 8 hours pending above
--- NOTE | 2016-10-09 13:51 | PN- CRCU ---
See Addendum Subjective HPI/Critical Care Issues: Sig hypoglycemia with confusion this am Dyspnea at rest Fatigue Vomiting last night abd xay showed improvement Altered lfts Mild abd discomort Mild hypotension now better with D 10 and ivf No sig fever no cough but has dyspnea fatigue Objective Current Medications: Current Medications Sig/Ebenezer Start time Last Medication Dose Route Stop Time Status Admin Acetaminophen 1,000 MG Q6P PRN 10/06 1230 DC 10/08 IV 1720 Acetaminophen 320 MG Q4 HRS NEEDED PRN 10/06 1230 AC PO Albuterol Sulfate 3 ML BID 09/29 1000 AC 10/08 INH 1949 Albuterol Sulfate 2 PUF Q4-6 PRN PRN 09/29 0515 AC INH Alprazolam 0.5 MG BID PRN 10/07 1100 AC 10/08 PO 10/14 1059 1141 Atorvastatin Calcium 20 MG DAILY 10/07 1528 AC 10/08 PO 1005 Dextrose 25 GM ONCE ONE 10/09 0915 DC 10/09 IV 10/09 0916 0940 Dextrose/Sodium 1,000 ML Q13H 10/09 0945 DC Chloride IV 10/09 2244 Dextrose/Water 250 ML .Q8H20M 10/09 1200 AC 10/09 IV 1110 Furosemide 40 MG ONE ONE 10/08 1600 DC 10/08 PO 10/08 1601 1741 Labetalol HCl 200 MG BID 10/07 1528 AC 10/08 PO 1005 Magnesium Oxide 400 MG ONE ONE 10/08 2030 DC PO 10/08 2031 Magnesium Sulfate 1 GM Q2H 10/09 0700 DC 10/09 Dextrose/Water 100 ML IV 10/09 1059 1224 Omeprazole 40 MG DAILY AC 10/08 0700 AC 10/08 PO 0524 Ondansetron HCl 4 MG Q6P PRN 09/29 0515 AC 10/09 IV 0727 Phytonadione 5 MG ONCE ONE 10/09 1015 DC PO 10/09 1016 Potassium Chloride 10 MEQ Q1H 10/08 2030 DC 10/09 IV 10/08 2131 0104 Potassium Chloride 40 MEQ ONCE ONE 10/08 2030 DC PO 10/08 2031 Sertraline HCl 50 MG DAILY 10/07 1528 AC 10/08 PO 1005 Sodium Chloride 500 ML BOLUS ONE 10/09 0915 CAN IV 10/09 1014 Sodium Chloride 1,000 ML BOLUS ONE 10/09 0915 DC 10/09 IV 10/09 1014 0941 Tiotropium [place] 1 PUF DAILY 09/29 1000 AC 10/08 INH 1005 Vancomycin HCl 125 MG Q6H 10/07 1000 DC 10/08 PO 1720 Vital Signs & I&O Last 24 Hrs of Vitals and I&O: Vital Signs Date Time Temp Pulse Resp B/P B/P Pulse O2 O2 Flow FiO2 Mean Ox Delivery Rate 10/09 1259 93 Nasal 2.0L Cannula 10/09 1200 93 Nasal 4.0L Cannula 10/09 1148 80 110/68 10/09 1129 Nasal 2.5L Cannula 10/09 1037 85 22 80/42 90 Nasal 4.0L Cannula 10/09 1010 95.6 92 22 88/44 91 Nasal 4.0L Cannula 10/09 0800 90 Nasal 4.0L Cannula 10/09 0648 97.6 85 20 120/60 90 Nasal 2.0L Cannula 10/09 0000 Nasal 2.0L Cannula 10/08 2130 97.5 75 20 120/60 92 Nasal 2.0L Cannula 10/08 2030 97.5 80 20 115/42 94 Nasal 2.0L Cannula 10/08 1953 95 Nasal 2.0L Cannula 10/08 1600 Nasal 2.0L Cannula 10/08 1401 98.7 92 18 122/60 96 Nasal 2.0L Cannula Intake & Output 10/09 1600 10/09 0800 10/09 0000 Intake Total 160 150 Output Total 1 200 Balance 159 -50 Intake, IV 160 Intake, Oral 150 Number 1 Bowel Movements Output, 1 Emesis Output, Urine 200 Laboratory Tests 10/09 10/09 10/09 1325 0925 0925 Chemistry Sodium (137 - 145 mmol/L) Pending Cancelled 137 Potassium (3.5 - 5.1 mmol/L) Pending Cancelled 4.3 Chloride (98 - 107 mmol/L) Pending Cancelled 108 H Carbon Dioxide (22 - 30 mmol/L) Pending Cancelled 18 L Anion Gap (5 - 16) Pending Cancelled 12 BUN (7 - 17 mg/dL) Pending Cancelled 3 L Creatinine (0.5 - 1.0 mg/dL) Pending Cancelled 0.6 Estimated GFR (>60 ml/min) > 60 BUN/Creatinine Ratio (7 - 25 %) Cancelled 5.0 L Glucose Pending Lactic Acid Pending Calcium Pending Phosphorus Pending Magnesium Pending Total Bilirubin (0.2 - 1.3 mg/dL) Pending 0.9 Direct Bilirubin (< 0.4 mg/dL) 0.8 H AST (14 - 36 U/L) Pending 517 H ALT (9 - 52 U/L) Pending 155 H Alkaline Phosphatase (<127 U/L) 130 H Troponin I (< 0.11 ng/ml) < 0.01 Total Protein (6.3 - 8.2 g/dL) 3.4 L Albumin (3.5 - 5.0 g/dL) Pending 1.4 L TSH (0.270 - 4.200 uIU/mL) 0.669 Free T4 (0.78 - 2.44 ng/dL) 1.81 Thyroxine (T4) (4.5 - 10.9 ug/dL) 3.4 L Cortisol AM Sample (4.46 - 22.7 ug/dL) > 123.0 H Coagulation PT (9.4 - 12.5 SEC) 25.1 H INR (0.90 - 1.19) 2.41 H Hematology CBC w Diff MAN DIFF ORDERED WBC (4.8 - 10.8 /CUMM) 14.2 H RBC (4.20 - 5.40 /CUMM) 3.07 L Hgb (12.0 - 16.0 G/DL) 8.9 L Hct (37 - 47 %) 27.0 L MCV (81.0 - 99.0 FL) 87.8 MCH (27.0 - 31.0 PG) 28.8 RDW (11.5 - 14.5 %) 16.2 H Plt Count (130 - 400 /CUMM) 89 L MPV (7.4 - 10.4 FL) 9.8 Gran % (42.2 - 75.2 %) 96.0 H Lymphocytes % (20.5 - 51.1 %) 3.3 L Monocytes % (1.7 - 9.3 %) 0.7 L Eosinophils % (0 - 5 %) 0 Basophils % (0.0 - 2.0 %) 0 L Absolute Granulocytes (1.4 - 6.5 /CUMM) 13.7 H Segmented Neutrophils (42.2 - 75.2 %) 96 H Band Neutrophils (0.0 - 5.0 %) 3 Absolute Lymphocytes (1.2 - 3.4 /CUMM) 0.5 L Lymphocytes (20.5 - 51.1 %) 1 L Absolute Monocytes (0.10 - 0.60 /CUMM) 0.1 L Absolute Eosinophils (0.0 - 0.7 /CUMM) 0 Absolute Basophils (0.0 - 0.2 /CUMM) 0 Platelet Estimate (ADEQUATE) DECREASED Polychromasia 1+ Hypochromic-Microcytic 1+ Poikilocytosis 1+ Anisocytosis 1+ PUBS MCHC (33.0 - 37.0 G/DL) 32.8 L 10/09 10/09 10/08 0818 0150 1745 Chemistry Sodium (137 - 145 mmol/L) 138 137 Potassium (3.5 - 5.1 mmol/L) 4.0 3.3 L Chloride (98 - 107 mmol/L) 109 H 106 Carbon Dioxide (22 - 30 mmol/L) 17 L 20 L Anion Gap (5 - 16) 12 11 BUN (7 - 17 mg/dL) 3 L 3 L Creatinine (0.5 - 1.0 mg/dL) 0.5 0.5 Estimated GFR (>60 ml/min) > 60 > 60 BUN/Creatinine Ratio (7 - 25 %) 6.0 L 6.0 L Magnesium (1.6 - 2.3 mg/dL) 1.2 L 1.3 L Total Bilirubin (0.2 - 1.3 mg/dL) Cancelled 1.0 Direct Bilirubin (< 0.4 mg/dL) Cancelled 0.7 H AST (14 - 36 U/L) Cancelled 292 H ALT (9 - 52 U/L) Cancelled 92 H Alkaline Phosphatase (<127 U/L) Cancelled 146 H Total Protein (6.3 - 8.2 g/dL) Cancelled 4.0 L Albumin (3.5 - 5.0 g/dL) Cancelled 1.7 L Microbiology Date/Time Procedure - Status Source Growth 10/09 1159 Blood Culture - COLB BLOOD 10/09 1159 Blood Culture - COLB BLOOD 10/09 1114 Surveillance Culture - ORD GI 10/09 1105 Surveillance Culture - RECD UPPER RESP 10/08 0240 Clostridium difficile Toxin A & B - COMP STOOL 10/07 0430 Urine Culture - COMP URINE ROUT VANC RESIST ENTEROCOCCUS Impression/Plan Impression/Plan Impression/Plan: General Appearance: no apparent distress, alert, awake, comfortable Respiratory: normal breath sounds, no respiratory distress Cardiovascular: regular rate/rhythm Gastrointestinal: normal bowel sounds, soft, no organomegaly, non-tenderness, healing incision Extremities: edema Neurologic/Psych: awake, alert, oriented x 3 Skin: normal color, warm/dry IMPRESSION This is a 76-year-old lady with history of significant smoking, significant emphysema, previous peptic ulcer disease, previous GI bleed with AVM, anemia, previous multiple transfusion, small bowel obstruction, hypertension, hyperlipidemia, peripheral vascular disease with previous heart disease with previous endovascular AAA repair and TIA, previous lysis of edema or a small bowel obstruction is now here with recurrence partial small bowel obstruction now with diarrhea as well. Her issues include * Sig hypoglycemia, altered lfts with mild confusion diff dx sig liver dysfuction due to tylenol vs sepsis. * Mild abd discomfort upper qdt with recent sbo recent surg, s/p 4 units recently of prbc with recent egd with sup gastric ulcer 1.5 cm2, * Recent fever, diarrhea now hypothermia rule out sepsis * Hypoxemia related to fluid overload and effusion and atelectasis with significant underlying COPD. Patient does not seem to have any hypercarbia by previous ABG * 7 mm lung nodule which is spiculated suggestive of primary lung malignancy which needs to be investigated when patient is more stable. Obviously her clinical status prior to any abdominal issues seems to be decompensated related to her significant COPD as seen in her CT and her history. * Ischemic heart disease history with severe peripheral vascular disease in the past with aortic aneurysm repair and TIA and significant atherosclerosis * Moderate pericardial effusion seen since October 12 needs follow-up * Mild coagulopathy after transfusion no evidence suggestive of portal hypertension in the recent EGD, prog malnutrition with mild prob underlying liver disease * Small bowel obstruction with recent lysis of adhesions now with small bowel obstruction * Lower extremity swelling both sides negative DVT probable fluid overload RECOMMENDATION ICU D10 Watch sugars Panculture broad spectrum abx CT CAP with contrast Tylenol level Gi to follow Add lipase and amylase Keep npo for now COnt inhalers Watch electrolytes and divalents Rpt blood work Pt is critically ill tts 40 mins Code Status: Full Code
--- NOTE | 2016-10-09 15:11 | NUR ---
PHYSICAL THERAPY: Pt PLACED ON HOLD FROM PT DUE TO TRANSFER DOWN TO ICU. PLEASE RE-CONSULT PATIENT STABILIZES.
--- NOTE | 2016-10-09 15:56 | PN- General Surgery ---
Subjective Subjective: events noted. vomiting. mild LUQ pain per patient report. she is lethargic and cannot give full history but can answer simple questions. Review of Systems: unobtainable. Objective Vital Signs and I&Os Vital Signs Date Time Temp Pulse Resp B/P B/P Pulse O2 O2 Flow FiO2 Mean Ox Delivery Rate 10/09 1259 93 Nasal 2.0L Cannula 10/09 1200 93 Nasal 4.0L Cannula 10/09 1148 80 110/68 10/09 1129 Nasal 2.5L Cannula 10/09 1037 85 22 80/42 90 Nasal 4.0L Cannula 10/09 1010 95.6 92 22 88/44 91 Nasal 4.0L Cannula 10/09 0800 90 Nasal 4.0L Cannula 10/09 0648 97.6 85 20 120/60 90 Nasal 2.0L Cannula 10/09 0000 Nasal 2.0L Cannula 10/08 2130 97.5 75 20 120/60 92 Nasal 2.0L Cannula 10/08 2030 97.5 80 20 115/42 94 Nasal 2.0L Cannula 10/08 1953 95 Nasal 2.0L Cannula 10/08 1600 Nasal 2.0L Cannula Intake & Output 10/09 1600 10/09 0800 10/09 0000 10/08 1600 10/08 0800 10/08 0000 Intake Total 160 150 400 270 800 Output Total 1 200 400 550 600 Balance 159 -50 0 -280 200 Intake, IV 160 100 30 Intake, Oral 150 300 240 800 Number 1 2 1 1 Bowel Movements Output, 1 Emesis Output, Urine 200 400 550 600 Physical Exam: gen: looks ill. tired. no distress but increased work of breathing. abd: soft. nontender. nondistended. no guarding. no hernia Current Medications: Current Medications Sig/Ebenezer Start time Last Medication Dose Route Stop Time Status Admin Acetaminophen 1,000 MG Q6P PRN 10/06 1230 DC 10/08 IV 1720 Acetaminophen 320 MG Q4 HRS NEEDED PRN 10/06 1230 AC PO Albuterol Sulfate 3 ML BID 09/29 1000 AC 10/08 INH 1949 Albuterol Sulfate 2 PUF Q4-6 PRN PRN 09/29 0515 AC INH Alprazolam 0.5 MG BID PRN 10/07 1100 AC 10/08 PO 10/14 1059 1141 Atorvastatin Calcium 20 MG DAILY 10/07 1528 AC 10/08 PO 1005 Ceftazidime 1,000 MG IQ8 10/09 1600 CAN IV Ceftazidime 1,000 MG IQ8 10/09 1445 AC IV Dextrose 25 GM .STK-MED ONE 10/09 1525 DC IV 10/09 1526 Dextrose 25 GM ONCE ONE 10/09 0915 DC 10/09 IV 10/09 0916 0940 Dextrose/Sodium 1,000 ML Q13H 10/09 0945 DC Chloride IV 10/09 2244 Dextrose/Water 250 ML .Q8H20M 10/09 1200 AC 10/09 IV 1110 Furosemide 40 MG ONE ONE 10/08 1600 DC 10/08 PO 10/08 1601 1741 Labetalol HCl 200 MG BID 10/07 1528 AC 10/08 PO 1005 Magnesium Oxide 400 MG ONE ONE 10/08 2030 DC PO 10/08 2031 Magnesium Sulfate 1 GM Q2H 10/09 0700 DC 10/09 Dextrose/Water 100 ML IV 10/09 1059 1224 Omeprazole 40 MG DAILY AC 10/08 0700 DC 10/08 PO 0524 Ondansetron HCl 4 MG .STK-MED ONE 10/09 0711 DC IM 10/09 0712 Ondansetron HCl 4 MG Q6P PRN 09/29 0515 AC 10/09 IV 0727 Pantoprazole Sodium 40 MG DAILY 10/09 1445 AC IV Phytonadione 5 MG ONCE ONE 10/09 1015 DC PO 10/09 1016 Potassium Chloride 10 MEQ Q1H 10/08 2030 DC 10/09 IV 10/08 2131 0104 Potassium Chloride 40 MEQ ONCE ONE 10/08 2030 DC PO 10/08 2031 Sertraline HCl 50 MG DAILY 10/07 1528 AC 10/08 PO 1005 Sodium Chloride 1,000 ML Q10H 10/09 1545 AC IV Sodium Chloride 500 ML BOLUS ONE 10/09 0915 CAN IV 10/09 1014 Sodium Chloride 1,000 ML BOLUS ONE 10/09 0915 DC 10/09 IV 10/09 1014 0941 Tiotropium [place] 1 PUF DAILY 09/29 1000 AC 10/08 INH 1005 Vancomycin HCl 1,000 MG DAILY 10/09 1506 DC Sodium Chloride 250 ML IV Vancomycin HCl 1,000 MG DAILY 10/09 1445 AC Sodium Chloride 250 ML IV Vancomycin HCl 125 MG Q6H 06/26 1000 DC 10/08 PO 1720 Results Last 48 Hours of Labs: Laboratory Tests 10/09 10/09 10/09 1325 0925 0929 Chemistry Sodium (137 - 145 mmol/L) 136 L Cancelled 137 Potassium (3.5 - 5.1 mmol/L) 3.8 Cancelled 4.3 Chloride (98 - 107 mmol/L) 107 Cancelled 108 H Carbon Dioxide (22 - 30 mmol/L) 14 L Cancelled 18 L Anion Gap (5 - 16) 15 Cancelled 12 BUN (7 - 17 mg/dL) 3 L Cancelled 3 L Creatinine (0.5 - 1.0 mg/dL) 0.7 Cancelled 0.6 Estimated GFR (>60 ml/min) > 60 > 60 BUN/Creatinine Ratio (7 - 25 %) Cancelled 5.0 L Glucose (65 - 99 mg/dL) 129 H Lactic Acid (0.7 - 2.1 mmol/L) 10.0 H Calcium (8.4 - 10.2 mg/dL) 6.7 L Phosphorus (2.5 - 4.5 mg/dL) 5.0 H Magnesium (1.6 - 2.3 mg/dL) 1.8 Total Bilirubin (0.2 - 1.3 mg/dL) 0.9 0.9 Direct Bilirubin (< 0.4 mg/dL) 0.8 H AST (14 - 36 U/L) 675 H 517 H ALT (9 - 52 U/L) 216 H 155 H Alkaline Phosphatase (<127 U/L) 130 H Troponin I (< 0.11 ng/ml) < 0.01 Total Protein (6.3 - 8.2 g/dL) 3.4 L Albumin (3.5 - 5.0 g/dL) 1.4 L 1.4 L Amylase (30 - 110 U/L) < 30 L Lipase (23 - 300 U/L) < 10 L TSH (0.270 - 4.200 uIU/mL) 0.669 Free T4 (0.78 - 2.44 ng/dL) 1.81 Thyroxine (T4) (4.5 - 10.9 ug/dL) 3.4 L Cortisol AM Sample (4.46 - 22.7 ug/dL) > 123.0 H Coagulation PT (9.4 - 12.5 SEC) 25.1 H INR (0.90 - 1.19) 2.41 H Hematology CBC w Diff MAN DIFF ORDERED WBC (4.8 - 10.8 /CUMM) 14.2 H RBC (4.20 - 5.40 /CUMM) 3.07 L Hgb (12.0 - 16.0 G/DL) 8.9 L Hct (37 - 47 %) 27.0 L MCV (81.0 - 99.0 FL) 87.8 MCH (27.0 - 31.0 PG) 28.8 RDW (11.5 - 14.5 %) 16.2 H Plt Count (130 - 400 /CUMM) 89 L MPV (7.4 - 10.4 FL) 9.8 Gran % (42.2 - 75.2 %) 96.0 H Lymphocytes % (20.5 - 51.1 %) 3.3 L Monocytes % (1.7 - 9.3 %) 0.7 L Eosinophils % (0 - 5 %) 0 Basophils % (0.0 - 2.0 %) 0 L Absolute Granulocytes (1.4 - 6.5 /CUMM) 13.7 H Segmented Neutrophils (42.2 - 75.2 %) 96 H Band Neutrophils (0.0 - 5.0 %) 3 Absolute Lymphocytes (1.2 - 3.4 /CUMM) 0.5 L Lymphocytes (20.5 - 51.1 %) 1 L Absolute Monocytes (0.10 - 0.60 /CUMM) 0.1 L Absolute Eosinophils (0.0 - 0.7 /CUMM) 0 Absolute Basophils (0.0 - 0.2 /CUMM) 0 Platelet Estimate (ADEQUATE) DECREASED Polychromasia 1+ Hypochromic-Microcytic 1+ Poikilocytosis 1+ Anisocytosis 1+ PUBS MCHC (33.0 - 37.0 G/DL) 32.8 L Toxicology Acetaminophen (10.0 - 30.0 ug/mL) 13.0 10/09 10/09 10/08 0818 0150 1745 Chemistry Sodium (137 - 145 mmol/L) 138 137 Potassium (3.5 - 5.1 mmol/L) 4.0 3.3 L Chloride (98 - 107 mmol/L) 109 H 106 Carbon Dioxide (22 - 30 mmol/L) 17 L 20 L Anion Gap (5 - 16) 12 11 BUN (7 - 17 mg/dL) 3 L 3 L Creatinine (0.5 - 1.0 mg/dL) 0.5 0.5 Estimated GFR (>60 ml/min) > 60 > 60 BUN/Creatinine Ratio (7 - 25 %) 6.0 L 6.0 L Magnesium (1.6 - 2.3 mg/dL) 1.2 L 1.3 L Total Bilirubin (0.2 - 1.3 mg/dL) Cancelled 1.0 Direct Bilirubin (< 0.4 mg/dL) Cancelled 0.7 H AST (14 - 36 U/L) Cancelled 292 H ALT (9 - 52 U/L) Cancelled 92 H Alkaline Phosphatase (<127 U/L) Cancelled 146 H Total Protein (6.3 - 8.2 g/dL) Cancelled 4.0 L Albumin (3.5 - 5.0 g/dL) Cancelled 1.7 L Recent Imaging Studies: CT abd/pelvis performed without contrast due to lack of adequate IV. findings of nonspecific bowel edema without obstruction. mild distension of stomach. no free air. Assessment/Plan Assessment/Plan Doubt bowel source of elevated lactate. Cannot exclude ischemia without IV contrast, but prior CT showed patent visceral vessels. Suspect liver failure as etiology, especially in light of elevated INR, AST/ALT and low glucose. supportive measures. serial abdominal exam. Consider doppler u/s liver to r/o thrombotic disease of liver.
[2016-10-09 16:00] VITALS: BP 84/48
--- NOTE | 2016-10-09 16:13 | ULTRASOUND REPORT ---
EXAMINATION: ABDOMINAL ULTRASOUND LIMITED CLINICAL INFORMATION: Elevated LFTs. COMPARISON: Same day abdominal and pelvic CT. TECHNIQUE: Real-time imaging of the right upper quadrant abdominal viscera. FINDINGS: PANCREAS: The visualized pancreatic head and body are normal in appearance. The remainder of the pancreas is obscured from visualization by the overlying bowel gas. LIVER: The liver is of normal size and echogenicity without focal lesions nor intrahepatic biliary ductal dilation. GALLBLADDER: There is echogenic bile within the gallbladder lumen without: 56, wall thickening nor pericholecystic fluid. COMMON BILE DUCT: Normal in caliber measuring 0.4 cm in diameter. RIGHT KIDNEY: Normal. No hydronephrosis. No renal calculi or focal parenchymal lesions. The kidney measures 9. cm in maximum dimension. FREE FLUID: None. IMPRESSION: Echogenic bile within the gallbladder lumen without cholelithiasis or cholecystitis.
[2016-10-09 17:17] LABS: ABSOLUTE BASOPHIL COUNT 0 /CUMM (0.0-0.2); ABSOLUTE EOSINOPHIL COUNT 0 /CUMM (0.0-0.7); ABSOLUTE LYMPH COUNT 0.6 /CUMM (1.2-3.4); ABSOLUTE MONOCYTE COUNT 0.4 /CUMM (0.10-0.60); BASOPHIL % 0 % (0.0-2.0); EOSINOPHIL % 0 % (0-5); HEMATOCRIT 26.5 % (37-47); MEAN CORPUSCULAR HGB 29.3 PG (27.0-31.0); MEAN CORPUSCULAR HGB CONC 32.5 G/DL (33.0-37.0); MEAN CORPUSCULAR VOLUME 90.2 FL (81.0-99.0); MEAN PLATELET VOLUME 9.8 FL (7.4-10.4); PLATELET COUNT 95 /CUMM (130-400); RBC DISTRIBUTION WIDTH 16.9 % (11.5-14.5); RED BLOOD CELL CT 2.93 /CUMM (4.20-5.40)
--- NOTE | 2016-10-09 17:35 | CT SCAN REPORT ---
EXAMINATION: CT CHEST, ABDOMEN AND PELVIS WITHOUT CONTRAST CLINICAL INFORMATION: Hypotension. Systemic inflammatory response syndrome (SIRS). Vomiting. Worsening small bowel obstruction versus perforation versus abscess. COMPARISON: Right upper quadrant ultrasound dated 10/09/2016. CT scan of the abdomen and pelvis dated 10/05/2016 and 09/29/2016. CTA of the chest dated 10/04/2016. TECHNIQUE: Multidetector CT helical images of the chest, abdomen and pelvis were performed noncontrast. Initial attempt at a contrast-enhanced exam was unsuccessful with infiltration of approximately 30 mL of contrast into the patient's left upper arm. Repeat injection could not be performed due to inability to establish IV access. The data set was reformatted in the coronal and sagittal planes and reviewed on an independent workstation. DLP: 487.96 mGy-cm. FINDINGS: CHEST: LUNGS: There is a moderate left-sided and small right-sided pleural effusion seen layering posteriorly, increased in size compared to the prior exams. Associated subjacent volume loss and consolidation in the lower lobes is seen with some air bronchograms noted, similar to the previous exam. Evaluation of the lungs is limited due to motion artifact. There is continued right apical more than left apical pleural-based reticular nodular opacity present, most consistent with scarring. No significant change in the patchy areas of peripheral and peribronchial vascular groundglass opacities is seen in the left upper lobe. There is increasing or new patchy parenchymal groundglass opacity and peribronchial vascular distribution in the right upper lobe. The central airways remain patent and diffusely thickened. LYMPHOVASCULAR STRUCTURES: Aortic and heart size are normal. Central pulmonary arteries are enlarged with the main pulmonary artery measuring 3.6 cm in diameter as compared to the ascending aorta, which measures 3.5 cm. Mild three-vessel coronary artery calcifications and moderate atherosclerotic calcifications of the aorta and great vessels are seen. Small pericardial effusion is seen, unchanged. No significant mediastinal, hilar or axillary adenopathy is present. THYROID GLAND: Unremarkable. ESOPHAGUS: There is fluid distention of the esophagus down to the GE junction, perhaps related to reflux or esophageal stasis. The GE junction is located below the level of the diaphragm and is grossly unremarkable on this non prepped exam. BONES: Old healed fracture deformities of posterior lateral right ninth rib is seen. No suspicious focal finding. ABDOMEN AND PELVIS: Evaluation is significantly limited by beam hardening artifact related to the patient's arms (patient was unable to raise arms over her head). LIVER, GALLBLADDER, BILIARY TREE: Liver normal size and attenuation. No focal cystic or solid mass or intra-or extrahepatic ductal dilatation. The gallbladder is well distended and within normal limits. PANCREAS: Diffusely atrophic and otherwise unremarkable. No ductal dilatation, mass, or surrounding stranding. SPLEEN: Normal size and appearance. ADRENAL GLANDS: Again seen is an approximately 1.6 x 1.5 cm right adrenal mass with mean attenuation values of 21 Hounsfield units. This has been slowly increasing in size compared to 1.2 x 0.8 cm on 10/25/2007. On prior imaging, the appearance was consistent with a benign lipid rich adenoma. The current study is limited in characterization given extensive beam hardening artifact. Left adrenal gland normal normal. KIDNEYS: Several small calcific densities are again seen in the kidneys bilaterally, most likely vascular calcifications. Kidneys are otherwise grossly unremarkable. No definite focal mass, hydronephrosis, or perinephric stranding. URETERS AND BLADDER: Ureters decompressed and within normal limits. Bladder completely decompressed by a Gaitan catheter and not adequately assessed. PELVIC VISCERA: Unremarkable. BOWEL LOOPS: The previously seen orally administered contrast is now present within the rectosigmoid colon and scattered throughout the remainder of the colon is well. There is mild residual fluid distention of several small bowel loops in the abdomen with scattered air-fluid levels. Compared to the prior exam, however, the degree of small bowel distention has significantly improved. No abnormal mesenteric stranding, free air, or focal fluid collection is seen. ABDOMINAL WALL: Small fat-containing umbilical hernia is noted. LYMPHOVASCULAR STRUCTURES: An abdominal aortic aneurysm is seen in the infrarenal area with aortobiiliac stent graft seen in place, unchanged. Maximal AP diameter of the [place] aorta is 3.4 cm, unchanged dating back to 10/25/2007. No periaortic collections. No abdominal or pelvic adenopathy or free fluid collection. BONES: Diffuse osteopenia with mild multilevel vertebral spondylosis in the spine. No suspicious bone findings. IMPRESSION: CT scan of the chest: 1. Increasing bilateral pleural effusions, small on the right side and moderate on the left side with no significant change in subjacent areas of volume loss and consolidation in both lower lobes, left greater than right. Findings are suspicious for bibasilar pneumonia and atelectasis. 2. No significant change in patchy areas of groundglass opacity in the left upper lobe. New or increasing groundglass opacities in the right upper lobe are seen. Findings are consistent with multifocal pneumonia. 3. Enlarged central pulmonary arteries, suspicious for pulmonary arterial hypertension. 4. Small pericardial effusion, unchanged. 5. Atherosclerotic vascular calcifications, including three-vessel mild coronary artery calcifications. 6. Dilated fluid-filled esophagus. This may be related to reflux, dysmotility, or subtle stricture at the GE junction. Consider further assessment with barium swallow. CT scan of the abdomen and pelvis: 1. Significant improvement in the degree of small bowel distention is seen. Mildly distended and fluid-filled small bowel loops remain without definite transition point noted. There is passage of the previously administered contrast into the colon and rectosigmoid region and findings are consistent with resolving partial small bowel obstruction. Continued close monitoring is requested. 2. Other incidental findings including stable right adrenal mass, abdominal aortic aneurysm, atrophic pancreas, and bilateral probable vascular calcifications in the kidneys again noted, unchanged.
[2016-10-09 17:39] LABS: GRANULOCYTE % 94.6 % (42.2-75.2)
--- NOTE | 2016-10-09 17:49 | NUR ---
PT WENT FOR A CT SCAN AT 1445, UNABLE TO RECEIVE IV CONTRAST BOTH PERIPHERAL IV'S WERE NOTED TO BE LEAKING. RETURNED TO THE ICU AT 1505 AND TRANSFERRED TO THE BED WITHOUT INCIDENT. PT HAD A BEDSIDE ECHO PERFORMED AT 1700. AT 1630 BOTH THE PT'S PERIPHERAL IV'S WERE REMOVED. NS AT 100ML/HR WAS INITITATED VIA THE WHITE PORT OF THE TLC. THE D10 WAS CHANGED TO THE BLUE PORT OF THE TLC. PT CONTINUES ON THE D10 WITH THE INITIAL FSG AT 1200 BEING 178, CHECKED EACH HOUR(SEE CRCU FLOW SHEET). AT 1700 IT WAS 123. ALLEN PLACED AT 1350 AND A URINE CULTURE WELL UA WERE OBTAINED. AT THIS TIME A CBC AND REPEAT LACTIC ACID ARE PENDING.
--- NOTE | 2016-10-09 20:30 | NUR ---
PT DROWSY, AROUSABLE, CONFUSED (TALK TO THE AIR.) PT SPEECH IS HARD TO HEAR/GARBLED. SHE IS MOVING ALL EXTREMETIES BUT FOLLOWING NO COMMANDS. LABS DRAWN, BP 96/48. LABS DRAWN. BLOOD SUGAR 112. MDS AT BEDSIDE. WILL ATTEMPT TO GET IV ACCESS FOR CT SCAN.
--- NOTE | 2016-10-09 20:35 | Event Note ---
Event Note Event Note: Brief : Deteriorating clinical status, worsening labwork,worsening metabolic acidosis with anion gap with respitory alkalosis,altered mental status. Situation -Patient was transferred earlier in the day from [facility] due to hypotension, hypothermia, hypoglycemia -She looked working for breathing and altered, RR was increased, therefore an ABG was checked. -ABG : ph : 7.22. hco33 :9, pco2 :23, po2 :79 -Stat icu bundle, lactic acid, INR was checked -Touch based with Dr pickard and Dr Reed -Various possibilities of elevated lactic acid, worsening anion gap metabolic acidoses were considered. -Most likely differentials were 1. Fulminant liver failure , 2.bowel ischemia 3. sepsis -She was earlier started in ceftaz and vanco, we will also dose flagyl -We will start bicarbonate drip 150meq to run over 8 hours. -We will check stat INR, to see if it's actually liver failure -If liver failure is less likely, we will obtain Ct angiogram to r/o bowel ischemia -Meanwhile she received 2 liters of normal saline bolus -Bp - low 80/doppler, therefor pressor support with levophed at 4 mics/hour was started -Plan was discussed with constant communication with Dr Pickard, Dr Reed, Dr. Lozada. -she is low threshold of intubation. -Both grandsons ( one physically here, other over the phone), Mr. Houston Guillory - who are also the immediate next of kin and decision maker, were constantly updated, and discussion about her current status, possible differentials, clincal status, anticipated plan of care, living wishes, poor prognosis, was updated and discussed, they were constant part of decision make at every step above. Addendum :22:20 Call back from [facility] with Critical Results on CTA IMPRESSION: 1. Evidence of bowel ischemia with portal venous gas in the left lobe of liver. This gas is new since the CAT scan performed earlier today. The enhancement of the celiac axis and SMA is thready with the vessel size being small. The superior mesenteric vein and portal vein caliber is also diminished compared with CAT scan of 10/05/2016. The bowel loops however do not show abnormal dilatation and there is no air in the bowel wall. No free air or free fluid in the mesentery. 2. Bilateral pleural effusions with bibasilar atelectasis. Addendum [address] reed Suggested ot otuch base with vascualr surgery Call back recieved from Dr Klein - Will be mainly surgical Mx per Dr. Reed Patient very poor surgical candidate Dr reed to discuss pros and cons of surgery with Estella aponte and get back to us. ADDENDUM BY ARABELLA The decision was made by the family to change the status to comfort measures only. Attending physician was present at the time. Informed Arnulfo Pickard MD. Explained the family about the management plan. Ms Dillard at 5:08 am. Confirmed by checking the absent pupilary reflexes, and absent heart sounds. Informed the family, and consoled them. Also informed the attending physician.
[2016-10-09 20:46] LABS: PT 30.4 SEC (9.4-12.5)
--- NOTE | 2016-10-09 20:53 | ULTRASOUND REPORT ---
EXAMINATION: Ultrasound liver with Doppler. CLINICAL INFORMATION: Elevated LFTs. Hypertension. Elevated INR. Concern for liver thrombosis. COMPARISON: None TECHNIQUE: Grayscale ultrasound of liver. Color Doppler and spectral Doppler exam of liver. FINDINGS: No focal liver lesion. No hepatic bile duct dilatation. Vascularity: 1. Hepatic veins: No thrombus. Left hepatic vein: 47.6 cm/s Right hepatic vein: 42.7 cm/s. Middle hepatic vein: 37.8 cm/s. 2. Portal vein. No thrombus. Left portal vein: 13.1 cm/s Middle portal vein: 17.6 cm/s IVC: The proximal IVC is patent. IMPRESSION: Patent IVC, portal vein and hepatic veins. No thrombus.
--- NOTE | 2016-10-09 21:15 | NUR ---
UNABLE TO OBTAIN IV ACCESS FOR CT SACN. FORENSIC ECONOMIST AND MED AWARE. WILL ATTEMPT CT WITH CONTRAST USING RIGHT FEMORAL TLC. DISTRUBUTION CALLED. BLOOD SUGAR 90 D10 @ 20 MLS/HR RESTARTED.
--- NOTE | 2016-10-09 21:30 | NUR ---
PT BP 80/40 MANUALLY. NS BOLUS INITIATED. NOTIFIED. UNSAFE FOR TRANSPORT TO CT SCAN. LEVOPHED TO BE STARTED AT 5 MCG/MIN. PT REMAINS ON 4 L NC, LUNGS WITH SCATTERED WHEEZE. PT ABD FIRM AND NON TENDER. PT EDEMADOUS AND WEEPING. LEFT ARM 4+ EDEMA, SCARAL EDEMA 4+, BILATERAL LE 2+. SMALL SKIN TEAR TO LEFT FOREARM WEEPING. SKIN OTHERWISE INTACT.
--- NOTE | 2016-10-09 22:00 | NUR ---
PER MD MAX OUT LEVOPHED AT 20 MCG/MIN. GOAL SYSTOLIC BP 90S. CT SCAN DOWN BP UP TO 90-100S SYSTOLICALLY. TRANSFERED BACK TO ROOM AND PLACED ON SPECIALITY MATRESS. PT REMAINS DROWSY, PICKING AT AIR AND IS RESTLESS. PT O2 INCREASED TO 5L NC. WILL CONINTUE TO MONITOR.
--- NOTE | 2016-10-09 22:52 | CT SCAN REPORT ---
EXAMINATION: CT abdomen and pelvis angiogram. CLINICAL INFORMATION: Lactic acidosis. Hypertension. Concern for bowel ischemia. COMPARISON: CT scan abdomen pelvis 10/05/2016. Noncontrast CT abdomen pelvis performed earlier today at 2:41 PM TECHNIQUE: Helical CT scan of abdomen and pelvis. IV contrast: 95 mL Optiray 350. Injection was made through the right femoral vein catheter. Oral contrast: None Reconstruction: Coronal and sagittal reformatted images performed at CT scanner by the technologist. FINDINGS: VASCULAR: Contrast was injected through a right femoral catheter. The IVC is densely enhanced therefore with retrograde contrast enhancing the hepatic veins. There is enhancement of the right and left side of the heart as well as the abdominal aorta. There is a aortic bifemoral stent present in the aorta. The lumen of the aorta and the iliac arteries is unenhanced, remain patent. There is only thready enhancement of the SMA and celiac axis. These vessels are very small. The enhancement of the superior mesenteric vein and portal vein is limited. The size of these vessels is smaller than was present on the exam of 10/05/2016. The size of these vessels was also small on the noncontrast CT of the abdomen and pelvis performed today at 2:41 PM. LUNG BASES: Small to moderate volume left pleural effusion and small right pleural effusion layering dependently. Atelectasis at both lung bases. There is a pericardial effusion measuring about 1.5 cm in thickness. LIVER, GALLBLADDER, AND BILIARY TREE: There is air in the peripheral left lobe of liver consistent with portal venous gas. This is new since the CAT scan performed earlier today and the CAT scan of 10/05/2016. The gallbladder is unremarkable with no evidence of radiopaque gallstones, gallbladder wall thickening, or obvious pericholecystic inflammatory changes. PANCREAS: Pancreas is atrophic. SPLEEN: Spleen normal in size and contour. No focal lesion. ADRENAL GLANDS: Adrenal glands are normal in size. No focal mass. KIDNEYS AND URETERS: The kidneys are normal in size, shape, and attenuation. No hydronephrosis, hydroureter, or calculi seen. No perinephric stranding. BLADDER: Gaitan catheter within the bladder. GASTROINTESTINAL TRACT: Dense contrast in the distal rectum sigmoid. There is gas and fluid in large and small bowel loops but the bowel loops are not abnormally dilated. No air in the bowel wall. No significant edema of the mesentery. MESENTERY: No free air or free fluid. ABDOMINAL WALL: Fat-containing umbilical hernia. Intact midline surgical subcutaneous incision at the pelvis intact. Mild anasarca seen in the subcutaneous tissues along the flank bilaterally. LYMPH NODES: Normal. PELVIC VISCERA: Uterus is anteverted. No adnexal abnormality. OSSEOUS STRUCTURES: Degenerative disc narrowing with endplate spurring of the vertebrae. IMPRESSION: 1. Evidence of bowel ischemia with portal venous gas in the left lobe of liver. This gas is new since the CAT scan performed earlier today. The enhancement of the celiac axis and SMA is thready with the vessel size being small. The superior mesenteric vein and portal vein caliber is also diminished compared with CAT scan of 10/05/2016. The bowel loops however do not show abnormal dilatation and there is no air in the bowel wall. No free air or free fluid in the mesentery. 2. Bilateral pleural effusions with bibasilar atelectasis. This critical result was discussed with on 10/09/2016, 10:40 PM and it was ascertained that the content and urgency of the report was understood at the time of direct communication.
--- NOTE | 2016-10-09 23:00 | NUR ---
PT BLOOD SUGAR 93, D10 INCREASED TO 30 MLS/HR. LEVOPHED TITRATED PER MD FOR SYSTOLIC 90S. ALL TEST RESULTED AND MD AWARE. FAMILY CALLED AND ON THEIR WAY BACK TO BEDSIDE TO DISCUSS PLAN OF CARE.
--- NOTE | 2016-10-09 23:33 | PN- Att Addend ---
Attending Addendum Attending Brief Note CT reveiwed Evidence of sig pvd with bowel ischemia with poor flow into most of the upper abd vessels Surg aware Will call vascular INr is already high Will decide on further course of action per surg and vascular Heparin? surg and vascular to comment Prog poor due to multiple comorbid illness and worsening overall status Pts family has been updated multiple times by the house officers will follow
--- NOTE | 2016-10-09 23:36 | PN- General Surgery ---
Surgical Brief Attending Note Brief Attending Note: d/w housestaff thoughout the evening. I recommended that CT angio of the abdomen be performed due to rising lactate. Images viewed on PACS. Visceral vasculature is patent but evidence of new portal venous gas in left lobe of liver that was not present on CT without contrast performed earlier in the afternoon. 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 Usually this type of ischemia is managed with fluid rescucitation and medical hemodynamic support. Unfortunately, she is hemodynamically becoming more and more unstable with hypotension despite the institution of pressors. Her respiratory status is worsening due to her mental status and underlying chronic respiratory disease. At this point abdominal examination is unreliable. She may have bowel ischemia requiring surgery but currently she is not medically suitable for anesthesia. My overall impression is that she would not survive another major operation. I feel that she will succumb to her disease with or without an operation and I recommend placing her on comfort measures. Medical hospitalist has the same impression per our discussion over the phone. I discussed the matter with her conservator, grandson. He will discuss further his /patient wishes with the medical team.
[2016-10-10] VITALS: BP 110/60
--- NOTE | 2016-10-10 | NUR ---
PT NONVERBAL, UNRESPONSIVE. MANUAL BP 110/60 NSR 90'S. LEVOPHED GTT AT 10 MCG, D10 AT 30, BICRB GTT AT 125ML/H. FLAGYL AND CEFTAZIDIME GIVEN ORDERED. ABDOMEN SOFT, ABSENT BS. ALLEN IN PLACE,ADEQUATE UO NOTED.
--- NOTE | 2016-10-10 00:45 | NUR ---
PT MADE COMFORT MEASURES. [facility] CALLED FOR FAMILY REQUEST OF PT TO RECIEVE LAST RITES.
--- NOTE | 2016-10-10 01:45 | NUR ---
CODE STATUS CHANGED TO COMFORT MEASURES. LEVOPHED BEING TITRATED DOWN, SEE FREQUENT VITAL SIGN SHIFT. MORPHINE 2MG IV GIVEN. REMAINS ON 50% VM. NS AT 75ML/H GIVEN. REMAINS UNRESPONSIVE. FAMILY AT BEDSIDE.
--- NOTE | 2016-10-10 06:26 | NUR ---
AT 0200, TAKE OVER THE CASE TO GINO RIVERA, PATIENT IS FOR COMFORT MEASURE, PRIENT ARRIVED AT THE [facility] AND PRAY OVER TOGETHER WITH THE FAMILY MEMBERS, VENTI MASK WAS CHANGED TO NC AT 2 LITER, PRN ATIVAN AND PRN MORPHINE GIVEN, BECAME ASYSTOLI AT 0507, DOCTOR CAME IN TO THE [place], CHECKED MUNIRA PATIENT, PRONOUNCED AT 0508, BELONGING BROUGHT HOME BY THE FAMILY INCLUDING [place] RING, UPPER DENTURE TAPE AT THE BODY BAG WITH THE PATIENT.
--- NOTE | 2016-10-10 09:21 | ECHOCARDIOGRAM REPORT ---
YONY SHETTY Age: 76 : 1940 Gender: F Exam Date: 10/09/2016 17:03 Exam Location: [facility] Ht (in): 60 Wt (lb): 147 BSA: 1.70 BP: 110 / 68 Ordering Physician: YUMI CACERES MD Referring Physician: YUMI CACERES MD Technologist: Britta Dickson YEYO Room Number: 106 Indications: HYPOTENSION Rhythm: Sinus Technical Quality: Fair there is a left pleural effusion. There is a small mostly posterior FINDINGS Left Ventricle Normal size left ventricle. Left ventricular wall thickness at upper limits of normal. Normal left ventricular ejection fraction visually estimated at >65 %. Abnormal relaxation filling pattern of the left ventricle for age (stage 1 diastolic dysfunction). Right Ventricle Right ventricle not well visualized, grossly normal. Right Atrium Right atrium not well visualized, grossly normal. Left Atrium Left atrial size at the upper limits of normal. Mitral Valve Moderate thickening/calcification of the mitral valve leaflets. Mild mitral annular calcification. Trace mitral regurgitation. Aortic Valve Focal thickening of the aortic valve cusps. No aortic stenosis. Trace aortic regurgitation. Tricuspid Valve Structurally normal tricuspid valve. Trace tricuspid regurgitation. Unable to estimate the right ventricular systolic pressure. Pulmonic Valve Pulmonic valve not well visualized, grossly normal. No pulmonic regurgitation. Pericardium There is a left pleural effusion. There is a small mostly posterior pericardial effusion without hemodynamic compromise. Great Vessels Normal size aortic root. CONCLUSIONS Left ventricular wall thickness at upper limits of normal. Normal left ventricular ejection fraction visually estimated at >65 Abnormal relaxation filling pattern of the left ventricle for age (stage 1 diastolic dysfunction). Left atrial size at the upper limits of normal. Moderate thickening/calcification of the mitral valve leaflets. Mild mitral annular calcification. Trace mitral regurgitation. Focal thickening of the aortic valve cusps. No aortic stenosis. Trace aortic regurgitation. Unable to estimate the right ventricular systolic pressure. There is a left pleural effusion. There is a small mostly posterior pericardial effusion without hemodynamic compromise. Jer Montano M.D. (Electronically Signed) Final Date: 10 October 2016 09:21 MEASUREMENTS (Male / Female) Normal Values 2D ECHO LV Diastolic Diameter PLAX 2.9 cm 4.2 - 5.9 / 3.9 - 5.3 cm LV Systolic Diameter PLAX 2.0 cm 2.1 - 4.0 cm LV Fractional Shortening PLAX 31.0 % 25 - 46 % LV Ejection Fraction 2D Teich 60.5 % IVS Diastolic Thickness 1.0 cm LVPW Diastolic Thickness 1.2 cm LV Relative Wall Thickness 0.8 RV Internal Dim ED PLAX 2.1 cm 1.9 - 3.8 cm LVOT Diameter 1.9 cm Aortic Root Diameter 3.0 cm LA Systolic Diameter LX 3.3 cm 3.0 - 4.0 / 2.7 - 3.8 cm LA Volume 38.0 cm 18 - 58 / 22 - 52 cm Ascending Aorta Diameter 3.2 cm DOPPLER AV Peak Velocity 136.0 cm/s AV Peak Gradient 7.4 mmHg AV Mean Velocity 89.1 cm/s AV Mean Gradient 4.0 mmHg AV Velocity Time Integral 31.0 cm LVOT Peak Velocity 109.0 cm/s LVOT Peak Gradient 4.8 mmHg LVOT Mean Velocity 69.7 cm/s LVOT Mean Gradient 2.0 mmHg LVOT Velocity Time Integral 25.9 cm LVOT Stroke Volume 73.4 cm AV Area Cont Eq vti 2.4 cm AV Area Cont Eq pk 2.3 cm MV Peak Velocity 113.0 cm/s MV Peak Gradient 5.1 mmHg MV Mean Velocity 67.9 cm/s MV Mean Gradient 2.0 mmHg Mitral E Point Velocity 81.9 cm/s Mitral A Point Velocity 103.0 cm/s Mitral E to A Ratio 0.8 MV PHT Velocity 98.8 cm/s MV Deceleration [place] 521.0 cm/s MV Pressure Half Time 56.9 ms MV Area PHT 3.9 cm MV Deceleration Time 259.0 ms PV Peak Velocity 83.5 cm/s PV Peak Gradient 2.8 mmHg PV Mean Velocity 63.6 cm/s PV Mean Gradient 2.0 mmHg PV Velocity Time Integral 19.7 cm LV E' Lateral Velocity 5.2 cm/s Mitral E to LV E' Lateral Ratio 15.8 LV E' Septal Velocity 5.0 cm/s Mitral E to LV E' Septal Ratio 16.5
== END 2016-10-10 05:30 | disposition expired | DRG 377 ==
LOC: ERH 03:01 → 2NB 04:07 → CRI 04:07 → ERHI 04:07 → ENRESERV 05:05 → CRI 06:30 → 2NB 10-01 22:28 → CRI 10-09 10:52
PROVIDERS: Emergency Medicine; Hospitalist; Internal Medicine; Internal Medicine Hematology & Oncology; Student in an Organized Health Care Education/Training Program; ADMIT Student in an Organized Health Care Education/Training Program
PROC: 30233N1 Transfusion of Nonautologous Red Blood Cells into Peripheral Vein, Percutaneous Approach (ICD-10-PCS; 2016-09-29)
PROC: 30233K1 Transfusion of Nonautologous Frozen Plasma into Peripheral Vein, Percutaneous Approach (ICD-10-PCS; 2016-09-29)
PROC: 0DJ08ZZ Inspection of Upper Intestinal Tract, Via Natural or Artificial Opening Endoscopic (ICD-10-PCS; principal; 2016-10-01)
DX: K92.2 Gastrointestinal hemorrhage, unspecified (principal); J96.01 Acute respiratory failure with hypoxia; G92 Toxic encephalopathy; Z51.5 Encounter for palliative care; K55.9 Vascular disorder of intestine, unspecified; E87.3 Alkalosis; I95.9 Hypotension, unspecified; E87.2 Acidosis; K56.60 Unspecified intestinal obstruction; D68.9 Coagulation defect, unspecified; D62 Acute posthemorrhagic anemia; E87.1 Hypo-osmolality and hyponatremia; J44.9 Chronic obstructive pulmonary disease, unspecified; D69.6 Thrombocytopenia, unspecified; R50.9 Fever, unspecified; I25.10 Atherosclerotic heart disease of native coronary artery without angina pectoris; I73.9 Peripheral vascular disease, unspecified; I25.2 Old myocardial infarction; K21.9 Gastro-esophageal reflux disease without esophagitis; Z68.26 Body mass index [BMI] 26.0-26.9, adult; K25.9 Gastric ulcer, unspecified as acute or chronic, without hemorrhage or perforation; E87.6 Hypokalemia; R68.0 Hypothermia, not associated with low environmental temperature; E16.2 Hypoglycemia, unspecified; E78.5 Hyperlipidemia, unspecified; R91.1 Solitary pulmonary nodule; K44.9 Diaphragmatic hernia without obstruction or gangrene; I10 Essential (primary) hypertension; Z86.73 Personal history of transient ischemic attack (TIA), and cerebral infarction without residual deficits; F17.200 Nicotine dependence, unspecified, uncomplicated
CPT/HCPCS: 2NBP; 2NSBP; 83520; 87338; 87493; CCU; 36415; 74000; 74020; 74174; 74177; 81001; 82436; 86920; 87040; 87086; 87088; 87147; 93005; 93010; 93306; 93970; 94799; 96374; 96375; 97110-GO; 97112-GO; 97116-GO; 97161-GP; 97530-GO; G0480; J0131; J0696; J0713; J1940; J2405; J3370; J7040; J7042; J7060; P9016; P9047